=== PATIENT | male | born 1945 | race Caucasian/White ===

== ENCOUNTER → 2017-10-25 17:49 | Outpatient (REF) | payer BC, SELFPAY ==
[2017-10-25 21:16] LABS: Abs Immature Grans 0.04 k/cumm (0.0-0.09); Absolute Basophil Count 0.05 k/cumm (0.0-0.2); Absolute Eosinophil Count 0.33 k/cumm (0.0-0.7); Absolute Lymphocyte Count 1.41 k/cumm (1.2-3.4); Basophils % 0.5; Eosinophils % 3.2; HGB 11.2 g/dL (13.5-17.5); Immature Grans % 0.4; Lymphocytes % 13.6; Mean Corp. HGB Concentration 31.1 g/dL (32.0-36.0); Mean Corpuscular Hemoglobin 30.4 pg (27.0-33.0); Mean Corpuscular Volume 97.6 fL (80-95); Mean Platelet Volume 9.8 fL (8.0-11.0); Monocytes % 5.8; Neutrophils % 76.5; Platelet Count 294 x1000/uL (130-400); RBC 3.69 m/cumm (4.50-6.00); RBC Distribution Width 15.5 % (11.8-14.1); White Blood Cell Count 10.33 k/cumm (4.4-10.8)
[2017-10-25 21:44] LABS: Anion Gap 10.3 mmol/L (3-11); BUN 30 mg/dL (7-18); C-Reactive Protein 7.32 mg/dL (0.0-0.3); CO2 28.7 mmol/L (21.0-32.0); CREATININE 1.63 mg/dL (0.70-1.30); Calcium 8.7 mg/dL (8.5-10.1); Chloride 103 mmol/L (98-107); Estimated GFR 41.56 (mL/min/1.73m2); FREE T4 1.13 ng/dL (0.76-1.46); Glucose 146 mg/dL (70-100); Potassium 4.1 mmol/L (3.5-5.1); Sodium 142 mmol/L (136-145); TSH 5.63 uIU/mL (0.358-3.74)
[2017-10-25 21:56] LABS: ESR 109 MM/HR (1-20)
[2017-10-25 22:01] LABS: Cholesterol 152 mg/dL (50-200); HDL Cholesterol 33 mg/dL (40-60); LDL CHOLESTEROL 104 mg/dL (<100); Triglyceride 120 mg/dL (30-150)
== END ==
LOC: NCHCN 17:49
PROVIDERS: PCP Internal Medicine; Visit Provider Internal Medicine
DX: I87.2 Venous insufficiency (chronic) (peripheral) (principal); E78.5 Hyperlipidemia, unspecified; E03.9 Hypothyroidism, unspecified; I10 Essential (primary) hypertension
CPT/HCPCS: 80048; 80061; 83721; 85652; 84439; 84443; 85025; 86140

== ENCOUNTER 2017-11-11 16:00 | Outpatient (RCR) | payer BC, SELFPAY ==
--- NOTE | 2017-11-03 15:30 | IE_ITS ---
Date: November 03, 2017 Referring: Zac Tinoco MD M.D. Diagnosis: Bilateral knee OA P.T. Diagnosis: Same SUBJECTIVE: History of Present Illness: Vasu states that his knees began bothering him over the summer. He states he has had some health issues which has left him weak and has significantly reduced his mobility. He states he and his take a road trip to [place] each summer, this year about a week into their trip he began feeling shaky, which he states typically indicates to him that he is getting an infection. His symptoms seem to come and go and he did not seek out care. By the time he reached [place], he presented to an Urgent Care clinic there where he was hospitalized for sepsis. At that point, he began experiencing pain in the L hip, which he had replaced 16 years prior. He was found to have a strep infection affecting his prosthesis and he underwent a TK revision on 09/11/17. He spent 6 weeks in the hospital and rehab facility. He was eventually able to return home to [place] and since being home he has noticed increasing knee pain and feeling of instability. States he relies on a walker due to his knees buckling on the R moreso than the L. He states he gets a great deal of crepitus which is painful for him and also precedes the buckling. Denies any falls, although states he has had several near falls and feels as though his stamina is generally reduced. Pain Ratin/10 R knee, 6/10 L knee. Pain Location: Circumferentially about the knees bilaterally. 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 Patient has 3 horses at home who he typically cares for. He is normally able to do so without an assistive device. He does admit to difficulty standing for long periods due to ongoing back pain. Estimates that he can stand for about 5-10 mins prior to needing to sit. States that he can walk without difficulty at baseline. Current Level of Function: Heavy reliance on assistive device. He struggles significantly with stairs. He requires assistance donning and doffing his shoes. States he is unable to walk community distances, struggling even from the car to his home. He is unable to stand long periods and is unable to independently manage stairs. Previous Treatment: Acute care stay related to sepsis and L total hip revision. Several week rehab stay out in [place] after acute care. No intervention in the meantime. Comorbidities: Hypertension, PVD, with history of poorly healing wounds, osteoporosis, kidney disease with patients relating that he has recently been taken off Celebrex after many years due to his diminished kidney function. A-fib Falls in the last year: __X__ No ____Yes - How many? ____ - (if over 2, balance SM needs to be completed) Reported hospitalizations in the last year - ____ No __X__ Yes - Dates of admission/reason: as above. Medications: List provided from Dr. Tinoco's office (Furosemide, Vitamin D3, Probiotic, Xarelto, [place] 3, Glucosamine, Vitamin C, B12, multi vitamin, Levothyroxine, Allopurinol, Toprol and Spironolactone) Quality of Life: ____ Excellent __X__ Good ____ Fair ____ Poor Standardized Measures: LEFS score: 80% OBJECTIVE: Posture: Static standing the patient has heavy reliance on UE support to wheeled walker. He lacks terminal knee extension bilaterally. Gait: (+) antalgia with heavy reliance on the walker. Patient has a slow, shuffling gait pattern with poor foot clearance bilaterally. He maintains full elbow extension and anteroflexed trunk position with ambulation. Palpation: Edema: (+) pitting edema noted through bilateral LE's with significant trophic changes throughout the feet extending to level of the knees with a dusky appearance. He also has a healing wound noted on the R baxter. (+) joint effusion in L knee. ROM: Hip flexion allows 90 degrees on the L, 90 R, limited by anterior knee pain. Knee motion allows R knee -5 degrees of extension to 90 degrees flexion. L knee -25 extension, 110 flexion. Joint Accessory Motion: Marked crepitus noted with patella mobilizations which is hypomobile through all planes of motion bilaterally. Tibiofemoral joint mobility is markedly restricted. The patient also has crepitus noted with all active movements of bilateral knees. Strength: Hip flexion is 4/5 bilaterally, quads 3+/5 R, 4/5 L both limited by anterior knee pain. Hamstrings are 4-/5 bilaterally, again limited by significant knee pain. Ankle dorsiflexion is at least 3/5 bilaterally. Treatment: Today's session consisted of an evaluation followed by instruction in an early home program. The patient was able to perform 2 reps of static standing x30 seconds although with obvious discomfort and difficulty. He requires a 2 minute rest period after his first repetition. Progress him to standing marching where he requires significant cueing to complete 10 reps, again with heavy reliance on wheeled walker. IE: [id number] Direct treatment time: 50 mins Total treatment time: 50 mins ASSESSMENT: Patient is a 72-year-old male, referred for PT services with the diagnosis of bilateral knee OA. Patient presents with clinical signs and symptoms consistent with diagnosis, with multiple comorbidities including recent hospitalization for sepsis and L total hip revision. Patient is demonstrating significant functional mobility and requires skilled PT intervention to address pain due to knee osteoarthritis as well as his generalized deconditioning. He presents with the following impairment level findings: 1: Decreased LE strength. 2: Osteoarthritic changes at the knees with instability and marked crepitus. 3: Joint hypomobility bilateral knees. 4: Trophic changes related to PVD. 5: Gait impairments. This is demonstrating the following functional impairments: 1: Decreased tolerance to household distance ambulation. 2: Unable to independent don/doff shoes. 3: Unable to manage stairs. 4: Unable to drive. 5: Unable to perform normal household duties, particularly caring for his hordes. Patient is assessed as: ____ Low 87749 ____ Moderate 40563 __X__ High 22866 complexity, based on the following: History: (list): Increased knee pain in patient with chronic bilateral knee osteoarthritis with symptom exacerbated by significant deconditioning related to recent hospitalization and sepsis and subsequent L hip revision. Patient also has multiple comorbidities including chronic back pain, which limits his baseline mobility, bilateral TKAs in what appears to be severe PVD with hx of poorly healing wounds. See comorbidities and social history. Examination: (list): X See above for functional limitations and impairments. Presentation: Stable . Evolving X Unstable Decision-Making: Low complexity Moderate complexity X High complexity % Disability based on __X__ Patient requires skilled PT intervention to remediate the above functional limitations to return to: __X__ Premorbid level of function __X__ Return to full functional mobility __X__ Return to work demands __X__ Improve QOL Prognosis: ____ Excellent ____ Good __X__ Fair ____ Poor STG: __6__ weeks. 1: Patient able to tolerate static standing without UE support for greater than 5 mins allowing him to do dishes, perform self care activities., 2: Patient able to independently don/doff socks and shoes. 3: Improve confidence with household ambulation by self report with use of wheeled walker. LTG: __12__ weeks. 1: Patient able to resume driving. 2: Patient able to perform short distance ambulation without assistive device. 3: Patient able to independently manage a flight of stairs with UE support to rails. PLAN: Patient to be seen 2 x per week for PT intervention, primarily therapeutic exercise based with both open/close chain strengthening activities. Will work on improving patients tolerance to weight bearing activities and incorporate cardiovascular conditioning activities to improve his overall activity tolerance. Although patient would like benefit from an aquatic therapy setting , will defer on this due to his decreased skin integrity and recent hx of sepsis. Thank you for this referral. Please do not hesitate to contact me with any questions or concerns regarding this patient's plan of care.
--- NOTE | 2017-11-09 15:50 | PTTR_ITS ---
DATE: 11/09/17 Pt cancelled their PT appointment today.
--- NOTE | 2017-11-11 16:16 | PTTR_ITS ---
DATE: 11/11/17 SUBJECTIVE: Pt reports that on Wednesday he went to turn and his leg gave out and he fell to the floor in the kitchen. He states that the next day he went to the hospital and they informed him that his R hip was dislocated and they also gave him a cortisone shot in the R knee. OBJECTIVE: Therapeutic procedures ([id number]). * X Other: I was informed by PT Rhona Sanchez to have pt complete bridging as per дмитрий which was 10 reps, glute setsx15, and pt ambulation in the clinic with FWW with CGA for approx 3 min. Since pt is so acute and also just had a cortisone shot that is all that we completed today. I reviewed ENMANUEL precautions with pt as well. Direct treatment time: 15 Total treatment time: 20
== END 2017-11-12 23:59 | disposition home or self-care (01) ==
LOC: PT 16:00
PROVIDERS: PCP Internal Medicine; Referring Provider Internal Medicine; Visit Provider Internal Medicine
DX: M17.0 Bilateral primary osteoarthritis of knee (principal)
CPT/HCPCS: 97110; 97163

== ENCOUNTER 2018-02-14 09:59 | Outpatient (CLI) | payer BC, SELFPAY ==
--- NOTE | 2018-02-14 09:53 | DI.RAD_ITS ---
SYMPTOM/DIAGNOSIS: OA RT KNEE, OA LT KNEE LEFT KNEE AND LEG LENGTH EXAMINATION: The patient has bilateral total hip replacements which appear in good position on the limited images provided. In the right knee, there is moderate medial and lateral femoral tibial joint space narrowing and periarticular spurring present. In the left knee, there is mild medial compartment joint space narrowing and moderately severe joint space narrowing in the lateral femoral tibial joint of the patellofemoral joint. Periarticular spurring is seen in both the lateral femoral tibial joint and the patellofemoral joint. There are prominent degenerative changes seen in the left ankle with joint space narrowing and flattening of the articular surfaces. Vascular calcifications are seen in the soft tissues. The left lower extremity measures 107 cm. The right lower extremity measures 103.4 cm. IMPRESSION: Osteoarthritis of the knees, left greater than right.
== END 2018-02-14 10:19 ==
PROVIDERS: PCP Internal Medicine; Visit Provider Physician Assistant
DX: M17.0 Bilateral primary osteoarthritis of knee (principal); Z96.643 Presence of artificial hip joint, bilateral
CPT/HCPCS: 77073

== ENCOUNTER 2018-02-14 14:00 | Outpatient (CLI) | payer BC, MEDICARE, SELFPAY ==
--- NOTE | 2018-02-14 10:22 | DI.RAD_ITS ---
See dictation of right knee of same date of service. Read as one exam.
== END 2018-02-14 14:20 ==
PROVIDERS: PCP Internal Medicine; Visit Provider Physician Assistant
DX: M17.0 Bilateral primary osteoarthritis of knee (principal); Z96.643 Presence of artificial hip joint, bilateral
CPT/HCPCS: 73560

== ENCOUNTER 2018-03-02 00:36 | Outpatient (CLI) | payer BC, SELFPAY ==
--- NOTE | 2018-03-02 07:28 | MERGE_ITS ---
*[facility]* *[facility]* [address] [place] [address] Date of study: 03/02/2018 Transthoracic Echocardiography M-mode, complete 2D, complete spectral Doppler, and color Doppler *STUDY CONCLUSIONS* Summary: 1. Left ventricle: The cavity size was normal. Wall thickness was increased in a pattern of moderate LVH. Systolic function was moderately reduced. The estimated ejection fraction was 35-40%. Diffuse hypokinesis. 2. Ascending aorta: The ascending aorta was mildly dilated. 3. Mitral valve: There was mild regurgitation. 4. Left atrium: The atrium was severely dilated. 5. Right ventricle: The cavity size was normal. Wall thickness was normal. Systolic function was normal. 6. Right atrium: The atrium was dilated. 7. Tricuspid valve: There was mild-moderate regurgitation. 8. Pulmonary arteries: Pulmonary systolic pressure was increased, in the range of 35mm Hg to 40mm Hg. *PATIENT PRESENTATION* Height: 188cm ((74in) ) S/D Pressure: 123 / 72 Weight: 124.7kg ((274.4lb) ) BSA: 2.59m^2 Test start time: 07:40 AM. Test stop time: 08:50 AM. CONSULTING Moiz Tinoco MD PERFORMING [facility] PROFESSOR OF BIOLOGY RT Laureen Thorpe)(CT), [facility] ORDERING Luca Samano REFERRING Luca Samano *PROCEDURE DATA* Procedure information: The patient was identified by two identifiers. This study was interpreted by [facility]. Pertinent images and digital data are archived for permanent storage and are available for subsequent review. Comparison was made to the study of 05/25/2013. Study status: Routine. Transthoracic echocardiography. M-mode, complete 2D, complete spectral Doppler, and color Doppler. A Transthoracic Echocardiogram was performed. Scanning was performed from the parasternal, apical, subcostal, and suprasternal notch acoustic windows. Images were obtained using an [id number] cardiac ultrasound machine. Image quality was adequate. Study completion: The patient tolerated the procedure well. There were no complications. History: PMH: Afib. Cardiomyopathy, evaluate EF prior to surgery. *CARDIAC ANATOMY* Left ventricle: The cavity size was normal. Wall thickness was increased in a pattern of moderate LVH. Systolic function was moderately reduced. The estimated ejection fraction was 35-40%. Diffuse hypokinesis. The study was not technically sufficient to allow evaluation of LV diastolic dysfunction due to atrial fibrillation. Aortic valve: Trileaflet; mildly calcified leaflets. Mobility was not restricted. Doppler: Transvalvular velocity was within the normal range. There was no stenosis. There was no significant regurgitation. VTI ratio of LVOT to aortic valve: 0.68. Valve area (VTI): 2.8cm^2. Indexed valve area (VTI): 1.1cm^2/m^2. Peak velocity ratio of LVOT to aortic valve: 0.59. Valve area (Vmax): 2.4cm^2. Indexed valve area (Vmax): 0.9cm^2/m^2. Mean velocity ratio of LVOT to aortic valve: 0.61. Valve area (Vmean): 2.5cm^2. Indexed valve area (Vmean): 1cm^2/m^2. Mean gradient (S): 3.2mm Hg. Peak gradient (S): 5.2mm Hg. Aorta: Aortic root: The aortic root was normal in size. Ascending aorta: The ascending aorta was mildly dilated. Mitral valve: Mildly thickened leaflets. Mobility was not restricted. Doppler: Transvalvular velocity was within the normal range. There was no evidence for stenosis. There was mild regurgitation. Valve area by pressure half-time: 5.2cm^2. Indexed valve area by pressure half-time: 2cm^2/m^2. Peak gradient (D): 4mm Hg. Left atrium: The atrium was severely dilated. Right ventricle: The cavity size was normal. Wall thickness was normal. Systolic function was normal. Pulmonic valve: The pulmonary valve appears to be grossly normal. Doppler: Transvalvular velocity was within the normal range. There was no evidence for stenosis. There was trivial regurgitation. Peak gradient (S): 1.3mm Hg. Tricuspid valve: Structurally normal valve. Doppler: Transvalvular velocity was within the normal range. There was no evidence for stenosis. There was mild-moderate regurgitation. Pulmonary artery: Pulmonary systolic pressure was increased, in the range of 35mm Hg to 40mm Hg. Right atrium: The atrium was dilated. Pericardium: There was no pericardial effusion. Systemic veins: Inferior vena cava: Well visualized. The vessel was patent and normal in size. The respirophasic diameter changes were in the normal range (greater than or equal to 50%). Baseline ECG: Atrial fibrillation. Measurements Left ventricle Value Reference LV ID, ED, PLAX 5.5 cm 3.5 - 6.0 LV ID, ES, PLAX (H) 4.3 cm 2.1 - 4.0 LV PW thickness, ED, PLAX 1.3 cm LV end-diastolic volume, 1-p A2C 158 ml LV ejection fraction, 1-p A2C 33 % LV end-diastolic volume, 1-p A4C 117 ml LV ejection fraction, 1-p A4C 39 % LV e', medial 0.127 m/sec LV E/e', medial 8 Ventricular septum Value Reference IVS thickness, ED, PLAX 1.6 cm LVOT Value Reference LVOT ID, A-P 2.3 cm LVOT area 4.1 cm^2 LVOT peak velocity, S 0.68 m/sec LVOT mean velocity, S 0.53 m/sec LVOT VTI, S 13.6 cm LVOT peak gradient, S 1.8 mm Hg LVOT mean gradient, S 1.2 mm Hg Stroke volume (SV), LVOT DP 56 ml Stroke index (SV/bsa), LVOT DP 22 ml/m^2 Aortic valve Value Reference Aortic valve peak velocity, S 1.1 m/sec Aortic valve mean velocity, S 0.87 m/sec Aortic valve VTI, S 20.0 cm Aortic mean gradient, S 3.2 mm Hg Aortic peak gradient, S 5.2 mm Hg VTI ratio, LVOT/AV 0.68 Aortic valve area, VTI 2.8 cm^2 Velocity ratio, peak, LVOT/AV 0.59 Aortic valve area, peak velocity 2.4 cm^2 Velocity ratio, mean, LVOT/AV 0.61 Aortic valve area, mean velocity 2.5 cm^2 Aortic valve area/bsa, mean velocity 1 cm^2/m^2 Aorta Value Reference Aortic root ID, ED 3.2 cm Ascending aorta ID, A-P, S 3.8 cm Left atrium Value Reference LA ID, A-P, ES 5.8 cm LA ID/bsa, A-P 2.2 cm/m^2 <=2.2 LA area, ES, A4C (H) 42 cm^2 8.8 - 23.4 LA area, ES, A2C 38 cm^2 LA volume/bsa, ES, 1-p A4C 77 ml/m^2 LA volume, ES, 2-p 164 ml LA volume/bsa, ES, 2-p 63 ml/m^2 LA/aortic root ratio 1.82 Mitral valve Value Reference Mitral E-wave peak velocity 1 m/sec Mitral deceleration time (L) 147 ms 150 - 230 Mitral pressure half-time 43 ms Mitral peak gradient, D 4 mm Hg Mitral valve area, PHT, DP 5.2 cm^2 Tricuspid valve Value Reference Tricuspid regurg peak velocity 2.8 m/sec Tricuspid peak RV-RA gradient 32.3 mm Hg Right atrium Value Reference RA area, ES, A4C (H) 35 cm^2 8.3 - 19.5 Pulmonic valve Value Reference Pulmonic peak gradient, S 1.3 mm Hg Legend: (L) and (H) priscilla values outside specified reference range. I have personally reviewed the images and have reviewed and edited the reported findings. Electronically signed by Dimitris Arnett 03/02/2018 12:56
== END 2018-03-02 00:56 ==
PROVIDERS: PCP Internal Medicine; Visit Provider Student in an Organized Health Care Education/Training Program
DX: I48.91 Unspecified atrial fibrillation (principal); I42.9 Cardiomyopathy, unspecified; I34.0 Nonrheumatic mitral (valve) insufficiency; I51.7 Cardiomegaly; Z01.810 Encounter for preprocedural cardiovascular examination
CPT/HCPCS: 93306

== ENCOUNTER 2018-03-16 10:01 | Outpatient (CLI) | payer BC, SELFPAY ==
[2018-03-16 12:10] LABS: HCT 41.7 % (40.0-50.0); HGB 13.5 g/dL (13.5-17.5); Mean Corp. HGB Concentration 32.4 g/dL (32.0-36.0); Mean Corpuscular Volume 98.8 fL (80-95); Mean Platelet Volume 10.8 fL (8.0-11.0); Platelet Count 178 x1000/uL (130-400); RBC 4.22 m/cumm (4.50-6.00); White Blood Cell Count 7.55 k/cumm (4.4-10.8)
[2018-03-16 15:14] LABS: ALT 21 U/L (12-78); AST 13 U/L (15-37); Albumin 3.1 g/dL (3.4-5.0); Alkaline Phosphatase 85 U/L (46-116); Anion Gap 8.8 mmol/L (3-11); BUN 24 mg/dL (7-18); Bilirubin, Total 0.4 mg/dL (0.2-1.0); C-Reactive Protein 7.13 mg/dL (0.0-0.3); CO2 27.2 mmol/L (21.0-32.0); CREATININE 1.16 mg/dL (0.70-1.30); Calcium 8.8 mg/dL (8.5-10.1); Chloride 106 mmol/L (98-107); Glucose 129 mg/dL (70-100); Potassium 4.3 mmol/L (3.5-5.1); Sodium 142 mmol/L (136-145); TSH 2.07 uIU/mL (0.358-3.74); Total Protein 6.5 g/dL (6.4-8.2)
[2018-03-16 15:25] LABS: T4 7.1 ug/dL (4.5-12.5)
[2018-03-16 16:14] LABS: Hemoglobin A1C 6.5 % (4.5-6.2)
== END 2018-03-16 10:21 ==
PROVIDERS: PCP Internal Medicine; Visit Provider Student in an Organized Health Care Education/Training Program
DX: M25.561 Pain in right knee (principal); M17.11 Unilateral primary osteoarthritis, right knee; I48.91 Unspecified atrial fibrillation; I25.10 Atherosclerotic heart disease of native coronary artery without angina pectoris; I10 Essential (primary) hypertension; E66.9 Obesity, unspecified; Z01.818 Encounter for other preprocedural examination
CPT/HCPCS: 36415; 80053; 85027; 86850; 86900; 86901; 83036; 84436; 84443; 86140

== ENCOUNTER 2018-03-22 05:52 | Inpatient (IN) | payer BC, MEDICARE, SELFPAY ==
[2018-03-22] VITALS (17 sets, daily range): BP systolic 80–126; BP diastolic 47–93; PULSE 50–82; RESP 11–24; TEMP 36–37.5; O2SAT 92–99
[2018-03-22] MEDS: Lactated Ringers 1,000 ML 80 ML IV ×3 (06:56→12:48)
[2018-03-22] MEDS: Celecoxib 200 MG CAP 400 MG PO (07:31)
[2018-03-22] MEDS: Gabapentin 300 MG CAP PO ×2 (07:31→21:54)
[2018-03-22] MEDS: Acetaminophen 500 MG TAB 1000 MG PO (07:31)
[2018-03-22] MEDS: oxyCODONE-CR 10 MG TABCR PO (07:32)
[2018-03-22] MEDS: VANCOMYCIN 1,000 MG in Normal Saline 250 ML 166.667 MG IVPB (07:32)
[2018-03-22] MEDS: Bupivacaine LIPOSOME/PF 133 MG/10 ML VIAL IJ ×2 (08:14→10:20)
[2018-03-22] MEDS: Bupivacaine 0.5% Pres-Free 30 ML VIAL (08:14)
[2018-03-22] MEDS: Normal Saline 50 ML (10:20)
[2018-03-22] MEDS: Bupivacaine 0.25% Pres-Free 30 ML VIAL (10:20)
[2018-03-22] MEDS: Ketorolac 30 MG/ML VIAL (10:20)
[2018-03-22] MEDS: Ketorolac 15 MG/ML VIAL IVP ×2 (13:29→19:47)
[2018-03-22] MEDS: Normal Saline Flush 10 ML SYR IV ×2 (13:30→19:49)
[2018-03-22] MEDS: Metoprolol 50 MG TAB PO ×3 (13:30→23:31)
--- NOTE | 2018-03-22 13:35 | PT.INIE ---
Date of service: 03/22/18 Time of Service: 13:35 PT Notes Date: 03/22/2018 Referring Doctor: Luca Samano MD PT Orders: PT Consult: s/p R TKA Precautions: WBAT R LE PATIENT PROFILE/ADMITTING DIAGNOSIS: Pt is a 73yr old male s/p right total knee arthroplasty by Dr. Samano 03/22/2018 PMHX: s/p right total hip reduction after dislocation 11/10/17 with reduction, right posterior total hip arthroplasty, head liner and exchange/sepsis post op ENMANUEL, total knee replacement, venous stasis, atrial fibrillation, congestive heart failure, chronic renal insufficiency Social History/Home Situation: Lives in a home with ramp to enter no stairs, baseline mobility independent gait with no device, independent with ADLS Equipment owned/DME: cane, crutches, FWW, commode SUBJECTIVE: Pt lying in bed visiting with in room agreeable to PT consult. OBJECTIVE: General observation: IV right upper extremity, Paiz catheter, 2 L O2 nasal cannula, Cryo/Cuff right knee, Deepak wrap right knee, SCD left lower extremity Mental Status: A& O x3 Pain: no c/o pain BED MOBILITY/TRANSFERS: Supine-sit: independent Sit to supine independent Sit-stand: SBA with FWW Stand-sit: SBA GAIT: SBA with FWW, WBAT RLE, 20 feet x2, step through gait pattern with cues for sequencing. Further gait distance with held due to hypotension blood pressure 88/64, patient asymptomatic. Patient returned to bed nursing notified nursing to mobilize again this evening at dinner. BALANCE: Static sitting normal Dynamic Sitting normal Static Standing fair Dynamic Standing fair SPECIAL TESTS: Mobility Limitations Standardized Measure [facility] AM -PAC ?6 clicks? Basic Mobility Inpatient Short Form: raw score: 18 standardized score: 43.63 CMS score: 46.58% [facility] modifier: CK INFORMED CONSENT/EDUCATION: Pt instructed in purpose of PT Consult and plan of care ASSESSMENT: Pt is a 73yr old male s/p right total knee arthroplasty by Dr. Samano 03/22/2018 in setting of s/p right total hip reduction after dislocation 11/10/[address] Samano, right posterior total hip arthroplasty 2002, head liner and exchange/sepsis post op ENMANUEL, total knee replacement, venous stasis. Patient presents with the following impairment level findings: Right quad weakness postoperatively, decreased range of motion right knee, decreased static and dynamic standing balance requiring use of front wheel walker for gait stability to prevent falls. Due to hypotension mobility limited this afternoon, nursing to mobilize again this evening. Anticipate return to home setting when medically cleared, patient has all DME. Impairments are contributing to the following functional limitations: AMPAC score CMS score: 46.58% Patient is assessed as a *mod 51335 complexity based on the following: History: See above Examination: See above Presentation: Evolving Decision Making: AMPAC score CMS score: 46.58% GOALS 1. Sit to stand: Independent with FWW 2. stand to sit: Independent with FWW 3. Bed to chair: Supervision with FW W 4. Gait: SBA with FWW 75 feet x2 WBAT R LLE 5. 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 plan of care Initiate physical therapy for range of motion, strengthening, bed mobility, transfers, gait training, instruction in use of assistive device and instruction in home exercise program DISCHARGE RECOMMENDATIONS home - has all DME TREATMENT TIME/MINUTES/CODES 25min IE 1335 G Codes in the area mobility of walking and moving around: projected status GP [id number] Discharge status (if discharging) GP [id number] on AMPAC score CMS score: 46.58% Roula Hernandez PT, CLT [facility] Disclaimer: This note was created using [employer] voice recognition software. It was reviewed for major content. However, there may be multiple small discrepancies and errors due to the voice recognition aspects of the software.
--- NOTE | 2018-03-22 13:46 | IN_ITS ---
Date of service: 03/22/18 Time of Service: 13:35 PT Notes Date: 03/22/2018 Referring Doctor: Luca Samano MD PT Orders: PT Consult: s/p R TKA Precautions: WBAT R LE PATIENT PROFILE/ADMITTING DIAGNOSIS: Pt is a 73yr old male s/p right total knee arthroplasty by Dr. Samano 03/22/2018 PMHX: s/p right total hip reduction after dislocation 11/10/17 with reduction, right posterior total hip arthroplasty, head liner and exchange/sepsis post op ENMANUEL, total knee replacement, venous stasis, atrial fibrillation, congestive heart failure, chronic renal insufficiency Social History/Home Situation: Lives in a home with ramp to enter no stairs, baseline mobility independent gait with no device, independent with ADLS Equipment owned/DME: cane, crutches, FWW, commode SUBJECTIVE: Pt lying in bed visiting with in room agreeable to PT consult. OBJECTIVE: General observation: IV right upper extremity, Paiz catheter, 2 L O2 nasal cannula, Cryo/Cuff right knee, Deepak wrap right knee, SCD left lower extremity Mental Status: A& O x3 Pain: no c/o pain BED MOBILITY/TRANSFERS: Supine-sit: independent Sit to supine independent Sit-stand: SBA with FWW Stand-sit: SBA GAIT: SBA with FWW, WBAT RLE, 20 feet x2, step through gait pattern with cues for sequencing. Further gait distance with held due to hypotension blood pressure 88/64, patient asymptomatic. Patient returned to bed nursing notified nursing to mobilize again this evening at dinner. BALANCE: Static sitting normal Dynamic Sitting normal Static Standing fair Dynamic Standing fair SPECIAL TESTS: Mobility Limitations Standardized Measure [facility] AM -PAC ?6 clicks? Basic Mobility Inpatient Short Form: raw score: 18 standardized score: 43.63 CMS score: 46.58% [facility] modifier: CK INFORMED CONSENT/EDUCATION: Pt instructed in purpose of PT Consult and plan of care ASSESSMENT: Pt is a 73yr old male s/p right total knee arthroplasty by Dr. Samano 03/22/2018 in setting of s/p right total hip reduction after dislocation 11/10/[address] Samano, right posterior total hip arthroplasty 2002, head liner and exchange/sepsis post op ENMANUEL, total knee replacement, venous stasis. Patient presents with the following impairment level findings: Right quad weakness postoperatively, decreased range of motion right knee, decreased static and dynamic standing balance requiring use of front wheel walker for gait stability to prevent falls. Due to hypotension mobility limited this afternoon, nursing to mobilize again this evening. Anticipate return to home setting when medically cleared, patient has all DME. Impairments are contributing to the following functional limitations: AMPAC score CMS score: 46.58% Patient is assessed as a *mod 39760 complexity based on the following: History: See above Examination: See above Presentation: Evolving Decision Making: AMPAC score CMS score: 46.58% GOALS 1. Sit to stand: Independent with FWW 2. stand to sit: Independent with FWW 3. Bed to chair: Supervision with FW W 4. Gait: SBA with FWW 75 feet x2 WBAT R LLE 5. Independent with strengthening program for right TKA PLAN OF CARE/TREATMENT PLAN: 1-2/day x1 week PRESS LEADER instructed in PT plan of care Initiate physical therapy for range of motion, strengthening, bed mobility, transfers, gait training, instruction in use of assistive device and instruction in home exercise program DISCHARGE RECOMMENDATIONS home - has all DME TREATMENT TIME/MINUTES/CODES 25min IE 1335 G Codes in the area mobility of walking and moving around: projected status GP [id number] Discharge status (if discharging) GP [id number] on AMPAC score CMS score: 46.58% Roula Hernandez PT, CLT [facility] Disclaimer: This note was created using [employer] voice recognition software. It was reviewed for major content. However, there may be multiple small discrepancies and errors due to the voice recognition aspects of the software.
--- NOTE | 2018-03-22 15:28 | NUR.NOTE ---
Nursing Note: Admited from PACU to room 212 via stretcher. Oriented to room and call friedman system. Left buttock is noted to be very red & mid back has a priscilla & bruise from injection. Hover mat used for transfer. LS rhonchi in bilat bases and dim thruout. Occasional congested cough. Enc to take deep breaths. Sips of clear given. BS +. Denies nausea. Denies pain. Paiz to gravity and noted to be cloudy in bag and stated per handoff that UC was sent from OR. RTK dressing CDI w james wrap down to toes for compression. Cryo cuff in use. RLE elevated on pillow for edema. Teds in use & SCDS placed at this time. PP+. See VS & IV interventions.
--- NOTE | 2018-03-22 16:12 | W.PM.OP ---
Date of service: 03/22/18 Time of Service: 12:12 Operative Note DATE OF PROCEDURE: 03/22/18 PRE-OP DIAGNOSIS: Right Knee Arthritis POST-OP DIAGNOSIS: same PROCEDURE: Right Total Knee Arthroplasty with Intraoperative Navigation SURGEON: Luca Samano PATCHING MACHINE OPERATOR: Priscilla Solo ANESTHESIA: regional and spinal ESTIMATED BLOOD LOSS: 400 PATHOLOGY: none sent TOURNIQUET TIME: 32 COMPLICATIONS: None Patient was transported to: PACU Patient's condition: stable Implants: 1. Depuy Attune Posterior Stabilized Femoral Component, Size 9 2. Depuy Attune Fixed Platform Tibial Component, Siz 8 3. Depuy Attune 9 x 6 mm fixed, Stabilized Poly 4. Depuy Attune Patellar Component, Size 38 mm Indications: I have seen Vasu in clinic for symptoms of knee arthritis, confirmed with radiographic findings. He has exhausted nonoperative methods and was having significant limitations in daily function and desired better function and less pain. I discussed the technical details of a knee replacement. I explained the risks of the procedure to include, but not limited to, bleeding, infection, pain, stiffness, fracture, damage to nerves and vessels, damage to muscles and tendons, loosening, need for repeat procedure, blood clot and cardiopulmonary demise. Despite these risks, Vasu elected to proceed. Findings: There was significant signs of arthritis throughout the knee. Procedure Description: Vasu was greeted in the preoperative holding area where the correct side was identified and marked. The consent was reviewed with the patient and signed. The history and physical was updated. All questions were answered. Preoperative mediacations were administered: Acetaminophen 1000mg, Celebrex 400mg, Gabapentin 300mg, and Oxycontin 10mg. An adductor canal block was then administered by the anesthesia team in the PACU. Vasu was taken back to the operating room. A spinal anesthestic was then administered. The patient was placed into the supine position on the operating room table. A nonsterile tourniquet was placed high onto the leg but only used for cementing. Posts were placed for positioning during the procedure. All bony prominences were well padded. Prophylactic antibiotics in the form of vancomycin were administered. 1g of Tranxemic Acid was given intravenously within 30 minutes of incision. The right leg was then prepped with Chloraprep and draped in a standard fashion with impervious stockinette and extremity drape with Iodine impregnated skin protection. A timeout to confirm correct identity, side and site, procedure, allergies, anesthesia, and medical concerns was performed. With the knee in some flexion, a midline incision was made overlying the knee. Full thickness skin flaps were raised once the extensor mechanism was encountered. These were raised medially and laterally. Any bleeding was controlled with electrocautery. Once the extensor mechanism was fully exposed, a medial parapatellar arthrotomy was performed in a flexed position. All bleeding from the arthrotomy and the geniculate arteries was coagulated. A medial subperiosteal peel was performed with electrocautery to the midcoronal plane. Due to the significant varus deformity the entire medial tibial plateau was exposed. The fat pad was removed while keeping the patellar tendon protected. The anterior distal femur synovium was removed for later visualization. The ACL and PCL were resected and the anterior horn of the lateral meniscus was transected. The knee was then flexed with the patella everted. Large osteophytes from the tibia were removed. Large osteophytes from the femur were removed. There was some hypoplasia of the lateral femoral condyle and any remnant cartilage of the medial femoral condyle was removed for appropriate thickness. A single starting pin was then placed 1cm anterior to the PCL insertion and the notch in the direction of the femoral head. The OrthoAlign device was applied over the pin. It was oriented to be in line with the epicondylar axis and the trochlear groove. It was then pinned into place. The navigation computer was then turned on and calibrated. The distal femur cut was set at 0 degrees varus/valgus and 2.5 degrees flexion. The distal femur cutting guide then was positioned for a 11mm cut. The distal femur was cut with an oscillating saw while protecting the soft tissues. The tibia was then addressed. The OrthoAlign device was placed over the tibial tubercle and medial tibia and secured into position. Once again, OrthoAlign was calibrated and then set for a 0 degree varus/valgus cut and 3 degrees of posterior slope. With this locked into position, the cut thickness stylus was used to assess cut thickness. The medial side, most involved side, was set for a 4mm cut. This was then held in position and pinned into place with 2 additional pins and a cross pin for stability. The medial and lateral collateral ligaments were protected and the cut was performed. With this completed, it was assessed and noted to be of appropriate dimensions. The guide and OrthoAlign was removed. A spacer block was inserted and the knee was brought into extension. The 6mm spacer block provided full extension, without hyperextension and with stability of both the medial and lateral collateral ligaments was assessed. The pins from the femur and the tibia were then removed. The distal femur was then sized. The anterior stylus was placed onto the lateral ridge of the anterior femur. This indicated a size 9 femur. The external rotation of the guide was adjusted to 3 degrees to match the epicondylar axis, perpendicular to [place]?s line. The 4-in-1 cutting guide was the placed. The posterior medial femur cut was evaluated and appeared of good thickness. The spacer block was inserted underneath the cutting guide and stability was confirmed in 90 degrees of flexion. An edenilson wing was used to confirm appropriate position of the anterior cut to avoid notching. This cutting guide was ensured to be flush on the cut surface and then pinned into place with headed pins. While protecting the soft tissues, quad tendon, and collateral ligaments, the anterior and posterior cuts were performed with a saw. The central two pins were removed and the posterior and anterior chamfers were cut next. The notch-cutting guide was placed. This was pinned to lateralize the femoral component as much as possible while keeping it flush on the cut surface. This was then pinned into position. A reciprocating saw was used to make the notch cut. A rasp smoothed the cut surfaces. A trial posterior stabilized femoral component was then inserted, impacted down to the cut surfaces, and the lug holes were drilled. A provisional trial tibial component was placed and the knee was brought through range of motion. There was noted to be excellent extension and flexion. There was no significant instability. The patella was tracking without thumbs. The tibial cut surface was fully exposed. The medial and lateral menisci were removed. The tibia was then sized as a 8. The tibia had been previously marked during trialing to correspond to the center of the tibial component to help with rotation. The trial was aligned to this priscilla, approximately rotated to the medial 1/3rd of the tibial tubercle. The trial was pinned into place. The tibia was prepared with a reamer and a keel punch. The knee was then brought into extension and the patella was measured as 27 mm. Using the patellar clamp and cut guide, this was resected to a flat surface with at least 13mm of thickness remaining. The size 38 mm patella fit the best. This was oriented and then clamped into position. The lugs were drilled. The trial components were removed. The final components, except for the polyethylene were opened on the back table. The periosteal and capsular tissues, especially posteriorly, around the knee were then systematically injected with a periarticular cocktail consisting of 50cc 0.25% Marcaine, 30mg Ketorolac, 20cc of Exparal and 50cc of injectable saline. The tourniquet was then inflated to 275mmHg. The knee was thoroughly irrigated with a pulse lavage and dried. On the back table, with the implants opened, the cement was mixed. 2 batches of antibiotic laden cement were prepared with vacuum assistance. After the cement was ready a small amount was placed on to the back side of the tibial component at the keel. A small amount was placed onto the posterior flange of the femur. Cement was manual pressurized and impregnated into the cut surface of the tibia. The tibial component was then inserted into the cut surface and impacted into position. Excess cement was removed and the component was reimpacted. Again, excess cement was removed and our attention was then turned to the femur. The femoral cut surface was once again dried and cement was manually impacted into the cut surface. The femoral component was lined with the lug holes and impacted. Excess cement was removed. It was ensured to be down against the cut surface. The trial polyethylene was then inserted and the leg was brought out into full extension for the duration of the cement curing process, approximately 15min. Cement was lastly manually impacted into the cut surface of the patella and the patellar button was clamped into position and held. During this process attention was turned to the gutters of the knee and for all interfaces for any excess cement. After the cement had finally cured, approximately 15min, the clamp was removed from the patella and the knee was taken through range of motion. A size 6mm polyethylene component provided the best range of motion and stability with less than 2mm gapping with medial and lateral stress and full extension without significant hyperextension. The patella was tracking with a no-thumbs technique. The trial poly was removed and once again the knee was checked for any loose, excess, or errant cement. The poly component was then inserted and impacted into position after cleaning and drying the tibial tray. The capsule was then reapproximated with a No. 1 Vicryl at multiple locations. The capsule was finally closed with a No. 2 Stratafix, barbed suture. The tourniquet was then released and the arthrotomy appeared watertight without significant bleeding. The second dosing of 1g TXA was started. Deep tissues were then reapproximated with 0 Vicryl and 2-0 Vicryl. The skin was closed with a running 3-0 Monocryl in a subcuticular fashion. This was reinforced with skin glue. A Mepilex silver dressing was applied along with a [id number] ROMI wrap. A CryoCuff was applied. Vasu was transferred to the hospital bed without difficulty an suffering no apparent complication. Vasu has a good prognosis. Physical therapy will start today and without restrictions, weight-bearing as tolerated. Xarelto will be used for DVT prophylaxis.
[2018-03-22] MEDS: VANCOMYCIN 1,250 MG in Normal Saline 250 ML 166.6666 MG IVPB (17:21)
[2018-03-22] MEDS: Furosemide 20 MG TAB 60 MG PO (19:47)
[2018-03-22] MEDS: Omega-3 Fatty Acids 1000 MG CAP 2000 MG PO (19:47)
[2018-03-22] MEDS: Rivaroxaban 10 MG TABLET 20 MG PO (21:54)
[2018-03-23] MEDS: Ketorolac 15 MG/ML VIAL IVP ×2 (01:33→08:30)
[2018-03-23] MEDS: Lactated Ringers 1,000 ML 80 ML IV (02:25)
[2018-03-23] MEDS: VANCOMYCIN 1,250 MG in Normal Saline 250 ML 167 MG IVPB (03:39)
[2018-03-23 04:18] VITALS: PULSE 70; RESP 18; TEMP 36.3; O2SAT 96
[2018-03-23] MEDS: Metoprolol 50 MG TAB PO ×2 (05:40→11:17)
[2018-03-23] MEDS: Levothyroxine 75 MCG TAB PO (05:40)
[2018-03-23 08:26] VITALS: BP 131/73; PULSE 77; RESP 18; TEMP 36.1; O2SAT 96
[2018-03-23] MEDS: Omega-3 Fatty Acids 1000 MG CAP 2000 MG PO (08:28)
[2018-03-23] MEDS: Furosemide 40 MG TAB 120 MG PO (08:29)
[2018-03-23] MEDS: Multivitamin TAB 1 TAB PO (08:29)
[2018-03-23] MEDS: Pantoprazole 40 MG TABCR PO (08:29)
[2018-03-23] MEDS: Cyanocobalamin 500 MCG TAB PO (08:30)
[2018-03-23] MEDS: Spironolactone 25 MG TAB 12.5 MG PO (08:30)
[2018-03-23] MEDS: Ascorbic Acid 500 MG TAB PO (08:30)
[2018-03-23] MEDS: Normal Saline Flush 10 ML SYR IV (08:31)
--- NOTE | 2018-03-23 08:54 | PDOC.CMIN ---
Care Management Initial Assess REASON FOR HOSPITALIZATION:: OA (R) Knee PAST MEDICAL HISTORY/PAST SURGICAL HISTORY:: s/p right total hip reduction after dislocation 11/10/17 with reduction, right posterior total hip arthroplasty, head liner and exchange/sepsis post op ENMANUEL, total knee replacement, venous stasis, atrial fibrillation, congestive heart failure, chronic renal insufficiency PREVIOUS FUNCTIONAL STATUS/SOCIAL/FAMILY SUPPORTS:: Brennan resides in [place], [place] with his , Haley. He has a ramp to enter his home from the garage and at baseline is independent with ADLs in the community. CURRENT FUNCTIONAL STATUS:: Brennan was sitting up in his chair when CM met with him. He was pleasant in interaction and forthcoming with information. ADVANCE DIRECTIVES:: None on file at [facility]. Has patient been provided with information about the portal?: Yes Did the patient sign up for the portal?: No CODE STATUS:: DNI INSURANCE COVERAGE / FINANCIAL ISSUES:: BC/BS: Auth# [id number] EFFT 03/22-03/27. Medicare: A ONLY CURRENT HOME/COMMUNITY SERVICES/EQUIPMENT:: Cane, crutches, FWW, commode, ramp into home. PRIMARY CARE PHYSICIAN:: Moiz Tinoco, [facility] POTENTIAL DISCHARGE NEEDS:: Follow up appointments with Dr. Samano, Dr. Tinoco, PT evaluation for safe discharge considerations. PATIENT/FAMILY EDUCATION NEEDS:: Review of discharge instructions, discuss Ask Me Three self care needs upon discharge. Brennan reports feeling confident regarding recovery needs. He shares being inpatient for six weeks and working with PT and learning which exercises are appropriate for recovery. ANTICIPATED BARRIERS TO DISCHARGE:: None identified. TRANSPORTATION:: Via private vehicle with his , Haley. PLAN:: Brennan will return home when ready per MD. He will follow up with Dr. Samano, his PCP and plan of care as prescribed including activity restrictions and medication recommendations. Brennan will transport via private vehicle with his , Haley.
--- NOTE | 2018-03-23 09:14 | PT.INTREAT ---
Date of service: 03/23/18 Time of Service: 09:14 PT Notes Inpatient Physical Therapy Treatment Note [facility] Date: 03/23/18 PRECAUTIONS: WBAT on R SUBJECTIVE: Brennan states that he is ready to return to home today. He states that he feels he is ready to start driving again, and is motivated to do so, as he picks his granddaughter up from school everyday, normally, and would like to resume that responsibility as soon as possible. OBJECTIVE: PAIN: No c/o pain BED MOBILITY/TRANSFERS Supine-sit: I with HOB flat Sit-stand: I Stand-sit: I GAIT Assistive Device: FWW Weight bearing: WBAT on R Assist: S Distance: 75' x2 THEREX: Patient completed a LE strengthening and stabilization program, as per flow sheet. Patient is able to complete active SLR exercise x10, without pain or difficulty. STAIRS: up/down 9x4 and 6x6 using B rails and a step-to pattern with supervision. ASSESSMENT: Patient tolerated session well without complaint. He was able to tolerate a progression in gait distance with FWW support utilizing a step-through pattern with supervision only. Patient demonstrates independence with transfers and bed mobility at this time. PLAN: Continue with PT's POC TREATMENT CODE/TIME: 30 minutes; TA/TP
--- NOTE | 2018-03-23 09:20 | PTTR_ITS ---
Date of service: 03/23/18 Time of Service: 09:14 PT Notes Inpatient Physical Therapy Treatment Note [facility] Date: 03/23/18 PRECAUTIONS: WBAT on R SUBJECTIVE: Brennan states that he is ready to return to home today. He states that he feels he is ready to start driving again, and is motivated to do so, as he picks his granddaughter up from school everyday, normally, and would like to resume that responsibility as soon as possible. OBJECTIVE: PAIN: No c/o pain BED MOBILITY/TRANSFERS Supine-sit: I with HOB flat Sit-stand: I Stand-sit: I GAIT Assistive Device: FWW Weight bearing: WBAT on R Assist: S Distance: 75' x2 THEREX: Patient completed a LE strengthening and stabilization program, as per flow sheet. Patient is able to complete active SLR exercise x10, without pain or difficulty. STAIRS: up/down 9x4 and 6x6 using B rails and a step-to pattern with supervision. ASSESSMENT: Patient tolerated session well without complaint. He was able to tolerate a progression in gait distance with FWW support utilizing a step- through pattern with supervision only. Patient demonstrates independence with transfers and bed mobility at this time. PLAN: Continue with PT's POC TREATMENT CODE/TIME: 30 minutes; TA/TP
--- NOTE | 2018-03-23 09:31 | INITIAL_ITS ---
Care Management Initial Assess REASON FOR HOSPITALIZATION:: OA (R) Knee PAST MEDICAL HISTORY/PAST SURGICAL HISTORY:: s/p right total hip reduction after dislocation 11/10/17 with reduction, right posterior total hip arthroplasty, head liner and exchange/sepsis post op ENMANUEL, total knee replacement, venous stasis, atrial fibrillation, congestive heart failure, chronic renal insufficiency PREVIOUS FUNCTIONAL STATUS/SOCIAL/FAMILY SUPPORTS:: Brennan resides in [place], [place] with his , Haley. He has a ramp to enter his home from the garage and at baseline is independent with ADLs in the community. CURRENT FUNCTIONAL STATUS:: Brennan was sitting up in his chair when CM met with him. He was pleasant in interaction and forthcoming with information. ADVANCE DIRECTIVES:: None on file at [facility]. Has patient been provided with information about the portal?: Yes Did the patient sign up for the portal?: No CODE STATUS:: DNI INSURANCE COVERAGE / FINANCIAL ISSUES:: BC/BS: Auth# [id number] EFFT 03/22-03/27. Medicare: A ONLY CURRENT HOME/COMMUNITY SERVICES/EQUIPMENT:: Cane, crutches, FWW, commode, ramp into home. PRIMARY CARE PHYSICIAN:: Moiz Tinoco, [facility] POTENTIAL DISCHARGE NEEDS:: Follow up appointments with Dr. Samano, Dr. Tinoco, PT evaluation for safe discharge considerations. PATIENT/FAMILY EDUCATION NEEDS:: Review of discharge instructions, discuss Ask Me Three self care needs upon discharge. Brennan reports feeling confident regarding recovery needs. He shares being inpatient for six weeks and working with PT and learning which exercises are appropriate for recovery. ANTICIPATED BARRIERS TO DISCHARGE:: None identified. TRANSPORTATION:: Via private vehicle with his , Haley. PLAN:: Brennan will return home when ready per MD. He will follow up with Dr. Samano, his PCP and plan of care as prescribed including activity restrictions and medication recommendations. Brennan will transport via private vehicle with his , Haley.
--- NOTE | 2018-03-23 09:31 | PT.INDS ---
Date of service: 03/23/18 Time of Service: 09:31 PT Notes Inpatient Physical Therapy Discharge Summary Date: 03/23/18 Dates of Service: 03/22/18-03/23/18 SUBJECTIVE: NT OBJECTIVE: 03/22/18-03/23/18 BED MOBILITY/TRANSFERS: Supine-sit: independent Sit to supine independent Sit-stand: independent with FWW Stand-sit: independent GAIT: supervision with FWW 75ftx2 WBAT R LE STAIRS: up/down 15 steps with railings supervision BALANCE: Static sitting normal Dynamic Sitting normal Static Standing fair Dynamic Standing fair ASSESSMENT: Pt is a 73yr old male s/p right total knee arthroplasty by Dr. Samano 03/22/2018 in setting of s/p right total hip reduction after dislocation 11/10/[address] Samano, right posterior total hip arthroplasty 2001, head liner and exchange/sepsis post op ENMANUEL, total knee replacement, venous stasis. Patient was seen for 2 PT visits. Progressed from SBA standing transfers to independent, from SBA gait with FWW 20ftx2 to supervision gait with FWW 75ftx2, able to ascend/descend 15 steps with railing supervision. Pt has met therapy goals and is at functional level to return to home setting when medically cleared. GOALS 1. Sit to stand: Independent with FWW 2. stand to sit: Independent with FWW 3. Bed to chair: Supervision with FW W 4. Gait: SBA with FWW 75 feet x2 WBAT R LLE 5. Independent with strengthening program for right TKA Pt met goals # 1, 2, 3, 4, 5 DISCHARGE RECOMMENDATIONS home - has all DME G Codes in the area mobility of walking and moving around: Discharge status (if discharging) GP [id number] Roula Hernandez PT Roula Hernandez PT, CLT [facility]
[2018-03-23 11:13] VITALS: BP 113/76; PULSE 60; RESP 20; TEMP 36.3; O2SAT 100
--- NOTE | 2018-03-23 11:31 | DSE_ITS ---
Date of service: 03/23/18 Time of Service: 12:28 DS: Diagnosis Discharge Diagnosis (1) Arthritis of right knee: Status: Acute Discharge Plan Disposition Patient Disposition: HOME Condition: Good Discharge Details Reason For Visit: OA (R) KNEE Admit Date/Time: 03/22/18 05:52 Admit Provider: Luca Samano Attending Provider: Luca Samano Primary Care Provider: Moiz Tinoco Hospital Course Hospital Course: Patient was admitted to the medical/surgical floor following the procedure. He was noted to have some cloudy urine at the time of Falcon catheter placement in the urine culture was obtained. He was treated with a standard prophylactic antibiotics for this coverage as well. The surgery was tolerated well without any notable medical, surgical, or anesthetic complications. Mobilization began postoperatively. The falcon catheter was removed and voiding spontaneously. Vitals were stable. Physical therapy worked with the patient and was cleared for discharge home. No acute medical issues. Home Meds and New Rx's Prescriptions: New docusate sodium [Colace] 100 mg Capsule 100 mg PO BID PRN PRN (Reason: Constipation) Qty: 0 RF: 0 polyethylene glycol 3350 17 gram Powder In Packet 17 g PO BID PRN PRN (Reason: Constipation) Qty: 0 RF: 0 celecoxib 100 mg capsule 100 mg PO BID Qty: 60 RF: 3 oxycodone 5 mg tablet 2.5 - 5 mg PO Q4H Qty: 10 RF: 0 Continued allopurinol 300 MG tablet 300 mg PO DAILY RF: 0 multivitamin 1 EACH capsule 1 ea PO DAILY RF: 0 glucosamine sulfate 2KCl 1,000 MG tablet 4 cap PO DAILY RF: 0 omega-3 fatty acids-fish oil [Fish Oil] 1 EACH capsule 2 cap PO BID RF: 0 levothyroxine 75 MCG tablet 75 mcg PO DAILY@0600 Qty: 90 RF: 0 Xarelto 20 MG tablet 20 mg PO HS Qty: 0 RF: 0 ascorbic acid (vitamin C) [Vitamin C] 500 mg Tablet 500 mg PO DAILY RF: 0 cholecalciferol (vitamin D3) [Vitamin D3] 1,000 unit Capsule 1,000 unit PO DAILY RF: 0 Probiotic Complex 25 billion cell -100 mg Capsule 1 cap PO DAILY RF: 0 spironolactone 25 MG tablet 0.5 tab PO DAILY RF: 0 cyanocobalamin (vitamin B-12) [Vitamin B-12] 500 mcg Tablet 500 mcg PO DAILY RF: 0 furosemide 20 mg Tablet 3 tab PO HS RF: 0 furosemide 40 MG tablet 3 tab PO DAILY RF: 0 metoprolol succinate 50 MG tablet extended release 24 hr 200 mg PO DAILY RF: 0 acetaminophen [Acetaminophen Extra Strength] 500 MG tablet 1,000 mg PO Q8H PRN PRNQty: 60 RF: 3 Discharge Instructions Additional Instructions: Dr. Samano?s Total Knee Discharge Instructions Activity: The most important activity is to walk. You should try to take short walks a few times a day. It is important that when resting you work on keeping the knee straight. Avoid putting a pillow behind the knee as this will encourage flexion. Work on range of motion exercises as provided by Physical Therapy. - Start outpatient physical therapy within 2 weeks. - You should wear the SPENCER hose on both legs for 4 weeks. Dressing: Keep the surgical dressing in place for at least one week. After the first week it may be removed and replace with light gauze and tape or nothing. It may get wet after 3 days but avoid soaking the dressing. If it gets wet, just lightly pat dry. Medications: - You should take Tylenol and anti-inflammatory (Celebrex or Meloxicam) as your primary pain control medications - You have been prescribed a stronger pain medication (Oxycodone or Dilaudid) for breakthrough pain, take as needed as prescribed. - You will be taking Aspirin 81mg twice a day for DVT prevention unless instructed otherwise. - If you have constipation you should take Colace or Miralax (both [id number]). It takes most people 3-4 days to have a bowel movement. Follow-up: 2 weeks Referrals: Luca Samano MD [ [facility] STAFF PHYSICIAN] - Activity:: Activity as Tolerated Equipment/Supplies:: No Equipment Needed Diet:: As Tolerated Discharge Orders Discharge Orders: Discharge Order (Routine); Ordered 03/23/18 Ordered By: Luca Samano Exam Narrative Exam Narrative: The dressing is clean dry and intact. He is able to straight leg raise. His range of motion is presently 10-80 degrees comfortably. Sensation intact light touch over the deep and superficial peroneal nerves, and tibial nerve. The foot is warm well perfused. DS: Data Vitals/I&O Vitals and I&O: Vital Signs Temperature 36.3 C L 03/23/18 11:13 Temperature Source Tympanic 03/23/18 11:13 Pulse 60 03/23/18 11:13 Pulse Rhythm Regular 03/23/18 08:15 Respiratory Rate 20 03/23/18 11:13 Respiratory Effort Non-Labored 03/23/18 08:15 Respiratory Depth Normal 03/23/18 08:15 Respiratory Pattern Normal 03/23/18 08:15 Blood Pressure 113/76 03/23/18 11:13 Pulse Oximetry 100 03/23/18 11:13 Respiratory End-tidal CO2 35 03/22/18 11:55 Oxygen Delivery Method Room Air 03/23/18 11:13 Oxygen Flow Rate 0 03/23/18 11:13 Pain Level 0 03/23/18 11:13 Intake & Output 03/22/18 03/22/18 03/23/18 11:59 23:59 11:59 Intake Total 1520 / 3821.333 2301.333 / 3821.333 1263.333 / 1263.333 Output Total 700 / 700 2550 / 2550 Balance 820 / 3121.333 2301.333 / 3121.333 -1286.667 / -1286.667 Weight 129.9 kg 134.5 kg Intake: IV 1120 / 2301.333 1181.333 / 2301.333 873.333 / 873.333 Oral 400 / 1520 1120 / 1520 390 / 390 Output: Urine 300 / 300 2550 / 2550 Estimated Blood Loss 400 / 400 Other: Urine Color Yellow Yellow Urine Appearance Cloudy Clear Clear Emesis Description None None Labs on day of discharge: 03/22/18 09:15 Urine - Cath Falcon Indwelling Urine Culture - Pending Preliminary micro results at discharge 03/22/18 09:15 Urine Culture - Pending Urine - Cath Falcon Indwelling [facility] Social History Smoking/Tobacco Use Status: Former Tobacco Use
--- NOTE | 2018-03-23 14:43 | CHAPLAIN ---
Brennan told me the he usually heals quickly and is expecting to have not problems with her recovery from knee surgery. We remembered each other from when he was here a couple of years ago, after getting kicked by a horse and getting an infection, and missed a son's wedding in [place]. 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
== END 2018-03-23 16:00 | disposition home or self-care (01) | DRG 470 ==
LOC: PDS 09:48 → MS 11:26
PROVIDERS: Admitting Provider Student in an Organized Health Care Education/Training Program; PCP Internal Medicine; Visit Provider Student in an Organized Health Care Education/Training Program
PROC: 0SRC0J9 Replacement of Right Knee Joint with Synthetic Substitute, Cemented, Open Approach (ICD-10-PCS; CPT 27447; principal; 2018-03-22 09:00)
DX: M17.11 Unilateral primary osteoarthritis, right knee (principal); Z96.651 Presence of right artificial knee joint; G47.33 Obstructive sleep apnea (adult) (pediatric); E78.5 Hyperlipidemia, unspecified; E03.9 Hypothyroidism, unspecified; N18.9 Chronic kidney disease, unspecified; I12.9 Hypertensive chronic kidney disease with stage 1 through stage 4 chronic kidney disease, or unspecified chronic kidney disease; J98.4 Other disorders of lung; R82.71 Bacteriuria
CPT/HCPCS: 27447; 20985; 87077; 97110; 97162; 97530; NC; 87086; 87186; J1100; J1885; J2250; J2370; J2405

== ENCOUNTER 2018-04-08 10:33 | Outpatient (CLI) | payer BC, MEDICARE, SELFPAY ==
--- NOTE | 2018-04-08 10:38 | DI.RAD_ITS ---
SYMPTOMS/DIAGNOSIS: S/P RIGHT TKA LEG LENGTH EXAMINATION AND RIGHT KNEE: The patient has bilateral total hip replacements. There is a total knee replacement of the right knee. The orthopedic hardware appears in good position without evidence of failure. In the left knee, there is marked narrowing of the lateral femorotibial joint space and moderate periarticular spurring. In the medial femorotibial joint compartment, there is chondrocalcinosis and mild periarticular spurring present. Vascular calcifications are seen in the soft tissues. The right lower extremity measures 105.1 cm, the left lower extremity measures 102.5 cm. Note is made of moderately severe degenerative changes of the left ankle.
== END 2018-04-08 10:53 ==
PROVIDERS: PCP Internal Medicine; Visit Provider Student in an Organized Health Care Education/Training Program
DX: Z96.651 Presence of right artificial knee joint (principal); M17.12 Unilateral primary osteoarthritis, left knee; M19.072 Primary osteoarthritis, left ankle and foot; Z96.643 Presence of artificial hip joint, bilateral; Z47.1 Aftercare following joint replacement surgery
CPT/HCPCS: 73560; 77073

== ENCOUNTER 2018-05-05 09:14 | Outpatient (CLI) | payer BC, MEDICARE, SELFPAY ==
[2018-05-05 09:43] LABS: HCT 42.8 % (40.0-50.0); HGB 13.7 g/dL (13.5-17.5); Mean Corpuscular Hemoglobin 32.1 pg (27.0-33.0); Mean Corpuscular Volume 100.2 fL (80-95); Mean Platelet Volume 10.6 fL (8.0-11.0); Platelet Count 147 x1000/uL (130-400); RBC 4.27 m/cumm (4.50-6.00); RBC Distribution Width 13.8 % (11.8-14.1); White Blood Cell Count 6.69 k/cumm (4.4-10.8)
[2018-05-05 11:37] LABS: Anion Gap 5.6 mmol/L (3-11); BUN 20 mg/dL (7-18); CO2 32.4 mmol/L (21.0-32.0); CREATININE 1.03 mg/dL (0.70-1.30); Calcium 8.9 mg/dL (8.5-10.1); Chloride 104 mmol/L (98-107); Glucose 96 mg/dL (70-100); Sodium 142 mmol/L (136-145)
== END 2018-05-05 09:34 ==
PROVIDERS: PCP Internal Medicine; Visit Provider Student in an Organized Health Care Education/Training Program
DX: M25.562 Pain in left knee (principal); M17.12 Unilateral primary osteoarthritis, left knee; Z01.818 Encounter for other preprocedural examination; I48.91 Unspecified atrial fibrillation; I10 Essential (primary) hypertension; I25.10 Atherosclerotic heart disease of native coronary artery without angina pectoris; E66.9 Obesity, unspecified
CPT/HCPCS: 36415; 80048; 85027; 86850; 86900; 86901

== ENCOUNTER 2018-05-10 08:23 | Inpatient (IN) | payer BC, MEDICARE, SELFPAY ==
[2018-05-10] VITALS (14 sets, daily range): BP systolic 112–144; BP diastolic 66–87; PULSE 69–86; RESP 14–21; TEMP 35.6–36.5; O2SAT 94–99
[2018-05-10] MEDS: Lactated Ringers 1,000 ML 80 ML IV ×3 (09:20→17:33)
[2018-05-10] MEDS: CLINDAMYCIN 900 MG/50 ML BAG 50 MG IVPB (12:42)
[2018-05-10] MEDS: Acetaminophen 500 MG TAB 1000 MG PO (13:00)
[2018-05-10] MEDS: oxyCODONE-CR 10 MG TABCR PO (13:00)
[2018-05-10] MEDS: Gabapentin 300 MG CAP PO ×2 (13:00→21:34)
[2018-05-10] MEDS: Celecoxib 200 MG CAP 400 MG PO (13:00)
[2018-05-10] MEDS: Bupivacaine 0.5% Pres-Free 30 ML VIAL (13:07)
[2018-05-10] MEDS: Bupivacaine LIPOSOME/PF 133 MG/10 ML VIAL IJ ×2 (13:07→14:55)
[2018-05-10] MEDS: FAMOTIDINE 20 MG/50 ML BAG 50 MG (13:20)
--- NOTE | 2018-05-10 13:56 | NUR.NOTE ---
1135: Pt. sitting in recliner, spouse in room. Nurse administering IV Vanco and scanning PO meds for ortho cocktail, when pt. states I am going to pass out , spouse says right now?. Vanco infusion stopped. This nurse lowered back of recliner and layed pt down, call friedman pulled and retrieved cool clothes. BP 84/53. Anesthesia notified.Pt. reports a headache and feeling hot. Rocael Jaffe CRNA, in to see pt. 1145: Vitals taken: 36.8,74,16,112/60,90 % RA. Pt. reports slight nausea. Pt. denies chest pain, SOB, vision disturbances or tingling in extremities. Vanco infusion restarted per Rocael Jaffe cRNA. EKG ordered by HISTOTECHNOLOGIST. RT paged. Pt's O2 sat 86-88%, with deep breaths 93%. Maira Deutsch CRNA and HISTOTECHNOLOGIST student in to see pt. HISTOTECHNOLOGIST put pt. on O2 at 3L. Call friedman within reach. 1200: RT contacted again for EKG. 1210: This nurse noted redness around pt's neck, hands and bilateral sides under arms to waist. Vanco infusion stopped. Vitals taken: 36.5, 82, 18, 102/60 94% 3L. Maira Deutsch CRNA and student HISTOTECHNOLOGIST notified and in to see pt. Pt. reports nausea worsened. 1220: Benadryl, Decadron and Zofran given by CRNAs.1237: Vitals taken. 36.1, 84, 16, 115/74, 100% 3L. Pt. lying in recliner, states he is feeling better. Spouse and inflated ball molder in room. 1245: Clindamycin 900 mg IV started per Maira Deutsch CRNA. Famotidine IV given by HISTOTECHNOLOGIST. 1300: Pt. states he feels better and agreeable to taking PO ortho cocktail ordered by Dr. Samano. See PASTORA, pt. educated prior to administration . 1305: Pt. taking to OR for block by Joi Deutsch CRNA and HISTOTECHNOLOGIST student. Nursing Note:
[2018-05-10] MEDS: Ketorolac 30 MG/ML VIAL (14:55)
[2018-05-10] MEDS: Bupivacaine 0.25% Pres-Free 30 ML VIAL (14:55)
[2018-05-10] MEDS: Normal Saline 50 ML (14:55)
[2018-05-10] MEDS: Omega-3 Fatty Acids 1000 MG CAP 2000 MG PO (19:47)
[2018-05-10] MEDS: Celecoxib 100 MG CAP PO (19:47)
--- NOTE | 2018-05-10 21:29 | ROE_ITS ---
Date of service: 05/10/18 Time of Service: 15:23 Operative Note DATE OF PROCEDURE: 05/10/18 PRE-OP DIAGNOSIS: Left knee osteoarthritis POST-OP DIAGNOSIS: same PROCEDURE: Left Total Knee Replacement SURGEON: Luca Samano ASSEMBLY MACHINE TOOL SETTER: Haley Arechiga ANESTHESIA: regional and spinal ESTIMATED BLOOD LOSS: 300 PATHOLOGY: none sent TOURNIQUET TIME: 29 COMPLICATIONS: None Patient was transported to: PACU Patient's condition: stable Implants: 1. Depuy Attune Posterior Stabilized Femoral Component, Size 9 2. Depuy Attune Fixed Platform Tibial Component, Size 8 3. Depuy Attune 9 x 7mm fixed, Stabilized Poly 4. Depuy Attune Patellar Component, Size 38 mm Indications: I have seen Vasu in clinic for symptoms of left knee arthritis, confirmed with radiographic findings. Vasu has exhausted nonoperative methods and was having significant limitations in daily function and desired better function and less pain. He successfully underwent a right knee arthroplasty little over 4 weeks ago and is doing very well from this. Once again, I discussed the technical details of a knee replacement. I explained the risks of the procedure to include, but not limited to, bleeding, infection, pain, stiffness, fracture, damage to nerves and vessels, damage to muscles and tendons, loosening, need for repeat procedure, blood clot and cardiopulmonary demise. Despite these risks, he elected to proceed. Findings: There was significant signs of arthritis throughout the knee. Large osteophytes are seen throughout the knee especially posteriorly and over the lateral aspect of the femur and tibia. The lateral femur was significantly hypoplastic. Procedure Description: Vasu was greeted in the preoperative holding area where the correct side was identified and marked. The consent was reviewed with the patient and signed. The history and physical was updated. All questions were answered. Prophylactic antibiotics in the form of vancomycin were started well before the case in order to finish within 1 hour of the surgery start. However, while he has tolerated this medication in the past, he developed what appeared to be red man syndrome. This is associated with some mild hypoxia and decreased blood pressure. He responded very well to Benadryl and discontinuation of vancomycin. The remainder of the preoperative medications were administered: Acetaminophen 1000mg, Celebrex 400mg, Gabapentin 300mg, and Oxycontin 10mg. An adductor canal block was then administered by the anesthesia team in the PACU. Vasu was taken back to the operating room. A spinal anesthestic was then administered. The patient was placed into the supine position on the operating room table. A nonsterile tourniquet was placed high onto the leg but only used for cementing. Posts were placed for positioning during the p rocedure. All bony prominences were well padded. Prophylactic antibiotics in the form of clindamycin were administered. 1g of Tranxemic Acid was given intravenously within 30 minutes of incision. The left leg was then prepped with Chloraprep and draped in a standard fashion with impervious stockinette and extremity drape with Iodine impregnated skin protection. A timeout to confirm correct identity, side and site, procedure, allergies, anesthesia, and medical concerns was performed. With the knee in some flexion, a midline incision was made overlying the knee. Full thickness skin flaps were raised once the extensor mechanism was encountered. These were raised medially and laterally. Any bleeding was controlled with electrocautery. Once the extensor mechanism was fully exposed, a medial parapatellar arthrotomy was performed in a flexed position. All bleeding from the arthrotomy and the geniculate arteries was coagulated. A medial subperiosteal peel was performed with electrocautery to the midcoronal plane. The fat pad was removed while keeping the patellar tendon protected. The anterior distal femur synovium was removed for later visualization. The ACL and PCL were resected and the anterior horn of the lateral meniscus was transected. The knee was then flexed with the patella everted. Large osteophytes from the tibia were removed. Large osteophytes from the femur were removed. There are large notable osteophytes from around the lateral aspect of the femur and tibia appear Using a step drill, and based on preoperative templating, the femoral canal was entered. This was done with a step drill without any difficulty. The intramedullary distal femoral cut guide was inserted, set to a 5 degree valgus cut and 9mm cut thickness. There was some hypoplasia of the lateral femoral condyle and any remnant cartilage of the medial femoral condyle was removed for appropriate thickness. The distal femoral cut guide was then held in position and pinned. With the soft tissues protected, the distal cut was performed. This was passed over a few times to ensure a planar cut. I then turned attention to the tibia. The extramedullary guide was placed onto the leg. The distal aspect was slid medial to adjust for position of center of ankle and stay in line with shaft of the tibia. Approximately 3-5 degrees of posterior slope was kept in the proximal cutting guide. The center of the guide was aligned with the PCL. The stylus was used to assess cut thickness. This was a rather balanced cut and the lateral side was set for a 8 mm cut which corresponded to about the same on the medial side. This was then held in position and pinned into place with 2 additional pins and a cross pin for stability. The medial and lateral collateral ligaments were protected and the cut was performed. With this completed, it was assessed and noted to be of appropriate dimensions. The guide was removed. A spacer block was inserted and the knee was brought into extension. The 7 mm spacer block provided full extension, without hyperextension and with stability of both the medial and lateral collateral ligaments was assessed. The pins from the femur and the tibia were then removed. The distal femur was then sized. The anterior stylus was placed onto the lateral ridge of the anterior femur. This indicated a size 9 femur. The external rotation of the guide was adjusted to 7 degrees to match the epicondylar axis, perpendicular to [place]?s line. The 4-in-1 cutting guide was the placed. The posterior medial femur cut was evaluated and appeared of good thickness. The spacer block was inserted underneath the cutting guide and stability was confirmed in 90 degrees of flexion. An edenilson wing was used to confirm appropriate position of the anterior cut to avoid notching. This cutting guide was ensured to be flush on the cut surface and then pinned into place with headed pins. While protecting the soft tissues, quad tendon, and collateral ligaments, the anterior and posterior cuts were performed with a saw. The central two pins were removed and the posterior and anterior chamfers were cut next. The notch-cutting guide was placed. This was pinned to lateralize the femoral component as much as possible while keeping it flush on the cut surface. This was then pinned into position. A reciprocating saw was used to make the notch cut. A rasp smoothed the cut surfaces. A trial posterior stabilized femoral component was then inserted, impacted down to the cut surfaces, and the lug holes were drilled. A provisional trial tibial component was placed and the knee was brought through range of motion. The patella was tracking without thumbs. The tibial cut surface was fully exposed. The medial and lateral menisci were removed. The tibia was then sized as a 8. The tibia had been previously marked during trialing to correspond to the center of the tibial component to help with rotation. The trial was aligned to this priscilla, approximately rotated to the medial 1/3rd of the tibial tubercle. The trial was pinned into place. The tibia was prepared with a reamer and a keel punch. The knee was then brought into extension and the patella was measured as 29 mm. Using the patellar clamp and cut guide, this was resected to a flat surface with at least 13mm of thickness remaining. The size 38 mm patella fit the best. This was oriented and then clamped into position. The lugs were drilled. The trial components were removed. The final components, except for the polyethylene were opened on the back table. The periosteal and capsular tissues, especially posteriorly, around the knee were then systematically injected with a periarticular cocktail consisting of 50cc 0.25% Marcaine, 30mg Ketorolac, 20cc of Exparal and 50cc of injectable saline. The tourniquet was then inflated to 275mmHg. The knee was thoroughly irrigated with a pulse lavage and dried. On the back table, with the implants opened, the cement was mixed. 2 batches of antibiotic laden cement were prepared with vacuum assistance. After the cement was ready a small amount was placed on to the back side of the tibial component at the keel. A small amount was placed onto the posterior flange of the femur. Cement was manual pressurized and impregnated into the cut surface of the tibia. The tibial component was then inserted into the cut surface and impacted into position. Excess cement was removed and the component was reimpacted. Again, excess cement was removed and our attention was then turned to the femur. The femoral cut surface was once again dried and cement was manually impacted into the cut surface. The femoral component was lined with the lug holes and impacted. Excess cement was removed. It was ensured to be down against the cut surface. The trial polyethylene was then inserted and the leg was brought out into full extension for the duration of the cement curing process, approximately 15min. Cement was lastly manually impacted into the cut surface of the patella and the patellar button was clamped into position and held. During this process attention was turned to the gutters of the knee and for all interfaces for any excess cement. After the cement had finally cured, approximately 15min, the clamp was removed from the patella and the knee was taken through range of motion. A size 7 mm polyethylene component provided the best range of motion and stability with less than 2mm gapping with medial and lateral stress and full extension without significant hyperextension. The patella was tracking with a no-thumbs technique. The trial poly was removed and once again the knee was checked for any loose, excess, or errant cement. The poly component was then inserted and impacted into position after cleaning and drying the tibial tray. The capsule was then reapproximated with a No. 1 Vicryl at multiple locations. The capsule was finally closed with a No. 2 Stratafix, barbed suture. The tourniquet was then released and the arthrotomy appeared watertight without significant bleeding. The second dosing of 1g TXA was started. Deep tissues were then reapproximated with 0 Vicryl and 2-0 Vicryl. The skin was closed with a running 3-0 Monocryl in a subcuticular fashion. This was reinforced with skin glue. A Mepilex silver dressing was applied along with a [id number] ROMI wrap. A CryoCuff was applied. Vasu was transferred to the hospital bed without difficulty an suffering no apparent complication. Vasu has a good prognosis. Physical therapy will start today and without restrictions, weight-bearing as tolerated. Home dose of rivaroxaban 20 mg daily will be used for DVT prophylaxis.
[2018-05-10] MEDS: Furosemide 20 MG TAB PO (21:34)
[2018-05-10] MEDS: CLINDAMYCIN 600 MG/50 ML BAG 100 MG IVPB (21:35)
[2018-05-11] MEDS: Acetaminophen 500 MG TAB 1000 MG PO ×2 (00:01→07:34)
[2018-05-11 02:50] VITALS: BP 112/73; PULSE 90; RESP 20; TEMP 36.3; O2SAT 98
[2018-05-11] MEDS: Levothyroxine 75 MCG TAB PO (06:07)
[2018-05-11] MEDS: Lactated Ringers 1,000 ML 80 ML IV (06:07)
[2018-05-11] MEDS: CLINDAMYCIN 600 MG/50 ML BAG 100 MG IVPB (06:15)
[2018-05-11 07:20] VITALS: BP 123/74; PULSE 66; RESP 20; TEMP 36.3; O2SAT 95
[2018-05-11] MEDS: Celecoxib 100 MG CAP PO (07:34)
[2018-05-11] MEDS: Omega-3 Fatty Acids 1000 MG CAP 2000 MG PO (07:34)
[2018-05-11] MEDS: Metoprolol CR 100 MG TABCR 200 MG PO (07:39)
[2018-05-11] MEDS: Cyanocobalamin 500 MCG TAB PO (07:39)
[2018-05-11] MEDS: Ascorbic Acid 500 MG TAB PO (07:39)
[2018-05-11] MEDS: Furosemide 40 MG TAB PO (07:39)
[2018-05-11] MEDS: Spironolactone 25 MG TAB 12.5 MG PO (07:39)
[2018-05-11] MEDS: Multivitamin TAB 1 TAB PO (07:39)
[2018-05-11] MEDS: Glucosamine 500 MG CAP 2000 MG PO (08:33)
[2018-05-11] MEDS: Allopurinol 300 MG TAB PO (08:33)
[2018-05-11] MEDS: Vitamins B Comp w/C TAB 1 TAB PO (08:34)
--- NOTE | 2018-05-11 09:48 | PDOC.CMIN ---
Care Management Initial Assess REASON FOR HOSPITALIZATION:: Left Knee DJD PAST MEDICAL HISTORY/PAST SURGICAL HISTORY:: AFIB, CHF, Chronic renal insufficency, venous stasis, total hip replacement PREVIOUS FUNCTIONAL STATUS/SOCIAL/FAMILY SUPPORTS:: Brennan resides in [place], [place] with his , Haley. He has a ramp to enter his home from the garage and at baseline is independent with ADLs in the community. CURRENT FUNCTIONAL STATUS:: Brennan was lying in bed when CM met with him. He was pleasant in interaction and forthcoming with information. He reported he was ecstatic with his recovery and care. ADVANCE DIRECTIVES:: None on file at [facility]. Has patient been provided with information about the portal?: Yes Did the patient sign up for the portal?: No CODE STATUS:: DNI INSURANCE COVERAGE / FINANCIAL ISSUES:: BC/BS: Auth# [id number] EFFT 03/22-03/27. Medicare: A ONLY CURRENT HOME/COMMUNITY SERVICES/EQUIPMENT:: Cane, crutches, FWW, commode, ramp into home. PRIMARY CARE PHYSICIAN:: Moiz Tinoco, [facility] POTENTIAL DISCHARGE NEEDS:: Follow up appointments with Dr. Samano, Dr. Tinoco, PT evaluation for safe discharge considerations. PATIENT/FAMILY EDUCATION NEEDS:: Review of discharge instructions, discuss Ask Me Three self care needs upon discharge. Brennan reports feeling confident regarding recovery needs. He shares being inpatient for six weeks and working with PT and learning which exercises are appropriate for recovery. ANTICIPATED BARRIERS TO DISCHARGE:: None identified. TRANSPORTATION:: Via private vehicle with his , Haley. PLAN:: Brennan will return home when ready per MD. He will follow up with Dr. Samano, his PCP and plan of care as prescribed including activity restrictions and medication recommendations. Brennan will transport via private vehicle with his , Haley.
--- NOTE | 2018-05-11 10:21 | INITIAL_ITS ---
Care Management Initial Assess REASON FOR HOSPITALIZATION:: Left Knee DJD PAST MEDICAL HISTORY/PAST SURGICAL HISTORY:: AFIB, CHF, Chronic renal insufficency, venous stasis, total hip replacement PREVIOUS FUNCTIONAL STATUS/SOCIAL/FAMILY SUPPORTS:: Brennan resides in [place], [place] with his , Haley. He has a ramp to enter his home from the garage and at baseline is independent with ADLs in the community. CURRENT FUNCTIONAL STATUS:: Brennan was lying in bed when CM met with him. He was pleasant in interaction and forthcoming with information. He reported he was ecstatic with his recovery and care. ADVANCE DIRECTIVES:: None on file at [facility]. Has patient been provided with information about the portal?: Yes Did the patient sign up for the portal?: No CODE STATUS:: DNI INSURANCE COVERAGE / FINANCIAL ISSUES:: BC/BS: Auth# [id number] EFFT 03/22-03/27. Medicare: A ONLY CURRENT HOME/COMMUNITY SERVICES/EQUIPMENT:: Cane, crutches, FWW, commode, ramp into home. PRIMARY CARE PHYSICIAN:: Moiz Tinoco, [facility] POTENTIAL DISCHARGE NEEDS:: Follow up appointments with Dr. Samano, Dr. Tinoco, PT evaluation for safe discharge considerations. PATIENT/FAMILY EDUCATION NEEDS:: Review of discharge instructions, discuss Ask Me Three self care needs upon discharge. Brennan reports feeling confident regarding recovery needs. He shares being inpatient for six weeks and working with PT and learning which exercises are appropriate for recovery. ANTICIPATED BARRIERS TO DISCHARGE:: None identified. TRANSPORTATION:: Via private vehicle with his , Haley. PLAN:: Brennan will return home when ready per MD. He will follow up with Dr. Samano, his PCP and plan of care as prescribed including activity restrictions and medication recommendations. Brennan will transport via private vehicle with his , Haley.
--- NOTE | 2018-05-11 11:03 | IN_ITS ---
Date of service: 05/11/18 Time of Service: 08:45 PT Notes Date: 05/11/2018 Referring Doctor: Luca Samano MD PT Orders: PT Consult: s/p L TKA Precautions: WBAT L LE PATIENT PROFILE/ADMITTING DIAGNOSIS: Pt is a 73yr old male s/p left total knee arthroplasty performed by Dr. Samano 05/10/2018 PMHX: s/p right TKA 03/22/18. s/p right total hip reduction after dislocation 11/10/17 with reduction, right posterior total hip arthroplasty, head liner and exchange/sepsis post op ENMANUEL, venous stasis, atrial fibrillation, congestive heart failure, chronic renal insufficiency Social History/Home Situation: Lives in a home with ramp to enter, stairs to bedroom, baseline mobility independent gait with no device, independent with ADLS Equipment owned/DME: cane, crutches, FWW, commode SUBJECTIVE: Pt lying in bed. States that he is anxious to walk. He states that his right knee has been doing great since surgery 6 weeks ago, and that he feels his knee surgeries have been a miracle. He had a great deal of instability in both knees prior to surgery, and states that his left knee limited his ability to walk after his right knee surgery last month. OBJECTIVE: General observation: IV right upper extremity, Cryo/Cuff left knee, Deepak wrap left knee, SCD right lower extremity Mental Status: A& O x3 Pain: 0/10 ROM: Right knee: 0-100 degrees flexion Left knee: 0-85 degrees flexion STRENGTH: Bilateral upper extremity: WFL RLE: Hip flexion 5/5. Quads 5/5. Ankle dorsiflexion 5/5. LLE: Hip flexion 5/5. Quads 3/5 or greater. Patient is able to functionally perform SLR without extension lag. Ankle dorsiflexion 3/5 or greater. BED MOBILITY/TRANSFERS: Supine-sit: independent Sit to supine independent Sit-stand: SBA with FWW Stand-sit: SBA GAIT: SBA with FWW, WBAT LLE, 100 feet x2, step through gait pattern with cues for sequencing. STAIRS: Patient manages therapeutic stairs (6 inches x4, 4 inches x6) with bilateral upper extremity support to rails and supervision only. He requires intermittent cues for safety and technique, although with good carryover. BALANCE: Static sitting normal Dynamic Sitting normal Static Standing good Dynamic Standing fair SPECIAL TESTS: Mobility Limitations Standardized Measure [facility] AM -PAC ?6 clicks? Basic Mobility Inpatient Short Form: raw score: 23 CMS score: 11 % deficit INFORMED CONSENT/EDUCATION: Pt instructed in purpose of PT Consult and plan of care. He received gait, stair and transfer training, as noted above. He was instructed in the following exercises, and instructed in home completion for 10 repetitions, 3 times per day: 1. Quad sets 2. Ankle pumps 3. Glutes sets 4. SLR 5. Heel slide 6. LAQ ASSESSMENT: Pt is a 73yr old male s/p left total knee arthroplasty by Dr. Samano 05/10/18, after previously undergoing right total knee arthroplasty on 03/22/2018. His medical history is complicated by history of right total hip reduction after dislocation 11/10/[address] Samano, (original right posterior total hip arthroplasty 2001) and head liner and exchange due to sepsis post op ENMANUEL. Patient presents with the following impairment level findings: 1. Decreased left knee range of motion 2. Decreased activity tolerance 3. Gait impairments with reliance on F WW for all ambulation Impairments are contributing to the following functional limitations: 1. Decreased tolerance to community distance ambulation Patient is assessed as low 41631 complexity based on the following: History: 73-year-old male referred for PT services after undergoing left total knee replacement yesterday, and right total knee replacement 6 weeks ago. His history is complicated by a history of right total hip replacement with septic infection and subsequent revision, as well as dislocation requiring closed reduction. He also has a medical history significant for PVD. Examination: Functional limitations as noted above Presentation: Stable Decision Making: Low complexity PLAN OF CARE/TREATMENT PLAN: Patient was able to demonstrate good independence and safety with short distance ambulation and stair management. He was instructed in a home exercise program for independent completion. He is appropriate for discharge from PT [facility] in an acute care setting. DISCHARGE RECOMMENDATIONS home - has all DME TREATMENT TIME/MINUTES/CODES 30 minutes ([phone]) [id number] Rhona Cervantes, PT, DPT [facility]
[2018-05-11 11:12] VITALS: BP 132/84; PULSE 61; RESP 22; TEMP 37.2; O2SAT 99
--- NOTE | 2018-05-11 12:33 | W.PM.DS.N ---
Date of service: 05/11/18 Time of Service: 12:37 DS: Diagnosis Discharge Diagnosis (1) Localized osteoarthritis of left knee: Status: Acute Discharge Plan Disposition Patient Disposition: HOME Condition: Good Discharge Details Reason For Visit: LEFT KNEE DJD Admit Date/Time: 05/10/18 08:23 Admit Provider: Luca Samano Attending Provider: Luca Samano Primary Care Provider: Moiz Tinoco Hospital Course Hospital Course: Patient was admitted to the medical/surgical floor following the procedure. It was tolerated well without any notable medical, surgical, or anesthetic complications. Mobilization began postoperatively. The falcon catheter was removed and voiding spontaneously. Vitals were stable. Physical therapy worked with the patient and was cleared for discharge home. No acute medical issues. Home Meds and New Rx's Prescriptions: New oxycodone 5 mg tablet 2.5 - 5 mg PO Q4H Qty: 6 RF: 0 Continued allopurinol 300 MG tablet 300 mg PO DAILY RF: 0 multivitamin 1 EACH capsule 1 ea PO DAILY RF: 0 glucosamine sulfate 2KCl 1,000 MG tablet 4 cap PO DAILY RF: 0 omega-3 fatty acids-fish oil [Fish Oil] 1 EACH capsule 2 cap PO BID RF: 0 levothyroxine 75 MCG tablet 75 mcg PO DAILY@0600 Qty: 90 RF: 0 Xarelto 20 MG tablet 20 mg PO HS Qty: 0 RF: 0 metoprolol succinate 100 mg Tablet Extended Release 24 Hr 200 mg PO DAILY RF: 0 vitamin B complex Capsule 1 cap PO DAILY RF: 0 acetaminophen [Acetaminophen Extra Strength] 500 MG tablet 1,000 mg PO Q8H PRN PRNQty: 60 RF: 3 celecoxib 100 mg capsule 100 mg PO BID Qty: 60 RF: 3 ascorbic acid (vitamin C) [Vitamin C] 500 mg Tablet 500 mg PO DAILY RF: 0 cholecalciferol (vitamin D3) [Vitamin D3] 1,000 unit Capsule 1,000 unit PO DAILY RF: 0 Probiotic Complex 25 billion cell -100 mg Capsule 1 cap PO DAILY RF: 0 spironolactone 25 MG tablet 0.5 tab PO DAILY RF: 0 cyanocobalamin (vitamin B-12) [Vitamin B-12] 500 mcg Tablet 500 mcg PO DAILY RF: 0 furosemide 20 mg Tablet 3 tab PO HS RF: 0 furosemide 40 MG tablet 3 tab PO DAILY RF: 0 docusate sodium [Colace] 100 mg Capsule 100 mg PO BID PRN PRN (Reason: Constipation) Qty: 0 RF: 0 polyethylene glycol 3350 17 gram Powder In Packet 17 g PO BID PRN PRN (Reason: Constipation) Qty: 0 RF: 0 Discharge Instructions Instructions: Knee Replacement (DC) Additional Instructions: Dr. Samano?s Total Knee Discharge Instructions Activity: The most important activity is to walk. You should try to take short walks a few times a day. It is important that when resting you work on keeping the knee straight. Avoid putting a pillow behind the knee as this will encourage flexion. Work on range of motion exercises as provided by Physical Therapy. - Start outpatient physical therapy within 2 weeks. - You should wear the SPENCER hose on both legs for 4 weeks. Dressing: Keep the surgical dressing in place for at least one week. After the first week it may be removed and replace with light gauze and tape or nothing. It may get wet after 3 days but avoid soaking the dressing. If it gets wet, just lightly pat dry. Medications: - You should take Tylenol and anti-inflammatory (Celebrex) as your primary pain control medications - You have been prescribed a stronger pain medication (Oxycodone) for breakthrough pain, take as needed as prescribed. - You should continue her home dosing of Xarelto (Rivaroxaban) for DVT prevention unless instructed otherwise. - If you have constipation you should take Colace or Miralax (both [id number]). It takes most people 3-4 days to have a bowel movement. Follow-up: 2 weeks Stand Alone Forms: Nursing Discharge Form Referrals: Luca Samano MD [ [facility] STAFF PHYSICIAN] - 05/25/18 10:30 am Activity:: Activity as Tolerated Equipment/Supplies:: No Equipment Needed Diet:: As Tolerated Discharge Orders Discharge Orders: Discharge Order (Routine); Ordered 05/11/18 Ordered By: Luca Samano DS: Data Vitals/I&O Vitals and I&O: Vital Signs Temperature 37.2 C 05/11/18 11:12 Temperature Source Tympanic 05/11/18 11:12 Pulse 61 05/11/18 11:12 Pulse Rhythm Irregular 05/11/18 07:26 Respiratory Rate 22 05/11/18 11:12 Respiratory Effort Non-Labored 05/11/18 07:26 Respiratory Depth Normal 05/11/18 07:26 Respiratory Pattern Normal 05/11/18 07:26 Blood Pressure 132/84 05/11/18 11:12 Pulse Oximetry 99 05/11/18 11:12 Respiratory End-tidal CO2 37 05/10/18 16:30 Oxygen Delivery Method Room Air 05/11/18 11:12 Oxygen Flow Rate 0 05/11/18 11:12 Fraction of Inspired Oxygen (FIO2) 21 05/10/18 18:40 Pain Level 0 05/11/18 02:50 Comment 05/11/18 02:50 Intake & Output 05/10/18 05/11/18 05/11/18 23:59 11:59 23:59 Intake Total 2250.000 / 2448.667 1516.667 / 1516.667 Output Total 1200 / 1200 450 / 450 Balance 1050.000 / 5149.850 4374.667 / 1066.667 Intake: IV 1410.000 / 1608.667 916.667 / 916.667 Oral 840 / 840 600 / 600 Output: Urine 900 / 900 450 / 450 Estimated Blood Loss 300 / 300 Other: Urine Color Light Marcela Straw Urine Appearance Clear Clear Comment pt requested to have out. Emesis Description None PFSH Social History Smoking and Tabacco status: Former Tobacco Use
--- NOTE | 2018-05-11 12:38 | DSE_ITS ---
Date of service: 05/11/18 Time of Service: 12:37 DS: Diagnosis Discharge Diagnosis (1) Localized osteoarthritis of left knee: Status: Acute Discharge Plan Disposition Patient Disposition: HOME Condition: Good Discharge Details Reason For Visit: LEFT KNEE DJD Admit Date/Time: 05/10/18 08:23 Admit Provider: Luca Samano Attending Provider: Luca Samano Primary Care Provider: Moiz Tinoco Hospital Course Hospital Course: Patient was admitted to the medical/surgical floor following the procedure. It was tolerated well without any notable medical, surgical, or anesthetic complications. Mobilization began postoperatively. The falcon catheter was removed and voiding spontaneously. Vitals were stable. Physical therapy worked with the patient and was cleared for discharge home. No acute medical issues. Home Meds and New Rx's Prescriptions: New oxycodone 5 mg tablet 2.5 - 5 mg PO Q4H Qty: 6 RF: 0 Continued allopurinol 300 MG tablet 300 mg PO DAILY RF: 0 multivitamin 1 EACH capsule 1 ea PO DAILY RF: 0 glucosamine sulfate 2KCl 1,000 MG tablet 4 cap PO DAILY RF: 0 omega-3 fatty acids-fish oil [Fish Oil] 1 EACH capsule 2 cap PO BID RF: 0 levothyroxine 75 MCG tablet 75 mcg PO DAILY@0600 Qty: 90 RF: 0 Xarelto 20 MG tablet 20 mg PO HS Qty: 0 RF: 0 metoprolol succinate 100 mg Tablet Extended Release 24 Hr 200 mg PO DAILY RF: 0 vitamin B complex Capsule 1 cap PO DAILY RF: 0 acetaminophen [Acetaminophen Extra Strength] 500 MG tablet 1,000 mg PO Q8H PRN PRNQty: 60 RF: 3 celecoxib 100 mg capsule 100 mg PO BID Qty: 60 RF: 3 ascorbic acid (vitamin C) [Vitamin C] 500 mg Tablet 500 mg PO DAILY RF: 0 cholecalciferol (vitamin D3) [Vitamin D3] 1,000 unit Capsule 1,000 unit PO DAILY RF: 0 Probiotic Complex 25 billion cell -100 mg Capsule 1 cap PO DAILY RF: 0 spironolactone 25 MG tablet 0.5 tab PO DAILY RF: 0 cyanocobalamin (vitamin B-12) [Vitamin B-12] 500 mcg Tablet 500 mcg PO DAILY RF: 0 furosemide 20 mg Tablet 3 tab PO HS RF: 0 furosemide 40 MG tablet 3 tab PO DAILY RF: 0 docusate sodium [Colace] 100 mg Capsule 100 mg PO BID PRN PRN (Reason: Constipation) Qty: 0 RF: 0 polyethylene glycol 3350 17 gram Powder In Packet 17 g PO BID PRN PRN (Reason: Constipation) Qty: 0 RF: 0 Discharge Instructions Instructions: Knee Replacement (DC) Additional Instructions: Dr. Samano?s Total Knee Discharge Instructions Activity: The most important activity is to walk. You should try to take short walks a few times a day. It is important that when resting you work on keeping the knee straight. Avoid putting a pillow behind the knee as this will encour age flexion. Work on range of motion exercises as provided by Physical Therapy. - Start outpatient physical therapy within 2 weeks. - You should wear the PSENCER hose on both legs for 4 weeks. Dressing: Keep the surgical dressing in place for at least one week. After the first week it may be removed and replace with light gauze and tape or nothing. It may get wet after 3 days but avoid soaking the dressing. If it gets wet, just lightly pat dry. Medications: - You should take Tylenol and anti-inflammatory (Celebrex) as your primary pain control medications - You have been prescribed a stronger pain medication (Oxycodone) for breakthrough pain, take as needed as prescribed. - You should continue her home dosing of Xarelto (Rivaroxaban) for DVT prevention unless instructed otherwise. - If you have constipation you should take Colace or Miralax (both [id number]). It takes most people 3-4 days to have a bowel movement. Follow-up: 2 weeks Stand Alone Forms: Nursing Discharge Form Referrals: Luca Samano MD [ [facility] STAFF PHYSICIAN] - 05/25/18 10:30 am Activity:: Activity as Tolerated Equipment/Supplies:: No Equipment Needed Diet:: As Tolerated Discharge Orders Discharge Orders: Discharge Order (Routine); Ordered 05/11/18 Ordered By: Luca Samano DS: Data Vitals/I&O Vitals and I&O: Vital Signs Temperature 37.2 C 05/11/18 11:12 Temperature Source Tympanic 05/11/18 11:12 Pulse 61 05/11/18 11:12 Pulse Rhythm Irregular 05/11/18 07:26 Respiratory Rate 22 05/11/18 11:12 Respiratory Effort Non-Labored 05/11/18 07:26 Respiratory Depth Normal 05/11/18 07:26 Respiratory Pattern Normal 05/11/18 07:26 Blood Pressure 132/84 05/11/18 11:12 Pulse Oximetry 99 05/11/18 11:12 Respiratory End-tidal CO2 37 05/10/18 16:30 Oxygen Delivery Method Room Air 05/11/18 11:12 Oxygen Flow Rate 0 05/11/18 11:12 Fraction of Inspired Oxygen (FIO2) 21 05/10/18 18:40 Pain Level 0 05/11/18 02:50 Comment 05/11/18 02:50 Intake & Output 05/10/18 05/11/18 05/11/18 23:59 11:59 23:59 Intake Total 2250.000 / 2448.667 1516.667 / 1516.667 Output Total 1200 / 1200 450 / 450 Balance 1050.000 / 9289.829 5462.667 / 1066.667 Intake: IV 1410.000 / 1608.667 916.667 / 916.667 Oral 840 / 840 600 / 600 Output: Urine 900 / 900 450 / 450 Estimated Blood Loss 300 / 300 Other: Urine Color Light Marcela Straw Urine Appearance Clear Clear Comment pt requested to have out. Emesis Description None PFSH Social History Smoking and Tabacco status: Former Tobacco Use
--- NOTE | 2018-05-11 13:19 | PDOC.CMDIS ---
LACE Index Scoring Tool - Questions: Length of Stay (in days): 2 Acuity (Admit via E.D.?): Yes E.D. Visits: 1 - Answers: Total Score: 6 Risk of Readmission: Low Risk Care Management Discharge Reason for Hospitalization: Left Knee DJD Discharge Plan: Brennan will return home when ready per MD. He will follow up with Dr. Samano, his PCP and plan of care as prescribed including activity restrictions and medication recommendations. Brennan will transport via private vehicle with his , Haley. Patient/Family Education Needs: Review of discharge instructions, discussion around self care needs upon discharge.
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
== END 2018-05-11 14:52 | disposition home or self-care (01) | DRG 470 ==
LOC: PDS 08:23 → MS 17:14
PROVIDERS: Admitting Provider Student in an Organized Health Care Education/Training Program; PCP Internal Medicine; Visit Provider Student in an Organized Health Care Education/Training Program
PROC: 0SRD0J9 Replacement of Left Knee Joint with Synthetic Substitute, Cemented, Open Approach (ICD-10-PCS; CPT 27447; principal; 2018-05-10 11:15)
DX: M17.12 Unilateral primary osteoarthritis, left knee (principal); Z96.652 Presence of left artificial knee joint; Z96.651 Presence of right artificial knee joint; N18.9 Chronic kidney disease, unspecified; I12.9 Hypertensive chronic kidney disease with stage 1 through stage 4 chronic kidney disease, or unspecified chronic kidney disease; I48.91 Unspecified atrial fibrillation; E78.5 Hyperlipidemia, unspecified; G47.33 Obstructive sleep apnea (adult) (pediatric)
CPT/HCPCS: 27447; 64447; 76942; 97161; NC; 93005; 93010; A4600; J1100; J1200; J1885; J2250; J2405; J3010

== ENCOUNTER 2018-05-23 10:36 | Outpatient (CLI) | payer BC, MEDICARE, SELFPAY ==
--- NOTE | 2018-05-23 10:30 | DI.RAD_ITS ---
SYMPTOMS/DIAGNOSIS: F/U LT TKA LEG LENGTH AND LEFT KNEE: The patient has bilateral total hip replacements and bilateral total knee replacements. The orthopedic hardware appears well maintained. In the left knee there are moderately severe degenerative changes noted. The right lower extremity measures 102.5 cm. The left lower extremity measures 101.3 cm. Extensive vascular calcifications are present. There is soft tissue swelling about the left knee. IMPRESSION: 1. Bilateral total hip replacements. 2. Bilateral total knee replacements. 3. Soft tissue swelling about the left knee.
== END 2018-05-23 10:56 ==
PROVIDERS: PCP Internal Medicine; Visit Provider Student in an Organized Health Care Education/Training Program
DX: Z96.643 Presence of artificial hip joint, bilateral (principal); Z96.653 Presence of artificial knee joint, bilateral; M79.89 Other specified soft tissue disorders; M17.12 Unilateral primary osteoarthritis, left knee
CPT/HCPCS: 73560; 77073

== ENCOUNTER 2018-07-17 09:46 | Emergency (ER) | payer BC, SELFPAY ==
[2018-07-17 09:53] VITALS: BP 145/77; PULSE 96; RESP 16; TEMP 36.4; O2SAT 98
--- NOTE | 2018-07-17 10:04 | W.ED.GENAD ---
Discharge Plan Disposition Patient Disposition: HOME Condition: Fair Discharge Details Chief Complaint: EarProblem Clinical Impression: Bleeding from left ear Primary Care Provider: Moiz Tinoco ED Provider: Freida Kidd Home Meds and New Rx's Prescriptions: Continued allopurinol 300 MG tablet 300 mg PO DAILY RF: 0 multivitamin 1 EACH capsule 1 ea PO DAILY RF: 0 glucosamine sulfate 2KCl 1,000 MG tablet 4 cap PO DAILY RF: 0 omega-3 fatty acids-fish oil [Fish Oil] 1 EACH capsule 2 cap PO BID RF: 0 levothyroxine 75 MCG tablet 75 mcg PO DAILY@0600 Qty: 90 RF: 0 Xarelto 20 MG tablet 20 mg PO HS Qty: 0 RF: 0 metoprolol succinate 100 mg Tablet Extended Release 24 Hr 200 mg PO DAILY RF: 0 vitamin B complex Capsule 1 cap PO DAILY RF: 0 acetaminophen [Acetaminophen Extra Strength] 500 MG tablet 1,000 mg PO Q8H PRN PRNQty: 60 RF: 3 celecoxib 100 mg capsule 100 mg PO BID Qty: 60 RF: 3 ascorbic acid (vitamin C) [Vitamin C] 500 mg Tablet 500 mg PO DAILY RF: 0 cholecalciferol (vitamin D3) [Vitamin D3] 1,000 unit Capsule 1,000 unit PO DAILY RF: 0 Probiotic Complex 25 billion cell -100 mg Capsule 1 cap PO DAILY RF: 0 spironolactone 25 MG tablet 0.5 tab PO DAILY RF: 0 cyanocobalamin (vitamin B-12) [Vitamin B-12] 500 mcg Tablet 500 mcg PO DAILY RF: 0 furosemide 20 mg Tablet 3 tab PO HS RF: 0 furosemide 40 MG tablet 3 tab PO DAILY RF: 0 docusate sodium [Colace] 100 mg Capsule 100 mg PO BID PRN PRN (Reason: Constipation) Qty: 0 RF: 0 polyethylene glycol 3350 17 gram Powder In Packet 17 g PO BID PRN PRN (Reason: Constipation) Qty: 0 RF: 0 Discharge Instructions Additional Instructions: Do not put anything in your ear for the next 3 days. Please contact your primary care tomorrow to schedule follow up appointment this week. If you develop increased bleeding, fevers/chills, pain or other new/worsening symptoms please seek care urgently once again. Referrals: Moiz Tinoco MD [Primary Care Provider] - Medical Decision Making Patient is 73-year-old male presenting today with chief complaint of blood coming from left ear. On exam, patient is hearing appears largely intact. He had a hearing aid in the right ear which was removed for examination. He has not placed his left one since he noted the blood. Patient does have a clotted blood on the posterior wall of the ear canal. Unable to assess if there is any type of trauma to the posterior wall under this. The tube that was noted in the right ear has been lost in the left. I do not see any blood behind the tympanic membrane. No evidence of infection at this time. Discussed these findings with patient. Advised scratching the patient likely cleaning the ears or possibly trauma from the tube coming out from the eardrum. There is no evidence of infection, do not see a need to treat at this time. However, he was given strict return precautions and advised follow-up with his primary care this week. All his questions and concerns were addressed and he is in agreement this plan HPI General Mode of arrival: ambulatory. Date/Time Provider Initiated Documentation: 07/17/18 09:52. Limitations to Documentation: no limitations. Information obtained by: patient, family and RN notes reviewed. HPI Narrative: Patient 73-year-old male presents today with chief complaint of bloody discharge from left ear. He reports that he first noted this last night after cleaning the ear with a tissue. Reports that again this morning he noted blood on the tissue including his ear. He denies any pain. No change in his hearing. No fevers or chills. Patient does use hearing aids. States that 4 years ago he has had tubes placed in his ear to assist with his hearing. Has not been assessed by an perfumer since that time. Patient is anticoagulated on Xarelto for atrial fibrillation, no recent change in this. Denies bleeding elsewhere Related Data Home Medications Medication Instructions Recorded Confirmed allopurinol 300 mg PO DAILY 09/01/12 07/17/18 multivitamin 1 ea PO DAILY 09/01/12 07/17/18 glucosamine sulfate 2KCl 4 cap PO DAILY 01/20/13 07/17/18 omega-3 fatty acids-fish oil [Fish 2 cap PO BID 01/20/13 07/17/18 Oil] Xarelto 20 mg PO HS #0 03/23/15 07/17/18 levothyroxine 75 mcg PO DAILY@0600 #90 tab 03/23/15 07/17/18 Probiotic Complex 1 cap PO DAILY 03/16/18 07/17/18 ascorbic acid (vitamin C) [Vitamin 500 mg PO DAILY 03/16/18 07/17/18 C] cholecalciferol (vitamin D3) 1,000 unit PO DAILY 03/16/18 07/17/18 [Vitamin D3] cyanocobalamin (vitamin B-12) 500 mcg PO DAILY 03/16/18 07/17/18 [Vitamin B-12] furosemide 3 tab PO DAILY 03/16/18 07/17/18 furosemide 3 tab PO HS 03/16/18 07/17/18 spironolactone 0.5 tab PO DAILY 03/16/18 07/17/18 docusate sodium [Colace] 100 mg PO BID PRN PRN #0 cap 03/23/18 07/17/18 polyethylene glycol 3350 17 g PO BID PRN PRN #0 ea 03/23/18 07/17/18 metoprolol succinate 200 mg PO DAILY 05/04/18 07/17/18 vitamin B complex 1 cap PO DAILY 05/04/18 07/17/18 acetaminophen [Acetaminophen Extra 1,000 mg PO Q8H PRN PRN #60 tab 05/11/18 07/17/18 Strength] celecoxib 100 mg PO BID #60 cap 05/11/18 07/17/18 Previous Rx's Medication Instructions Recorded Xarelto 20 mg PO HS #0 03/23/15 levothyroxine 75 mcg PO DAILY@0600 #90 tab 03/23/15 docusate sodium [Colace] 100 mg PO BID PRN PRN #0 cap 03/23/18 polyethylene glycol 3350 17 g PO BID PRN PRN #0 ea 03/23/18 acetaminophen [Acetaminophen Extra 1,000 mg PO Q8H PRN PRN #60 tab 05/11/18 Strength] celecoxib 100 mg PO BID #60 cap 05/11/18 Allergies Allergy/AdvReac Type Severity Reaction Status Date / Time Penicillins Allergy Severe Anaphylaxsi Unverified 07/17/18 10:05 s vancomycin Allergy Severe Other (See Verified 07/17/18 10:05 Comment) Review of Systems Constitutional Reports as per HPI, Denies chills, Denies fever(s) and Denies headache(s) Eyes Reports as per HPI, Denies eye discharge and Denies irritation ENT Reports as per HPI, Reports ear discharge, Denies otalgia, Denies facial pain, Denies headache(s), Denies sinus pain and Denies sore throat Cardiovascular Reports as per HPI, Denies chest pain and Denies dyspnea Respiratory Reports as per HPI and Denies dyspnea Gastrointestinal Reports as per HPI, Denies abdominal pain, Denies change in bowel habits, Denies nausea and Denies vomiting Integumentary/Breasts Reports as per HPI and Denies rash Neurologic Reports as per HPI and Denies headache(s) [facility] Social History Smoking/Tobacco Use Status: Former Tobacco Use Drug use: Never Exam Const General: cooperative, healthy appearing, comfortable, no acute distress, well developed and well groomed Nutritional Appearance: average body habitus and well nourished Orientation: alert and awake [facility] Head: normal to inspection, normocephalic and atraumatic Ears: hearing grossly normal bilaterally, mastoids normal, no periauricular adenopathy and other (Patient has scant amount of blood in the external ear) General nose exam: external nose normal and nares normal Face and sinus: normal facial exam, sinuses nontender and face symmetric Mouth: oral mucosae normal, lip normal, tongue normal, oropharynx normal and moist mucous membranes Teeth and gingiva: dentition normal Throat: posterior oropharynx normal, tonsils normal and uvula midline Eyes General: appearance normal, both eyes and all related structures Neck Neck: normal visual inspection, full ROM, no lymphadenopathy and no meningeal signs Resp Effort & Inspection: normal respiratory effort, able to speak in complete sentences and no respiratory distress Auscultation: clear to auscultation bilaterally, no rales, no rhonchi and no wheezes Cardio Rate: regular rate Rhythm: regular rhythm Heart Sounds: S1 normal and S2 normal Skin General skin exam: no rashes or lesions noted Neuro General: alert and awake Cognition: normal cognition Speech: speech normal Gait: normal gait Psych Appearance: grossly normal and well kempt Mental Status: mental status grossly normal Speech and Movement: speech and movement normal
--- NOTE | 2018-07-17 10:13 | ED.GENADUL_ITS ---
Discharge Plan Disposition Patient Disposition: HOME Condition: Fair Discharge Details Chief Complaint: EarProblem Clinical Impression: Bleeding from left ear Primary Care Provider: Moiz Tinoco ED Provider: Freida Kidd Home Meds and New Rx's Prescriptions: Continued allopurinol 300 MG tablet 300 mg PO DAILY RF: 0 multivitamin 1 EACH capsule 1 ea PO DAILY RF: 0 glucosamine sulfate 2KCl 1,000 MG tablet 4 cap PO DAILY RF: 0 omega-3 fatty acids-fish oil [Fish Oil] 1 EACH capsule 2 cap PO BID RF: 0 levothyroxine 75 MCG tablet 75 mcg PO DAILY@0600 Qty: 90 RF: 0 Xarelto 20 MG tablet 20 mg PO HS Qty: 0 RF: 0 metoprolol succinate 100 mg Tablet Extended Release 24 Hr 200 mg PO DAILY RF: 0 vitamin B complex Capsule 1 cap PO DAILY RF: 0 acetaminophen [Acetaminophen Extra Strength] 500 MG tablet 1,000 mg PO Q8H PRN PRNQty: 60 RF: 3 celecoxib 100 mg capsule 100 mg PO BID Qty: 60 RF: 3 ascorbic acid (vitamin C) [Vitamin C] 500 mg Tablet 500 mg PO DAILY RF: 0 cholecalciferol (vitamin D3) [Vitamin D3] 1,000 unit Capsule 1,000 unit PO DAILY RF: 0 Probiotic Complex 25 billion cell -100 mg Capsule 1 cap PO DAILY RF: 0 spironolactone 25 MG tablet 0.5 tab PO DAILY RF: 0 cyanocobalamin (vitamin B-12) [Vitamin B-12] 500 mcg Tablet 500 mcg PO DAILY RF: 0 furosemide 20 mg Tablet 3 tab PO HS RF: 0 furosemide 40 MG tablet 3 tab PO DAILY RF: 0 docusate sodium [Colace] 100 mg Capsule 100 mg PO BID PRN PRN (Reason: Constipation) Qty: 0 RF: 0 polyethylene glycol 3350 17 gram Powder In Packet 17 g PO BID PRN PRN (Reason: Constipation) Qty: 0 RF: 0 Discharge Instructions Additional Instructions: Do not put anything in your ear for the next 3 days. Please contact your primary care tomorrow to schedule follow up appointment this week. If you develop increased bleeding, fevers/chills, pain or other new/worsening symptoms please seek care urgently once again. Referrals: Moiz Tinoco MD [Primary Care Provider] - Medical Decision Making Patient is 73-year-old male presenting today with chief complaint of blood coming from left ear. On exam, patient is hearing appears largely intact. He had a hearing aid in the right ear which was removed for examination. He has not placed his left one since he noted the blood. Patient does have a clotted blood on the posterior wall of the ear canal. Unable to assess if there is any type of trauma to the posterior wall under this. The tube that was noted in the right ear has been lost in the left. I do not see any blood behind the tympanic membrane. No evidence of infection at this time. Discussed these findings with patient. Advised scratching the patient likely cleaning the ears or possibly trauma from the tube coming out from the eardrum. There is no evidence of infection, do not see a need to treat at this time. However, he was given strict return precautions and advised follow-up with his primary care this week. All his questions and concerns were addressed and he is in agreement this plan HPI General Mode of arrival: ambulatory . Date/Time Provider Initiated Documentation: 07/17/18 09:52 . Limitations to Documentation: no limitations . Information obtained by: patient, family and RN notes reviewed . HPI Narrative: Patient 73-year-old male presents today with chief complaint of bloody discharge from left ear. He reports that he first noted this last night after cleaning the ear with a tissue. Reports that again this morning he noted blood on the tissue including his ear. He denies any pain. No change in his hearing. No fevers or chills. Patient does use hearing aids. States that 4 years ago he has had tubes placed in his ear to assist with his hearing. Has not been assessed by an final armature tester since that time. Patient is anticoagulated on Xarelto for atrial fibrillation, no recent change in this. Denies bleeding elsewhere Related Data Home Medications Medication Instructions Recorded Confirmed allopurinol 300 mg PO DAILY 09/01/12 07/17/18 multivitamin 1 ea PO DAILY 09/01/12 07/17/18 glucosamine sulfate 2KCl 4 cap PO DAILY 01/20/13 07/17/18 omega-3 fatty acids-fish oil [Fish 2 cap PO BID 01/20/13 07/17/18 Oil] Xarelto 20 mg PO HS #0 03/23/15 07/17/18 levothyroxine 75 mcg PO DAILY@0600 #90 tab 03/23/15 07/17/18 Probiotic Complex 1 cap PO DAILY 03/16/18 07/17/18 ascorbic acid (vitamin C) [Vitamin 500 mg PO DAILY 03/16/18 07/17/18 C] cholecalciferol (vitamin D3) 1,000 unit PO DAILY 03/16/18 07/17/18 [Vitamin D3] cyanocobalamin (vitamin B-12) 500 mcg PO DAILY 03/16/18 07/17/18 [Vitamin B-12] furosemide 3 tab PO DAILY 03/16/18 07/17/18 furosemide 3 tab PO HS 03/16/18 07/17/18 spironolactone 0.5 tab PO DAILY 03/16/18 07/17/18 docusate sodium [Colace] 100 mg PO BID PRN PRN #0 cap 03/23/18 07/17/18 polyethylene glycol 3350 17 g PO BID PRN PRN #0 ea 03/23/18 07/17/18 metoprolol succinate 200 mg PO DAILY 05/04/18 07/17/18 vitamin B complex 1 cap PO DAILY 05/04/18 07/17/18 acetaminophen [Acetaminophen Extra 1,000 mg PO Q8H PRN PRN #60 tab 05/11/18 07/17/18 Strength] celecoxib 100 mg PO BID #60 cap 05/11/18 07/17/18 Previous Rx's Medication Instructions Recorded Xarelto 20 mg PO HS #0 03/23/15 levothyroxine 75 mcg PO DAILY@0600 #90 tab 03/23/15 docusate sodium [Colace] 100 mg PO BID PRN PRN #0 cap 03/23/18 polyethylene glycol 3350 17 g PO BID PRN PRN #0 ea 03/23/18 acetaminophen [Acetaminophen Extra 1,000 mg PO Q8H PRN PRN #60 tab 05/11/18 Strength] celecoxib 100 mg PO BID #60 cap 05/11/18 Allergies Allergy/AdvReac Type Severity Reaction Status Date / Time Penicillins Allergy Severe Anaphylaxsi Unverified 07/17/18 10:05 s vancomycin Allergy Severe Other (See Verified 07/17/18 10:05 Comment) Review of Systems Constitutional Reports as per HPI, Denies chills, Denies fever(s) and Denies headache(s) Eyes Reports as per HPI, Denies eye discharge and Denies irritation ENT Reports as per HPI, Reports ear discharge, Denies otalgia, Denies facial pain, Denies headache(s), Denies sinus pain and Denies sore throat Cardiovascular Reports as per HPI, Denies chest pain and Denies dyspnea Respiratory Reports as per HPI and Denies dyspnea Gastrointestinal Reports as per HPI, Denies abdominal pain, Denies change in bowel habits, Denies nausea and Denies vomiting Integumentary/Breasts Reports as per HPI and Denies rash Neurologic Reports as per HPI and Denies headache(s) [facility] Social History Smoking/Tobacco Use Status: Former Tobacco Use Drug use: Never Exam Const General: cooperative, healthy appearing, comfortable, no acute distress, well developed and well groomed Nutritional Appearance: average body habitus and well nourished Orientation: alert and awake [facility] [place] Head: normal to inspection, normocephalic and atraumatic Ears: hearing grossly normal bilaterally, mastoids normal, no periauricular adenopathy and other (Patient has scant amount of blood in the external ear) General nose exam: external nose normal and nares normal Face and sinus: normal facial exam, sinuses nontender and face symmetric Mouth: oral mucosae normal, lip normal, tongue normal, oropharynx normal and moist mucous membranes Teeth and gingiva: dentition normal Throat: posterior oropharynx normal, tonsils normal and uvula midline Eyes General: appearance normal, both eyes and all related structures Neck Neck: normal visual inspection, full ROM, no lymphadenopathy and no meningeal signs Resp Effort & Inspection: normal respiratory effort, able to speak in complete sentences and no respiratory distress Auscultation: clear to auscultation bilaterally, no rales, no rhonchi and no wheezes Cardio Rate: regular rate Rhythm: regular rhythm Heart Sounds: S1 normal and S2 normal Skin General skin exam: no rashes or lesions noted Neuro General: alert and awake Cognition: normal cognition Speech: speech normal Gait: normal gait Psych Appearance: grossly normal and well kempt Mental Status: mental status grossly normal Speech and Movement: speech and movement normal
--- NOTE | 2018-07-17 10:48 | NUR.NOTE ---
Nursing Note: Patient prior to receiving discharge instructions. They have been mailed to him. Elsy Rodriguez.
== END 2018-07-17 10:30 | disposition home or self-care (01) ==
PROVIDERS: Emergency Provider Physician Assistant; PCP Internal Medicine
DX: H92.22 Otorrhagia, left ear (principal); Z79.01 Long term (current) use of anticoagulants; I48.91 Unspecified atrial fibrillation
CPT/HCPCS: 99281; 99282

== ENCOUNTER 2018-10-10 14:30 | Inpatient (IN) | payer BC, MEDICARE, SELFPAY ==
[2018-10-10 15:39] VITALS: BP 90/56; PULSE 100; RESP 22; TEMP 38.2; O2SAT 97
[2018-10-10 15:45] VITALS: BP 90/56; PULSE 100; RESP 22; TEMP 38.2; O2SAT 97
--- NOTE | 2018-10-10 16:10 | NUR.NOTE ---
blood pressure at 1550 79/56 Nursing Note:
[2018-10-10 16:53] LABS: HCT 35.1 % (40.0-50.0); HGB 11.6 g/dL (13.5-17.5); Mean Corpuscular Hemoglobin 31.6 pg (27.0-33.0); Mean Corpuscular Volume 95.6 fL (80-95); Mean Platelet Volume 10.8 fL (8.0-11.0); Platelet Count 176 x1000/uL (130-400); RBC 3.67 m/cumm (4.50-6.00); RBC Distribution Width 15.9 % (11.8-14.1); White Blood Cell Count 16.86 k/cumm (4.4-10.8)
[2018-10-10 17:03] LABS: ALT 9 U/L (12-78); AST 5 U/L (15-37); Albumin 2.4 g/dL (3.4-5.0); Alkaline Phosphatase 62 U/L (46-116); Anion Gap 9.4 mmol/L (3-11); BUN 42 mg/dL (7-18); Bilirubin, Total 1.1 mg/dL (0.2-1.0); CO2 23.6 mmol/L (21.0-32.0); CREATININE 1.95 mg/dL (0.70-1.30); Calcium 8.8 mg/dL (8.5-10.1); Chloride 102 mmol/L (98-107); Estimated GFR 33.71 (mL/min/1.73m2); Glucose 140 mg/dL (70-100); Sodium 135 mmol/L (136-145); Total Protein 6.5 g/dL (6.4-8.2)
[2018-10-10 17:07] LABS: C-Reactive Protein > 25.00 mg/dL (0.0-0.3)
[2018-10-10 17:52] LABS: Hemoglobin A1C 5.9 % (4.5-6.2)
[2018-10-10 18:41] LABS: ESR 98 mm/hr (1-20)
[2018-10-10] MEDS: Normal Saline 1,000 ML 100 ML IV (18:54)
[2018-10-10] MEDS: Furosemide 20 MG TAB 60 MG PO ×2 (21:04→21:09)
[2018-10-10 22:09] VITALS: BP 110/64; PULSE 84; RESP 18; TEMP 37.4; O2SAT 97
--- NOTE | 2018-10-10 22:50 | MCONE_ITS ---
Date of service: 10/10/18 Time of Service: 18:50 Assessment and Plan (1) Acute renal insufficiency: Current visit: Yes Status: Acute It is very possible that the renal insufficiency noted is more related to the initiation of the Entresto and ongoing Lamb 2 inhibitor use than his acute illness. The Entresto includes an angiotensin receptor keshia, and the patient has documented history of acute renal failure with ROMI inhibitor. On the other hand, he did have some initial soft blood pressures so there may be a prerenal component. I agree with some hydration at this point with close monitoring of respiratory status. I agree with holding Entresto. I would continue his diuretics given his cardiac history, but I do think is reasonable to hold them morning prior to surgery. I would hold the Celebrex and other NSAIDs. (2) Cardiomyopathy: Current visit: No Status: Chronic Patient has a history of heart failure with reduced ejection fraction. He does not appear to be fluid overloaded at this point. See above regarding the Entresto and diuretics. I did confirm his doses of these medications. I would continue his beta-keshia through the surgery. Monitor ins and outs and daily weights closely. (3) Atrial fibrillation: Current visit: No Status: Chronic I agree with holding his anticoagulation for the procedure without any sort of bridging. He can be reinitiated after the surgery at the discretion of Dr. Samano. Continue rate control with metoprolol XL 100 mg per day. 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 Medical consult quested by Dr. Samano from orthopedics due to patient's history of cardiomyopathy and new acute renal insufficiency. See Dr. Samano's admission H&P. Briefly, patient suffered an open skin wound over his left knee 4 days prior to presentation stepping off a tailgate against a trailer. He has had progressive swelling and was diagnosed with a septic joint today by Dr. Samano. He was admitted for arthroscopy with drainage of purulent effusion. Regarding his medical status, the patient has been relatively stable and his cardiac disease. He has an ischemic cardiomyopathy with his last documented left ventricular ejection fraction of 35 to 40% February 2018. Of note, the patient was started on a new medication of Entresto on August 24 by cardiology. He does have a previous history of acute renal failure after ROMI inhibitor, and thus was not taking an ROMI inhibitor or angiotensin receptor keshia prior to starting on the Entresto in August. His last creatinine prior to that date was 1.03 on May 05, 2018. It is also notable that he has been taking celecoxib on a regular basis to treat his joint pains. On history today, the patient states he feels like his heart is getting better in general. He has minimal dyspnea on exertion, and is able to lie flat without dyspnea. He denies any chest pain and was physically active before sustaining his recent injury. I did confirm with him his doses of medication including his diuretics and metoprolol. He denies missing any recent doses of medication. His last Xarelto taken night prior to admission. Consults Consult date: 10/10/18 Requesting physician: Luca Samano Review of Systems Review of Systems No fevers or chills. Normal appetite. No eye pain or acute vision changes. He does note decreased vision of his left eye related to cataract. No recent cold symptoms including sore throat, nasal congestion or runny nose or cough. No mouth sores or difficulty swallowing. No wheezing. No chest pain or palpitations. Has been using his CPAP regularly. No nausea or vomiting. No diarrhea or constipation. No blood in the stool or melena. No other bleeding of note. No rashes or severe bruising. No dysuria or changes of urine flow. No focal numbness or weakness. No dizziness. [facility] Social History (Updated 10/10/18 @ 23:03 by Sravan Doyle) Smoking/Tobacco Use Status: Former Tobacco Use Quit Date: 03/15/01 Alcohol Intake: former Drug use: Never Do you feel safe at home: Yes Do you feel safe in your relationship?: Yes Additional Social history: Patient lives in [facility] with her is Haley of 50 years. He helps care for his grandkids that live in the area. 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 No acute distress. Pleasant. HEENT: Conjunctive clear with no icterus. Pupils equal round reactive to light, extraocular motions intact, but with left exophoria. No rhinorrhea. Moist m ucous membranes oropharynx benign. Neck is supple with no lymphadenopathy or masses. No elevation of jugular venous distention. Lungs are clear to auscultation bilaterally with normal effort. Cardiovascular: Regular rate and rhythm no murmurs gallops or rubs. Abdomen: Active bowel sounds, soft, nontender and nondistended Extremities: Left knee slightly flexed with dramatic effusion, clear pain with movement. No other clear joint swelling or effusions. 2+ bilateral edema to the shins with venous stasis changes noted and some crusted wounds. No cyanosis in extremities. Psychiatric: Normal mood and affect. History somewhat tangential, but does relate to the question and demonstrates good memory and orientation. Results Last Vital Signs Temp 37.4 C 10/10/18 22:09 Pulse 84 10/10/18 22:09 Resp 18 10/10/18 22:09 BP 110/64 10/10/18 22:09 Pulse Ox 97 10/10/18 22:09 Labs : 10/10/18 16:30 10/10/18 16:30 Laboratory Results - last 24 hr 10/10/18 10/10/18 10/10/18 16:30 16:30 16:30 WBC 16.86 H RBC 3.67 L Hgb 11.6 L Hct 35.1 L MCV 95.6 H MCH 31.6 MCHC 33.0 RDW 15.9 H Plt Count 176 MPV 10.8 ESR 98 H Sodium 135 L Potassium 4.0 Chloride 102 Carbon Dioxide 23.6 Anion Gap 9.4 BUN 42 H Creatinine 1.95 H Estimated GFR/1.73 m2 33.71 Glucose 140 H Hemoglobin A1c 5.9 Calcium 8.8 Total Bilirubin 1.1 H AST 5 L ALT 9 L Alkaline Phosphatase 62 C-Reactive Protein > 25.00 H Total Protein 6.5 Albumin 2.4 L
[2018-10-11] VITALS (34 sets, daily range): BP systolic 87–134; BP diastolic 50–72; PULSE 80–138; RESP 15–29; TEMP 36.8–38.3; O2SAT 88–98
[2018-10-11] MEDS: Normal Saline 1,000 ML 100 ML IV (04:35)
[2018-10-11] MEDS: Levothyroxine 75 MCG TAB PO (06:26)
[2018-10-11] MEDS: Normal Saline 1,000 ML 1000 ML IV (06:50)
[2018-10-11] MEDS: Metoprolol 25 MG TAB PO (07:08)
--- NOTE | 2018-10-11 07:29 | W.PM.PROGNOT ---
Date of Service Date of service: 10/11/18 Time of Service: 07:30 Assessment and Plan (1) Infection of prosthetic left knee joint: Current visit: Yes Status: Acute Vasu has an acute infection of his left total knee. This started for an abrasion over the anterior aspect the left knee. There is copious amounts of purulence within the left knee which is to be removed surgically. I previously reviewed this with Vasu and his yesterday. He is scheduled for surgery today. He is n.p.o. I did obtain a sample of the fluid yesterday in the clinic so therefore we can proceed with antibiotics if necessary. We will perform an open synovectomy and polyethylene exchange. Qualifiers: Encounter type: initial encounter Qualified Code(s): T84.54XA - Infection and inflammatory reaction due to internal left knee prosthesis, initial encounter (2) Sepsis associated hypotension: Current visit: Yes Status: Acute Vasu has been mildly hypotensive and tachycardic from his atrial fibrillation. The hypotension could be due to his infection which confirmed. He does have an elevated white blood cell count and an elevated CRP with known infection site. Is very possible that he is hypotensive from the injection so therefore I am to start him on antibiotics. I ordered 2 g of ceftriaxone this morning. Still obtain cultures in the operating room today but do have the cultures from yesterday which are growing gram-positive cocci. (3) Acute renal insufficiency: Current visit: Yes Status: Acute Continue to follow BMP. Hold on Lasix this morning. Appreciate medicine consult, continue with holding Entresto. (4) Atrial fibrillation: Current visit: No Status: Chronic EKG confirms he is back in atrial fibrillation. I have divided his metoprolol to every 6 hours dosing that we may more control especially given his hypotension although he is beta-keshia dependent for his rate. (5) Cardiomyopathy: Current visit: No Status: Acute Lasix dependent cardiomyopathy. Last ejection fraction was 35 to 40%. He did both somewhat but I am cautious about any further bolusing given his known cardiomyopathy and his Lasix dependency. Especially, with renal function as it is he is going to be prone to fluid overload. I appreciate medicine consult and help with management. Subjective Interval history since last seen: Vasu reports he is doing okay. He still feels a lot of pain in the left knee. He still overall feels sick but has had no subjective fever or chills. He denies any nausea or vomiting. He has had no chest pain, palpitations, shortness of breath, dyspnea. His blood pressure has been running lower with systolics in the 80s and his heart rate has increased. EKG demonstrated atrial fibrillation. Medicine consult was obtained yesterday. Exam Narrative Exam Narrative: Vasu is lying in hospital bed. He has slightly ashen complexion but otherwise does not appear to be in distress. He is alert and oriented x3. Not diaphoretic. Evaluation of his left knee shows a hot and swollen left knee with a large effusion and fluid collection. Motion was not tested. Objective Objective Clinical Data: Abnormal lab results 10/10/18 10/10/18 Range/Units 16:30 16:30 WBC 16.86 H (4.4-10.8) k/cumm RBC 3.67 L (4.50-6.00) m/cumm Hgb 11.6 L (13.5-17.5) g/dL Hct 35.1 L (40.0-50.0) % MCV 95.6 H (80-95) fL RDW 15.9 H (11.8-14.1) % ESR 98 H (1-20) mm/hr Sodium 135 L (136-145) mmol/L BUN 42 H (7-18) mg/dL Creatinine 1.95 H (0.70-1.30) mg/dL Glucose 140 H (70-100) mg/dL Total Bilirubin 1.1 H (0.2-1.0) mg/dL AST 5 L (15-37) U/L ALT 9 L (12-78) U/L C-Reactive Protein > 25.00 H (0.0-0.3) mg/dL Albumin 2.4 L (3.4-5.0) g/dL Vital Signs Temperature 36.9 C 10/11/18 06:26 Temperature Source Temporal Artery Scan 10/11/18 06:26 Pulse 117 H 10/11/18 06:26 Pulse Rhythm Irregular 10/11/18 06:36 Respiratory Rate 16 10/11/18 06:26 Respiratory Effort Non-Labored 10/11/18 06:36 Respiratory Depth Normal 10/11/18 06:36 Respiratory Pattern Normal 10/11/18 06:36 Blood Pressure 88/58 L 10/11/18 06:26 Pulse Oximetry 95 10/11/18 06:26 Oxygen Delivery Method Room Air 10/11/18 06:26 Oxygen Flow Rate 0 10/11/18 06:26 Pain Level 0 10/11/18 06:26 Intake & Output 10/10/18 10/10/18 10/11/18 11:59 23:59 11:59 Intake Total 968.333 / 968.333 Output Total 400 / 400 Balance 568.333 / 568.333 Weight 122.7 kg Intake: IV 968.333 / 968.333 Output: Urine 400 / 400 Other: Urine Color Straw Light Marcela Urine Appearance Clear Clear Urine Odor Strong Comment concentrated Voiding Methods Urinal Laboratory Results WBC 16.86 k/cumm (4.4-10.8) H 10/10/18 16:30 RBC 3.67 m/cumm (4.50-6.00) L 10/10/18 16:30 Hgb 11.6 g/dL (13.5-17.5) L 10/10/18 16:30 Hct 35.1 % (40.0-50.0) L 10/10/18 16:30 MCV 95.6 fL (80-95) H 10/10/18 16:30 MCH 31.6 pg (27.0-33.0) 10/10/18 16:30 MCHC 33.0 g/dL (32.0-36.0) 10/10/18 16:30 RDW 15.9 % (11.8-14.1) H 10/10/18 16:30 Plt Count 176 x1000/uL (130-400) 10/10/18 16:30 MPV 10.8 fL (8.0-11.0) 10/10/18 16:30 ESR 98 mm/hr (1-20) H 10/10/18 16:30 Sodium 135 mmol/L (136-145) L 10/10/18 16:30 Potassium 4.0 mmol/L (3.5-5.1) 10/10/18 16:30 Chloride 102 mmol/L (98-107) 10/10/18 16:30 Carbon Dioxide 23.6 mmol/L (21.0-32.0) 10/10/18 16:30 9.4 mmol/L (3-11) 10/10/18 16:30 BUN 42 mg/dL (7-18) H 10/10/18 16:30 1.95 mg/dL (0.70-1.30) H 10/10/18 16:30 33.71 (mL/min/1.73m2) 10/10/18 16:30 Glucose 140 mg/dL (70-100) H 10/10/18 16:30 5.9 % (4.5-6.2) 10/10/18 16:30 Calcium 8.8 mg/dL (8.5-10.1) 10/10/18 16:30 1.1 mg/dL (0.2-1.0) H 10/10/18 16:30 AST 5 U/L (15-37) L 10/10/18 16:30 ALT 9 U/L (12-78) L 10/10/18 16:30 62 U/L (46-116) 10/10/18 16:30 > 25.00 mg/dL (0.0-0.3) H 10/10/18 16:30 6.5 g/dL (6.4-8.2) 10/10/18 16:30 2.4 g/dL (3.4-5.0) L 10/10/18 16:30
[2018-10-11 08:02] LABS: Anion Gap 14.7 mmol/L (3-11); BUN 47 mg/dL (7-18); CO2 21.3 mmol/L (21.0-32.0); CREATININE 2.04 mg/dL (0.70-1.30); Calcium 8.4 mg/dL (8.5-10.1); Chloride 99 mmol/L (98-107); Glucose 95 mg/dL (70-100); Sodium 135 mmol/L (136-145)
[2018-10-11] MEDS: cefTRIAXone 2 GM/50 ML BAG IVPB (08:31)
--- NOTE | 2018-10-11 10:45 | PDOC.CMIN ---
Care Management Initial Assess REASON FOR HOSPITALIZATION:: infected TKA PAST MEDICAL HISTORY/PAST SURGICAL HISTORY:: Medical: a-fib, CHF, chronic renal insufficiency, venous stasis, recurrent LE infections, severe L leg injury after being kicked by horse, hypothyroidism, HTN, obesity, OA dea hips, gout, restrictive lung disease, spinal stenosis, tubular adenoma with colon polyps, distant H/O tobacco and ETOH, macular degeneration, [place], restless leg syndrome. Surgical: dea cataract surgery, hip replacement PREVIOUS FUNCTIONAL STATUS/SOCIAL/FAMILY SUPPORTS:: Patient is 73 yo man who lives with his Haley in their home in [place]. They have 5 adult children and multiple grandchildren. He is usually active and independent at home. He still drives. Home is on 2 floors with stairs to second floor. His works instrument technologist but has the summer off because she works at the [employer]. CURRENT FUNCTIONAL STATUS:: He is lying in bed when CM enters. His Haley is present. He is grumpy and wants to get up and go home. ADVANCE DIRECTIVES:: None on file. He has had information in past. Declines further information. Has patient been provided with information about the portal?: Yes Did the patient sign up for the portal?: No CODE STATUS:: DNI INSURANCE COVERAGE / FINANCIAL ISSUES:: BC/BS. Medicare-A only CURRENT HOME/COMMUNITY SERVICES/EQUIPMENT:: No services or equipment used. He does have walker, cane and crutches at home if needed. PRIMARY CARE PHYSICIAN:: Moiz Tinoco MD POTENTIAL DISCHARGE NEEDS:: Will need follow-up with orthopedist as directed. PATIENT/FAMILY EDUCATION NEEDS:: Review d/c instructions re meds and activity levels. Review Ask me Now questions. ANTICIPATED BARRIERS TO DISCHARGE:: none identified TRANSPORTATION:: via car with Haley. PLAN:: d/c home as per . Will continue to monitor for any additional d/c needs.
[2018-10-11 11:08] LABS: Abs Immature Grans 0.09 k/cumm (0.0-0.09); Absolute Basophil Count 0.02 k/cumm (0.0-0.2); Absolute Eosinophil Count 0.07 k/cumm (0.0-0.7); Absolute Lymphocyte Count 0.75 k/cumm (1.2-3.4); Absolute Neutrophil Count 16.08 k/cumm (1.2-6.7); Basophils % 0.1; Eosinophils % 0.4; HCT 35.5 % (40.0-50.0); HGB 11.8 g/dL (13.5-17.5); Immature Grans % 0.5; Lymphocytes % 4.2; Mean Corp. HGB Concentration 33.2 g/dL (32.0-36.0); Mean Corpuscular Volume 96.2 fL (80-95); Mean Platelet Volume 10.7 fL (8.0-11.0); Monocytes % 5.2; Neutrophils % 89.6; Platelet Count 155 x1000/uL (130-400); RBC 3.69 m/cumm (4.50-6.00); RBC Distribution Width 15.9 % (11.8-14.1); White Blood Cell Count 17.95 k/cumm (4.4-10.8)
[2018-10-11 11:09] LABS: Absolute Monocyte Count 0.93 k/cumm (0.11-0.7)
[2018-10-11 11:17] LABS: INR 1.1 (0.9-1.1); Prothrombin Time 11.2 sec (9.3-11.0)
--- NOTE | 2018-10-11 12:09 | PHARADMIT ---
Addendum entered by Lida Jaimes 10/24/18 16:06: Pharmacy Note Subjective Gout in elbow is thought to be cause of fevers Objective VS-okay Tmax-37.6 yesterday INR-1.1 WBC-11.79(down) SCr-1.13(down) Assessment colchicine was discontinued cefazolin continues MD considering switching pt to rivaroxaban since rifaxamin was discontinued fluid culture-no growth seen @ 48 hours, blood cultures from 10/21-no growth @72 hours Plan home vs. swing when ready; close to discharge per progress note Addendum entered by Fco Garnett III 10/22/18 11:29: Pharmacy Note Subjective MD described knee as worsening, consult to . PICC Line tip may be pulled and cultured. Objective MaxTemp-38.8C yesterday, 37.3C now, WBC-12.79 SCr-1.40 Lytes-OK I&O: -500mL today, wgt-136 kg (up 0.5kg) Last BM 10/21 Assessment Rifampin DC'd Cefazolin continues. Lasix drip at 2.5mg/hr Plan BP & HR stable, temperature leveling after Rifampin stopped. Awaiting input on the knee. Addendum entered by Lida Jaimes 10/21/18 15:35: Pharmacy Note Subjective current fevers possibly drug fever (rifampin) per progress note Objective Tmax-38.3 HR-101 RR-32 SCr-1.41(down) WBC-12.99(up) Assessment furosemide drip started metoprolol dose increased to 100 mg Q8H zosyn discontinued and cefazolin restarted yesterday repeat blood cultures ordered; results pending Plan if fevers persist or temps increase may trial holding rifampin to evaluate for potential improvement, watch BP and HR if rifampin held, as rifampin may decrease the serum concentration of metoprolol (metoprolol dosing may need to be decreased) Addendum entered by Fco Garnett III 10/19/18 14:10: Pharmacy Note Subjective Patient lost IV access, re-established with Mid-line. Zosyn retimed. Left knee sepsis resolving ? C-chief controller tower-13.22 MD reports worsening Tricuspid regurgitation from lastest ECHO.May need JS in future. Objective VS-OK HR-123 Labs-WNL SCr-1.83 H&H-8.9/28.2 wgt-133.6 kg BM today Assessment Zosyn & Rifampin on Day#8 Diltiazem drip off.Lovenox continues for now, will go back to Warfarin before discharge Plan Continue PT Addendum entered by Lida Jaimes 10/18/18 16:41: Pharmacy Note Subjective pt not moving much per morning report, wants pt to get moving some more with PT Objective HR-102 RR-32 other VS okay Na-135 SCr-1.69(up) WBC-12.75(up) Assessment metoprolol dose increased today; watch response when rifampin discontinued as may need to decrease dose (rifampin may decrease serum concentration of metoprolol) zosyn continues (day4/5); plan is to change back to cefazolin after 5 days of zosyn complete furosemide drip discontinued; attempting to wean off diltiazem drip Plan watch for change back to cefazolin once zosyn complete Addendum entered by Lida Jaimes 10/17/18 15:20: Pharmacy Note Subjective Objective HR-101 RR-27 other VS okay SCr-1.61(up) WBC-11.87(down) Assessment diltiazem and lasix drips continue zosyn continues (day 3/5) metoprolol dose increased last night to 50 mg Q8H blood cultures from 10/12, 10/14, and 10/15 all no growth Plan watch for change back to cefazolin once zosyn complete Addendum entered by Fco Garnett III 10/14/18 12:07: Pharmacy Note Subjective Patient is in rapid A-fib, but BP has risen to normal. ECHO show worsening tricuspid regurgitation, (EF-35-40%) ?? endocarditis, may need JS one a-fib controlled. MSSA infection of knee improving, fever though. Right wrist gout flare, (colchicine interacts w/Diltiazem,trying NSAID.) Objective HR-139 BP-124/67 SCr-1.24 K+3.6 WBC-12.67 Procalcitoin-3.9 Assessment Cefazolin & Rifampin continue. Diltiazem & Metoprolol titrated for A-fib. Plan Will require 6 weeks of IV ABX once blood cultures negative. Addendum entered by Corie Dempsey 10/13/18 10:46: Pharmacy Note Subjective Had wash out of knee done on 10/11, severe anaphylactic reaction to Vanco, infection improving but had hypotensive episode overnight requiring vasopressin drip to be restarted Objective C-Reactive Protein: 17.75 (>25 on 10/12), Procalcitonin 6.0 (7.1 on 10/12), WBC 12.73, BP 104/57, HR 112, lytes ok, H/H 28.8/9.4 (trending down) Assessment MSSA infection of prosthetic knee improving, drop in BP likely due to excessive beta blockade rather than sepsis as CRP and procalcitonin are trending down; AFib - heart rate elevated today partially due to pressors Plan Abx therapy was changed from ceftriaxone and zosyn to cefazolin, oral rifampin continues , metoprolol was changed from 25mg Q6H to 12.5mg BID and IV prn, was give 1 dose of IV digoxin with some improvement Original Note: Admission Pharmacy Clinical Review INFECTED LEFT KNEE Code Status DNI Current Weight Wgt- 122.7 kg Renally Cleared and Narrow Therapeutic Index Meds CrCl~36 mL/min Meds-OK QTc Value / Action Taken QTc-497 () BP Control, Fever BP-90/60 Tmax- 37.4C Electrolytes reviewed Na- 135 K+4.0 DVT Prophylaxis going to OR Opiate Usage / Scheduled Bowel Regimen Ordered No No Plt/SCr for Heparin / Enoxaparin Plts-155 SCr-2.04 INR for Warfarin in-1.1 H/H stable, WBC/Bands H&H-11.8/35.5 WBC-17.95 Antibiotic appropriateness none Cultures and Sensitivities Blood-Gram+ cocci Surgical ABX d/c within 24 hr na DM control / Insulin Dosing BG-95 HgA1c- 5.9 Heart Failure (Check EF%) (ROMI's, B-Block, Diuretics) Lasix, Lopressor, IV to PO Switch No Home Meds Reviewed Yes Home Meds Not Ordered Entresto, Spironolactone, Comments r-CRP>25
[2018-10-11] MEDS: Lactated Ringers 1,000 ML 200 ML IV (12:17)
--- NOTE | 2018-10-11 15:07 | DI.RAD_ITS ---
SYMPTOMS/DIAGNOSIS: CENTRAL LINE PLACEMENT IN OR CHEST X-RAY, PORTABLE AP VIEW: There is a central venous catheter seen. The tip of the catheter appears to lie in the superior vena cava. There is an endotracheal tube, which is above the level of the sushant by approximately 3 cm. Atelectatic changes are seen in the lungs.
--- NOTE | 2018-10-11 16:05 | W.PM.PROGNOT ---
Date of Service Date of service: 10/11/18 Time of Service: 16:06 Assessment and Plan (1) Sepsis: Current visit: Yes Status: Acute Due to infection of L knee prosthesis, present on admission. There is a possibility that the hypotension is also induced by the anesthetic agents and that this is not quite shock. Will trend lactates. Introduce slow IVF x 1 L. Wean pressors as tolerated. Meanwhile, repeat blood cultures in am, obtain echo given GPC's in blood. Discussed antibiotic choice with Dr Samano - Until we know that this is not MRSA, will treat with daptomycin, rifampin, zosyn. (2) Sepsis associated hypotension: Current visit: Yes Status: Acute As above (3) Bacteremia: Current visit: Yes Status: Acute as above (4) Infection of prosthetic left knee joint: Current visit: Yes Status: Acute s/p washout by Dr Samano today. Knee prosthesis remains in place. As above Qualifiers: Encounter type: initial encounter Qualified Code(s): T84.54XA - Infection and inflammatory reaction due to internal left knee prosthesis, initial encounter (5) Permanent atrial fibrillation with rapid ventricular response: Current visit: Yes Status: Acute HR in 120's while on pressors are not that worrisome. Patient is febrile - will introduce tylenol and monitor HR. Will hold beta blockers until the patient is off pressors. Patient's xarelto interacts with rifampin - agree with lovenox, though if bleeding develops, the patient does not have to be fully anticoagulated and could be on DVT prophylaxis dose of lovenox if needed. (6) Acute renal insufficiency: Current visit: Yes Status: Acute It is very possible that the renal insufficiency noted is more related to the initiation of the Entresto and ongoing Lamb 2 inhibitor use than his acute illness. However, urinary retention is a possibility, and septic effect on kidney function is also a possibility. For now, hold off of entresto, NSAIDs, diuretics. Clinically the patient can handle gentle IVF - will monitor pulmonary status, continue to monitor I/O's, daily weights. (7) Cardiomyopathy: Current visit: No Status: Acute Chronic systolic CHF with EF 35-40%, also moderate pulmonary hypertension. Clinically, requires IVF and does not appear fluid overloaded. (8) Restrictive lung disease: Current visit: No Status: Chronic Provide CPAP/BiPAP tonight as needed (9) DVT prophylaxis: Current visit: Yes Status: Acute on full does anticoagulation with lovenox (10) Discharge planning issues: Current visit: Yes Status: Acute DNI will need at least 6 weeks of IV abx once blood cultures are negative. Total critical care time 45 minutes. Subjective Interval history since last seen: Mr Llamas is s/p washout of his L knee today. He did require vasopressors during surgery and has an A line and a R IJ CVL placed. Postoperatively, he is in the ICU, awake, a little slow to respond, but does eventually provide appropriate answers. Denies dizziness, chest pain, shortness of breath, nausea. He is not in pain. He complains of a nonproductive cough for 2 days. Exam Narrative Exam Narrative: General: obese elderly male, A&Ox3, but disoriented, answers questions slowly, but appropriately HEENT: EOMI, MMM, R IJ CVL Heart: seemingly RRR, tachycardic Lungs: diminished breath sounds B anteriorly GI: abdomen is soft, nontender, nondistended Extremities: no e/c/c BLE's; LLE dressed - c/d/i Objective Objective Clinical Data: Abnormal lab results 10/10/18 10/10/18 10/11/18 Range/Units 16:30 16:30 07:20 WBC 16.86 H (4.4-10.8) k/cumm RBC 3.67 L (4.50-6.00) m/cumm Hgb 11.6 L (13.5-17.5) g/dL Hct 35.1 L (40.0-50.0) % MCV 95.6 H (80-95) fL RDW 15.9 H (11.8-14.1) % Absolute Neutrophils (1.2-6.7) k/cumm Absolute Lymphocytes (1.2-3.4) k/cumm Absolute Monocytes (0.11-0.7) k/cumm ESR 98 H (1-20) mm/hr PT (9.3-11.0) sec Sodium 135 L 135 L (136-145) mmol/L Anion Gap 14.7 H (3-11) mmol/L BUN 42 H 47 H (7-18) mg/dL Creatinine 1.95 H 2.04 H (0.70-1.30) mg/dL Glucose 140 H (70-100) mg/dL Calcium 8.4 L (8.5-10.1) mg/dL Total Bilirubin 1.1 H (0.2-1.0) mg/dL AST 5 L (15-37) U/L ALT 9 L (12-78) U/L C-Reactive Protein > 25.00 H (0.0-0.3) mg/dL Albumin 2.4 L (3.4-5.0) g/dL 10/11/18 10/11/18 Range/Units 11:00 11:00 WBC 17.95 H (4.4-10.8) k/cumm RBC 3.69 L (4.50-6.00) m/cumm Hgb 11.8 L (13.5-17.5) g/dL Hct 35.5 L (40.0-50.0) % MCV 96.2 H (80-95) fL RDW 15.9 H (11.8-14.1) % Absolute Neutrophils 16.08 H (1.2-6.7) k/cumm Absolute Lymphocytes 0.75 L (1.2-3.4) k/cumm Absolute Monocytes 0.93 H (0.11-0.7) k/cumm ESR (1-20) mm/hr PT 11.2 H (9.3-11.0) sec Sodium (136-145) mmol/L Anion Gap (3-11) mmol/L BUN (7-18) mg/dL Creatinine (0.70-1.30) mg/dL Glucose (70-100) mg/dL Calcium (8.5-10.1) mg/dL Total Bilirubin (0.2-1.0) mg/dL AST (15-37) U/L ALT (12-78) U/L C-Reactive Protein (0.0-0.3) mg/dL Albumin (3.4-5.0) g/dL Vital Signs Temperature 36.8 C 10/11/18 10:04 Temperature Source Tympanic 10/11/18 10:04 Pulse 133 H 10/11/18 10:52 Pulse Rhythm Irregular 10/11/18 07:35 Respiratory Rate 20 10/11/18 10:04 Respiratory Effort Non-Labored 10/11/18 07:35 Respiratory Depth Normal 10/11/18 07:35 Respiratory Pattern Normal 10/11/18 07:35 Blood Pressure 90/60 L 10/11/18 10:04 Pulse Oximetry 98 10/11/18 10:04 Oxygen Delivery Method Room Air 10/11/18 10:04 Oxygen Flow Rate 0 10/11/18 10:04 Pain Level 0 10/11/18 10:04 Intake & Output 10/10/18 10/11/18 10/11/18 23:59 11:59 23:59 Intake Total 2350.000 / 2970.000 620 / 2970.000 Output Total 1000 / 2049 1050 / 0 Balance 1350.000 / 920.000 -430 / 920.000 Weight 122.7 kg Intake: IV 2350.000 / 2970.000 620 / 2970.000 Output: Urine 999 / 2049 105 / 2049 Other: Urine Color Yellow Dark Marcela Urine Appearance Clear Clear Cloudy Urine Odor Strong Comment concentrated Stool Size Small Stool Characteristics Soft Brown Voiding Methods Urinal Laboratory Results WBC 17.95 k/cumm (4.4-10.8) H 10/11/18 11:00 RBC 3.69 m/cumm (4.50-6.00) L 10/11/18 11:00 Hgb 11.8 g/dL (13.5-17.5) L 10/11/18 11:00 Hct 35.5 % (40.0-50.0) L 10/11/18 11:00 MCV 96.2 fL (80-95) H 10/11/18 11:00 MCH 32.0 pg (27.0-33.0) 10/11/18 11:00 MCHC 33.2 g/dL (32.0-36.0) 10/11/18 11:00 RDW 15.9 % (11.8-14.1) H 10/11/18 11:00 Plt Count 155 x1000/uL (130-400) 10/11/18 11:00 MPV 10.7 fL (8.0-11.0) 10/11/18 11:00 Immature Gran % 0.5 10/11/18 11:00 89.6 10/11/18 11:00 4.2 10/11/18 11:00 5.2 10/11/18 11:00 0.4 10/11/18 11:00 0.1 10/11/18 11:00 Absolute Neutrophils 16.08 k/cumm (1.2-6.7) H 10/11/18 11:00 Absolute Lymphocytes 0.75 k/cumm (1.2-3.4) L 10/11/18 11:00 Absolute Monocytes 0.93 k/cumm (0.11-0.7) H 10/11/18 11:00 Absolute Eosinophils 0.07 k/cumm (0.0-0.7) 10/11/18 11:00 Absolute Basophils 0.02 k/cumm (0.0-0.2) 10/11/18 11:00 ESR 98 mm/hr (1-20) H 10/10/18 16:30 PT 11.2 sec (9.3-11.0) H 10/11/18 11:00 INR 1.1 (0.9-1.1) 10/11/18 11:00 Sodium 135 mmol/L (136-145) L 10/11/18 07:20 Potassium 4.0 mmol/L (3.5-5.1) 10/11/18 07:20 Chloride 99 mmol/L (98-107) 10/11/18 07:20 Carbon Dioxide 21.3 mmol/L (21.0-32.0) 10/11/18 07:20 14.7 mmol/L (3-11) H 10/11/18 07:20 BUN 47 mg/dL (7-18) H 10/11/18 07:20 2.04 mg/dL (0.70-1.30) H 10/11/18 07:20 32.00 (mL/min/1.73m2) 10/11/18 07:20 Glucose 95 mg/dL (70-100) 10/11/18 07:20 5.9 % (4.5-6.2) 10/10/18 16:30 Calcium 8.4 mg/dL (8.5-10.1) L 10/11/18 07:20 1.1 mg/dL (0.2-1.0) H 10/10/18 16:30 AST 5 U/L (15-37) L 10/10/18 16:30 ALT 9 U/L (12-78) L 10/10/18 16:30 62 U/L (46-116) 10/10/18 16:30 > 25.00 mg/dL (0.0-0.3) H 10/10/18 16:30 6.5 g/dL (6.4-8.2) 10/10/18 16:30 2.4 g/dL (3.4-5.0) L 10/10/18 16:30
[2018-10-11] MEDS: PIPERACILLIN/TAZO 3.375 GM in Normal Saline 50 ML IVPB ×2 (16:32→22:26)
[2018-10-11] MEDS: Normal Saline 1,000 ML 75 ML IV (16:33)
[2018-10-11] MEDS: Normal Saline Flush 10 ML SYR ×2 (16:38→19:49)
[2018-10-11 16:41] LABS: Lactate 1.4 mmol/L (0.6-1.4)
[2018-10-11] MEDS: Enoxaparin 100 MG/ML SYR SC (17:28)
[2018-10-11] MEDS: ACETAMINOPHEN 1,000 MG/100 ML BTL 400 MG IVPB (17:28)
--- NOTE | 2018-10-11 19:14 | W.PM.OP ---
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 SURGEON: Luca Samano ASSISTING SURGEON: Vero Sanabria MEDICAL SUPERINTENDENT: Vero Sanabria ANESTHESIA: GETA and regional ESTIMATED BLOOD LOSS: 300 PATHOLOGY: none sent COMPLICATIONS: None Patient was transported to: PACU Patient's condition: stable Implants: 1. Depuy Attune 9x6mm Fixed, Stabilized Poly Indications: I have seen Vasu in clinic yesterday for symptoms of left knee periprosthetic infection with arthrotomy rupture. Aspiration of the knee confirmed the diagnosis. His symptoms were acute in presentation, about 4 days. They occurred afer he fell and caused an abrasion the anterior left knee. Prior then he reports the knee was doing well with minimal complaints. I discussed the technical details of the surgery. I explained the risks of the procedure to include, but not limited to, bleeding, persistent infection, pain, stiffness, fracture, damage to nerves and vessels, damage to muscles and tendons, need for repeat procedure, blood clot and cardiopulmonary demise. Despite these risks, Vasu agreed to proceed. Findings: There was purulence encountered immediately within the soft tissues around the knee and within the knee. The medial arthrotomy was ruptured allowing communication. Aggressive synovectomy with 9L irrigation was performed. Procedure Description: Vasu was admitted to the medical surgical unit yesterday. His consent was reviewed upstairs prior to coming down to the operating room and signed. The correct side was identified and marked. All questions were answered. In the PACU an arterial line was placed. Vasu was taken back to the operating room. A general anesthetic was then administered. The patient was placed into the supine position on the operating room table. A nonsterile tourniquet was placed high onto the leg but not used. Posts were placed for positioning during the procedure. All bony prominences were well padded. Prophylactic antibiotics in the form of cefazolin were administered after synovial samples were taken. 1g of Tranxemic Acid was given intravenously within 30 minutes of incision. The left leg was then prepped with Chloraprep and draped in a standard fashion with impervious stockinette and extremity drape with Iodine impregnated skin protection. A timeout to confirm correct identity, side and site, procedure, allergies, anesthesia, and medical concerns was performed. With the knee in some flexion, a midline incision was made overlying the knee within the same scar as previous. Immediately, there was copious amounts of purulent material encountered. Incision was completed and there was noted to be a defect of the medial arthrotomy. There was what appeared to be a pseudocapsule which had formed bridging the gap between the displaced medial arthrotomy and the patella and quadriceps tendon laterally. Any bleeding was controlled with electrocautery. The medial parapatellar arthrotomy was completed distally. The plane of the torn and retracted retinaculum was also identified medially as well as laterally for later closure. All bleeding from the arthrotomy and the geniculate arteries was coagulated. A medial subperiosteal peel was performed with electrocautery to the midcoronal plane. Synovial samples were taken and sent to the lab for culture. Swabs deep from within the knee were also taken for anaerobic and aerobic culture. I then performed an aggressive synovectomy. The synovium from the overlying retinaculum and extensor mechanism. There was removed able from the medial aspect of the knee and the lateral aspect the knee and connected up top anteriorly. All of synovium over the anterior femur was removed. The gutters were also removed with a rondure work. There was also this pseudocapsule which had formed. Any areas of this was look necrotic were debrided. Superficial tissues which were also filled with infection were also debrided with a rondure or so that no necrotic tissue remain the spaces. I then irrigated the knee with approximately 3 L normal saline. This was done with a cystoscopy tubing low-pressure, high flow system. Once 3 L of normal saline had been irrigated through the knee a second look of synovectomy was performed. The polyethylene was removed and the posterior capsule was debrided with a rondure. Time was spent removing any necrotic or infectious material from the medial lateral gutters. Once satisfactory synovectomy was completed an additional 6 L of normal saline was irrigated through the knee. On the back table during this time 2 batches of Stimulan calcium sulfate beads were prepared on the back table. One batch was mixed with 1 g of cefazolin and one batch was mixed with 1.2 g of tobramycin. These were then placed into the suprapatellar pouch and in the gutters of the knee. A size 6mm polyethylene component provided the best range of motion and stability with less than 2mm gapping with medial and lateral stress and full extension without significant hyperextension. The trial poly was removed and the poly component was then inserted and impacted into position after cleaning and drying the tibial tray. The capsule was then reapproximated with a No. 1 antibiotic impregnated PDS suture. The retracted and torn medial retinaculum was able to be mobilized and reapproximated to the lateral retinaculum, patella, and quadriceps tendon. This was done with the knee in 90 degrees of flexion. Once the capsule was closed this was inspected for any notable leakage. There was none seen. Capsule was stable to about 100 degrees of flexion. Deep tissues were then reapproximated with 0 PDS and 2-0 PDS. The skin was closed with eladio. A Mepilex silver dressing was applied along with a [id number] ROMI wrap. A CryoCuff was applied. Vasu was transferred to the hospital bed. Pressors were used during the case to support his blood pressure. He continued to be irregularly irregular and tachycardic. He was able to be extubated on the hospital bed but remained on pressors and was thus transferred to the ICU under the hospitalist service. He has a guarded prognosis given the extent of his infection. The fascia did separate quite easily from the skin but there are no other signs of a necrotic fasciitis type picture but he did have overwhelming infection in this left knee. During the case the lab also called with results of his blood cultures returning positive as well. He has sepsis and will need to be treated aggressively for the infection with consideration of his multiple medical issues. Given the retained hardware I will use rifampin for antibiotic protocol. Previous infections have not been resistant strain but we will need to treat for resistant strain until we have confirmation. Given his serious reaction to vancomycin will use daptomycin in its place. We will use enoxaparin for DVT prophylaxis. He may weight-bear as tolerated without restriction but should use an assistive device. Physical therapy will start tomorrow.
[2018-10-11 19:29] LABS: Lactate 1.3 mmol/L (0.6-1.4)
[2018-10-11] MEDS: DAPTOmycin 500 MG in Normal Saline 50 ML 100 MG IVPB (20:45)
[2018-10-11 22:26] LABS: Lactate 1.4 mmol/L (0.6-1.4)
[2018-10-12] VITALS (111 sets, daily range): BP systolic 77–134; BP diastolic 38–96; PULSE 77–176; RESP 11–42; TEMP 36.5–37.5; O2SAT 83–100
[2018-10-12] MEDS: ACETAMINOPHEN 1,000 MG/100 ML BTL 400 MG IVPB ×4 (00:27→23:18)
[2018-10-12] MEDS: PIPERACILLIN/TAZO 3.375 GM in Normal Saline 50 ML IVPB ×2 (03:29→11:13)
[2018-10-12] MEDS: Enoxaparin 30 MG/0.3 ML SYR SC ×2 (06:14→17:45)
[2018-10-12] MEDS: Levothyroxine 75 MCG TAB PO (06:14)
[2018-10-12 06:57] LABS: Abs Immature Grans 0.09 k/cumm (0.0-0.09); Absolute Basophil Count 0.02 k/cumm (0.0-0.2); Absolute Lymphocyte Count 0.67 k/cumm (1.2-3.4); Basophils % 0.1; HCT 31.2 % (40.0-50.0); HGB 10.4 g/dL (13.5-17.5); Immature Grans % 0.5; Lymphocytes % 3.8; Mean Corp. HGB Concentration 33.3 g/dL (32.0-36.0); Mean Platelet Volume 10.3 fL (8.0-11.0); Monocytes % 3.2; Neutrophils % 92.4; Platelet Count 176 x1000/uL (130-400); RBC 3.25 m/cumm (4.50-6.00); RBC Distribution Width 15.6 % (11.8-14.1); White Blood Cell Count 17.61 k/cumm (4.4-10.8)
[2018-10-12 07:05] LABS: Absolute Monocyte Count 0.56 k/cumm (0.11-0.7); Absolute Neutrophil Count 16.27 k/cumm (1.2-6.7)
[2018-10-12 07:31] LABS: Anion Gap 13.9 mmol/L (3-11); BUN 51 mg/dL (7-18); CO2 18.1 mmol/L (21.0-32.0); CREATININE 1.98 mg/dL (0.70-1.30); Calcium 8.3 mg/dL (8.5-10.1); Chloride 104 mmol/L (98-107); Estimated GFR 33.12 (mL/min/1.73m2); Glucose 211 mg/dL (70-100); Magnesium 2.2 mg/dL (1.8-2.4); Potassium 4.8 mmol/L (3.5-5.1); Sodium 136 mmol/L (136-145)
[2018-10-12 07:41] LABS: C-Reactive Protein > 25.00 mg/dL (0.0-0.3)
[2018-10-12] MEDS: Normal Saline Flush 10 ML SYR IVP ×3 (08:44→19:47)
--- NOTE | 2018-10-12 09:00 | MERGE_ITS ---
*[facility]* *[facility]* [address] [place] [address] Date of study: 10/12/2018 Transthoracic Echocardiography M-mode, complete 2D, complete spectral Doppler, and color Doppler *STUDY CONCLUSIONS* Impressions: There are no typical features of vegetative endocarditis. Consider transesophageal echocardiography, if clinically indicated. The patient was in atrial fibrillation throughout study. This rhythm can interfere with accurate global and segmental wall motion analysis. Left ventricular dysfunction, improved from the previous study. Tricuspid regurgitation, worse from the previous study. All other valves unchanged. Summary: 1. Left ventricle: The cavity size was normal. Wall thickness was increased in a pattern of moderate LVH. Systolic function was mildly reduced. The estimated ejection fraction was 45-50%. Diffuse hypokinesis. 2. Aortic valve: Mild calcification. 3. Mitral valve: Mildly calcified annulus. Mild thickening. There was mild regurgitation. 4. Left atrium: The atrium was severely dilated. 5. Right ventricle: The cavity size was dilated. Wall thickness was normal. Systolic function was normal. 6. Right atrium: The atrium was severely dilated. 7. Tricuspid valve: There was moderate-severe regurgitation. 8. Pulmonary arteries: Pulmonary systolic pressure was increased, in the range of 45mm Hg to 55mm Hg. *PATIENT PRESENTATION* Height: 188cm (74in ) S/D Pressure: Weight: 132.4kg (291.4lb ) BSA: 2.68m^2 PERFORMING Unknown CONSULTING Qian Wilkins ORDERING Qian Wilkins REFERRING Qian Wilkins *PROCEDURE DATA* Procedure information: This study was interpreted by [facility]. Pertinent images and digital data are archived for permanent storage and are available for subsequent review. Transthoracic echocardiography. M-mode, complete 2D, complete spectral Doppler, and color Doppler. A Transthoracic Echocardiogram was performed. Scanning was performed from the parasternal, apical, subcostal, and suprasternal notch acoustic windows. Image quality was adequate. Study completion: The patient tolerated the procedure well. There were no complications. *CARDIAC ANATOMY* Left ventricle: The cavity size was normal. Wall thickness was increased in a pattern of moderate LVH. Systolic function was mildly reduced. The estimated ejection fraction was 45-50%. Diffuse hypokinesis. The study was not technically sufficient to allow evaluation of LV diastolic dysfunction due to atrial fibrillation. Aortic valve: Trileaflet; normal thickness leaflets. Mild calcification. Mobility was not restricted. Doppler: Transvalvular velocity was within the normal range. There was no stenosis. There was no significant regurgitation. VTI ratio of LVOT to aortic valve: 0.62. Valve area (VTI): 2.5cm^2. Indexed valve area (VTI): 1cm^2/m^2. Peak velocity ratio of LVOT to aortic valve: 0.63. Valve area (Vmax): 2.6cm^2. Indexed valve area (Vmax): 1cm^2/m^2. Mean velocity ratio of LVOT to aortic valve: 0.59. Valve area (Vmean): 2.4cm^2. Indexed valve area (Vmean): 0.9cm^2/m^2. Mean gradient (S): 5.4mm Hg. Peak gradient (S): 8mm Hg. Aorta: Aortic root: The aortic root was normal in size. Ascending aorta: The ascending aorta was mildly dilated. Mitral valve: Mildly calcified annulus. Mild thickening. Mobility was not restricted. Doppler: Transvalvular velocity was within the normal range. There was no evidence for stenosis. There was mild regurgitation. Peak gradient (D): 2.5mm Hg. Left atrium: The atrium was severely dilated. Right ventricle: The cavity size was dilated. Wall thickness was normal. Systolic function was normal. Pulmonic valve: Structurally normal valve. Doppler: Transvalvular velocity was within the normal range. There was no evidence for stenosis. There was trivial regurgitation. Peak gradient (S): 1.2mm Hg. Tricuspid valve: Structurally normal valve. Doppler: Transvalvular velocity was within the normal range. There was no evidence for stenosis. There was moderate-severe regurgitation. Pulmonary artery: Pulmonary systolic pressure was increased, in the range of 45mm Hg to 55mm Hg. Right atrium: The atrium was severely dilated. Pericardium: There was no pericardial effusion. Systemic veins: Inferior vena cava: Well visualized. The vessel was patent and normal in size. Measurements Left ventricle Value 03/02/2018 Reference LV ID, ED, PLAX 4.8 cm 5.5 3.5 - 6.0 LV ID, ES, PLAX 3.9 cm 4.3 2.1 - 4.0 LV PW thickness, ED, PLAX 1.4 cm 1.3 LV end-diastolic volume, 130 ml 158 1-p A2C LV ejection fraction, 1-p 54 % 33 A2C LV end-diastolic volume, 103 ml 117 1-p A4C LV ejection fraction, 1-p 48 % 39 A4C LV e', lateral 0.172 m/sec LV E/e', lateral 5 LV e', medial 0.212 m/sec 0.127 LV E/e', medial 4 8 LV e', average 0.192 m/sec LV E/e', average 4 Ventricular septum Value 03/02/2018 Reference IVS thickness, ED, PLAX 1.4 cm 1.6 LVOT Value 03/02/2018 Reference LVOT ID, A-P 2.3 cm 2.3 LVOT area 4.1 cm^2 4.1 LVOT peak velocity, S 0.89 m/sec 0.68 LVOT mean velocity, S 0.67 m/sec 0.53 LVOT VTI, S 16.0 cm 13.6 LVOT peak gradient, S 3.2 mm Hg 1.8 LVOT mean gradient, S 2 mm Hg 1.2 Stroke volume (SV), LVOT 66 ml 56 DP Stroke index (SV/bsa), 25 ml/m^2 22 LVOT DP Aortic valve Value 03/02/2018 Reference Aortic valve peak 1.4 m/sec 1.1 velocity, S Aortic valve mean 1.1 m/sec 0.9 velocity, S Aortic valve VTI, S 26.0 cm 20.0 Aortic mean gradient, S 5.4 mm Hg 3.2 Aortic peak gradient, S 8 mm Hg 5.2 VTI ratio, LVOT/AV 0.62 0.68 Aortic valve area, VTI 2.5 cm^2 2.8 Velocity ratio, peak, 0.63 0.59 LVOT/AV Aortic valve area, peak 2.6 cm^2 2.4 velocity Velocity ratio, mean, 0.59 0.61 LVOT/AV Aortic valve area, mean 2.4 cm^2 2.5 velocity Aortic valve area/bsa, 0.9 cm^2/m^2 1 mean velocity Aorta Value 03/02/2018 Reference Aortic root ID, ED 3.5 cm 3.2 Ascending aorta ID, A-P, S 3.8 cm 3.8 Left atrium Value 03/02/2018 Reference LA ID, A-P, ES 5.1 cm 5.8 LA ID/bsa, A-P 1.9 cm/m^2 2.2 <=2.2 LA volume, ES, 2-p 188 ml 164 LA volume/bsa, ES, 2-p 70 ml/m^2 63 LA/aortic root ratio 1.45 1.82 Mitral valve Value 03/02/2018 Reference Mitral E-wave peak 0.78 m/sec 1 velocity Mitral peak gradient, D 2.5 mm Hg 4 Tricuspid valve Value 03/02/2018 Reference Tricuspid regurg peak 3.6 m/sec 2.8 velocity Tricuspid peak RV-RA 51.3 mm Hg 32.3 gradient Right atrium Value 03/02/2018 Reference RA area, ES, A4C (H) 37.6 cm^2 35 8.3 - 19.5 Pulmonic valve Value 03/02/2018 Reference Pulmonic peak gradient, S 1.2 mm Hg 1.3 Legend: (L) and (H) priscilla values outside specified reference range. I have personally reviewed the images and have reviewed and edited the reported findings. Electronically signed by Dimitris Arnett 10/12/2018 11:56
[2018-10-12 09:06] LABS: Creatine Kinase 72 U/L (39-308)
--- NOTE | 2018-10-12 09:20 | W.NUTCONSULT ---
Date of service: 10/12/18 Time of Service: 09:20 Nutritional Consult ASSESSMENT: Appreciate nutrition consult for Mr. Llamas who is hospitalized with knee wound. BMI 37 Weight:133.5 kg Height: 74 A1c 5.9 with a high of 6.5 eGFR 33 Fasting blood sugar 211 Currently NPO NUTRITIONAL DIAGNOSIS: Increased nutrient needs (NI-5.1) (protein and energy) related to increased demand for wound healing as evidenced by the presence of a infected knee abraision Estimated Energy needs: 3,990 calories Protein needs 160 grams Fluid needs: 3990ml daily INTERVENTION: Have added Jacek twice daily x 1 week; offering large portions of protein servings; offer high protein snacks MONITORING AND EVALUATION: Will follow acceptance of food offered to achieve energy, protein and nutrient needs Time Spent in Nutritional Counseling and Treatment: no face to face; will do that when he is no longer NPO
--- NOTE | 2018-10-12 09:46 | CMPROGNOTE_ITS ---
- If Service Date Differs Date of service: 10/12/18 Time of Service: 09:46 Care Management Progress Note S/O:Brennan remains in the ICU. His blood pressure has been low but it is improving. Brennan was sitting up in bed conversing with his when CM came to visit. He states that he is feeling better. He has not required any pain medication in addition to the IV Acetaminophen he is receiving. Both he and his state that he will likely not need any additional services when discharged unless he requires exterminator helper antibiotics. A: Brennan is a 73 year old man admitted to [facility] on 10/10/18 with an infected knee. P: Brennan remains ICU level of care receiving IV antibiotics for an infected prosthetic knee. He may need nursing home AB when ready for discharge. His disposition will depend on required course of AB.CM will continue to support patient, family and discharge planning needs identified.
[2018-10-12 10:18] LABS: Procalcitonin 7.1 ng/mL
[2018-10-12] MEDS: Vitamins B Comp w/C TAB 1 TAB PO (11:01)
[2018-10-12] MEDS: Ascorbic Acid 500 MG TAB PO (11:01)
[2018-10-12] MEDS: Metoprolol 25 MG TAB PO (11:01)
[2018-10-12] MEDS: Cholecalciferol (Vitamin D3) 1,000 UNIT TAB 1000 UNITS PO (11:01)
[2018-10-12] MEDS: Cyanocobalamin 500 MCG TAB PO (11:01)
[2018-10-12] MEDS: Multivitamin TAB 1 TAB PO (11:01)
[2018-10-12] MEDS: Allopurinol 300 MG TAB PO (11:01)
[2018-10-12] MEDS: rifAMPin 300 MG CAP PO ×2 (11:01→19:48)
--- NOTE | 2018-10-12 11:12 | DI.RAD_ITS ---
SYMPTOMS/DIAGNOSIS: COUGH PORTABLE CHEST: When compared with the previous study, again noted is a central venous catheter ending in the superior vena cava unchanged. Since the prior study a endotracheal tube has been removed. The lungs appear free of infiltrate. There is no pleural effusion. The heart is top limits of normal in size. There are multiple old left rib fractures.
--- NOTE | 2018-10-12 11:28 | PT.INIE ---
Date of service: 10/12/18 Time of Service: 11:28 PT Notes Inpatient Physical Therapy Evaluation Date: 10/12/2018 Referring Doctor: Luca Samano MD PT Orders: PT CONSULT: S/P I&D and poly-exchange left TKA. WBAT with assistance. Slow progression of flexion, focus on extension and quad exercise. Precautions: Fall. Standard. WBAT on left LE. Activity as tolerated. Patient Profile/Admitting Diagnosis: Patient is a 73-year-old male status post left total knee arthroplasty in April 2018 who presented to the out-patient clinic with infected abrasion of L knee. 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 Samano. He also is being managed for acute renal insufficicency, hypotension associated with sepsis, cardiomyopathy, and atrial fibrillation. PMHX: Atrial Fibrillation Sepsis with hypotension Venous Stasis Restrictive Lung Disease Renal Insufficiency Social History/Home Situation: Patient lives with Haley in a 2-floor house in [place], [place] with a ramp to enter. He has a flight of steps to his bedroom and a flight down to what he calls a studio. Both sets of step have rails on both sides. He was independent with all aspects of ADLs using no AD indoors but sometimes with a single point cane outdoors. Current Functional Limitations: Need for an assistive device for all transfer and ambulation task performance Equipment Owned/DME: [facility] Subjective: Patient is agreeable to a PT consult and treatment today. He reports no pain on left knee at rest, but with getting out of bed he stated it went up to 4/10. He did deny headache and chest pain throughout but exhibited some minimal shortness of breath that resolved with rest. He hopes to go home as soon as he is able and is not fully receptive of having home health physical therapy services at this time. Objective: General Observation: Patient seen resting in bed. Telemetry monitoring in place. Central line in place. Arterial line in place. IV line in L UE. Mepilex Ag over knee surgical incision. Cryocuff on L knee. Mental Status: Alert and oriented x 4 Pain: 0/10 at rest. 4/10 on the L knee with out of bed activity. Vital Signs: HR ranged from 109 to 144 bpm throughout PT session. BP ranged from 86/59 mmHg to 109/72 mmHg throughout PT session. ROM: Right Upper Extremity: Shoulder Flexion WFL. Shoulder abduction WFL. Elbow flexion WFL. Wrist flexion WFL. Functional opening and closing of hand WFL. Left Upper Extremity: Shoulder Flexion WFL. Shoulder abduction WFL. Elbow flexion WFL. Wrist flexion WFL. Functional opening and closing of hand WFL. Right Lower Extremity: Hip flexion WFL. Hip abduction WFL. Knee flexion WFL. Ankle dorsiflexion WFL. Ankle plantarflexion WFL. Left Lower Extremity: Hip flexion allows 10 degrees actively beyond 90 while seated at edge of bed. Hip abduction WFL. Knee flexion allows up to 90 degrees of actively. In sitting at edge of bed, with bed elevated such that patient's legs are suspended in a dependent position, patient is able to actively bring L leg to extension by about 20-30 degrees betyond 90 before discomfort sets in with knee extensor deficiency of about 50 to 60 degrees . Ankle dorsiflexion WFL. Ankle plantarflexion WFL. Strength: Right Upper Extremity: Shoulder flexors 5/5. Shoulder abductors 5/5. Elbow flexors 5/5. Elbow extensors 5/5. Production Planning Supervisor strong. Left Upper Extremity: Shoulder flexors 5/5. Shoulder abductors 5/5. Elbow flexors 5/5. Elbow extensors 5/5. Production Planning Supervisor strong. Right Lower Extremity: Hip flexors 5/5. Hip abductors 5/5. Knee flexors 5/5. Knee extensors 5/5. Ankle dorsiflexors 5/5. Ankle plantarflexors 5/5. Left Lower Extremity:Hip flexors 3-/5. Hip abductors 4-/5. Knee flexors 3-/5. Knee extensors 3-/5. Ankle dorsiflexors 5/5. Ankle plantarflexors 5/5. Sensation: Intact as to pain and pressure on bilateral lower extremities. Bed Mobility/Transfers: Rolling minimal assist Supine to sit minimal assist Sit to supine minimal assist Sit to stand minimal asist of 1 and SBA assist of 1 Stand to sit minimal asist of 1 and SBA assist of 1 Bed to chair minimal asist of 1 and SBA assist of 1 Chair to bed minimal asist of 1 and SBA assist of 1 Gait: Patient was able to perform short distance in-room ambulation of 3 steps + 3 sidesteps + 2 step backs with bariatric FWW and minimal assist of PT and SBA of another for IV pole management and for overall safety. Minimal verbal cues given for step-to gait pattern and postural alignment. Balance: Static Sitting: Normal Dynamic Sitting: Normal Static Standing: Fair Dynamic Standing: Fair Special Tests: Mobility Limitations Standardized Measure [facility] AM-PAC 6 clicks Basic Mobility Inpatient Short Form: Raw Score: 14 CMS Score: 61% deficit Informed Consent/Education: Patient instructed in purpose of PT consult and plan of care. He was also advised about performing ankle pumping x 10 as well as bilateral quadriceps isometric contraction held for 5 counts x10 every hour. Treatment today emphasized safety techniques with mobility ADL performance as well as with gradual L quadriceps muscle re-education to tolerance. Assessment: Patient presents with clinical signs and symptoms consistent with current/admitting diagnoses that have resulted to mobility limitations, gait instability, generalized weakness, and impairment of motor control as demonstrated by the following impairment level findings: 1. Decreased strength to L hip and knee major muscle groups 2. Impaired standing balance 3. Impaired activity tolerance 4. Limitation of joint range of motion in L knee and hip Impairments are contributing to the following functional limitations: 1. Dependent bed mobility skills 2. Increased dependence with transfers 3. Inability to safely ambulate without assistive device and physical assistance 4. Increase completion time for mobility ADL performance 5. Increased fall risk 6. 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 Samano. He also is being managed for acute renal insufficicency, hypotension associated with sepsis, cardiomyopathy, and atrial fibrillation. Examination: Demonstrable impairment in strength, balance, and range of motion with underlying impairments and functional limitations as documented above Presentation:Evolving Decision Makin high complexity Goals: Goals X1 week 1. Supine-Sit independent 2. Sit-Supine independent 3. Sit-Stand independent 4. Stand-Sit independent 5. Bed-Chair independent 6. Chair-Bed independent 7. Independent gait on level surface with use of least restrictive device for at least 100 feet without report of pain nor dyspnea 8. Independent stair negotiation while holding onto bilateral rails for at least 10 steps without report of pain nor dyspnea 9. Independent with home exercise program 10. Good static and dynamic standing balance/tolerance Plan of Care/Treatment Plan: 1-2x/day, 7 days/week x 1 week. Plan of care has been reviewed with the [employer] providing the service under Physical Therapy direction. Initiate Physical Therapy intervention for strengthening, bed mobility, transfers, gait, stairs, balance training, use of assistive device. DISCHARGE RECOMMENDATIONS: Patient will benefit from home health PT services in order to progress mobility level using least restrictive assistive ambulatory device/using no device, assess home safety, identify additional equipment needs, and establish a functional maintenance program that will increase ability of patient to remain at home. TREATMENT CODE/TIME: 67546 x 335 minutes, 37237 x 12 minutes beginning at 11:39 AM. Thank you very much for this referral. Chacha Bonner PT, DPT, CLT [facility]
[2018-10-12 11:43] LABS: Bilirubin Negative (Negative); Blood Trace-intact (Negative); Clarity Clear (Clear); Glucose Negative (Negative); Ketones Negative (Negative); Leukocyte Esterase Small (Negative); Nitrite Negative (Negative); Urobilinogen 0.2 EU/dL (Up TO 0.2); pH 5.5 (5-8)
[2018-10-12 11:56] LABS: Bacteria Moderate HPF (Negative); Crystals Few Amorphous HPF (Negative); Epithelial Cells Rare HPF (Negative); Mucus Trace (Negative); RBC 0-2 (0-2)
[2018-10-12 11:57] LABS: C & S Indicated? C&S Done As Ordered; Casts 0-2 Coarse Granular LPF (Negative)
--- NOTE | 2018-10-12 12:38 | PGE_ITS ---
Date of Service Date of service: 10/12/18 Time of Service: 12:38 Assessment and Plan (1) Sepsis: Current visit: Yes Status: Acute Due to infection of L knee prosthesis, present on admission. Off pressors. Lactates all within normal limits. I do not feel the patient truly had septic shock - his hypotension was likely due to anesthesia. Blood cultures are still speciating, but surgical culture is growing MSSA. Discussed with Dr Samano - abx are being changed to IV rocephin + rifampin. Repeat blood cultures are pending. Echo with worsening tricuspid regurgitation, which could be concerning, but will await repeat blood cultures. May require a JS. (2) Sepsis associated hypotension: Current visit: Yes Status: Resolved As above (3) Bacteremia: Current visit: Yes Status: Acute as above (4) Infection of prosthetic left knee joint: Current visit: Yes Status: Acute s/p washout by Dr Samano 10/11/2018. Knee prosthesis remains in place. As above Qualifiers: Encounter type: initial encounter Qualified Code(s): T84.54XA - Infection and inflammatory reaction due to internal left knee prosthesis, initial encounter (5) Permanent atrial fibrillation with rapid ventricular response: Current visit: Yes Status: Acute HR in 110's - 120's, tolerating PO beta blockers and off IVF. Will titrate beta blockers as tolerated. For now, add IV lopressor prn. On therapeutic lovenox. Continue to monitor in the ICU today. (6) Acute renal insufficiency: Current visit: Yes Status: Acute DDx: due to initiation of the Entresto and ongoing Lamb 2 inhibitor, acute illness, urinary retention,sepsis. No rhabdo. Continue to hold entresto, NSAIDs, diuretics. Patient is not on IVF today - will monitor Cr without it. I did note crackles/trace ankle edema. Conitnue to monitor pulmonary status, I/O's, daily weights. There is a chance his kidney function would improve with reinitiation of diuresis as he has pulmonary hypertension. (7) Cardiomyopathy: Current visit: No Status: Acute Chronic systolic CHF with EF 35-40%, also moderate pulmonary hypertension. I feel the patient no longer requires IVF - d/c'ed. Echo reviewed. (8) Restrictive lung disease: Current visit: No Status: Chronic Continue CPAP at night (9) DVT prophylaxis: Current visit: Yes Status: Acute on full does anticoagulation with lovenox (10) Discharge planning issues: Current visit: Yes Status: Acute DNI will need at least 6 weeks of IV abx once blood cultures are negative. . Subjective Interval history since last seen: Mr Llamas is off of all vasopressors and IVF as of this morning. His SBP is in 110's and HR is also in 110's. He states he is not in pain, denies dizziness, chest pain, shortness of breath, nausea, vomiting. He is working with PT when I came to see him. Exam Narrative Exam Narrative: General: obese elderly male, A&Ox3, sitting at the edge of the bed, very alert and appropriate, HEENT: EOMI, MMM, R IJ CVL Heart: irregularly irregular rhythm tachycardic Lungs: quiet minimal crackles at B bases GI: abdomen is soft, nontender, nondistended Extremities: trace edema at B ankles, no c/c; chronic venous stasis; L knee dressing c/d/i Objective Objective Clinical Data: Abnormal lab results 10/12/18 10/12/18 10/12/18 Range/Units 06:10 06:10 10:45 WBC 17.61 H (4.4-10.8) k/cumm RBC 3.25 L (4.50-6.00) m/cumm Hgb 10.4 L (13.5-17.5) g/dL Hct 31.2 L (40.0-50.0) % MCV 96.0 H (80-95) fL RDW 15.6 H (11.8-14.1) % Absolute Neutrophils 16.27 H (1.2-6.7) k/cumm Absolute Lymphocytes 0.67 L (1.2-3.4) k/cumm Carbon Dioxide 18.1 L (21.0-32.0) mmol/L Anion Gap 13.9 H (3-11) mmol/L BUN 51 H (7-18) mg/dL Creatinine 1.98 H (0.70-1.30) mg/dL Glucose 211 H D (70-100) mg/dL Calcium 8.3 L (8.5-10.1) mg/dL C-Reactive Protein > 25.00 H (0.0-0.3) mg/dL Urine Protein 30 H (Negative) mg/dL Urine Blood Trace-intact H (Negative) Ur Leukocyte Esterase Small H (Negative) Vital Signs Temperature 36.8 C 10/12/18 08:00 Temperature Source Temporal Artery Scan 10/12/18 08:00 Pulse 125 H 10/12/18 09:40 Pulse Rhythm Irregular 10/11/18 07:35 Pulse 119 H 10/12/18 09:40 Respiratory Rate 26 H 10/12/18 09:40 Respiratory Effort 10/12/18 08:00 Respiratory Depth Normal 10/12/18 08:00 Respiratory Pattern Normal 10/12/18 08:00 Blood Pressure 88/49 L 10/12/18 09:40 Blood Pressure Mean 59 10/12/18 09:40 Blood Pressure Position Supine 10/12/18 04:15 Pulse Oximetry 98 10/12/18 09:10 Oxygen Delivery Method Room Air 10/12/18 08:00 Oxygen Flow Rate 0 10/12/18 08:00 Pain Level 0 10/12/18 08:00 Comment 10/11/18 17:45 Intake & Output 10/11/18 10/12/18 10/12/18 23:59 11:59 23:59 Intake Total 1675 / 4025.000 1726.726 / 1726.726 Output Total 1525 / 2525 800 / 800 Balance 150 / 1500.000 926.726 / 926.726 Weight 132.9 kg 133.5 kg Intake: IV 1675 / 4025.000 1726.726 / 1726.726 Output: Urine 1525 / 2525 800 / 800 Other: Urine Color Yellow Light Marcela [place] Urine Appearance Sediment Cloudy Sediment Comment Paiz in place. Paiz draining to gravity Laboratory Results WBC 17.61 k/cumm (4.4-10.8) H 10/12/18 06:10 RBC 3.25 m/cumm (4.50-6.00) L 10/12/18 06:10 Hgb 10.4 g/dL (13.5-17.5) L 10/12/18 06:10 Hct 31.2 % (40.0-50.0) L 10/12/18 06:10 MCV 96.0 fL (80-95) H 10/12/18 06:10 MCH 32.0 pg (27.0-33.0) 10/12/18 06:10 MCHC 33.3 g/dL (32.0-36.0) 10/12/18 06:10 RDW 15.6 % (11.8-14.1) H 10/12/18 06:10 Plt Count 176 x1000/uL (130-400) 10/12/18 06:10 MPV 10.3 fL (8.0-11.0) 10/12/18 06:10 Immature Gran % 0.5 10/12/18 06:10 92.4 10/12/18 06:10 3.8 10/12/18 06:10 3.2 10/12/18 06:10 0.0 10/12/18 06:10 0.1 10/12/18 06:10 Absolute Neutrophils 16.27 k/cumm (1.2-6.7) H 10/12/18 06:10 Absolute Lymphocytes 0.67 k/cumm (1.2-3.4) L 10/12/18 06:10 Absolute Monocytes 0.56 k/cumm (0.11-0.7) 10/12/18 06:10 Absolute Eosinophils 0.00 k/cumm (0.0-0.7) 10/12/18 06:10 Absolute Basophils 0.02 k/cumm (0.0-0.2) 10/12/18 06:10 ESR 98 mm/hr (1-20) H 10/10/18 16:30 PT 11.2 sec (9.3-11.0) H 10/11/18 11:00 INR 1.1 (0.9-1.1) 10/11/18 11:00 Sodium 136 mmol/L (136-145) 10/12/18 06:10 Potassium 4.8 mmol/L (3.5-5.1) 10/12/18 06:10 Chloride 104 mmol/L (98-107) 10/12/18 06:10 Carbon Dioxide 18.1 mmol/L (21.0-32.0) L 10/12/18 06:10 13.9 mmol/L (3-11) H 10/12/18 06:10 BUN 51 mg/dL (7-18) H 10/12/18 06:10 1.98 mg/dL (0.70-1.30) H 10/12/18 06:10 33.12 (mL/min/1.73m2) 10/12/18 06:10 Glucose 211 mg/dL (70-100) H D 10/12/18 06:10 5.9 % (4.5-6.2) 10/10/18 16:30 1.4 mmol/L (0.6-1.4) 10/11/18 22:20 Calcium 8.3 mg/dL (8.5-10.1) L 10/12/18 06:10 Magnesium 2.2 mg/dL (1.8-2.4) 10/12/18 06:10 1.1 mg/dL (0.2-1.0) H 10/10/18 16:30 AST 5 U/L (15-37) L 10/10/18 16:30 ALT 9 U/L (12-78) L 10/10/18 16:30 62 U/L (46-116) 10/10/18 16:30 72 U/L (39-308) 10/12/18 06:10 > 25.00 mg/dL (0.0-0.3) H 10/12/18 06:10 6.5 g/dL (6.4-8.2) 10/10/18 16:30 2.4 g/dL (3.4-5.0) L 10/10/18 16:30 7.1 ng/mL 10/12/18 06:10 Yellow (Yellow) 10/12/18 10:45 Clear (Clear) 10/12/18 10:45 5.5 (5-8) 10/12/18 10:45 Ur Specific [place] 1.010 (1.005-1.025) 10/12/18 10:45 30 mg/dL (Negative) H 10/12/18 10:45 Negative mg/dL (Negative) 10/12/18 10:45 Trace-intact (Negative) H 10/12/18 10:45 Negative (Negative) 10/12/18 10:45 Negative (Negative) 10/12/18 10:45 0.2 EU/dL (Up TO 0.2) 10/12/18 10:45 Ur Leukocyte Esterase Small (Negative) H 10/12/18 10:45 0-2 (0-2) 10/12/18 10:45 10-20 HPF (0-5) 10/12/18 10:45 Ur Epithelial Cells Rare HPF (Negative) 10/12/18 10:45 Few amorphous HPF (Negative) 10/12/18 10:45 Moderate HPF (Negative) 10/12/18 10:45 0-2 coarse granular LPF (Negative) 10/12/18 10:45 Trace (Negative) 10/12/18 10:45 Ur Culture Indicated? C&s done as ordered 10/12/18 10:45 Negative mg/dL (Negative) 10/12/18 10:45 CXR: When compared with the previous study, again noted is a central venous catheter ending in the superior vena cava unchanged. Since the prior study a endotracheal tube has been removed. The lungs appear free of infiltrate. There is no pleural effusion. The heart is top limits of normal in size. There are multiple old left rib fractures.
[2018-10-12] MEDS: cefTRIAXone 2 GM/50 ML BAG IVPB (12:53)
[2018-10-12] MEDS: Metoprolol 5 MG/5 ML VIAL 2.5 MG IVP (15:03)
[2018-10-12] MEDS: Normal Saline 500 ML IV (18:15)
--- NOTE | 2018-10-12 18:55 | W.PM.PROGNOT ---
Date of Service Date of service: 10/12/18 Time of Service: 07:55 Assessment and Plan (1) Infection of prosthetic left knee joint: Current visit: Yes Status: Acute Vasu is a 73yo with an infected left knee replacement and bacteremia after suffering an abrasion to the anterior left knee. Current cultures are growig MSSA so I will switch him to Ceftriaxone (which he has been on for previous Left hip infection) and Rifampin. He may start to mobilize, WBAT with assistance. PT to start today. Continue to follow cultures. Appreciate medical management by hospitalist team. Making progress and likely d/c to floor tomorrow. Enoxaparin for DVT prophylaxis. Little concern for bleeding. Qualifiers: Encounter type: initial encounter Qualified Code(s): T84.54XA - Infection and inflammatory reaction due to internal left knee prosthesis, initial encounter Subjective Interval history since last seen: Vasu reports to be feeling better. He feels like the knee is healing. He doesn't have the same pain that he had before. He has been able to wean almost completely off of the pressors overnight and is only Vasopressin 0.4 currently. He feels fatigeud but no chest pain or shortness of breath or fever or chills. Exam Narrative Exam Narrative: Sitting upright in the hospital bed. Good color and conversant, jovial. AAOx3 LLE wrap appears tight with some swelling of the toes, os this is removed. The knee is markedly decreased in size. There is no significant reaccumulation of the effusion. No surrounding erythema. No significant warmth. The dressing is c/d/i. Mild pain of the thigh but no significant pain proximal or distal to the incision. No pain with hip ROM. Some pain with passive knee ROM. +PT, faint DP. SILT DP/SP/Tib. Objective Objective Clinical Data: Abnormal lab results 10/12/18 10/12/18 10/12/18 Range/Units 06:10 06:10 10:45 WBC 17.61 H (4.4-10.8) k/cumm RBC 3.25 L (4.50-6.00) m/cumm Hgb 10.4 L (13.5-17.5) g/dL Hct 31.2 L (40.0-50.0) % MCV 96.0 H (80-95) fL RDW 15.6 H (11.8-14.1) % Absolute Neutrophils 16.27 H (1.2-6.7) k/cumm Absolute Lymphocytes 0.67 L (1.2-3.4) k/cumm Carbon Dioxide 18.1 L (21.0-32.0) mmol/L Anion Gap 13.9 H (3-11) mmol/L BUN 51 H (7-18) mg/dL Creatinine 1.98 H (0.70-1.30) mg/dL Glucose 211 H D (70-100) mg/dL Calcium 8.3 L (8.5-10.1) mg/dL C-Reactive Protein > 25.00 H (0.0-0.3) mg/dL Urine Protein 30 H (Negative) mg/dL Urine Blood Trace-intact H (Negative) Ur Leukocyte Esterase Small H (Negative) Vital Signs Temperature 36.5 C 10/12/18 17:47 Temperature Source Temporal Artery Scan 10/12/18 15:40 Pulse 95 H 10/12/18 16:44 Pulse Rhythm Irregular 10/11/18 07:35 Pulse 134 H 10/12/18 17:10 Respiratory Rate 28 H 10/12/18 17:10 Respiratory Effort 10/12/18 15:40 Respiratory Depth Normal 10/12/18 15:40 Respiratory Pattern Normal 10/12/18 15:40 Blood Pressure 91/46 L 10/12/18 16:45 Blood Pressure Mean 61 10/12/18 16:45 Blood Pressure Position Sitting 10/12/18 15:40 Pulse Oximetry 94 L 10/12/18 17:00 Oxygen Delivery Method Room Air 10/12/18 15:40 Oxygen Flow Rate 0 10/12/18 15:40 Fraction of Inspired Oxygen (FIO2) 21 10/12/18 15:05 Pain Level 0 10/12/18 17:47 Comment 10/11/18 17:45 Intake & Output 10/11/18 10/12/18 10/12/18 23:59 11:59 23:59 Intake Total 1675 / 4025.000 1726.726 / 1926.726 200 / 1926.726 Output Total 1525 / 2525 800 / 800 Balance 150 / 1500.000 926.726 / 1126.726 200 / 1126.726 Weight 132.9 kg 133.5 kg Intake: IV 1675 / 4025.000 1726.726 / 1926.726 200 / 1926.726 Output: Urine 1525 / 2525 800 / 800 Other: Urine Color Yellow Light Marcela [place] Urine Appearance Sediment Cloudy Sediment Comment Paiz in place. Paiz draining to gravity Paiz draining to gravity Laboratory Results WBC 17.61 k/cumm (4.4-10.8) H 10/12/18 06:10 RBC 3.25 m/cumm (4.50-6.00) L 10/12/18 06:10 Hgb 10.4 g/dL (13.5-17.5) L 10/12/18 06:10 Hct 31.2 % (40.0-50.0) L 10/12/18 06:10 MCV 96.0 fL (80-95) H 10/12/18 06:10 MCH 32.0 pg (27.0-33.0) 10/12/18 06:10 MCHC 33.3 g/dL (32.0-36.0) 10/12/18 06:10 RDW 15.6 % (11.8-14.1) H 10/12/18 06:10 Plt Count 176 x1000/uL (130-400) 10/12/18 06:10 MPV 10.3 fL (8.0-11.0) 10/12/18 06:10 Immature Gran % 0.5 10/12/18 06:10 92.4 10/12/18 06:10 3.8 10/12/18 06:10 3.2 10/12/18 06:10 0.0 10/12/18 06:10 0.1 10/12/18 06:10 Absolute Neutrophils 16.27 k/cumm (1.2-6.7) H 10/12/18 06:10 Absolute Lymphocytes 0.67 k/cumm (1.2-3.4) L 10/12/18 06:10 Absolute Monocytes 0.56 k/cumm (0.11-0.7) 10/12/18 06:10 Absolute Eosinophils 0.00 k/cumm (0.0-0.7) 10/12/18 06:10 Absolute Basophils 0.02 k/cumm (0.0-0.2) 10/12/18 06:10 ESR 98 mm/hr (1-20) H 10/10/18 16:30 PT 11.2 sec (9.3-11.0) H 10/11/18 11:00 INR 1.1 (0.9-1.1) 10/11/18 11:00 Sodium 136 mmol/L (136-145) 10/12/18 06:10 Potassium 4.8 mmol/L (3.5-5.1) 10/12/18 06:10 Chloride 104 mmol/L (98-107) 10/12/18 06:10 Carbon Dioxide 18.1 mmol/L (21.0-32.0) L 10/12/18 06:10 13.9 mmol/L (3-11) H 10/12/18 06:10 BUN 51 mg/dL (7-18) H 10/12/18 06:10 1.98 mg/dL (0.70-1.30) H 10/12/18 06:10 33.12 (mL/min/1.73m2) 10/12/18 06:10 Glucose 211 mg/dL (70-100) H D 10/12/18 06:10 5.9 % (4.5-6.2) 10/10/18 16:30 1.4 mmol/L (0.6-1.4) 10/11/18 22:20 Calcium 8.3 mg/dL (8.5-10.1) L 10/12/18 06:10 Magnesium 2.2 mg/dL (1.8-2.4) 10/12/18 06:10 1.1 mg/dL (0.2-1.0) H 10/10/18 16:30 AST 5 U/L (15-37) L 10/10/18 16:30 ALT 9 U/L (12-78) L 10/10/18 16:30 62 U/L (46-116) 10/10/18 16:30 72 U/L (39-308) 10/12/18 06:10 > 25.00 mg/dL (0.0-0.3) H 10/12/18 06:10 6.5 g/dL (6.4-8.2) 10/10/18 16:30 2.4 g/dL (3.4-5.0) L 10/10/18 16:30 7.1 ng/mL 10/12/18 06:10 Yellow (Yellow) 10/12/18 10:45 Clear (Clear) 10/12/18 10:45 5.5 (5-8) 10/12/18 10:45 Ur Specific [place] 1.010 (1.005-1.025) 10/12/18 10:45 30 mg/dL (Negative) H 10/12/18 10:45 Negative mg/dL (Negative) 10/12/18 10:45 Trace-intact (Negative) H 10/12/18 10:45 Negative (Negative) 10/12/18 10:45 Negative (Negative) 10/12/18 10:45 0.2 EU/dL (Up TO 0.2) 10/12/18 10:45 Ur Leukocyte Esterase Small (Negative) H 10/12/18 10:45 0-2 (0-2) 10/12/18 10:45 10-20 HPF (0-5) 10/12/18 10:45 Ur Epithelial Cells Rare HPF (Negative) 10/12/18 10:45 Few amorphous HPF (Negative) 10/12/18 10:45 Moderate HPF (Negative) 10/12/18 10:45 0-2 coarse granular LPF (Negative) 10/12/18 10:45 Trace (Negative) 10/12/18 10:45 Ur Culture Indicated? C&s done as ordered 10/12/18 10:45 Negative mg/dL (Negative) 10/12/18 10:45
[2018-10-13] VITALS (127 sets, daily range): BP systolic 70–132; BP diastolic 42–117; PULSE 67–186; RESP 9–37; TEMP 36.5–38.3; O2SAT 83–98
[2018-10-13] MEDS: Normal Saline 500 ML 999 ML IV (00:20)
[2018-10-13] MEDS: Normal Saline 1,000 ML 1000 ML IV (01:19)
[2018-10-13] MEDS: ceFAZolin 2,000 MG in Normal Saline 100 ML 200 MG IVPB ×3 (02:19→17:39)
[2018-10-13] MEDS: Normal Saline Flush 10 ML SYR IVP ×5 (06:32→23:17)
[2018-10-13] MEDS: Enoxaparin 30 MG/0.3 ML SYR SC ×2 (06:32→17:39)
[2018-10-13] MEDS: Levothyroxine 75 MCG TAB PO (06:32)
[2018-10-13 06:59] LABS: Abs Immature Grans 0.08 k/cumm (0.0-0.09); Absolute Eosinophil Count 0.01 k/cumm (0.0-0.7); Absolute Lymphocyte Count 0.73 k/cumm (1.2-3.4); Absolute Monocyte Count 0.41 k/cumm (0.11-0.7); Eosinophils % 0.1; HCT 28.8 % (40.0-50.0); HGB 9.4 g/dL (13.5-17.5); Immature Grans % 0.6; Lymphocytes % 5.7; Mean Corp. HGB Concentration 32.6 g/dL (32.0-36.0); Mean Platelet Volume 10.2 fL (8.0-11.0); Monocytes % 3.2; Neutrophils % 90.4; Platelet Count 213 x1000/uL (130-400); RBC 3.03 m/cumm (4.50-6.00); RBC Distribution Width 15.7 % (11.8-14.1); White Blood Cell Count 12.73 k/cumm (4.4-10.8)
[2018-10-13 07:01] LABS: Absolute Neutrophil Count 11.51 k/cumm (1.2-6.7)
[2018-10-13 07:18] LABS: Anion Gap 10.1 mmol/L (3-11); BUN 44 mg/dL (7-18); C-Reactive Protein 17.75 mg/dL (0.0-0.3); CO2 20.9 mmol/L (21.0-32.0); CREATININE 1.64 mg/dL (0.70-1.30); Calcium 8.8 mg/dL (8.5-10.1); Chloride 107 mmol/L (98-107); Estimated GFR 41.16 (mL/min/1.73m2); Glucose 161 mg/dL (70-100); Magnesium 2.3 mg/dL (1.8-2.4); Potassium 3.7 mmol/L (3.5-5.1); Sodium 138 mmol/L (136-145)
[2018-10-13] MEDS: Multivitamin TAB 1 TAB PO (07:55)
[2018-10-13] MEDS: Ascorbic Acid 500 MG TAB PO (07:55)
[2018-10-13] MEDS: Allopurinol 300 MG TAB PO (07:55)
[2018-10-13] MEDS: rifAMPin 300 MG CAP PO ×2 (07:55→19:25)
[2018-10-13] MEDS: ACETAMINOPHEN 1,000 MG/100 ML BTL 400 MG IVPB ×3 (07:55→23:35)
[2018-10-13] MEDS: Cyanocobalamin 500 MCG TAB PO (07:55)
[2018-10-13] MEDS: Vitamins B Comp w/C TAB 1 TAB PO (07:56)
[2018-10-13] MEDS: Cholecalciferol (Vitamin D3) 1,000 UNIT TAB 1000 UNITS PO (07:56)
--- NOTE | 2018-10-13 08:03 | PDOC.CMPRO ---
- If Service Date Differs Date of service: 10/13/18 Time of Service: 08:03 Care Management Progress Note S/O:Vasu was sitting up in bed when CM came to visit. He was pleasant and readily engaged in conversation. Vasu stated that he was hungry because he was being kept NPO while on vasopressors. 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 A: Brennan is a 73 year old man admitted to [facility] on 10/10/18 with an infected knee. P: Brennan remains ICU level of care receiving IV antibiotics for an infected prosthetic knee. 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 His disposition will depend on required course of AB. CM will continue to support patient, family and discharge planning needs identified.
--- NOTE | 2018-10-13 08:15 | W.PM.PROGNOT ---
Date of Service Date of service: 10/13/18 Time of Service: 08:16 Assessment and Plan (1) Sepsis: Current visit: Yes Status: Acute Due to MSSA infection of L knee prosthesis with bacteremia (4/4 bottles positive), present on admission. Pressors resumed overnight while all infectious parameters are improving - I feel this had more to do with beta blockade being excessive than with sepsis. Repeat blood cultures are negative, CRP/procalcitonin are improving, defervesced, leucocytosis is improving. 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 As echo shows worsening tricuspid regurgitation, he will need a JS to rule out endocarditis. It is reassuring that his repeat blood cultures are negative to date. (2) Sepsis associated hypotension: Current visit: Yes Status: Resolved As above. I feel current episode of hypotension is more cardiogenic than septic in origin. Treating with IVF, pressors. (3) Bacteremia: Current visit: Yes Status: Acute as above (4) Infection of prosthetic left knee joint: Current visit: Yes Status: Acute s/p washout by Dr Samano 10/11/2018. Knee prosthesis remains in place. As above Antibiotics were changed to cefazolin/rifampin overnight. Qualifiers: Encounter type: initial encounter Qualified Code(s): T84.54XA - Infection and inflammatory reaction due to internal left knee prosthesis, initial encounter (5) Permanent atrial fibrillation with rapid ventricular response: Current visit: Yes Status: Acute HR on a higher side today, partially being triggers by pressors. He is not on beta blockors while he is on pressors. S/p 1 dose of digoxin with some improvement of HR today. Attempting to wean pressors. When resuming beta blockers, I did lower the dose. He will have prn IV lopressor if this isn't sufficient. Continue therapeutic lovenox (rifampin interacts with xarelto). Continue to monitor in the ICU. (6) Acute renal insufficiency: Current visit: Yes Status: Acute Improved. DDx: due to initiation of the Entresto and ongoing Lamb 2 inhibitor, acute illness, urinary retention,sepsis. No rhabdo. Continue to hold entresto, NSAIDs, diuretics. IVF resumed - patient does not have the edema in his ankles I saw yesterday and is able to comfortably lay flat without hypoxia or respiratory symptoms - he can tolerate IVF today. Conitnue to monitor pulmonary status, I/O's, daily weights. (7) Cardiomyopathy: Current visit: No Status: Acute Chronic systolic CHF with EF 35-40%, also moderate pulmonary hypertension. Monitor pulmonary status while on IVF. (8) Restrictive lung disease: Current visit: No Status: Chronic Continue CPAP at night (9) DVT prophylaxis: Current visit: Yes Status: Acute on full does anticoagulation with lovenox (10) Discharge planning issues: Current visit: Yes Status: Acute DNI will need at least 6 weeks of IV abx once blood cultures are negative. 45 minutes were spent providing critical care and completing documentation for the patient on this visit. Subjective Interval history since last seen: Restarted on pressors overnight - both levophed and vasopressin, for BP of 73/50, MAP 55. [place] taken out yesterday evening. No bleeding. Used BiPAP/CPAP. Afebrile since 8 pm on 10/11/18, Temp 37.7, in Afib, HR better to 90's since IVF bolus, 110's this am while on pressors. HR went up to 150's - a dose of digoxin given - down to 120's. MAP 71 on levophed - it is being weaned. The patient states he is not a happy camper. He states that he is blaming himself for what happened with his knee. We discussed the unpredictability of life and being human. Denies dizziness, but feels overall weak. Denies chest pain, palpitations, shortness of breath, nausea. Exam Narrative Exam Narrative: General: obese elderly male, comfortable laying flat in bed, appears sad, A&Ox3 HEENT: EOMI, MMM, R IJ CVL Heart: irregularly irregular rhythm, tachycardic Lungs: CTAB GI: abdomen is soft, nontender, nondistended Extremities: I don't appreciate edema today, no c/c; chronic venous stasis; L knee dressing c/d/i, the knee is being iced Objective Objective Clinical Data: Abnormal lab results 10/12/18 10/12/18 10/13/18 Range/Units 06:10 10:45 06:30 WBC (4.4-10.8) k/cumm RBC (4.50-6.00) m/cumm Hgb (13.5-17.5) g/dL Hct (40.0-50.0) % RDW (11.8-14.1) % Absolute Neutrophils (1.2-6.7) k/cumm Absolute Lymphocytes (1.2-3.4) k/cumm Carbon Dioxide 18.1 L 20.9 L (21.0-32.0) mmol/L Anion Gap 13.9 H (3-11) mmol/L BUN 51 H 44 H (7-18) mg/dL Creatinine 1.98 H 1.64 H (0.70-1.30) mg/dL Glucose 211 H D 161 H (70-100) mg/dL Calcium 8.3 L (8.5-10.1) mg/dL C-Reactive Protein > 25.00 H 17.75 H (0.0-0.3) mg/dL Urine Protein 30 H (Negative) mg/dL Urine Blood Trace-intact H (Negative) Ur Leukocyte Esterase Small H (Negative) 10/13/18 Range/Units 06:30 WBC 12.73 H (4.4-10.8) k/cumm RBC 3.03 L (4.50-6.00) m/cumm Hgb 9.4 L (13.5-17.5) g/dL Hct 28.8 L (40.0-50.0) % RDW 15.7 H (11.8-14.1) % Absolute Neutrophils 11.51 H (1.2-6.7) k/cumm Absolute Lymphocytes 0.73 L (1.2-3.4) k/cumm Carbon Dioxide (21.0-32.0) mmol/L Anion Gap (3-11) mmol/L BUN (7-18) mg/dL Creatinine (0.70-1.30) mg/dL Glucose (70-100) mg/dL Calcium (8.5-10.1) mg/dL C-Reactive Protein (0.0-0.3) mg/dL Urine Protein (Negative) mg/dL Urine Blood (Negative) Ur Leukocyte Esterase (Negative) Vital Signs Temperature 36.7 C 10/13/18 03:01 Temperature Source Temporal Artery Scan 10/13/18 03:01 Pulse 102 H 10/13/18 07:30 Pulse Rhythm Irregular 10/11/18 07:35 Pulse 104 H 10/13/18 07:30 Respiratory Rate 24 10/13/18 07:30 Respiratory Effort Non-Labored 10/13/18 03:01 Respiratory Depth Normal 10/13/18 03:01 Respiratory Pattern Normal 10/13/18 03:01 Blood Pressure 125/74 10/13/18 07:30 Blood Pressure Mean 87 10/13/18 07:30 Blood Pressure Position Supine 10/13/18 03:01 Pulse Oximetry 97 10/13/18 07:30 Oxygen Delivery Method Cpap 10/13/18 03:01 Oxygen Flow Rate 0 10/12/18 19:25 Fraction of Inspired Oxygen (FIO2) 21 10/12/18 15:05 Pain Level 0 10/13/18 03:01 Comment 10/13/18 01:02 Intake & Output 10/12/18 10/12/18 10/13/18 11:59 23:59 11:59 Intake Total 1726.726 / 3013.393 1186.667 / 3013.393 2006.249 / 2006.249 Output Total 800 / 2475 1675 / 2475 1100 / 1100 Balance 926.726 / 538.393 -488.333 / 538.393 906.249 / 906.249 Weight 133.5 kg 137.9 kg Intake: IV 1726.726 / 2053.393 226.667 / 2053.393 1946.249 / 1946.249 Oral 960 / 960 60 / 60 Output: Urine 800 / 2475 1675 / 2475 1100 / 1100 Other: Urine Color Light [place] Yellow Yellow [place] Urine Appearance Cloudy Clear Sediment Sediment Comment Paiz draining to gravity Paiz draining clear yellow urine. Paiz draining clear yellow urine. Laboratory Results WBC 12.73 k/cumm (4.4-10.8) H 10/13/18 06:30 RBC 3.03 m/cumm (4.50-6.00) L 10/13/18 06:30 Hgb 9.4 g/dL (13.5-17.5) L 10/13/18 06:30 Hct 28.8 % (40.0-50.0) L 10/13/18 06:30 MCV 95.0 fL (80-95) 10/13/18 06:30 MCH 31.0 pg (27.0-33.0) 10/13/18 06:30 MCHC 32.6 g/dL (32.0-36.0) 10/13/18 06:30 RDW 15.7 % (11.8-14.1) H 10/13/18 06:30 Plt Count 213 x1000/uL (130-400) 10/13/18 06:30 MPV 10.2 fL (8.0-11.0) 10/13/18 06:30 Immature Gran % 0.6 10/13/18 06:30 90.4 10/13/18 06:30 5.7 10/13/18 06:30 3.2 10/13/18 06:30 0.1 10/13/18 06:30 0.0 10/13/18 06:30 Absolute Neutrophils 11.51 k/cumm (1.2-6.7) H 10/13/18 06:30 Absolute Lymphocytes 0.73 k/cumm (1.2-3.4) L 10/13/18 06:30 Absolute Monocytes 0.41 k/cumm (0.11-0.7) 10/13/18 06:30 Absolute Eosinophils 0.01 k/cumm (0.0-0.7) 10/13/18 06:30 Absolute Basophils 0.00 k/cumm (0.0-0.2) 10/13/18 06:30 ESR 98 mm/hr (1-20) H 10/10/18 16:30 PT 11.2 sec (9.3-11.0) H 10/11/18 11:00 INR 1.1 (0.9-1.1) 10/11/18 11:00 Sodium 138 mmol/L (136-145) 10/13/18 06:30 Potassium 3.7 mmol/L (3.5-5.1) D 10/13/18 06:30 Chloride 107 mmol/L (98-107) 10/13/18 06:30 Carbon Dioxide 20.9 mmol/L (21.0-32.0) L 10/13/18 06:30 10.1 mmol/L (3-11) 10/13/18 06:30 BUN 44 mg/dL (7-18) H 10/13/18 06:30 1.64 mg/dL (0.70-1.30) H 10/13/18 06:30 41.16 (mL/min/1.73m2) 10/13/18 06:30 Glucose 161 mg/dL (70-100) H 10/13/18 06:30 5.9 % (4.5-6.2) 10/10/18 16:30 1.4 mmol/L (0.6-1.4) 10/11/18 22:20 Calcium 8.8 mg/dL (8.5-10.1) 10/13/18 06:30 Magnesium 2.3 mg/dL (1.8-2.4) 10/13/18 06:30 1.1 mg/dL (0.2-1.0) H 10/10/18 16:30 AST 5 U/L (15-37) L 10/10/18 16:30 ALT 9 U/L (12-78) L 10/10/18 16:30 62 U/L (46-116) 10/10/18 16:30 72 U/L (39-308) 10/12/18 06:10 17.75 mg/dL (0.0-0.3) H 10/13/18 06:30 6.5 g/dL (6.4-8.2) 10/10/18 16:30 2.4 g/dL (3.4-5.0) L 10/10/18 16:30 6.0 ng/mL 10/13/18 06:30 Yellow (Yellow) 10/12/18 10:45 Clear (Clear) 10/12/18 10:45 5.5 (5-8) 10/12/18 10:45 Ur Specific [place] 1.010 (1.005-1.025) 10/12/18 10:45 30 mg/dL (Negative) H 10/12/18 10:45 Negative mg/dL (Negative) 10/12/18 10:45 Trace-intact (Negative) H 10/12/18 10:45 Negative (Negative) 10/12/18 10:45 Negative (Negative) 10/12/18 10:45 0.2 EU/dL (Up TO 0.2) 10/12/18 10:45 Ur Leukocyte Esterase Small (Negative) H 10/12/18 10:45 0-2 (0-2) 10/12/18 10:45 10-20 HPF (0-5) 10/12/18 10:45 Ur Epithelial Cells Rare HPF (Negative) 10/12/18 10:45 Few amorphous HPF (Negative) 10/12/18 10:45 Moderate HPF (Negative) 10/12/18 10:45 0-2 coarse granular LPF (Negative) 10/12/18 10:45 Trace (Negative) 10/12/18 10:45 Ur Culture Indicated? C&s done as ordered 10/12/18 10:45 Negative mg/dL (Negative) 10/12/18 10:45
[2018-10-13] MEDS: Normal Saline 1,000 ML 75 ML IV ×2 (10:26→16:01)
[2018-10-13] MEDS: Digoxin 0.5 MG/2 ML AMP 0.125 MG IVP ×3 (10:43→17:42)
[2018-10-13] MEDS: Normal Saline 500 ML 1000 ML IV (10:55)
--- NOTE | 2018-10-13 11:12 | PT.INNT ---
Date of service: 10/13/18 Time of Service: 11:12 PT Notes 10/13/18 Hold morning PT session, per MD, until vital signs improve. Will attempt to resume PT services this afternoon, if appropriate.
[2018-10-13] MEDS: Metoprolol 5 MG/5 ML VIAL 2.5 MG IVP ×2 (11:42→21:19)
[2018-10-13] MEDS: Normal Saline 250 ML IV (12:17)
[2018-10-13] MEDS: Metoprolol 12.5 MG TAB PO (16:20)
--- NOTE | 2018-10-13 17:02 | PGE_ITS ---
Date of Service Date of service: 10/13/18 Time of Service: 17:03 Assessment and Plan (1) Infection of prosthetic left knee joint: Current visit: Yes Status: Acute Vasu is postop day #2 status post irrigation debridement and open to the vitamin polyethylene exchange of the left knee. He is still quite tenuous. He has had positive blood cultures. He has had recurrent hypotension. He still has some pain but it is getting better. His lab markers are also improving. At this point, we should continue with her current course of antibiotics for MSSA bacteremia and prostatic joint infection, cefazolin and rifampin. Continue to trend his C-reactive protein. Continue to follow cultures, repeating blood cultures until negative. Qualifiers: Encounter type: initial encounter Qualified Code(s): T84.54XA - Infection and inflammatory reaction due to internal left knee prosthesis, initial encounter Subjective Interval history since last seen: Vasu reports that the pain in his left leg is definitely getting better. He is not having soreness in his style he was having yesterday. He does have pain with motion but is trying to do some exercises in the bed. He did have another bout of hypotension last night which required the resumption of pressors. However, he is now off. He did have some chills earlier with a temperature of 38.3. No chest pain or shortness of breath. No nausea or vomiting. Exam Narrative Exam Narrative: Laying in the supine position. No acute distress. Alert oriented x3. Very conversant. Evaluation left lower extremity shows mild warmth about the left knee. There has been some increase in swelling but still nothing like preoperativly. There is some minor tenderness palpation around the anterior posterior aspect of the left knee. No pain or crepitus proximally. No pain or crepitus distally. He is able to flex and extend the left foot without limitation. He does have pain with active range of motion which is limited from 20 to 60 degrees at this time. Objective Objective Clinical Data: Abnormal lab results 10/13/18 10/13/18 Range/Units 06:30 06:30 WBC 12.73 H (4.4-10.8) k/cumm RBC 3.03 L (4.50-6.00) m/cumm Hgb 9.4 L (13.5-17.5) g/dL Hct 28.8 L (40.0-50.0) % RDW 15.7 H (11.8-14.1) % Absolute Neutrophils 11.51 H (1.2-6.7) k/cumm Absolute Lymphocytes 0.73 L (1.2-3.4) k/cumm Carbon Dioxide 20.9 L (21.0-32.0) mmol/L BUN 44 H (7-18) mg/dL Creatinine 1.64 H (0.70-1.30) mg/dL Glucose 161 H (70-100) mg/dL C-Reactive Protein 17.75 H (0.0-0.3) mg/dL Vital Signs Temperature 38.3 C H 10/13/18 15:37 Temperature Source Tympanic 10/13/18 15:25 Pulse 135 H 10/13/18 16:30 Pulse Rhythm Irregular 10/11/18 07:35 Pulse 149 H 10/13/18 16:31 Respiratory Rate 25 H 10/13/18 16:31 Respiratory Effort 10/13/18 15:25 Respiratory Depth Normal 10/13/18 15:25 Respiratory Pattern Normal 10/13/18 15:25 Blood Pressure 80/42 L 10/13/18 16:30 Blood Pressure Mean 52 10/13/18 16:30 Blood Pressure Position Supine 10/13/18 15:25 Pulse Oximetry 95 10/13/18 16:31 Oxygen Delivery Method Room Air 10/13/18 15:25 Oxygen Flow Rate 0 10/13/18 15:25 Fraction of Inspired Oxygen (FIO2) 21 10/12/18 15:05 Pain Level 0 10/13/18 15:37 Comment 10/13/18 01:02 Intake & Output 10/12/18 10/13/18 10/13/18 23:59 11:59 23:59 Intake Total 1186.667 / 3013.393 2742.258 / 3362.258 620 / 3362.258 Output Total 1675 / 2475 1675 / 3025 1350 / 3025 Balance -488.333 / 085.720 6645.258 / 337.258 -730 / 337.258 Weight 137.9 kg Intake: IV 226.667 / 2053.393 2682.258 / 3302.258 620 / 3302.258 Oral 960 / 960 60 / 60 Output: Urine 1674 / 2475 1675 / 3025 1350 / 3025 Other: Urine Color Yellow [place] Urine Appearance Clear Clear Clear Comment Falcon draining clear yellow urine. Falcon draining to gravity falcon to gravity with orange urine Laboratory Results WBC 12.73 k/cumm (4.4-10.8) H 10/13/18 06:30 RBC 3.03 m/cumm (4.50-6.00) L 10/13/18 06:30 Hgb 9.4 g/dL (13.5-17.5) L 10/13/18 06:30 Hct 28.8 % (40.0-50.0) L 10/13/18 06:30 MCV 95.0 fL (80-95) 10/13/18 06:30 MCH 31.0 pg (27.0-33.0) 10/13/18 06:30 MCHC 32.6 g/dL (32.0-36.0) 10/13/18 06:30 RDW 15.7 % (11.8-14.1) H 10/13/18 06:30 Plt Count 213 x1000/uL (130-400) 10/13/18 06:30 MPV 10.2 fL (8.0-11.0) 10/13/18 06:30 Immature Gran % 0.6 10/13/18 06:30 90.4 10/13/18 06:30 5.7 10/13/18 06:30 3.2 10/13/18 06:30 0.1 10/13/18 06:30 0.0 10/13/18 06:30 Absolute Neutrophils 11.51 k/cumm (1.2-6.7) H 10/13/18 06:30 Absolute Lymphocytes 0.73 k/cumm (1.2-3.4) L 10/13/18 06:30 Absolute Monocytes 0.41 k/cumm (0.11-0.7) 10/13/18 06:30 Absolute Eosinophils 0.01 k/cumm (0.0-0.7) 10/13/18 06:30 Absolute Basophils 0.00 k/cumm (0.0-0.2) 10/13/18 06:30 ESR 98 mm/hr (1-20) H 10/10/18 16:30 PT 11.2 sec (9.3-11.0) H 10/11/18 11:00 INR 1.1 (0.9-1.1) 10/11/18 11:00 Sodium 138 mmol/L (136-145) 10/13/18 06:30 Potassium 3.7 mmol/L (3.5-5.1) D 10/13/18 06:30 Chloride 107 mmol/L (98-107) 10/13/18 06:30 Carbon Dioxide 20.9 mmol/L (21.0-32.0) L 10/13/18 06:30 10.1 mmol/L (3-11) 10/13/18 06:30 BUN 44 mg/dL (7-18) H 10/13/18 06:30 1.64 mg/dL (0.70-1.30) H 10/13/18 06:30 41.16 (mL/min/1.73m2) 10/13/18 06:30 Glucose 161 mg/dL (70-100) H 10/13/18 06:30 5.9 % (4.5-6.2) 10/10/18 16:30 1.4 mmol/L (0.6-1.4) 10/11/18 22:20 Calcium 8.8 mg/dL (8.5-10.1) 10/13/18 06:30 Magnesium 2.3 mg/dL (1.8-2.4) 10/13/18 06:30 1.1 mg/dL (0.2-1.0) H 10/10/18 16:30 AST 5 U/L (15-37) L 10/10/18 16:30 ALT 9 U/L (12-78) L 10/10/18 16:30 62 U/L (46-116) 10/10/18 16:30 72 U/L (39-308) 10/12/18 06:10 17.75 mg/dL (0.0-0.3) H 10/13/18 06:30 6.5 g/dL (6.4-8.2) 10/10/18 16:30 2.4 g/dL (3.4-5.0) L 10/10/18 16:30 6.0 ng/mL 10/13/18 06:30 Yellow (Yellow) 10/12/18 10:45 Clear (Clear) 10/12/18 10:45 5.5 (5-8) 10/12/18 10:45 Ur Specific [place] 1.010 (1.005-1.025) 10/12/18 10:45 30 mg/dL (Negative) H 10/12/18 10:45 Negative mg/dL (Negative) 10/12/18 10:45 Trace-intact (Negative) H 10/12/18 10:45 Negative (Negative) 10/12/18 10:45 Negative (Negative) 10/12/18 10:45 0.2 EU/dL (Up TO 0.2) 10/12/18 10:45 Ur Leukocyte Esterase Small (Negative) H 10/12/18 10:45 0-2 (0-2) 10/12/18 10:45 10-20 HPF (0-5) 10/12/18 10:45 Ur Epithelial Cells Rare HPF (Negative) 10/12/18 10:45 Few amorphous HPF (Negative) 10/12/18 10:45 Moderate HPF (Negative) 10/12/18 10:45 0-2 coarse granular LPF (Negative) 10/12/18 10:45 Trace (Negative) 10/12/18 10:45 Ur Culture Indicated? C&s done as ordered 10/12/18 10:45 Negative mg/dL (Negative) 10/12/18 10:45
[2018-10-13] MEDS: Metoprolol 25 MG TAB 12.5 MG PO (19:25)
[2018-10-13] MEDS: dilTIAZem 25 MG/5 ML VIAL 10 MG IVP (22:30)
[2018-10-13] MEDS: Normal Saline 100 ML 10 ML (23:18)
[2018-10-13] MEDS: dilTIAZem 125 MG in Normal Saline 100 ML IV (23:20)
--- NOTE | 2018-10-13 23:28 | NUR.NOTE ---
2315-Patient has denied pain, shortness of breath or any discomfort the entire 3-11 shift despite having heart rates in the 120's to 160's range the entire shift.
[2018-10-14] VITALS (52 sets, daily range): BP systolic 86–142; BP diastolic 47–114; PULSE 0–210; RESP 18–35; TEMP 37.1–40; O2SAT 88–97
[2018-10-14] MEDS: ceFAZolin 2,000 MG in Normal Saline 100 ML 200 MG IVPB ×3 (02:38→17:42)
[2018-10-14] MEDS: Normal Saline 1,000 ML 75 ML IV ×2 (06:12→17:22)
[2018-10-14] MEDS: Levothyroxine 75 MCG TAB PO (06:13)
[2018-10-14] MEDS: Enoxaparin 30 MG/0.3 ML SYR SC ×2 (06:13→17:41)
[2018-10-14] MEDS: Normal Saline Flush 10 ML SYR IVP ×5 (06:18→18:09)
[2018-10-14 06:55] LABS: Lactate-non-spesis 0.9 mmol/l (0.6-1.4)
[2018-10-14 07:03] LABS: Abs Immature Grans 0.08 k/cumm (0.0-0.09); Absolute Basophil Count 0.01 k/cumm (0.0-0.2); Absolute Eosinophil Count 0.08 k/cumm (0.0-0.7); Absolute Lymphocyte Count 0.76 k/cumm (1.2-3.4); Basophils % 0.1; Eosinophils % 0.6; HCT 27.6 % (40.0-50.0); HGB 9.2 g/dL (13.5-17.5); Immature Grans % 0.6; Mean Corp. HGB Concentration 33.3 g/dL (32.0-36.0); Mean Corpuscular Hemoglobin 32.1 pg (27.0-33.0); Mean Corpuscular Volume 96.2 fL (80-95); Mean Platelet Volume 10.1 fL (8.0-11.0); Monocytes % 5.1; Neutrophils % 87.6; Platelet Count 225 x1000/uL (130-400); RBC 2.87 m/cumm (4.50-6.00); RBC Distribution Width 15.7 % (11.8-14.1); White Blood Cell Count 12.67 k/cumm (4.4-10.8)
[2018-10-14 07:05] LABS: Absolute Monocyte Count 0.65 k/cumm (0.11-0.7)
[2018-10-14 07:14] LABS: Anion Gap 7.2 mmol/L (3-11); BUN 34 mg/dL (7-18); C-Reactive Protein 13.13 mg/dL (0.0-0.3); CO2 23.8 mmol/L (21.0-32.0); CREATININE 1.24 mg/dL (0.70-1.30); Chloride 109 mmol/L (98-107); Estimated GFR 56.83 (mL/min/1.73m2); Glucose 100 mg/dL (70-100); Magnesium 2.1 mg/dL (1.8-2.4); Potassium 3.6 mmol/L (3.5-5.1); Sodium 140 mmol/L (136-145)
[2018-10-14 07:55] LABS: Procalcitonin 3.9 ng/mL
--- NOTE | 2018-10-14 08:11 | W.PM.PROGNOT ---
Date of Service Date of service: 10/14/18 Time of Service: 08:11 Assessment and Plan (1) Sepsis: Current visit: Yes Status: Acute Due to MSSA infection of L knee prosthesis with bacteremia (4/4 bottles positive on 10/11), present on admission. Off pressors. Repeat blood cultures are negative, CRP/procalcitonin are continuing to improve. Fever did recur - and if the R wrist pain is due to gout, this could be the reason why. Continue cefazolin/rifampin. As echo shows worsening tricuspid regurgitation, he will need a JS to rule out endocarditis - this is not emergent and could be done next week, once rate is controlled. (2) Sepsis associated hypotension: Current visit: Yes Status: Resolved As above. IVF can likely be d/c'ed later today; no longer requiring pressors and can tolerate diltiazem gtt and lopressor. (3) Bacteremia: Current visit: Yes Status: Acute as above (4) Infection of prosthetic left knee joint: Current visit: Yes Status: Acute s/p washout by Dr Samano 10/11/2018. Knee prosthesis remains in place. Continue cefazolin/rifampin. Qualifiers: Encounter type: initial encounter Qualified Code(s): T84.54XA - Infection and inflammatory reaction due to internal left knee prosthesis, initial encounter (5) Permanent atrial fibrillation with rapid ventricular response: Current visit: Yes Status: Acute In rapid Afib. This has been difficult to control, but we now have the blood pressure to work with and the patient is no longer on pressors. Titrate the metoprolol up and titrate the diltiazem gtt off. Previously, the patient as kept rate controlled on metoprolol, and with his systolic dysfunction, beta blockers are preferred. We will spend the next 24 hours gradually increasing beta blockers. (6) Acute renal insufficiency: Current visit: Yes Status: Acute Improved and nearing baseline. DDx: due to initiation of the Entresto and ongoing Lamb 2 inhibitor, acute illness, urinary retention, sepsis, hypoperfusion from atrial fibrillation. No rhabdo. Continue to hold entresto, NSAIDs, diuretics. Remains on IVF today - will hopefully be d/c'ed overnight. When diuretics are resumed, will need to be closely followed. Conitnue to monitor pulmonary status, I/O's, daily weights. (7) Cardiomyopathy: Current visit: No Status: Acute Chronic systolic CHF with EF 35-40%, also moderate pulmonary hypertension. Monitor pulmonary status while on IVF. (8) Restrictive lung disease: Current visit: No Status: Chronic Continue CPAP at night (9) Right wrist pain: Current visit: Yes Status: Acute Had an [place] in the area, but also has a history of gout, and the fact that he was recently bacteremic is also concerning for possible seeding. Will discuss with Dr Samano. While colchicine would be an ideal diagnostic/therapeutic method for gout, it interacts with diltiazem. Will trial toradol. If this is gout, it could explain why the patient spiked a fever yesterday. (10) DVT prophylaxis: Current visit: Yes Status: Acute lovenox (11) Discharge planning issues: Current visit: Yes Status: Acute DNI will need at least 6 weeks of IV abx once blood cultures are negative. 60 minutes were spent providing critical care and completing documentation for the patient on this visit. Subjective Interval history since last seen: Patient feels better. Denies dizziness, chest pain, shortness of breath, nausea, vomiting. Reports pain in his R wrist - he thinks it's gout. Tmax 38.3 as recorded. Alert, comfortable, asymptomatic. O2 sats have been good, used CPAP overnight. Desats to 82 overnight while on CPAP in deep sleep. Scattered wheezing today, ?crackles L base. Overnight placed on cardizem gtt, at 15 mg/hr, still up to 140's today with activity, at rest in 120's -130's. BP's are 90-100's systolic, this am's 116/70. Tolerating PO. Still has R IJ. Exam Narrative Exam Narrative: General: obese elderly male, A&Ox3, sitting up, looks better HEENT: EOMI, MMM, R IJ CVL Heart: irregularly irregular rhythm, tachycardic Lungs: quiet crackles L base, otherwise clear GI: abdomen is soft, nontender, nondistended Extremities: trace edema BLE's, trace pedal pulses, no c/c. L knee incision is dressed. R wrist is swollen and tender. Objective Objective Clinical Data: Abnormal lab results 10/14/18 10/14/18 Range/Units 06:30 06:30 WBC 12.67 H (4.4-10.8) k/cumm RBC 2.87 L (4.50-6.00) m/cumm Hgb 9.2 L (13.5-17.5) g/dL Hct 27.6 L (40.0-50.0) % MCV 96.2 H (80-95) fL RDW 15.7 H (11.8-14.1) % Absolute Neutrophils 11.10 H (1.2-6.7) k/cumm Absolute Lymphocytes 0.76 L (1.2-3.4) k/cumm Chloride 109 H (98-107) mmol/L BUN 34 H D (7-18) mg/dL C-Reactive Protein 13.13 H (0.0-0.3) mg/dL Vital Signs Temperature 37.7 C H 10/14/18 04:44 Temperature Source Temporal Artery Scan 10/14/18 04:44 Pulse 100 H 10/14/18 07:01 Pulse Rhythm Irregular 10/11/18 07:35 Pulse 120 H 10/14/18 07:01 Respiratory Rate 26 H 10/14/18 07:01 Respiratory Effort 10/14/18 04:44 Respiratory Depth Normal 10/14/18 04:44 Respiratory Pattern Normal 10/14/18 04:44 Blood Pressure 109/62 10/14/18 07:01 Blood Pressure Mean 74 10/14/18 07:01 Blood Pressure Position Supine 10/13/18 20:30 Pulse Oximetry 93 L 10/14/18 07:01 Oxygen Delivery Method Cpap 10/14/18 04:44 Oxygen Flow Rate 0 10/13/18 20:30 Fraction of Inspired Oxygen (FIO2) 21 10/12/18 15:05 Pain Level 0 10/14/18 04:44 Comment 10/13/18 01:02 Intake & Output 10/13/18 10/13/18 10/14/18 11:59 23:59 11:59 Intake Total 2742.258 / 4303.258 1561 / 4303.258 1623.534 / 1623.534 Output Total 1675 / 4175 2500 / 4175 1000 / 1000 Balance 1067.258 / 128.258 -939 / 128.258 623.534 / 623.534 Weight 137.9 kg 138.3 kg Intake: IV 2682.258 / 3403.258 721 / 3403.258 1273.534 / 1273.534 Oral 60 / 900 840 / 900 350 / 350 Output: Urine 1675 / 4175 2500 / 4175 1000 / 1000 Other: Urine Color Straw [place] Urine Appearance Clear Clear Clear Comment Falcon draining to gravity falcon in place. falcon in place. Laboratory Results WBC 12.67 k/cumm (4.4-10.8) H 10/14/18 06:30 RBC 2.87 m/cumm (4.50-6.00) L 10/14/18 06:30 Hgb 9.2 g/dL (13.5-17.5) L 10/14/18 06:30 Hct 27.6 % (40.0-50.0) L 10/14/18 06:30 MCV 96.2 fL (80-95) H 10/14/18 06:30 MCH 32.1 pg (27.0-33.0) 10/14/18 06:30 MCHC 33.3 g/dL (32.0-36.0) 10/14/18 06:30 RDW 15.7 % (11.8-14.1) H 10/14/18 06:30 Plt Count 225 x1000/uL (130-400) 10/14/18 06:30 MPV 10.1 fL (8.0-11.0) 10/14/18 06:30 Immature Gran % 0.6 10/14/18 06:30 87.6 10/14/18 06:30 6.0 10/14/18 06:30 5.1 10/14/18 06:30 0.6 10/14/18 06:30 0.1 10/14/18 06:30 Absolute Neutrophils 11.10 k/cumm (1.2-6.7) H 10/14/18 06:30 Absolute Lymphocytes 0.76 k/cumm (1.2-3.4) L 10/14/18 06:30 Absolute Monocytes 0.65 k/cumm (0.11-0.7) 10/14/18 06:30 Absolute Eosinophils 0.08 k/cumm (0.0-0.7) 10/14/18 06:30 Absolute Basophils 0.01 k/cumm (0.0-0.2) 10/14/18 06:30 ESR 98 mm/hr (1-20) H 10/10/18 16:30 PT 11.2 sec (9.3-11.0) H 10/11/18 11:00 INR 1.1 (0.9-1.1) 10/11/18 11:00 Sodium 140 mmol/L (136-145) 10/14/18 06:30 Potassium 3.6 mmol/L (3.5-5.1) 10/14/18 06:30 Chloride 109 mmol/L (98-107) H 10/14/18 06:30 Carbon Dioxide 23.8 mmol/L (21.0-32.0) 10/14/18 06:30 7.2 mmol/L (3-11) 10/14/18 06:30 BUN 34 mg/dL (7-18) H D 10/14/18 06:30 1.24 mg/dL (0.70-1.30) 10/14/18 06:30 56.83 (mL/min/1.73m2) 10/14/18 06:30 Glucose 100 mg/dL (70-100) D 10/14/18 06:30 5.9 % (4.5-6.2) 10/10/18 16:30 0.9 mmol/l (0.6-1.4) 10/14/18 06:30 Calcium 9.0 mg/dL (8.5-10.1) 10/14/18 06:30 Magnesium 2.1 mg/dL (1.8-2.4) 10/14/18 06:30 1.1 mg/dL (0.2-1.0) H 10/10/18 16:30 AST 5 U/L (15-37) L 10/10/18 16:30 ALT 9 U/L (12-78) L 10/10/18 16:30 62 U/L (46-116) 10/10/18 16:30 72 U/L (39-308) 10/12/18 06:10 13.13 mg/dL (0.0-0.3) H 10/14/18 06:30 6.5 g/dL (6.4-8.2) 10/10/18 16:30 2.4 g/dL (3.4-5.0) L 10/10/18 16:30 3.9 ng/mL 10/14/18 06:30 Yellow (Yellow) 10/12/18 10:45 Clear (Clear) 10/12/18 10:45 5.5 (5-8) 10/12/18 10:45 Ur Specific [place] 1.010 (1.005-1.025) 10/12/18 10:45 30 mg/dL (Negative) H 10/12/18 10:45 Negative mg/dL (Negative) 10/12/18 10:45 Trace-intact (Negative) H 10/12/18 10:45 Negative (Negative) 10/12/18 10:45 Negative (Negative) 10/12/18 10:45 0.2 EU/dL (Up TO 0.2) 10/12/18 10:45 Ur Leukocyte Esterase Small (Negative) H 10/12/18 10:45 0-2 (0-2) 10/12/18 10:45 10-20 HPF (0-5) 10/12/18 10:45 Ur Epithelial Cells Rare HPF (Negative) 10/12/18 10:45 Few amorphous HPF (Negative) 10/12/18 10:45 Moderate HPF (Negative) 10/12/18 10:45 0-2 coarse granular LPF (Negative) 10/12/18 10:45 Trace (Negative) 10/12/18 10:45 Ur Culture Indicated? C&s done as ordered 10/12/18 10:45 Negative mg/dL (Negative) 10/12/18 10:45
[2018-10-14] MEDS: dilTIAZem 125 MG in Normal Saline 100 ML 15 MG IV ×2 (08:39→17:11)
[2018-10-14] MEDS: ACETAMINOPHEN 1,000 MG/100 ML BTL 400 MG IVPB ×2 (08:59→17:22)
[2018-10-14] MEDS: Cyanocobalamin 500 MCG TAB PO (09:00)
[2018-10-14] MEDS: Allopurinol 300 MG TAB PO (09:00)
[2018-10-14] MEDS: Metoprolol 25 MG TAB 12.5 MG PO ×3 (09:00→17:41)
[2018-10-14] MEDS: Vitamins B Comp w/C TAB 1 TAB PO (09:00)
[2018-10-14] MEDS: Refresh PLUS Eye Drops 0.4ml 1 EACH OU ×2 (09:01→17:47)
[2018-10-14] MEDS: Ascorbic Acid 500 MG TAB PO (09:01)
[2018-10-14] MEDS: Multivitamin TAB 1 TAB PO (09:01)
[2018-10-14] MEDS: Cholecalciferol (Vitamin D3) 1,000 UNIT TAB 1000 UNITS PO (09:01)
[2018-10-14] MEDS: rifAMPin 300 MG CAP PO ×2 (09:01→20:17)
[2018-10-14] MEDS: Metoprolol 5 MG/5 ML VIAL 2.5 MG IVP (10:03)
--- NOTE | 2018-10-14 10:43 | PT.INTREAT ---
Date of service: 10/14/18 Time of Service: 10:43 PT Notes Inpatient Physical Therapy Treatment Note [facility] Date: 10/14/18 PRECAUTIONS: Fall, WBAT L SUBJECTIVE: Brennan is agreeable to participating in PT, although states that his knee is pretty sore OBJECTIVE: PAIN: Patient c/o L knee pain with transfers, weight bearing, and ther ex BED MOBILITY/TRANSFERS Rolling L/R: Mod A x2 Supine-sit: Mod A x2 with HOB at 30 degrees Sit-supine: Max A x1 + Mod A x1 with HOB flat Sit-stand: Mod A in a.m.; Mod A x2 in p.m. Stand-sit: Mod A Bed-Chair: Min A Chair-bed: Mod A x1 + Min A x1 GAIT Assistive Device: FWW Weight bearing: WBAT L Assist: Min A in a.m.; Mod A x1 + Min A x1 in p.m. Distance: 5 side steps to left in a.m.; 3 sidesteps to right + 3 steps backward in p.m. Deviation: Slow pace, increased pain Static standing x2 minutes in a.m. and x1 minute in p.m., with FWW support and CGA VITALS: HR: 109-155 bpm with activity. Please see nursing notes for specifics. THEREX: Patient completed a LE strengthening and stabilization program, in a seated position in the a.m. and in a supine position in p.m., as per flow sheet. Patient also completed standing weight shifts x10, with FWW support and CGA. Patient requires assist for all exercises, due to pain and weakness. Patient ends with cryocuff to left knee. TOILETING: Patient was incontinent of stool requiring total assist. ASSESSMENT: Patient tolerated session with c/o increased pain in L knee. Patient would benefit from continued gait and transfer training as well as strengthening for improved activity tolerance and mobility. PLAN: Continue with PT's POC TREATMENT CODE/TIME: Session 1: 45 minutes; [id number] x2, [id number] Session 2: 35 minutes; [id number], [id number]
[2018-10-14] MEDS: Normal Saline 100 ML (12:45)
[2018-10-14] MEDS: Metoprolol 5 MG/5 ML VIAL IVP (15:15)
--- NOTE | 2018-10-14 17:11 | PDOC.CMPRO ---
- If Service Date Differs Date of service: 10/14/18 Time of Service: 17:11 Care Management Progress Note S/O:Brennan is sitting up in the chair he is alert. He continues on IV antibiotics, and Cardizem drip, he continues to receive PT and remain an ICU level of care patient. A: Brennan is a 73 year old man admitted to [facility] on 10/10/18 with an infected knee. P: Brennan remains ICU level of care receiving IV antibiotics for an infected prosthetic knee. He may need chcf ABX when ready for discharge. His disposition will depend on required course of ABX. CM will continue to support patient, family and discharge planning needs identified.
[2018-10-14] MEDS: Ketorolac 15 MG/ML VIAL IVP (18:07)
[2018-10-15] VITALS (112 sets, daily range): BP systolic 101–152; BP diastolic 56–79; PULSE 83–162; RESP 16–40; TEMP 36.9–38.3; O2SAT 83–98
[2018-10-15] MEDS: Metoprolol 25 MG TAB 12.5 MG PO ×3 (01:00→12:30)
[2018-10-15] MEDS: dilTIAZem 125 MG in Normal Saline 100 ML 15 MG IV ×2 (01:08→10:25)
[2018-10-15] MEDS: ACETAMINOPHEN 1,000 MG/100 ML BTL 400 MG IVPB ×3 (01:16→16:59)
[2018-10-15] MEDS: ceFAZolin 2,000 MG in Normal Saline 100 ML 100 MG IVPB ×2 (02:00→10:24)
[2018-10-15] MEDS: Normal Saline 1,000 ML 75 ML IV (05:55)
[2018-10-15] MEDS: Levothyroxine 75 MCG TAB PO (05:58)
[2018-10-15] MEDS: Enoxaparin 30 MG/0.3 ML SYR SC ×2 (05:59→17:30)
--- NOTE | 2018-10-15 06:56 | NUR.NOTE ---
pt rang to get OOB to commode for BM. Assisted by two and walker, pt did fairly well gettingOOB. Upon returnng to bed, pt became weak and his knees buckled and he went down on one knee on the floor and was lifted back to bed with assist of med surg and jose lift. had huge soft brown bm on commode. Left knee draining large amt serosanguineous drng on dsg. SQSS filed out and Dr Samano notified. resting comfortably in bed niow. Nursing Note:
--- NOTE | 2018-10-15 08:08 | PDOC.CMPRO ---
- If Service Date Differs Date of service: 10/15/18 Time of Service: 08:08 Care Management Progress Note S/O:Brennan remains in the ICU no change in status today. Per there was a large amount of drainage from his wound today. He will need 6 weeks of MSSA coverage, anticipate once a day IV antibiotics. A: Brennan is a 73 year old man admitted to [facility] on 10/10/18 with an infected knee, MSSA. P: Brennan remains ICU level of care receiving IV antibiotics for an infected prosthetic knee. He will need 6 weeks of IV ABX from time of neg blood cultures SNF vs SB1 to be determined. CM will continue to support patient, family and discharge planning needs identified.
[2018-10-15] MEDS: Ascorbic Acid 500 MG TAB PO (08:43)
[2018-10-15] MEDS: rifAMPin 300 MG CAP PO ×2 (08:43→21:18)
[2018-10-15] MEDS: Cholecalciferol (Vitamin D3) 1,000 UNIT TAB 1000 UNITS PO (08:43)
[2018-10-15] MEDS: Multivitamin TAB 1 TAB PO (08:43)
[2018-10-15] MEDS: Allopurinol 300 MG TAB PO (08:43)
[2018-10-15] MEDS: Cyanocobalamin 500 MCG TAB PO (08:43)
[2018-10-15] MEDS: Vitamins B Comp w/C TAB 1 TAB PO (08:43)
--- NOTE | 2018-10-15 08:53 | PGE_ITS ---
Date of Service Date of service: 10/15/18 Time of Service: 08:54 Assessment and Plan (1) Infection of prosthetic left knee joint: Current visit: Yes Status: Zana Leone is a 73-year-old status post irrigation debridement of his left knee for periprosthetic infection. All cultures indicate MSSA as the organism. He is on cefazolin and rifampin. His surgery was comp gated by the fact that he had a chronic arthrotomy rupture. This was repaired, although difficult. He has had some pain about the left knee but seems to be getting better. He has been able to increase his mobilization. Unfortunate, he had a fall this morning. He did open up some the skin between the eladio but no gross defect in the incision is seen. There was a lot of subcutaneous fluid which had been c ollecting. This is mainly due to the separation of the subtenons tissue from the underlying fascia because of the infection. Using this defect in the incision I did express a copious amount of serosanguineous fluid decompressing the superficial tissues. There is no gross defect in the arthrotomy of the extensor mechanism although this is a concern. He does demonstrate quad activity with appropriate superior motion of the patella. However, he does a negative straight leg raise. At this point, we will continue to treat conservatively. He may use a knee immobilizer for mobilization if he so desires I do not think Vasu wants to use that. We should continue with physical therapy. Appreciate hospitalist involvement with managing his many medical issues including his persistent atrial fibrillation with RVR, intermittent hypotension, bacteremia, peripheral edema. Qualifiers: Encounter type: initial encounter Qualified Code(s): T84.54XA - Infection and inflammatory reaction due to internal left knee prosthesis, initial encounter (2) Right wrist pain: Current visit: Yes Status: Zana Leone has a history of gout. He feels that the wrist and shoulder are very similar to his previous gouty flares. His examination is benign this morning and responded well to Toradol. At this point, I would continue with high-dose anti-inflammatories if he has any pain. There are no signs of this being infectious although that is always on the differential. If things change we will reexamine and even consider aspiration if necessary. Subjective Interval history since last seen: Vasu reports that he has been doing better. He was able to sit up in the chair yesterday. The pain in the left knee is improving. He also has had improvement from the pain in the right wrist and left shoulder. He does find it difficult to move the left knee due to pain and discomfort which he feels anteriorly as well as posteriorly. He is still on the diltiazem drip but has had no pressor support necessary. He was getting up out of the bed to go to the commode this morning. He was able to get up with nursing support but with what he recalls is much less effort than usual and much less pain. When he was getting up from the commode he lost his balance and felt his knees buckle. He went down onto the right knee with the left leg not hyperflexed. At that point there is some notable fluid draining from the left knee and he was gone back in the bed using a Shara lift. After selling back in the bed he does report being quite tired and exhausted. He does not report any increase in the left knee pain except for the new drainage. Subjectively he has not had fevers or chills, although he does have a temp of 38.3 this morning. He has been able to work with physical therapy although it has been limited. All cultures have grown MSSA. Most recent blood cultures are negative x72 hours. Urine culture negative as well. Exam Narrative Exam Narrative: Laying supine in the hospital bed. He does seem to slightly more ashen color than usual. He is alert and oriented x3. He is in no acute distress. He is able to demonstrate full active range of motion of the right wrist without any pain limitations. He has some mild pain to palpation but no overlying erythema. No gross effusion. Evaluation of the left knee shows serosanguineous fluid leaking out from underneath the Mepilex dressing. A mepilex dressing is removed. There is a large amount of some cutaneous edema. There is an area at the very proximal of the incision also when the distal one third has some drainage of this fluid. I applied some manual pressure to the superficial tissues and was able to express a large amount of serosanguineous fluid. There is no gross purulence. There is no fluctuance. Once this fluid was removed his knee was much smaller in size and was able to be examined more thoroughly. There is no gross defect in the arthrotomy or the extensor mechanism. He was able to contract his quad, although quite weakly, with appropriate motion of the patella. I was unable to dislocate or move the patella which would suggest a complete arthrotomy rupture. There was a small area of concern over the superior medial aspect of the patella. Sutures are palpable in this area. He is unable to straight leg raise. He does actively contract the knee although quite weakly. Range of motion is from 20 to 60 degrees. He has pain with any motion past that. No crepitus throughout the thigh to palpation. No pain to palpation proximal to the incision site. No pain with hip range of motion. 2+ pitting edema in the lower extremity but no pain or crepitus to palpation. No notable erythema. Mild warmth the left knee. Objective Objective Clinical Data: Vital Signs Temperature 38.3 C H 10/15/18 08:31 Temperature Source Temporal Artery Scan 10/15/18 08:31 Pulse 103 H 10/15/18 05:01 Pulse Rhythm Irregular 10/11/18 07:35 Pulse 117 H 10/15/18 07:30 Respiratory Rate 23 10/15/18 07:30 Respiratory Effort 10/15/18 03:43 Respiratory Depth Normal 10/15/18 03:43 Respiratory Pattern Normal 10/15/18 03:43 Blood Pressure 111/76 10/15/18 05:01 Blood Pressure Mean 84 10/15/18 05:01 Blood Pressure Position Supine 10/15/18 03:43 Pulse Oximetry 96 10/15/18 07:30 Oxygen Delivery Method Cpap 10/15/18 03:43 Oxygen Flow Rate 0 10/14/18 20:00 Fraction of Inspired Oxygen (FIO2) 21 10/12/18 15:05 Pain Level 0 10/15/18 03:43 Comment 10/14/18 12:45 Intake & Output 10/14/18 10/14/18 10/15/18 11:59 23:59 11:59 Intake Total 2254.000 / 4091.500 1837.5 / 4091.500 1260.50 / 1260.50 Output Total 1575 / 2575 1000 / 2575 700 / 700 Balance 679.000 / 1516.500 837.5 / 1516.500 560.50 / 560.50 Weight 138.3 kg 141.6 kg Intake: IV 1424.000 / 2781.500 1357.5 / 2781.500 1260.50 / 1260.50 Oral 830 / 1310 480 / 1310 Output: Urine 1575 / 2575 1000 / 2575 700 / 700 Other: Urine Color Straw Dark [place] Straw Urine Appearance Clear Clear Clear Comment Falcon patent draining clear yellow urine. pt has indwelling falcon catheter, patent and draining clear dark isma urine pt has indwelling falcon catheter, patent and draining clear dark isma urine Stool Occult Blood Negative Negative Stool Size Moderate Moderate Large Stool Characteristics Soft Soft Soft Brown Brown Brown Laboratory Results WBC 12.67 k/cumm (4.4-10.8) H 10/14/18 06:30 RBC 2.87 m/cumm (4.50-6.00) L 10/14/18 06:30 Hgb 9.2 g/dL (13.5-17.5) L 10/14/18 06:30 Hct 27.6 % (40.0-50.0) L 10/14/18 06:30 MCV 96.2 fL (80-95) H 10/14/18 06:30 MCH 32.1 pg (27.0-33.0) 10/14/18 06:30 MCHC 33.3 g/dL (32.0-36.0) 10/14/18 06:30 RDW 15.7 % (11.8-14.1) H 10/14/18 06:30 Plt Count 225 x1000/uL (130-400) 10/14/18 06:30 MPV 10.1 fL (8.0-11.0) 10/14/18 06:30 Immature Gran % 0.6 10/14/18 06:30 87.6 10/14/18 06:30 6.0 10/14/18 06:30 5.1 10/14/18 06:30 0.6 10/14/18 06:30 0.1 10/14/18 06:30 Absolute Neutrophils 11.10 k/cumm (1.2-6.7) H 10/14/18 06:30 Absolute Lymphocytes 0.76 k/cumm (1.2-3.4) L 10/14/18 06:30 Absolute Monocytes 0.65 k/cumm (0.11-0.7) 10/14/18 06:30 Absolute Eosinophils 0.08 k/cumm (0.0-0.7) 10/14/18 06:30 Absolute Basophils 0.01 k/cumm (0.0-0.2) 10/14/18 06:30 ESR 98 mm/hr (1-20) H 10/10/18 16:30 PT 11.2 sec (9.3-11.0) H 10/11/18 11:00 INR 1.1 (0.9-1.1) 10/11/18 11:00 Sodium 140 mmol/L (136-145) 10/14/18 06:30 Potassium 3.6 mmol/L (3.5-5.1) 10/14/18 06:30 Chloride 109 mmol/L (98-107) H 10/14/18 06:30 Carbon Dioxide 23.8 mmol/L (21.0-32.0) 10/14/18 06:30 7.2 mmol/L (3-11) 10/14/18 06:30 BUN 34 mg/dL (7-18) H D 10/14/18 06:30 1.24 mg/dL (0.70-1.30) 10/14/18 06:30 56.83 (mL/min/1.73m2) 10/14/18 06:30 Glucose 100 mg/dL (70-100) D 10/14/18 06:30 5.9 % (4.5-6.2) 10/10/18 16:30 0.9 mmol/l (0.6-1.4) 10/14/18 06:30 Calcium 9.0 mg/dL (8.5-10.1) 10/14/18 06:30 Magnesium 2.1 mg/dL (1.8-2.4) 10/14/18 06:30 1.1 mg/dL (0.2-1.0) H 10/10/18 16:30 AST 5 U/L (15-37) L 10/10/18 16:30 ALT 9 U/L (12-78) L 10/10/18 16:30 62 U/L (46-116) 10/10/18 16:30 72 U/L (39-308) 10/12/18 06:10 13.13 mg/dL (0.0-0.3) H 10/14/18 06:30 6.5 g/dL (6.4-8.2) 10/10/18 16:30 2.4 g/dL (3.4-5.0) L 10/10/18 16:30 3.9 ng/mL 10/14/18 06:30 Yellow (Yellow) 10/12/18 10:45 Clear (Clear) 10/12/18 10:45 5.5 (5-8) 10/12/18 10:45 Ur Specific [place] 1.010 (1.005-1.025) 10/12/18 10:45 30 mg/dL (Negative) H 10/12/18 10:45 Negative mg/dL (Negative) 10/12/18 10:45 Trace-intact (Negative) H 10/12/18 10:45 Negative (Negative) 10/12/18 10:45 Negative (Negative) 10/12/18 10:45 0.2 EU/dL (Up TO 0.2) 10/12/18 10:45 Ur Leukocyte Esterase Small (Negative) H 10/12/18 10:45 0-2 (0-2) 10/12/18 10:45 10-20 HPF (0-5) 10/12/18 10:45 Ur Epithelial Cells Rare HPF (Negative) 10/12/18 10:45 Few amorphous HPF (Negative) 10/12/18 10:45 Moderate HPF (Negative) 10/12/18 10:45 0-2 coarse granular LPF (Negative) 10/12/18 10:45 Trace (Negative) 10/12/18 10:45 Ur Culture Indicated? C&s done as ordered 10/12/18 10:45 Negative mg/dL (Negative) 10/12/18 10:45
[2018-10-15 09:00] LABS: Abs Immature Grans 0.31 k/cumm (0.0-0.09); Absolute Monocyte Count 0.56 k/cumm (0.11-0.7); Absolute Neutrophil Count 10.73 k/cumm (1.2-6.7); Basophils % 0.2; Eosinophils % 2.3; HGB 9.6 g/dL (13.5-17.5); Immature Grans % 2.4; Mean Corpuscular Hemoglobin 31.2 pg (27.0-33.0); Mean Corpuscular Volume 97.4 fL (80-95); Mean Platelet Volume 10.3 fL (8.0-11.0); Monocytes % 4.4; Neutrophils % 83.7; Platelet Count 258 x1000/uL (130-400); RBC 3.08 m/cumm (4.50-6.00); RBC Distribution Width 16.1 % (11.8-14.1); White Blood Cell Count 12.82 k/cumm (4.4-10.8)
[2018-10-15 09:05] LABS: Absolute Basophil Count 0.03 k/cumm (0.0-0.2); Absolute Eosinophil Count 0.29 k/cumm (0.0-0.7)
[2018-10-15 09:06] LABS: BUN 28 mg/dL (7-18); C-Reactive Protein 15.57 mg/dL (0.0-0.3); CREATININE 1.31 mg/dL (0.70-1.30); Calcium 9.3 mg/dL (8.5-10.1); Chloride 109 mmol/L (98-107); Estimated GFR 53.34 (mL/min/1.73m2); Glucose 125 mg/dL (70-100); Magnesium 1.9 mg/dL (1.8-2.4); Potassium 3.3 mmol/L (3.5-5.1); Sodium 140 mmol/L (136-145)
[2018-10-15 09:33] LABS: Procalcitonin 2.3 ng/mL
[2018-10-15] MEDS: Normal Saline 100 ML 15 ML (10:25)
[2018-10-15] MEDS: Potassium Chloride 20 MEQ TABCR 40 MEQ PO (10:47)
[2018-10-15] MEDS: Magnesium Oxide 400 MG TAB PO (10:47)
--- NOTE | 2018-10-15 11:05 | DI.RAD_ITS ---
SYMPTOM/DIAGNOSIS: PERSISTENT FEVER PORTABLE AP CHEST: Comparison is made with 10/12/18. Multiple left rib fractures are noted. The exam is somewhat limited by mild motion and leads overlying the chest. There is a question of some increased densities of the right lower lung which could represent developing infiltrate. No effusion is seen on the right. The left costophrenic angle is not fully included. There may be a tiny left pleural effusion. IMPRESSION: Old left rib fractures and tiny left pleural effusion versus pleural scarring. Question of a right side infiltrate.
--- NOTE | 2018-10-15 11:08 | PT.INTREAT ---
Date of service: 10/15/18 Time of Service: 11:08 PT Notes Inpatient Physical Therapy Treatment Note [facility] Date: 10/15/18 PRECAUTIONS: Fall, WBAT L SUBJECTIVE: Brennan states that he is feeling significantly better today, he is agreeable to participating in PT. OBJECTIVE: Per nursing and MD, patient fell to the ground this morning landing on R knee, without much impact on L knee. MD has cleared patient to work with PT. PAIN: Patient c/o L knee pain with transfers BED MOBILITY/TRANSFERS Supine-sit: Min A with HOB at 20 degrees Sit-stand: CGA Stand-sit: CGA Bed-Chair: CGA x1 + SBA x1 GAIT Assistive Device: FWW Weight bearing: WBAT L Assist: CGA x1 + SBA x1 Distance: 5' Deviation: Improved posture Static standing x2 minutes with FWW support and SBA demonstrating improved posture and decreased discomfort VITALS: Please see nursing notes for specifics. THEREX: Patient completed a LE strengthening and stabilization program, in a supine position, as per flow sheet. Patient requires assist for hip abduction and SLR exercises due to weakness. TOILETING: Patient was incontinent of stool requiring total assist for care in standing position. ASSESSMENT: Patient tolerated session with c/o increased pain in L knee with transfers. He demonstrates improved mobility and ability to tolerate increased gait distance with FWW support and CGA. Patient would benefit from continued gait and transfer training as well as strengthening for improved activity tolerance and mobility. PLAN: Continue with PT's POC TREATMENT CODE/TIME: 30 minutes; 80496, [id number]
[2018-10-15 11:22] LABS: Bilirubin Negative (Negative); Blood Trace-intact (Negative); Clarity Clear (Clear); Glucose Negative (Negative); Ketones Negative (Negative); Leukocyte Esterase Negative (Negative); Nitrite Negative (Negative); Urobilinogen 0.2 EU/dL (Up TO 0.2); pH 5.5 (5-8)
[2018-10-15 11:35] LABS: Bacteria Negative HPF (Negative); C & S Indicated? No; Casts Negative LPF (Negative); Crystals Few Amorphous HPF (Negative); Epithelial Cells Rare HPF (Negative); Mucus Trace (Negative); WBC 0-2 HPF (0-5)
--- NOTE | 2018-10-15 11:47 | DI.VRAD_ITS ---
EXAM: XR Chest, 1 View EXAM DATE/TIME: 10/15/2018 10:23 AM CLINICAL HISTORY: 73 years old, male; Other: Persistent fevers TECHNIQUE: Imaging protocol: XR of the chest, 1 view. COMPARISON: CR XR PORTABLE CHEST AP 10/12/2018 11:12 AM FINDINGS: Tubes, catheters and devices: Stable right central line Lungs: Opacity in the medial right base may represent atelectasis/pneumonia. Pleural space: There may be mild left pleural effusion. Heart/Mediastinum: Stable cardiomegaly Bones/joints: Osseous structures are stable IMPRESSION: 1. Opacity in the medial right base may represent atelectasis/pneumonia. 2. There may be mild left pleural effusion. Dictated and Authenticated by: Michelle Linda MD. Ordering:AUBREE Dixon MD
--- NOTE | 2018-10-15 13:52 | W.PM.PROGNOT ---
Date of Service Date of service: 10/15/18 Time of Service: 14:05 Assessment and Plan (1) Sepsis: Current visit: Yes Status: Acute Sepsis with MSSA Bacteremia, with infected left knee prosthesis as likely source. Sepsis appears resolved. Treatment as below. (2) Bacteremia: Current visit: Yes Status: Acute Repeat blood cultures from 10/12 and 10/14 negative despite recurrent fevers. Repeat culture now, monitor vitals, and alter treatment as below. (3) Infection of prosthetic left knee joint: Current visit: Yes Status: Acute S/p debridement and open irrigation on 10/11 with retention of hardware - surgical cultures showing growth of MSSA as well. Mr. Llamas continues to be febrile despite appropriate antibiotic coverage, and CRP actually increased today despite continued improvement previously. Patient initially received a combination of Daptomycin, Pip-Mustapha, and Rifampin, changed to Ceftriaxone/Rifampin for 2 days, then to Cefazolin/Rifampin for 2 additional days. Despite persistent fevers, repeat blood cultures on 10/12 and 10/14 remain negative. Plan as follows: - Remove Central Line as potential source of infection. Will obtain catheter tip cultures and repeat Blood Cultures as well. - Considered possible DVT/PE as source of fevers - unlikely as patient has been off chronic AC, but covered with SC Enoxaparin for the majority of his hospitalization. - Considered other potential sources of infection. Urinalysis negative, and CXR with opacity and pneumonia. - Recommend broadening coverage to Pip-Mustapha for 5 days for coverage of potential HCAP, with change back to high dose Cefazolin following. Also - Mr. Llamas has apparent worsening of his Tricuspid Regurgitation by current ECHO, with Endocarditis not excluded under the current circumstances. His treatment regimen however is for a minimum of 6 weeks of IV Antibiotics, followed by likely lifelong suppressive therapy. As he will be receiving long-term IV Antibiotics will hold off on performing a JS at this time. Also noted was patient's allergy to PCN - he had a prior reaction that included potential rash and chest heaviness without true anaphylaxis, but appeared to tolerate Zosyn at time of admission. Will monitor closely - if any concern consider changing to Cefepime. Qualifiers: Encounter type: initial encounter Qualified Code(s): T84.54XA - Infection and inflammatory reaction due to internal left knee prosthesis, initial encounter (4) Pneumonia: Current visit: Yes Status: Acute Treatment as above. (5) Atrial fibrillation: Current visit: No Status: Chronic Chronic Afib with current RVR in setting of persistent fevers, infection, and systemic inflammation. - Continue Cardizem gtt and uptitrate BB, with close monitoring of blood pressure. Will also discontinue IVFs given patient's history of CHF, and monitor volume status carefully. Rivaroxaban remains on hold. (6) Cardiomyopathy: Current visit: No Status: Acute Systolic function appears improved, with LVEF 35 --> 45-50% currently. Will continue to monitor volume status carefully, check daily weights, and aim for improved HR control. IVFs discontinued as above. Furosemide, Entresto and Spironolactone remain on hold given prior JUAN and hypotension requiring pressor support. (7) Acute renal insufficiency: Current visit: Yes Status: Acute In setting of infection and sepsis, appears improved. Monitor closely. (8) Gout: Current visit: Yes Status: Chronic Potential acute flare (wrist) occuring in setting of JUAN, with pain resolved following administration of Toradol and Colchicine. Continue home dose of Allopurinol. (9) DVT prophylaxis: Current visit: Yes Status: Acute Previously on anticoagulation with Xarelto, held in light of recent surgery. Continue SC Lovenox as per ortho. (10) Advance directive on file: Current visit: Yes Status: Acute DNI. Subjective Interval history since last seen: 73 year old patient admitted on 10/10 with a diagnosis of Septic Joint. Mr. Llamas has a past Medical History significant for Ischemic Cardiomyopathy, Afib on chronic AC, Restrictive Lung dz, HTN, Gout, and PHTN. He was seen in the Orthopedic clinic on the day prior to his admission with reported fall and abrasion overlying his left knee, with acute onset of knee pain and swelling. Aspiration confirmed a periprosthetic infection and the patient was scheduled for admission and surgery, at which time he underwent an open irrigation, debridement, and Synovectomy with Arthrotomy repair of the left knee. Following his surgery Mr. Llamas was noted to have persistent Afib with RVR, JUAN now resolved, and persistent fevers as high as 40 degrees Celcius on 10/14. Despite this his repeat blood cultures on 10/12 and 10/14 remain negative. This morning Mr. Llamas reports feeling improved overall, but continues to have an elevated temperature (TMax 38.3). Blood cultures were repeat and urinalysis was negative. CXR however shows evidence of a right basilar opacity. His heart rate remains tachycardic and uncontrolled. No other events reported. Exam Narrative Exam Narrative: General: Patient appears comfortable, AAOX3, NAD Neck: Supple CV: Irregularly Irregular, tachycardic. Pulmonary: Minimal bibasilar crackles, slightly worse on right Abdomen: + Bowel Sounds, soft, nontender, nondistended Vascular: Mild b/l lower extremity edema Psych: Normal mood and affect. Objective Objective Clinical Data: Abnormal lab results 10/15/18 10/15/18 10/15/18 Range/Units 07:08 07:08 10:30 WBC 12.82 H (4.4-10.8) k/cumm RBC 3.08 L (4.50-6.00) m/cumm Hgb 9.6 L (13.5-17.5) g/dL Hct 30.0 L (40.0-50.0) % MCV 97.4 H (80-95) fL RDW 16.1 H (11.8-14.1) % Absolute Neutrophils 10.73 H (1.2-6.7) k/cumm Absolute Lymphocytes 0.90 L (1.2-3.4) k/cumm Potassium 3.3 L (3.5-5.1) mmol/L Chloride 109 H (98-107) mmol/L BUN 28 H (7-18) mg/dL Creatinine 1.31 H (0.70-1.30) mg/dL Glucose 125 H (70-100) mg/dL C-Reactive Protein 15.57 H (0.0-0.3) mg/dL Urine Protein 30 H (Negative) mg/dL Urine Blood Trace-intact H (Negative) Urine RBC 3-5 H (0-2) Vital Signs Temperature 38.3 C H 10/15/18 08:31 Temperature Source Temporal Artery Scan 10/15/18 08:31 Pulse 111 H 10/15/18 10:30 Pulse Rhythm Irregular 10/11/18 07:35 Pulse 158 H 10/15/18 12:10 Respiratory Rate 31 H 10/15/18 12:10 Respiratory Effort 10/15/18 03:43 Respiratory Depth Normal 10/15/18 03:43 Respiratory Pattern Normal 10/15/18 03:43 Blood Pressure 117/66 10/15/18 10:30 Blood Pressure Mean 79 10/15/18 10:01 Blood Pressure Position Supine 10/15/18 03:43 Pulse Oximetry 97 10/15/18 10:40 Oxygen Delivery Method Cpap 10/15/18 03:43 Oxygen Flow Rate 0 10/14/18 20:00 Fraction of Inspired Oxygen (FIO2) 21 10/12/18 15:05 Pain Level 0 10/15/18 03:43 Comment 10/14/18 12:45 Intake & Output 10/14/18 10/15/18 10/15/18 23:59 11:59 23:59 Intake Total 1837.5 / 4091.500 1485.50 / 1585.50 100 / 1585.50 Output Total 1000 / 2575 700 / 700 Balance 837.5 / 1516.500 785.50 / 885.50 100 / 885.50 Weight 141.6 kg Intake: IV 1357.5 / 2781.500 1485.50 / 1585.50 100 / 1585.50 Oral 480 / 1310 Output: Urine 1000 / 2575 700 / 700 Other: Urine Color Dark Isma Straw Urine Appearance Clear Clear Comment pt has indwelling falcon catheter, patent and draining clear dark isma urine pt has indwelling falcon catheter, patent and draining clear dark isma urine Stool Occult Blood Negative Negative Stool Size Moderate Large Stool Characteristics Soft Soft Brown Brown Laboratory Results WBC 12.82 k/cumm (4.4-10.8) H 10/15/18 07:08 RBC 3.08 m/cumm (4.50-6.00) L 10/15/18 07:08 Hgb 9.6 g/dL (13.5-17.5) L 10/15/18 07:08 Hct 30.0 % (40.0-50.0) L 10/15/18 07:08 MCV 97.4 fL (80-95) H 10/15/18 07:08 MCH 31.2 pg (27.0-33.0) 10/15/18 07:08 MCHC 32.0 g/dL (32.0-36.0) 10/15/18 07:08 RDW 16.1 % (11.8-14.1) H 10/15/18 07:08 Plt Count 258 x1000/uL (130-400) 10/15/18 07:08 MPV 10.3 fL (8.0-11.0) 10/15/18 07:08 Immature Gran % 2.4 10/15/18 07:08 83.7 10/15/18 07:08 7.0 10/15/18 07:08 4.4 10/15/18 07:08 2.3 10/15/18 07:08 0.2 10/15/18 07:08 Absolute Neutrophils 10.73 k/cumm (1.2-6.7) H 10/15/18 07:08 Absolute Lymphocytes 0.90 k/cumm (1.2-3.4) L 10/15/18 07:08 Absolute Monocytes 0.56 k/cumm (0.11-0.7) 10/15/18 07:08 Absolute Eosinophils 0.29 k/cumm (0.0-0.7) 10/15/18 07:08 Absolute Basophils 0.03 k/cumm (0.0-0.2) 10/15/18 07:08 ESR 98 mm/hr (1-20) H 10/10/18 16:30 PT 11.2 sec (9.3-11.0) H 10/11/18 11:00 INR 1.1 (0.9-1.1) 10/11/18 11:00 Sodium 140 mmol/L (136-145) 10/15/18 07:08 Potassium 3.3 mmol/L (3.5-5.1) L 10/15/18 07:08 Chloride 109 mmol/L (98-107) H 10/15/18 07:08 Carbon Dioxide 22.0 mmol/L (21.0-32.0) 10/15/18 07:08 9.0 mmol/L (3-11) 10/15/18 07:08 BUN 28 mg/dL (7-18) H 10/15/18 07:08 1.31 mg/dL (0.70-1.30) H 10/15/18 07:08 53.34 (mL/min/1.73m2) 10/15/18 07:08 Glucose 125 mg/dL (70-100) H 10/15/18 07:08 5.9 % (4.5-6.2) 10/10/18 16:30 0.9 mmol/l (0.6-1.4) 10/14/18 06:30 Calcium 9.3 mg/dL (8.5-10.1) 10/15/18 07:08 Magnesium 1.9 mg/dL (1.8-2.4) 10/15/18 07:08 1.1 mg/dL (0.2-1.0) H 10/10/18 16:30 AST 5 U/L (15-37) L 10/10/18 16:30 ALT 9 U/L (12-78) L 10/10/18 16:30 62 U/L (46-116) 10/10/18 16:30 72 U/L (39-308) 10/12/18 06:10 15.57 mg/dL (0.0-0.3) H 10/15/18 07:08 6.5 g/dL (6.4-8.2) 10/10/18 16:30 2.4 g/dL (3.4-5.0) L 10/10/18 16:30 2.3 ng/mL 10/15/18 07:08 Yellow (Yellow) 10/15/18 10:30 Clear (Clear) 10/15/18 10:30 5.5 (5-8) 10/15/18 10:30 Ur Specific [place] 1.010 (1.005-1.025) 10/15/18 10:30 30 mg/dL (Negative) H 10/15/18 10:30 Negative mg/dL (Negative) 10/15/18 10:30 Trace-intact (Negative) H 10/15/18 10:30 Negative (Negative) 10/15/18 10:30 Negative (Negative) 10/15/18 10:30 0.2 EU/dL (Up TO 0.2) 10/15/18 10:30 Ur Leukocyte Esterase Negative (Negative) 10/15/18 10:30 3-5 (0-2) H 10/15/18 10:30 0-2 HPF (0-5) 10/15/18 10:30 Ur Epithelial Cells Rare HPF (Negative) 10/15/18 10:30 Few amorphous HPF (Negative) 10/15/18 10:30 Negative HPF (Negative) 10/15/18 10:30 Negative LPF (Negative) 10/15/18 10:30 Trace (Negative) 10/15/18 10:30 Ur Culture Indicated? No 10/15/18 10:30 Negative mg/dL (Negative) 10/15/18 10:30
--- NOTE | 2018-10-15 14:24 | NUR.NOTE ---
0890 Dr. Samano in, Examined Left knee, was able to express lg amt of serosanguinous fluid from the R knee. Dressing changed by the .Nursing Note:
[2018-10-15] MEDS: Metoprolol 25 MG TAB PO ×2 (14:45→21:23)
[2018-10-15] MEDS: Normal Saline Flush 10 ML SYR IVP (14:46)
[2018-10-15] MEDS: PIPERACILLIN/TAZO 4.5 GM in Normal Saline 100 ML IVPB (17:25)
[2018-10-15] MEDS: POTASSIUM CHLORIDE 20 MEQ, POTASSIUM CHLORIDE 10 MEQ 30 MEQ PO (17:29)
[2018-10-15] MEDS: Refresh PLUS Eye Drops 0.4ml 1 EACH OU (17:31)
[2018-10-16] VITALS (55 sets, daily range): BP systolic 95–137; BP diastolic 57–94; PULSE 87–140; RESP 14–38; TEMP 36.4–37.5; O2SAT 83–98
[2018-10-16] MEDS: PIPERACILLIN/TAZO 4.5 GM in Normal Saline 100 ML IVPB ×3 (01:01→18:58)
[2018-10-16] MEDS: ACETAMINOPHEN 1,000 MG/100 ML BTL 400 MG IVPB ×4 (01:02→23:53)
[2018-10-16] MEDS: Normal Saline 100 ML (01:05)
[2018-10-16] MEDS: dilTIAZem 125 MG in Normal Saline 100 ML 15 MG IV ×2 (03:52→22:27)
[2018-10-16] MEDS: Enoxaparin 30 MG/0.3 ML SYR SC ×2 (05:56→18:58)
[2018-10-16] MEDS: Levothyroxine 75 MCG TAB PO (05:56)
[2018-10-16] MEDS: Metoprolol 25 MG TAB PO (05:57)
[2018-10-16 06:57] LABS: Abs Immature Grans 0.39 k/cumm (0.0-0.09); HCT 28.8 % (40.0-50.0); HGB 9.2 g/dL (13.5-17.5); Mean Corp. HGB Concentration 31.9 g/dL (32.0-36.0); Mean Corpuscular Hemoglobin 30.9 pg (27.0-33.0); Mean Corpuscular Volume 96.6 fL (80-95); Mean Platelet Volume 9.4 fL (8.0-11.0); Platelet Count 263 x1000/uL (130-400); RBC 2.98 m/cumm (4.50-6.00); RBC Distribution Width 15.8 % (11.8-14.1); White Blood Cell Count 13.09 k/cumm (4.4-10.8)
[2018-10-16 07:28] LABS: Absolute Eosinophil Count 0.39 k/cumm (0.0-0.7); Absolute Lymphocyte Count 1.18 k/cumm (1.2-3.4); Absolute Monocyte Count 0.52 k/cumm (0.11-0.7); Absolute Neutrophil Count 10.73 k/cumm (1.2-6.7); Anisocytosis 1+; Diff Comment Manual Differential; Hypochromasia 1+
[2018-10-16 07:30] LABS: Anion Gap 7.9 mmol/L (3-11); BUN 23 mg/dL (7-18); CO2 22.1 mmol/L (21.0-32.0); CREATININE 1.21 mg/dL (0.70-1.30); Calcium 9.5 mg/dL (8.5-10.1); Chloride 108 mmol/L (98-107); Estimated GFR 58.46 (mL/min/1.73m2); Glucose 91 mg/dL (70-100); Potassium 4.4 mmol/L (3.5-5.1); Sodium 138 mmol/L (136-145)
[2018-10-16] MEDS: Metoprolol 25 MG TAB 12.5 MG PO (08:43)
[2018-10-16] MEDS: Cholecalciferol (Vitamin D3) 1,000 UNIT TAB 1000 UNITS PO (08:44)
[2018-10-16] MEDS: Cyanocobalamin 500 MCG TAB PO (08:44)
[2018-10-16] MEDS: Allopurinol 300 MG TAB PO (08:44)
[2018-10-16] MEDS: rifAMPin 300 MG CAP PO ×2 (08:44→20:15)
[2018-10-16] MEDS: Ascorbic Acid 500 MG TAB PO (08:44)
[2018-10-16] MEDS: Vitamins B Comp w/C TAB 1 TAB PO (08:44)
[2018-10-16] MEDS: Multivitamin TAB 1 TAB PO (08:44)
--- NOTE | 2018-10-16 09:25 | PT.INTREAT ---
Date of service: 10/16/18 Time of Service: 09:25 PT Notes Inpatient Physical Therapy Treatment Note [facility] Date: 10/15/18 PRECAUTIONS: Fall, WBAT L SUBJECTIVE: Vasu is agreeable to participating in PT, stating he has not been out of bed yet. OBJECTIVE: PAIN: Patient c/o L knee pain with transfers and ther ex, he also complains of left elbow soreness with bed mobility BED MOBILITY/TRANSFERS Supine-sit: SBA with HOB at 30 degrees Sit-stand: SBA Stand-sit: CGA Bed-Chair: CGA x1 + SBA x1 GAIT Assistive Device: FWW Weight bearing: WBAT L Assist: SBA x2 Distance: 10' Deviation: Cueing for posture Static standing x2 minutes with FWW support and SBA VITALS: Please see nursing notes for specifics. THEREX: Patient completed a LE strengthening and stabilization program, in a supine position, as per flow sheet. Patient requires assist for hip abduction and SLR exercises due to weakness. TOILETING: Patient was incontinent of stool requiring total assist for care in standing position. ASSESSMENT: Patient tolerated session with c/o increased pain in L knee with transfers and ther ex. He demonstrates improved mobility and ability to tolerate increased gait distance with FWW support and SBA. Patient would benefit from continued gait and transfer training as well as strengthening for improved activity tolerance and mobility. PLAN: Continue with PT's POC TREATMENT CODE/TIME: 30 minutes; 74583, [id number]
--- NOTE | 2018-10-16 12:18 | W.PM.PROGNOT ---
Date of Service Date of service: 10/16/18 Time of Service: 11:18 Assessment and Plan (1) Infection of prosthetic left knee joint: Current visit: Yes Status: Acute Vasu is a 73-year-old 5 days status post left knee irrigation and debridement with synovectomy and poly-exchange. All repeat blood cultures been negative. His heart rate is still high but getting better. His labs have improved but still have a way to go. He does not seem to be getting any worse and therefore I think we have gotten a hold of the infection. We should continue with the current antibody regimen. I have encouraged Vasu to start working on quad sets. Continue to follow CRP. Appreciate hospitalist involvement. Defer to them for complex medical management. The dressing of the left knee was replaced with gauze, ABD, Kerlix, and Deepak wrap. It may be changed and redressed as needed. Qualifiers: Encounter type: initial encounter Qualified Code(s): T84.54XA - Infection and inflammatory reaction due to internal left knee prosthesis, initial encounter Subjective Interval history since last seen: Vasu reports to be feeling better today. He has been able to get out of the bed with very minimal assistance. He still has significant pain in his left knee and left leg but he is taking no medications for this. His right wrist and left shoulder continue to feel okay. He does note that he feels much more puffy today. He denies any difficulty breathing. He has had no symptomatic chest pain or palpitations. He still has been having tachycardia although less often getting into the 120s and greater. No additional fevers. His antibiotic was broadened to Zosyn for concern of possible brewing pneumonia. He has had some mild drainage, serosanguineous, from the left knee incision. Exam Narrative Exam Narrative: Vasu is sitting up in the chair. He has good color. He is alert and oriented x3. He is in no acute distress. He has notable peripheral edema seen in both hands and arms. Evaluation the left knee shows a well approximated incision. There is some very mild serous drainage seen within the current dressing. The dressing is removed. There still is a large amount of subcutaneous fluid. However, it is very difficult to express. No erythema. Mild warmth. He is able demonstrate some active knee extension although it is weak. No subcutaneous emphysema. Mild pain to palpation around the knee but none distal nor proximal to it. No pain with hip range of motion of the left side. Objective Objective Clinical Data: Abnormal lab results 10/16/18 10/16/18 Range/Units 06:40 06:40 WBC 13.09 H (4.4-10.8) k/cumm RBC 2.98 L (4.50-6.00) m/cumm Hgb 9.2 L (13.5-17.5) g/dL Hct 28.8 L (40.0-50.0) % MCV 96.6 H (80-95) fL MCHC 31.9 L (32.0-36.0) g/dL RDW 15.8 H (11.8-14.1) % Absolute Neutrophils 10.73 H (1.2-6.7) k/cumm Absolute Lymphocytes 1.18 L (1.2-3.4) k/cumm Chloride 108 H (98-107) mmol/L BUN 23 H (7-18) mg/dL Vital Signs Temperature 37.0 C 10/16/18 08:00 Temperature Source Temporal Artery Scan 10/16/18 08:00 Pulse 105 H 10/16/18 08:01 Pulse Rhythm Irregular 10/11/18 07:35 Pulse 108 H 10/16/18 11:00 Respiratory Rate 33 H 10/16/18 11:00 Respiratory Effort Non-Labored 10/16/18 08:00 Respiratory Depth Normal 10/16/18 08:00 Respiratory Pattern Normal 10/16/18 08:00 Blood Pressure 126/78 10/16/18 08:01 Blood Pressure Mean 87 10/16/18 08:01 Blood Pressure Position Supine 10/16/18 08:00 Pulse Oximetry 97 10/16/18 08:01 Oxygen Delivery Method Room Air 10/16/18 08:00 Oxygen Flow Rate 0 10/16/18 08:00 Fraction of Inspired Oxygen (FIO2) 21 10/12/18 15:05 Pain Level 0 10/16/18 08:00 Comment 10/14/18 12:45 Intake & Output 10/15/18 10/16/18 10/16/18 23:59 11:59 23:59 Intake Total 991.25 / 2726.75 1460 / 1460 Output Total 1100 / 1800 2300 / 2300 Balance -108.75 / 926.75 -840 / -840 Weight 149.3 kg Intake: IV 991.25 / 2476.75 500 / 500 Oral 960 / 960 Output: Urine 1100 / 1800 2300 / 2300 Other: Urine Color [place] Urine Appearance Clear Comment pt has indwelling falcon catheter pt has indwelling falcon catheter Stool Size Moderate Stool Characteristics Soft Brown Laboratory Results WBC 13.09 k/cumm (4.4-10.8) H 10/16/18 06:40 RBC 2.98 m/cumm (4.50-6.00) L 10/16/18 06:40 Hgb 9.2 g/dL (13.5-17.5) L 10/16/18 06:40 Hct 28.8 % (40.0-50.0) L 10/16/18 06:40 MCV 96.6 fL (80-95) H 10/16/18 06:40 MCH 30.9 pg (27.0-33.0) 10/16/18 06:40 MCHC 31.9 g/dL (32.0-36.0) L 10/16/18 06:40 RDW 15.8 % (11.8-14.1) H 10/16/18 06:40 Plt Count 263 x1000/uL (130-400) 10/16/18 06:40 MPV 9.4 fL (8.0-11.0) 10/16/18 06:40 Immature Gran % See Differential 10/16/18 06:40 82.0 10/16/18 06:40 9.0 10/16/18 06:40 4.0 10/16/18 06:40 3.0 10/16/18 06:40 0.0 10/16/18 06:40 2.0 % 10/16/18 06:40 Absolute Neutrophils 10.73 k/cumm (1.2-6.7) H 10/16/18 06:40 Absolute Lymphocytes 1.18 k/cumm (1.2-3.4) L 10/16/18 06:40 Absolute Monocytes 0.52 k/cumm (0.11-0.7) 10/16/18 06:40 Absolute Eosinophils 0.39 k/cumm (0.0-0.7) 10/16/18 06:40 Absolute Basophils 0.00 k/cumm (0.0-0.2) 10/16/18 06:40 Manual differential 10/16/18 06:40 RBC Morphology See below 10/16/18 06:40 1+ 10/16/18 06:40 1+ 10/16/18 06:40 ESR 98 mm/hr (1-20) H 10/10/18 16:30 PT 11.2 sec (9.3-11.0) H 10/11/18 11:00 INR 1.1 (0.9-1.1) 10/11/18 11:00 Sodium 138 mmol/L (136-145) 10/16/18 06:40 Potassium 4.4 mmol/L (3.5-5.1) D 10/16/18 06:40 Chloride 108 mmol/L (98-107) H 10/16/18 06:40 Carbon Dioxide 22.1 mmol/L (21.0-32.0) 10/16/18 06:40 7.9 mmol/L (3-11) 10/16/18 06:40 BUN 23 mg/dL (7-18) H 10/16/18 06:40 1.21 mg/dL (0.70-1.30) 10/16/18 06:40 58.46 (mL/min/1.73m2) 10/16/18 06:40 Glucose 91 mg/dL (70-100) 10/16/18 06:40 5.9 % (4.5-6.2) 10/10/18 16:30 0.9 mmol/l (0.6-1.4) 10/14/18 06:30 Calcium 9.5 mg/dL (8.5-10.1) 10/16/18 06:40 Magnesium 2.0 mg/dL (1.8-2.4) 10/16/18 06:40 1.1 mg/dL (0.2-1.0) H 10/10/18 16:30 AST 5 U/L (15-37) L 10/10/18 16:30 ALT 9 U/L (12-78) L 10/10/18 16:30 62 U/L (46-116) 10/10/18 16:30 72 U/L (39-308) 10/12/18 06:10 15.57 mg/dL (0.0-0.3) H 10/15/18 07:08 6.5 g/dL (6.4-8.2) 10/10/18 16:30 2.4 g/dL (3.4-5.0) L 10/10/18 16:30 2.3 ng/mL 10/15/18 07:08 Yellow (Yellow) 10/15/18 10:30 Clear (Clear) 10/15/18 10:30 5.5 (5-8) 10/15/18 10:30 Ur Specific [place] 1.010 (1.005-1.025) 10/15/18 10:30 30 mg/dL (Negative) H 10/15/18 10:30 Negative mg/dL (Negative) 10/15/18 10:30 Trace-intact (Negative) H 10/15/18 10:30 Negative (Negative) 10/15/18 10:30 Negative (Negative) 10/15/18 10:30 0.2 EU/dL (Up TO 0.2) 10/15/18 10:30 Ur Leukocyte Esterase Negative (Negative) 10/15/18 10:30 3-5 (0-2) H 10/15/18 10:30 0-2 HPF (0-5) 10/15/18 10:30 Ur Epithelial Cells Rare HPF (Negative) 10/15/18 10:30 Few amorphous HPF (Negative) 10/15/18 10:30 Negative HPF (Negative) 10/15/18 10:30 Negative LPF (Negative) 10/15/18 10:30 Trace (Negative) 10/15/18 10:30 Ur Culture Indicated? No 10/15/18 10:30 Negative mg/dL (Negative) 10/15/18 10:30
--- NOTE | 2018-10-16 12:18 | W.PM.PROGNOT ---
Date of Service Date of service: 10/16/18 Time of Service: 12:18 Assessment and Plan (1) Sepsis: Current visit: Yes Status: Acute Sepsis with MSSA Bacteremia, with infected left knee prosthesis as likely source. Sepsis appears resolved. Treatment as below. (2) Bacteremia: Current visit: Yes Status: Acute Repeat blood cultures from 10/12 and 10/14 negative despite recurrent fevers. Repeat culture from 10/15 pending, and culture from central line tip is without growht thus far. Continue to monitor vitals, and alter treatment as below. (3) Infection of prosthetic left knee joint: Current visit: Yes Status: Acute S/p debridement and open irrigation on 10/11 with retention of hardware - surgical cultures showing growth of MSSA as well. Mr. Llamas had continued to be febrile despite appropriate antibiotic coverage, and CRP actually increased on 10/15 despite continued improvement previously. Patient initially received a combination of Daptomycin, Pip-Mustapha, and Rifampin, changed to Ceftriaxone/Rifampin for 2 days, then to Cefazolin/Rifampin for 2 additional days. Despite persistent fevers, repeat blood cultures on 10/12 and 10/14 remain negative, as does central line tip removed previously. Plan as follows: - Continue to monitor catheter tip cultures and Blood Cultures. - Considered possible DVT/PE as source of fevers - unlikely as patient has been off chronic AC, but covered with SC Enoxaparin for the majority of his hospitalization. - Considered other potential sources of infection. Urinalysis negative, and CXR with opacity and pneumonia on 10/15, with broadening coverage to Pip-Mustapha for 5 days for coverage of potential HCAP, with plans for change back to high dose Cefazolin following. Also - Mr. Llamas has apparent worsening of his Tricuspid Regurgitation by his current ECHO, with Endocarditis not excluded under the current circumstances. His treatment regimen however is for a minimum of 6 weeks of IV Antibiotics, followed by likely lifelong suppressive therapy. As he will be receiving long-term IV Antibiotics will hold off on performing any immediate JS. Also noted was patient's allergy to PCN - he had a prior reaction that included potential rash and chest heaviness without true anaphylaxis, and appears to be tolerating Zosyn. Will continue to monitor closely - if any concern consider changing to Cefepime. Qualifiers: Encounter type: initial encounter Qualified Code(s): T84.54XA - Infection and inflammatory reaction due to internal left knee prosthesis, initial encounter (4) Pneumonia: Current visit: Yes Status: Acute Treatment as above - currently with day #2 of Pip-Mustapha. (5) Atrial fibrillation: Current visit: No Status: Chronic Chronic Afib with current RVR in setting of persistent fevers, infection, and systemic inflammation. - Continue Cardizem gtt and uptitrate BB again, with close monitoring of blood pressure. Currently remains tachycardic but improoved. Rivaroxaban remains on hold. (6) Cardiomyopathy: Current visit: No Status: Acute Systolic function appears improved, with LVEF 35 --> 45-50% currently. Will continue to monitor volume status carefully, check daily weights, and aim for improved HR control. IVFs discontinued, and as patient's high dose lasix has remained on hold and his weight continues to climb will initiate Furosemide gtt and monitor renal function, weight, and fluid status carefully. Oral Furosemide, Entresto and Spironolactone remain on hold given prior JUAN and hypotension requiring pressor support. (7) Acute renal insufficiency: Current visit: Yes Status: Acute In setting of infection and sepsis, appears improved. Monitor closely given current attempts at diuresis. (8) Gout: Current visit: Yes Status: Chronic Potential acute flare (wrist) occuring in setting of JUAN, with pain resolved following administration of Toradol and Colchicine. Continue home dose of Allopurinol. (9) DVT prophylaxis: Current visit: Yes Status: Acute Previously on anticoagulation with Xarelto, held in light of recent surgery. Continue SC Lovenox as per ortho. (10) Advance directive on file: Current visit: Yes Status: Acute DNI. Subjective Interval history since last seen: 73 year old patient admitted on 10/10 with a diagnosis of Septic Joint and sepsis with MSSA bacteremia. Mr. Llamas has a past Medical History significant for Ischemic Cardiomyopathy, Afib on chronic AC, Restrictive Lung dz, HTN, Gout, and PHTN. He was seen in the Orthopedic clinic on the day prior to his admission with reported fall and abrasion overlying his left knee, with acute onset of knee pain and swelling. Aspiration confirmed a periprosthetic infection and the patient was scheduled for admission and surgery, at which time he underwent an open irrigation, debridement, and Synovectomy with Arthrotomy repair of the left knee. Following his surgery Mr. Llamas was noted to have persistent Afib with RVR, JUAN now resolved, and persistent fevers as high as 40 degrees Celcius on 10/14. Despite this his repeat blood cultures on 10/12 and 10/14 remain negative. Of note, the patient has a prior history of septic hip, but with Strep and not staph as causative organism. This morning Mr. Llamas reports feeling improved again, and has remained afebrile since change in antibiotic therapy. Due to his persistent fevers blood cultures, urinalysis, and CXR were repeated, and with evidence of a right basilar opacity by imaging. His heart rate remains tachycardic but improved, and blood pressure has improved. The patient's weight has been trending up with diuretic therapy on hold. No other events reported. Exam Narrative Exam Narrative: General: Patient appears comfortable, AAOX3, NAD Neck: Supple CV: Irregularly Irregular, tachycardic. Pulmonary: Bibasilar crackles worsening, appears slightly worse on right Abdomen: + Bowel Sounds, soft, nontender, nondistended Vascular: Worsening, now 2+ b/l lower extremity edema Psych: Normal mood and affect. Objective Objective Clinical Data: Abnormal lab results 10/16/18 10/16/18 Range/Units 06:40 06:40 WBC 13.09 H (4.4-10.8) k/cumm RBC 2.98 L (4.50-6.00) m/cumm Hgb 9.2 L (13.5-17.5) g/dL Hct 28.8 L (40.0-50.0) % MCV 96.6 H (80-95) fL MCHC 31.9 L (32.0-36.0) g/dL RDW 15.8 H (11.8-14.1) % Absolute Neutrophils 10.73 H (1.2-6.7) k/cumm Absolute Lymphocytes 1.18 L (1.2-3.4) k/cumm Chloride 108 H (98-107) mmol/L BUN 23 H (7-18) mg/dL Vital Signs Temperature 37.0 C 10/16/18 08:00 Temperature Source Temporal Artery Scan 10/16/18 08:00 Pulse 105 H 10/16/18 08:01 Pulse Rhythm Irregular 10/11/18 07:35 Pulse 108 H 10/16/18 11:00 Respiratory Rate 33 H 10/16/18 11:00 Respiratory Effort Non-Labored 10/16/18 08:00 Respiratory Depth Normal 10/16/18 08:00 Respiratory Pattern Normal 10/16/18 08:00 Blood Pressure 126/78 10/16/18 08:01 Blood Pressure Mean 87 10/16/18 08:01 Blood Pressure Position Supine 10/16/18 08:00 Pulse Oximetry 97 10/16/18 08:01 Oxygen Delivery Method Room Air 10/16/18 08:00 Oxygen Flow Rate 0 10/16/18 08:00 Fraction of Inspired Oxygen (FIO2) 21 10/12/18 15:05 Pain Level 0 10/16/18 08:00 Comment 10/14/18 12:45 Intake & Output 10/15/18 10/16/18 10/16/18 23:59 11:59 23:59 Intake Total 991.25 / 2726.75 1460 / 1460 Output Total 1100 / 1800 2300 / 2300 Balance -108.75 / 926.75 -840 / -840 Weight 149.3 kg Intake: IV 991.25 / 2476.75 500 / 500 Oral 960 / 960 Output: Urine 1100 / 1800 2300 / 2300 Other: Urine Color Chase Urine Appearance Clear Comment pt has indwelling falcon catheter pt has indwelling falcon catheter Stool Size Moderate Stool Characteristics Soft Brown Laboratory Results WBC 13.09 k/cumm (4.4-10.8) H 10/16/18 06:40 RBC 2.98 m/cumm (4.50-6.00) L 10/16/18 06:40 Hgb 9.2 g/dL (13.5-17.5) L 10/16/18 06:40 Hct 28.8 % (40.0-50.0) L 10/16/18 06:40 MCV 96.6 fL (80-95) H 10/16/18 06:40 MCH 30.9 pg (27.0-33.0) 10/16/18 06:40 MCHC 31.9 g/dL (32.0-36.0) L 10/16/18 06:40 RDW 15.8 % (11.8-14.1) H 10/16/18 06:40 Plt Count 263 x1000/uL (130-400) 10/16/18 06:40 MPV 9.4 fL (8.0-11.0) 10/16/18 06:40 Immature Gran % See Differential 10/16/18 06:40 82.0 10/16/18 06:40 9.0 10/16/18 06:40 4.0 10/16/18 06:40 3.0 10/16/18 06:40 0.0 10/16/18 06:40 2.0 % 10/16/18 06:40 Absolute Neutrophils 10.73 k/cumm (1.2-6.7) H 10/16/18 06:40 Absolute Lymphocytes 1.18 k/cumm (1.2-3.4) L 10/16/18 06:40 Absolute Monocytes 0.52 k/cumm (0.11-0.7) 10/16/18 06:40 Absolute Eosinophils 0.39 k/cumm (0.0-0.7) 10/16/18 06:40 Absolute Basophils 0.00 k/cumm (0.0-0.2) 10/16/18 06:40 Manual differential 10/16/18 06:40 RBC Morphology See below 10/16/18 06:40 1+ 10/16/18 06:40 1+ 10/16/18 06:40 ESR 98 mm/hr (1-20) H 10/10/18 16:30 PT 11.2 sec (9.3-11.0) H 10/11/18 11:00 INR 1.1 (0.9-1.1) 10/11/18 11:00 Sodium 138 mmol/L (136-145) 10/16/18 06:40 Potassium 4.4 mmol/L (3.5-5.1) D 10/16/18 06:40 Chloride 108 mmol/L (98-107) H 10/16/18 06:40 Carbon Dioxide 22.1 mmol/L (21.0-32.0) 10/16/18 06:40 7.9 mmol/L (3-11) 10/16/18 06:40 BUN 23 mg/dL (7-18) H 10/16/18 06:40 1.21 mg/dL (0.70-1.30) 10/16/18 06:40 58.46 (mL/min/1.73m2) 10/16/18 06:40 Glucose 91 mg/dL (70-100) 10/16/18 06:40 5.9 % (4.5-6.2) 10/10/18 16:30 0.9 mmol/l (0.6-1.4) 10/14/18 06:30 Calcium 9.5 mg/dL (8.5-10.1) 10/16/18 06:40 Magnesium 2.0 mg/dL (1.8-2.4) 10/16/18 06:40 1.1 mg/dL (0.2-1.0) H 10/10/18 16:30 AST 5 U/L (15-37) L 10/10/18 16:30 ALT 9 U/L (12-78) L 10/10/18 16:30 62 U/L (46-116) 10/10/18 16:30 72 U/L (39-308) 10/12/18 06:10 15.57 mg/dL (0.0-0.3) H 10/15/18 07:08 6.5 g/dL (6.4-8.2) 10/10/18 16:30 2.4 g/dL (3.4-5.0) L 10/10/18 16:30 2.3 ng/mL 10/15/18 07:08 Yellow (Yellow) 10/15/18 10:30 Clear (Clear) 10/15/18 10:30 5.5 (5-8) 10/15/18 10:30 Ur Specific [place] 1.010 (1.005-1.025) 10/15/18 10:30 30 mg/dL (Negative) H 10/15/18 10:30 Negative mg/dL (Negative) 10/15/18 10:30 Trace-intact (Negative) H 10/15/18 10:30 Negative (Negative) 10/15/18 10:30 Negative (Negative) 10/15/18 10:30 0.2 EU/dL (Up TO 0.2) 10/15/18 10:30 Ur Leukocyte Esterase Negative (Negative) 10/15/18 10:30 3-5 (0-2) H 10/15/18 10:30 0-2 HPF (0-5) 10/15/18 10:30 Ur Epithelial Cells Rare HPF (Negative) 10/15/18 10:30 Few amorphous HPF (Negative) 10/15/18 10:30 Negative HPF (Negative) 10/15/18 10:30 Negative LPF (Negative) 10/15/18 10:30 Trace (Negative) 10/15/18 10:30 Ur Culture Indicated? No 10/15/18 10:30 Negative mg/dL (Negative) 10/15/18 10:30
[2018-10-16] MEDS: Ketorolac 15 MG/ML VIAL IVP (12:56)
[2018-10-16] MEDS: Normal Saline Flush 10 ML SYR IVP (12:59)
[2018-10-16] MEDS: dilTIAZem 125 MG in Normal Saline 100 ML IV (13:17)
--- NOTE | 2018-10-16 13:45 | CMPROGNOTE_ITS ---
- If Service Date Differs Date of service: 10/16/18 Time of Service: 13:45 Care Management Progress Note S/O:Vasu is being treated with abx for both MSSA and pneumonia. No other change in status today will continue to provide support for discharge planning and disposition. His spouse would like him to return home on IV antibiotics instead of staying in the hospital. This will need to be coordinated through home infusion company [facility] once a regimen is determined, he will also need new home health service for nursing. A: Brennan is a 73 year old man admitted to [facility] on 10/10/18 with an infected knee, MSSA. P: Brennan remains ICU level of care receiving IV antibiotics for an infected prosthetic knee. He will need 6 weeks of IV ABX from time of neg blood cultures SNF vs SB[facility] to be determined. CM will continue to support patient, family and discharge planning needs identified.
[2018-10-16] MEDS: Metoprolol 25 MG TAB 37.5 MG PO (13:59)
[2018-10-16] MEDS: Metoprolol 25 MG TAB 50 MG PO (21:51)
[2018-10-17] VITALS (45 sets, daily range): BP systolic 100–135; BP diastolic 53–85; PULSE 66–156; RESP 14–38; TEMP 36.1–37.5; O2SAT 82–98
[2018-10-17] MEDS: PIPERACILLIN/TAZO 4.5 GM in Normal Saline 100 ML IVPB ×3 (01:30→19:16)
[2018-10-17] MEDS: dilTIAZem 125 MG in Normal Saline 100 ML 15 MG IV ×2 (05:33→19:21)
[2018-10-17] MEDS: Metoprolol 25 MG TAB 50 MG PO ×3 (05:36→23:00)
[2018-10-17] MEDS: Enoxaparin 30 MG/0.3 ML SYR SC ×2 (05:36→17:52)
[2018-10-17] MEDS: Levothyroxine 75 MCG TAB PO (05:37)
--- NOTE | 2018-10-17 07:28 | RESPIRATORY ---
pt reported he wore his bipap all night from 8p to 530 am. room air sats 94%
[2018-10-17] MEDS: Multivitamin TAB 1 TAB PO (07:44)
[2018-10-17] MEDS: Cholecalciferol (Vitamin D3) 1,000 UNIT TAB 1000 UNITS PO (07:45)
[2018-10-17] MEDS: Cyanocobalamin 500 MCG TAB PO (07:45)
[2018-10-17] MEDS: Vitamins B Comp w/C TAB 1 TAB PO (07:45)
[2018-10-17] MEDS: rifAMPin 300 MG CAP PO ×2 (07:45→19:22)
[2018-10-17] MEDS: Allopurinol 300 MG TAB PO (07:45)
[2018-10-17] MEDS: Ascorbic Acid 500 MG TAB PO (07:45)
[2018-10-17] MEDS: ACETAMINOPHEN 1,000 MG/100 ML BTL 400 MG IVPB ×2 (07:46→17:52)
[2018-10-17] MEDS: Normal Saline Flush 10 ML SYR IVP ×2 (07:46→19:26)
--- NOTE | 2018-10-17 08:38 | NUR.NOTE ---
Laboratory has not been able to draw the patient's blood today after 2 lab workers attempted the Am draw. I tried drawing from his IVs but they are not aspirating. I notified lab and they are sent another lab worker up. The patient was updated on the need to try again to get blood but when the lab worker arrived he raised his voice stated No, No, No! there is no negotiating, you are not drawing my blood until after breakfast. The patient was given verbal support and I told him we would wait until after he had eaten. The patient agreed to allow them to try again after breakfast. Nursing Note:
[2018-10-17] MEDS: Refresh PLUS Eye Drops 0.4ml 1 EACH OU ×2 (09:42→17:52)
--- NOTE | 2018-10-17 09:45 | CMPROGNOTE_ITS ---
- If Service Date Differs Date of service: 10/17/18 Time of Service: 09:45 Care Management Progress Note S/O:Vasu was sitting up in a chair conversing with his when CM came to visit. He states he is feeling much better. He continues to require a cardizem drip to control his tachycardia and IV antibiotics to treat the infection. They hope he will be able to receive his ocean transportation intermediary IV antibiotics in the home setting when discharged. A: Brennan is a 73 year old man admitted to [facility] on 10/10/18 with an infected knee, MSSA. P: Brennan remains ICU level of care receiving IV antibiotics for an infected prosthetic knee. He will need 6 weeks of IV ABX from time of neg blood cultures. prefers home antibiotic therapy if possible. CM will continue to support patient, family and discharge planning needs identified.
[2018-10-17 09:55] LABS: Abs Immature Grans 0.46 k/cumm (0.0-0.09); HCT 29.9 % (40.0-50.0); HGB 9.8 g/dL (13.5-17.5); Mean Corp. HGB Concentration 32.8 g/dL (32.0-36.0); Mean Corpuscular Hemoglobin 31.7 pg (27.0-33.0); Mean Corpuscular Volume 96.8 fL (80-95); Mean Platelet Volume 9.8 fL (8.0-11.0); Platelet Count 280 x1000/uL (130-400); RBC 3.09 m/cumm (4.50-6.00); RBC Distribution Width 15.8 % (11.8-14.1); White Blood Cell Count 11.87 k/cumm (4.4-10.8)
[2018-10-17 10:08] LABS: Anion Gap 10.1 mmol/L (3-11); BUN 26 mg/dL (7-18); CO2 24.9 mmol/L (21.0-32.0); CREATININE 1.61 mg/dL (0.70-1.30); Calcium 9.3 mg/dL (8.5-10.1); Chloride 104 mmol/L (98-107); Estimated GFR 42.05 (mL/min/1.73m2); Glucose 119 mg/dL (70-100); Potassium 4.1 mmol/L (3.5-5.1); Sodium 139 mmol/L (136-145)
[2018-10-17 10:11] LABS: C-Reactive Protein 13.39 mg/dL (0.0-0.3); Magnesium 2.1 mg/dL (1.8-2.4)
[2018-10-17 10:13] LABS: Absolute Eosinophil Count 0.59 k/cumm (0.0-0.7); Absolute Lymphocyte Count 0.83 k/cumm (1.2-3.4); Absolute Monocyte Count 0.36 k/cumm (0.11-0.7); Absolute Neutrophil Count 9.85 k/cumm (1.2-6.7); Anisocytosis 1+; Diff Comment Manual Differential; Polychromasia Present
[2018-10-17 10:14] LABS: Poikilocytes 1+
--- NOTE | 2018-10-17 11:00 | PT.INTREAT ---
Date of service: 10/17/18 Time of Service: 11:00 PT Notes Inpatient Physical Therapy Treatment Note [facility] Date: 10/17/18 PRECAUTIONS: Fall, WBAT L SUBJECTIVE: Vasu states that he sat up too long in his chair yesterday. He is concerned about sitting up for that long and his ability to get back to bed, after he starts to feel weak. OBJECTIVE: Patient performed chair-bed transfer with nsg shortly before afternoon PT session. PAIN: Patient c/o L knee pain with transfers and ther ex BED MOBILITY/TRANSFERS Supine-sit: S with HOB at 20 degrees Sit-stand: SBA from bed; Mod A from chair Stand-sit: SBA Bed-Chair: CGA-SBA GAIT Assistive Device: FWW Weight bearing: WBAT L Assist: CGA-SBA Distance: 5' Deviation: Cueing for posture Static standing x1 minute with FWW support and SBA VITALS: Please see nursing notes for specifics. THEREX: Patient completed a LE strengthening and stabilization program, in a supine position, as per flow sheet. Patient requires assist for hip abduction and SLR exercises due to weakness. He also performed functional [id number] exercise x2 with Mod A. In p.m., patient completed a LE strengthening and stabilization program, in a supine position, with focus on improved quad activation and strength. Patient performed quad set exercise with pillow under his heel and calf of L LE, and performed quad set x10 with 3 second holds. Patient c/o L knee pain with this exercise. Patient requires rests between exercises due to knee pain and fatigue. Ends with cryocuff to L knee. TOILETING: Patient was incontinent of stool requiring total assist for care in standing position. ASSESSMENT: Patient tolerated session with c/o increased pain in L knee with transfers. He demonstrates improved mobility. Patient would benefit from continued gait and transfer training as well as strengthening for improved activity tolerance and mobility. PLAN: Continue with PT's POC TREATMENT CODE/TIME: Session 1: 40 minutes; 55665 x2, [id number] Session 2: 20 minutes; [id number]
--- NOTE | 2018-10-17 13:05 | W.PM.PROGNOT ---
Date of Service Date of service: 10/17/18 Time of Service: 13:06 Assessment and Plan (1) Sepsis: Current visit: Yes Status: Acute Sepsis with MSSA Bacteremia, with infected left knee prosthesis as likely source. Sepsis appears resolved. Treatment as below. (2) Bacteremia: Current visit: Yes Status: Acute Repeat blood cultures from 10/12, 10/14, and 10/15 negative despite recurrent fevers. Culture from central line tip is without growth as well. Continue to monitor vitals with altered treatment as below. (3) Infection of prosthetic left knee joint: Current visit: Yes Status: Acute S/p debridement and open irrigation on 10/11 with retention of hardware - surgical cultures showing growth of MSSA as well. Mr. Llamas had continued to be febrile despite appropriate antibiotic coverage, and CRP actually increased on 10/15 despite continued improvement previously. CXR showed potential infiltrate. Patient initially received a combination of Daptomycin, Pip-Mustapha, and Rifampin, changed to Ceftriaxone/Rifampin for 2 days, then to Cefazolin/Rifampin for 2 additional days. Despite persistent fevers, repeat blood cultures on 10/12, 10/14, and 10/15 remain negative, as does central line tip removed previously. Continue Pip-Mustapha for 5 days for coverage of potential HCAP (currently day #3), with plans for change back to high dose Cefazolin following. Also - Mr. Llamas has apparent worsening of his Tricuspid Regurgitation by his current ECHO, with Endocarditis not excluded under the current circumstances. His treatment regimen however is for a minimum of 6 weeks of IV Antibiotics, followed by likely lifelong suppressive therapy. As he will be receiving long-term IV Antibiotics will hold off on performing any immediate JS. Qualifiers: Encounter type: initial encounter Qualified Code(s): T84.54XA - Infection and inflammatory reaction due to internal left knee prosthesis, initial encounter (4) Pneumonia: Current visit: Yes Status: Acute Treatment as above - currently with day #3 of Pip-Mustapha. (5) Atrial fibrillation: Current visit: No Status: Chronic Chronic Afib with current RVR in setting of previously persistent fevers, infection, and systemic inflammation. - Continue Cardizem gtt and uptitrate BB again this morning, with close monitoring of blood pressure. Currently remains tachycardic but improved. Rivaroxaban remains on hold. (6) Cardiomyopathy: Current visit: No Status: Acute Systolic function appears improved, with LVEF 35 --> 45-50% currently. - Appeared grossly volume overloaded with increasing weight. Was initiated on lasix gtt for gentle diuresis in setting of recent JUAN, with plans for approximate 100cc/hr output. However, patient had an approximate 4L diuresis in less than 24 hours, with bump in creatinine this morning. Will plan for turning drip down for gentler diuresis, careful monitoring of renal function, daily weights, and improved HR control. - High dose oral Furosemide, Entresto and Spironolactone remain on hold given JUAN and prior hypotension requiring pressor support. (7) Acute renal insufficiency: Current visit: Yes Status: Acute In setting of infection and sepsis, appeared improved but now worsened in setting of active diuresis. Monitor closely and decrease lasix rate. (8) Gout: Current visit: Yes Status: Chronic Potential acute flare (wrist) occuring in setting of JUAN, with pain resolved following administration of Toradol and Colchicine. Continue home dose of Allopurinol. (9) DVT prophylaxis: Current visit: Yes Status: Acute Previously on anticoagulation with Xarelto, held in light of recent surgery. Continue SC Lovenox as per ortho. (10) Advance directive on file: Current visit: Yes Status: Acute DNI. Subjective Interval history since last seen: 73 year old patient admitted on 10/10 with a diagnosis of Septic Joint and sepsis with MSSA bacteremia. Mr. Llamas has a past Medical History significant for Ischemic Cardiomyopathy, Afib on chronic AC, Restrictive Lung dz, HTN, Gout, and PHTN. He was seen in the Orthopedic clinic on the day prior to his admission with reported fall and abrasion overlying his left knee, with acute onset of knee pain and swelling. Aspiration confirmed a periprosthetic infection and the patient was scheduled for admission and surgery, at which time he underwent an open irrigation, debridement, and Synovectomy with Arthrotomy repair of the left knee. Following his surgery Mr. Llamas was noted to have persistent Afib with RVR, JUAN now resolved, and persistent fevers as high as 40 degrees Celcius on 10/14. Despite this his repeat blood cultures on 10/12 and 10/14 remain negative. Of note, the patient has a prior history of septic hip, but with Strep and not staph as causative organism. This morning Mr. Llamas reports feeling improved again, and has remained afebrile since change in antibiotic therapy, with last fever occuring on the morning of 10/15. Heart rate remains tachycardic but improved overall, but still requiring a cardizem drip. The patient's weight had been trending up with diuretic therapy on hold, and lasix gtt was initiated yesterday. Mildly worsening renal function noted this morning. No other events reported. Exam Narrative Exam Narrative: General: Patient appears comfortable, AAOX3, NAD Neck: Supple CV: Irregularly Irregular, tachycardic. Pulmonary: Bibasilar crackles vastly improved. Abdomen: + Bowel Sounds, soft, nontender, nondistended Vascular: Now stable 2+ b/l lower extremity edema Psych: Normal mood and affect. Objective Objective Clinical Data: Abnormal lab results 10/17/18 10/17/18 10/17/18 Range/Units 09:45 09:45 09:45 WBC 11.87 H (4.4-10.8) k/cumm RBC 3.09 L (4.50-6.00) m/cumm Hgb 9.8 L (13.5-17.5) g/dL Hct 29.9 L (40.0-50.0) % MCV 96.8 H (80-95) fL RDW 15.8 H (11.8-14.1) % Absolute Neutrophils 9.85 H (1.2-6.7) k/cumm Absolute Lymphocytes 0.83 L (1.2-3.4) k/cumm BUN 26 H (7-18) mg/dL Creatinine 1.61 H (0.70-1.30) mg/dL Glucose 119 H (70-100) mg/dL C-Reactive Protein 13.39 H (0.0-0.3) mg/dL Vital Signs Temperature 36.5 C 10/17/18 12:16 Temperature Source Temporal Artery Scan 10/17/18 12:16 Pulse 121 H 10/17/18 12:00 Pulse Rhythm Irregular 10/11/18 07:35 Pulse 132 H 10/17/18 12:01 Respiratory Rate 28 H 10/17/18 12:01 Respiratory Effort Non-Labored 10/17/18 12:16 Respiratory Depth Normal 10/17/18 12:16 Respiratory Pattern Normal 10/17/18 12:16 Blood Pressure 124/64 10/17/18 12:00 Blood Pressure Mean 79 10/17/18 12:00 Blood Pressure Position Supine 10/17/18 04:00 Pulse Oximetry 97 10/17/18 11:39 Oxygen Delivery Method Cpap 10/17/18 04:00 Oxygen Flow Rate 0 10/17/18 04:00 Fraction of Inspired Oxygen (FIO2) 21 10/12/18 15:05 Pain Level 0 10/17/18 12:16 Comment 10/14/18 12:45 Intake & Output 10/16/18 10/17/18 10/17/18 23:59 11:59 23:59 Intake Total 1255.500 / 2715.500 897.833 / 1109.500 211.667 / 1109.500 Output Total 3850 / 6150 1974 Balance -2594.500 / -3434.500 -1077.167 / -865.500 211.667 / -865.500 Intake: IV 745.500 / 1245.500 547.833 / 559.500 11.667 / 559.500 Oral 510 / 1470 350 / 550 200 / 550 Output: Urine 3850 / 6150 1974 Other: Urine Color Pale Yellow Yellow Yellow Light Marcela Light Marcela Urine Appearance Clear Cloudy Clear Sediment Comment Draining large amounts of clear yellow urine wih lasix drip at 10mg/hr. Pt has a falcon in place that has been draining large amounts of urine Falcon draining around 100ml/hr Stool Size Moderate Voiding Methods Indwelling Catheter Laboratory Results WBC 11.87 k/cumm (4.4-10.8) H 10/17/18 09:45 RBC 3.09 m/cumm (4.50-6.00) L 10/17/18 09:45 Hgb 9.8 g/dL (13.5-17.5) L 10/17/18 09:45 Hct 29.9 % (40.0-50.0) L 10/17/18 09:45 MCV 96.8 fL (80-95) H 10/17/18 09:45 MCH 31.7 pg (27.0-33.0) 10/17/18 09:45 MCHC 32.8 g/dL (32.0-36.0) 10/17/18 09:45 RDW 15.8 % (11.8-14.1) H 10/17/18 09:45 Plt Count 280 x1000/uL (130-400) 10/17/18 09:45 MPV 9.8 fL (8.0-11.0) 10/17/18 09:45 Immature Gran % See Differential 10/17/18 09:45 80.0 10/17/18 09:45 3.0 % 10/17/18 09:45 7.0 10/17/18 09:45 3.0 10/17/18 09:45 5.0 10/17/18 09:45 0.0 10/17/18 09:45 2.0 % 10/17/18 09:45 Absolute Neutrophils 9.85 k/cumm (1.2-6.7) H 10/17/18 09:45 Absolute Lymphocytes 0.83 k/cumm (1.2-3.4) L 10/17/18 09:45 Absolute Monocytes 0.36 k/cumm (0.11-0.7) 10/17/18 09:45 Absolute Eosinophils 0.59 k/cumm (0.0-0.7) 10/17/18 09:45 Absolute Basophils 0.00 k/cumm (0.0-0.2) 10/17/18 09:45 Manual differential 10/17/18 09:45 RBC Morphology See below 10/17/18 09:45 Present 10/17/18 09:45 1+ 10/16/18 06:40 1+ 10/17/18 09:45 1+ 10/17/18 09:45 ESR 98 mm/hr (1-20) H 10/10/18 16:30 PT 11.2 sec (9.3-11.0) H 10/11/18 11:00 INR 1.1 (0.9-1.1) 10/11/18 11:00 Sodium 139 mmol/L (136-145) 10/17/18 09:45 Potassium 4.1 mmol/L (3.5-5.1) 10/17/18 09:45 Chloride 104 mmol/L (98-107) 10/17/18 09:45 Carbon Dioxide 24.9 mmol/L (21.0-32.0) 10/17/18 09:45 10.1 mmol/L (3-11) 10/17/18 09:45 BUN 26 mg/dL (7-18) H 10/17/18 09:45 1.61 mg/dL (0.70-1.30) H 10/17/18 09:45 42.05 (mL/min/1.73m2) 10/17/18 09:45 Glucose 119 mg/dL (70-100) H 10/17/18 09:45 5.9 % (4.5-6.2) 10/10/18 16:30 0.9 mmol/l (0.6-1.4) 10/14/18 06:30 Calcium 9.3 mg/dL (8.5-10.1) 10/17/18 09:45 Magnesium 2.1 mg/dL (1.8-2.4) 10/17/18 09:45 1.1 mg/dL (0.2-1.0) H 10/10/18 16:30 AST 5 U/L (15-37) L 10/10/18 16:30 ALT 9 U/L (12-78) L 10/10/18 16:30 62 U/L (46-116) 10/10/18 16:30 72 U/L (39-308) 10/12/18 06:10 13.39 mg/dL (0.0-0.3) H 10/17/18 09:45 6.5 g/dL (6.4-8.2) 10/10/18 16:30 2.4 g/dL (3.4-5.0) L 10/10/18 16:30 2.3 ng/mL 10/15/18 07:08 Yellow (Yellow) 10/15/18 10:30 Clear (Clear) 10/15/18 10:30 5.5 (5-8) 10/15/18 10:30 Ur Specific [place] 1.010 (1.005-1.025) 10/15/18 10:30 30 mg/dL (Negative) H 10/15/18 10:30 Negative mg/dL (Negative) 10/15/18 10:30 Trace-intact (Negative) H 10/15/18 10:30 Negative (Negative) 10/15/18 10:30 Negative (Negative) 10/15/18 10:30 0.2 EU/dL (Up TO 0.2) 10/15/18 10:30 Ur Leukocyte Esterase Negative (Negative) 10/15/18 10:30 3-5 (0-2) H 10/15/18 10:30 0-2 HPF (0-5) 10/15/18 10:30 Ur Epithelial Cells Rare HPF (Negative) 10/15/18 10:30 Few amorphous HPF (Negative) 10/15/18 10:30 Negative HPF (Negative) 10/15/18 10:30 Negative LPF (Negative) 10/15/18 10:30 Trace (Negative) 10/15/18 10:30 Ur Culture Indicated? No 10/15/18 10:30 Negative mg/dL (Negative) 10/15/18 10:30
--- NOTE | 2018-10-17 16:15 | CHAPLAIN ---
Vasu and I remember each other from his previous admissions to [facility]. He reminded me that he had knees replaced in March and April and said that last summer he spent six weeks in the hospital in [place] while he was there visiting his son. Vasu and his are celebrating their 50th anniversary this month and all their sons will be home to celebrate with them. 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
[2018-10-18] VITALS (54 sets, daily range): BP systolic 97–132; BP diastolic 50–78; PULSE 75–147; RESP 15–41; TEMP 36–37.4; O2SAT 90–99
[2018-10-18] MEDS: ACETAMINOPHEN 1,000 MG/100 ML BTL 400 MG IVPB ×2 (01:10→07:59)
[2018-10-18] MEDS: PIPERACILLIN/TAZO 4.5 GM in Normal Saline 100 ML IVPB ×3 (02:15→19:10)
[2018-10-18] MEDS: dilTIAZem 125 MG in Normal Saline 100 ML 15 MG IV (02:26)
[2018-10-18] MEDS: Levothyroxine 75 MCG TAB PO (05:47)
[2018-10-18] MEDS: Enoxaparin 30 MG/0.3 ML SYR SC ×2 (05:47→19:10)
[2018-10-18] MEDS: Metoprolol 25 MG TAB 50 MG PO (05:47)
[2018-10-18 07:08] LABS: HGB 9.7 g/dL (13.5-17.5); Mean Corp. HGB Concentration 32.3 g/dL (32.0-36.0); Mean Corpuscular Hemoglobin 31.4 pg (27.0-33.0); Mean Corpuscular Volume 97.1 fL (80-95); Platelet Count 309 x1000/uL (130-400); RBC 3.09 m/cumm (4.50-6.00); RBC Distribution Width 15.7 % (11.8-14.1); White Blood Cell Count 12.75 k/cumm (4.4-10.8)
[2018-10-18 07:29] LABS: Anion Gap 10.2 mmol/L (3-11); BUN 32 mg/dL (7-18); CO2 22.8 mmol/L (21.0-32.0); CREATININE 1.69 mg/dL (0.70-1.30); Calcium 9.1 mg/dL (8.5-10.1); Chloride 102 mmol/L (98-107); Estimated GFR 39.76 (mL/min/1.73m2); Glucose 97 mg/dL (70-100); Magnesium 2.2 mg/dL (1.8-2.4); Potassium 4.2 mmol/L (3.5-5.1); Sodium 135 mmol/L (136-145)
[2018-10-18 07:49] LABS: Absolute Eosinophil Count 0.38 k/cumm (0.0-0.7); Absolute Monocyte Count 0.64 k/cumm (0.11-0.7); Absolute Neutrophil Count 10.07 k/cumm (1.2-6.7); Anisocytosis 1+; Diff Comment Manual Differential; Poikilocytes 1+; Polychromasia Present
--- NOTE | 2018-10-18 07:49 | RESPIRATORY ---
pt awake at this time. pt states he wore his bipap 26/12 from 1999 to 529 on room air. sats on room air was 96%and BS clear bilat
[2018-10-18] MEDS: Metoprolol 25 MG TAB PO (07:57)
[2018-10-18] MEDS: Vitamins B Comp w/C TAB 1 TAB PO (07:58)
[2018-10-18] MEDS: Multivitamin TAB 1 TAB PO (07:58)
[2018-10-18] MEDS: Allopurinol 300 MG TAB PO (07:58)
[2018-10-18] MEDS: Cholecalciferol (Vitamin D3) 1,000 UNIT TAB 1000 UNITS PO (07:59)
[2018-10-18] MEDS: Ascorbic Acid 500 MG TAB PO (07:59)
[2018-10-18] MEDS: Cyanocobalamin 500 MCG TAB PO (07:59)
[2018-10-18] MEDS: rifAMPin 300 MG CAP PO ×2 (07:59→19:11)
--- NOTE | 2018-10-18 08:07 | CMPROGNOTE_ITS ---
- If Service Date Differs Date of service: 10/18/18 Time of Service: 08:07 Care Management Progress Note S/O:Vasu was sitting up in bed eating lunch when CM came to visit. He was pleasant and engaged readily in conversation. When asked about how he was doing with PT he indicated that he had not been willing to participate. He stated that he does not do well with direction. He reacts negatively when told what he must do. Overall, he stated, he is feeling much, much better. A: Brennan is a 73 year old man admitted to [facility] on 10/10/18 with an infected knee, MSSA. P: Brennan remains ICU level of care receiving IV antibiotics for an infected prosthetic knee. He will need 6 weeks of IV ABX from time of neg blood cultures. prefers home antibiotic therapy if possible. CM will continue to support patient, family and discharge planning needs identified.
--- NOTE | 2018-10-18 08:22 | PT.INNT ---
Date of service: 10/18/18 Time of Service: 08:22 PT Notes 10/18/2018 Patient refused PT session this morning, stating I will not get out of bed or exercise before I have my breakfast. Will attempt to resume PT services later this morning.
[2018-10-18] MEDS: Metoprolol 25 MG TAB 75 MG PO ×2 (13:24→23:55)
--- NOTE | 2018-10-18 13:33 | PT.INTREAT ---
Date of service: 10/18/18 Time of Service: 13:33 PT Notes Inpatient Physical Therapy Treatment Note [facility] Date: 10/18/2018 PRECAUTIONS: Fall, WBAT L SUBJECTIVE: Vasu states that he plans to progress at his own pace, he reports I had 30 years of pre-hospital care and an extensive rehab background, so I know myself. OBJECTIVE: PAIN: Patient complains of left knee pain with ther ex and transfers BED MOBILITY/TRANSFERS Supine-sit: S with HOB at 15 degrees Sit-stand: SBA Stand-sit: SBA Bed-Chair: SBA x2 GAIT Assistive Device: FWW Weight bearing: WBAT L Assist: SBA x2 Distance: 5' Deviation: Cueing for posture THEREX: Patient completes a lower extremity strengthening and stabilization program, in a supine and seated position, as per flow sheet. Focused on improving quad activation and quad control. ASSESSMENT: Patient tolerated session with complaint of left knee pain with ther ex and transfers. Patient continues to only tolerate short distance gait training with FWW support and SBA. Patient would benefit from continued gait and transfer training as well as strengthening and improved activity tolerance. PLAN: Continue with PTs POC TREATMENT CODE/TIME: 30 minutes; [id number], [id number]
--- NOTE | 2018-10-18 15:34 | W.PM.PROGNOT ---
Date of Service Date of service: 10/18/18 Time of Service: 15:34 Assessment and Plan (1) Sepsis: Current visit: Yes Status: Acute Sepsis with MSSA Bacteremia, with infected left knee prosthesis as likely source. Sepsis appears resolved. Treatment as below. (2) Bacteremia: Current visit: Yes Status: Acute Repeat blood cultures from 10/12, 10/14, and 10/15 negative despite recurrent fevers. Culture from central line tip is without growth as well. Continue to monitor vitals with altered treatment as below. (3) Infection of prosthetic left knee joint: Current visit: Yes Status: Acute S/p debridement and open irrigation on 10/11 with retention of hardware - surgical cultures showing growth of MSSA as well. Mr. Llamas had continued to be febrile despite appropriate antibiotic coverage, and CRP actually increased on 10/15 despite continued improvement previously. CXR showed potential infiltrate. Patient initially received a combination of Daptomycin, Pip-Mustapha, and Rifampin, changed to Ceftriaxone/Rifampin for 2 days, then to Cefazolin/Rifampin for 2 additional days. Despite persistent fevers, repeat blood cultures on 10/12, 10/14, and 10/15 remain negative, as does central line tip removed previously. Continue Pip-Mustapha for 5 days for coverage of potential HCAP (currently day #4), with plans for change back to high dose Cefazolin following. Also - Mr. Llamas has apparent worsening of his Tricuspid Regurgitation by his current ECHO, with Endocarditis not excluded under the current circumstances. His treatment regimen however is for a minimum of 6 weeks of IV Antibiotics, followed by likely lifelong suppressive therapy. As he will be receiving long-term IV Antibiotics will hold off on performing any immediate JS, and complete 6 weeks of antibiotics. If repeat + Blood Cultures will reconsider above. Qualifiers: Encounter type: initial encounter Qualified Code(s): T84.54XA - Infection and inflammatory reaction due to internal left knee prosthesis, initial encounter (4) Pneumonia: Current visit: Yes Status: Acute Treatment as above - currently with day #4 of Pip-Mustapha. (5) Atrial fibrillation: Current visit: No Status: Chronic Chronic Afib with current RVR in setting of previously persistent fevers, infection, and systemic inflammation. - Appears to be improving. Continue attempts to wean Cardizem gtt (Currently off) and uptitrate BB again this morning, with close monitoring of blood pressure. Rivaroxaban remains on hold post-op as per ortho. (6) Cardiomyopathy: Current visit: No Status: Acute Systolic function appears improved, with LVEF 35 --> 45-50% currently. - Appeared grossly volume overloaded with increasing weight. Was initiated on lasix gtt for gentle diuresis in setting of recent JUAN, with plans for approximate 100cc/hr output. However, patient had an approximate 4L diuresis in less than 24 hours, with bump in creatinine yesterday morning. Currently -5L, with stable with elevated creatinine. Will hold on further diuresis for now, monitor weight and renal function, and continue to work on improved HR control. - High dose oral Furosemide, Entresto and Spironolactone remain on hold given JUAN and prior hypotension requiring pressor support. (7) Acute renal insufficiency: Current visit: Yes Status: Acute In setting of infection and sepsis, appeared improved but now worsened in setting of active diuresis. Monitor closely and hold lasix. (8) Gout: Current visit: Yes Status: Chronic Potential acute flare (wrist) occuring in setting of JUAN, with pain resolved following administration of Toradol and Colchicine. Continue home dose of Allopurinol. (9) DVT prophylaxis: Current visit: Yes Status: Acute Previously on anticoagulation with Xarelto, held in light of recent surgery. Continue SC Lovenox as per ortho. (10) Advance directive on file: Current visit: Yes Status: Acute DNI. Subjective Interval history since last seen: 73 year old patient admitted on 10/10 with a diagnosis of Septic Joint and sepsis with MSSA bacteremia. Mr. Llamas has a past Medical History significant for Ischemic Cardiomyopathy, Afib on chronic AC, Restrictive Lung dz, HTN, Gout, and PHTN. He was seen in the Orthopedic clinic on the day prior to his admission with reported fall and abrasion overlying his left knee, with acute onset of knee pain and swelling. Aspiration confirmed a periprosthetic infection and the patient was scheduled for admission and surgery, at which time he underwent an open irrigation, debridement, and Synovectomy with Arthrotomy repair of the left knee. Following his surgery Mr. Llamas was noted to have persistent Afib with RVR, JUAN now resolved, and persistent fevers as high as 40 degrees Celcius on 10/14. Despite this his repeat blood cultures on 10/12 and 10/14 remain negative. Of note, the patient has a prior history of septic hip, but with Strep and not staph as causative organism. This morning Mr. Llamas reports continuing to feel improved, and has remained afebrile since change in antibiotic therapy, with last fever occuring on the morning of 10/15. Heart rate has improved, with cardizem drip being weaned off. The patient's weight has decreased with diuretic therapy, but with concurrent increase in creatinine. No other events reported. Exam Narrative Exam Narrative: General: Patient appears comfortable, AAOX3, NAD Neck: Supple CV: Irregularly Irregular, not tachycardic at time of exam today. Pulmonary: Bibasilar crackles vastly improved. Abdomen: + Bowel Sounds, soft, nontender, nondistended Vascular: Now stable 2+ b/l lower extremity edema, appears improved. Psych: Normal mood and affect. Objective Objective Clinical Data: Abnormal lab results 10/18/18 10/18/18 Range/Units 06:40 06:40 WBC 12.75 H (4.4-10.8) k/cumm RBC 3.09 L (4.50-6.00) m/cumm Hgb 9.7 L (13.5-17.5) g/dL Hct 30.0 L (40.0-50.0) % MCV 97.1 H (80-95) fL RDW 15.7 H (11.8-14.1) % Absolute Neutrophils 10.07 H (1.2-6.7) k/cumm Sodium 135 L (136-145) mmol/L BUN 32 H (7-18) mg/dL Creatinine 1.69 H (0.70-1.30) mg/dL Vital Signs Temperature 36 C L 10/18/18 13:30 Temperature Source Temporal Artery Scan 10/18/18 13:30 Pulse 102 H 10/18/18 14:24 Pulse Rhythm Irregular 10/11/18 07:35 Pulse 144 H 10/18/18 15:00 Respiratory Rate 32 H 10/18/18 15:00 Respiratory Effort Non-Labored 10/18/18 13:30 Respiratory Depth Shallow 10/18/18 13:30 Respiratory Pattern Normal 10/18/18 13:30 Blood Pressure 132/63 10/18/18 14:24 Blood Pressure Mean 77 10/18/18 14:24 Blood Pressure Position Supine 10/18/18 04:10 Pulse Oximetry 97 10/18/18 09:01 Oxygen Delivery Method Bi-pap 10/18/18 04:10 Oxygen Flow Rate 0 10/17/18 22:30 Fraction of Inspired Oxygen (FIO2) 21 10/12/18 15:05 Pain Level 0 10/18/18 13:30 Comment 10/17/18 22:30 Intake & Output 10/17/18 10/18/18 10/18/18 23:59 11:59 23:59 Intake Total 834.250 / 1164.447 6975.583 / 1107.583 Output Total 1475 / 3450 750 / 1000 250 / 1000 Balance -640.750 / -1717.917 357.583 / 107.583 -250 / 107.583 Weight 135.6 kg Intake: IV 274.250 / 822.083 644.583 / 644.583 Oral 560 / 910 463 / 463 Output: Urine 1475 / 3450 750 / 1000 250 / 1000 Other: Urine Color Yellow Yellow Yellow Urine Appearance Clear Clear Clear Comment falcon in place and patent. Lasix gtt @ 2.5 mg/H with goal of 100 cc/H output. Pt has falcon in place that has been draining urine around 100cc/hr overnight on a lasix drip Falcon in place Stool Occult Blood Negative Negative Stool Size Large Moderate Stool Characteristics Soft Formed Formed Laboratory Results WBC 12.75 k/cumm (4.4-10.8) H 10/18/18 06:40 RBC 3.09 m/cumm (4.50-6.00) L 10/18/18 06:40 Hgb 9.7 g/dL (13.5-17.5) L 10/18/18 06:40 Hct 30.0 % (40.0-50.0) L 10/18/18 06:40 MCV 97.1 fL (80-95) H 10/18/18 06:40 MCH 31.4 pg (27.0-33.0) 10/18/18 06:40 MCHC 32.3 g/dL (32.0-36.0) 10/18/18 06:40 RDW 15.7 % (11.8-14.1) H 10/18/18 06:40 Plt Count 309 x1000/uL (130-400) 10/18/18 06:40 MPV 10.0 fL (8.0-11.0) 10/18/18 06:40 Immature Gran % See Differential 10/18/18 06:40 79.0 10/18/18 06:40 3.0 % 10/17/18 09:45 11.0 10/18/18 06:40 5.0 10/18/18 06:40 3.0 10/18/18 06:40 0.0 10/18/18 06:40 1.0 % 10/18/18 06:40 1.0 % 10/18/18 06:40 Absolute Neutrophils 10.07 k/cumm (1.2-6.7) H 10/18/18 06:40 Absolute Lymphocytes 1.40 k/cumm (1.2-3.4) 10/18/18 06:40 Absolute Monocytes 0.64 k/cumm (0.11-0.7) 10/18/18 06:40 Absolute Eosinophils 0.38 k/cumm (0.0-0.7) 10/18/18 06:40 Absolute Basophils 0.00 k/cumm (0.0-0.2) 10/18/18 06:40 Manual differential 10/18/18 06:40 RBC Morphology See below 10/18/18 06:40 Present 10/18/18 06:40 1+ 10/16/18 06:40 1+ 10/18/18 06:40 1+ 10/18/18 06:40 ESR 98 mm/hr (1-20) H 10/10/18 16:30 PT 11.2 sec (9.3-11.0) H 10/11/18 11:00 INR 1.1 (0.9-1.1) 10/11/18 11:00 Sodium 135 mmol/L (136-145) L 10/18/18 06:40 Potassium 4.2 mmol/L (3.5-5.1) 10/18/18 06:40 Chloride 102 mmol/L (98-107) 10/18/18 06:40 Carbon Dioxide 22.8 mmol/L (21.0-32.0) 10/18/18 06:40 10.2 mmol/L (3-11) 10/18/18 06:40 BUN 32 mg/dL (7-18) H 10/18/18 06:40 1.69 mg/dL (0.70-1.30) H 10/18/18 06:40 39.76 (mL/min/1.73m2) 10/18/18 06:40 Glucose 97 mg/dL (70-100) 10/18/18 06:40 5.9 % (4.5-6.2) 10/10/18 16:30 0.9 mmol/l (0.6-1.4) 10/14/18 06:30 Calcium 9.1 mg/dL (8.5-10.1) 10/18/18 06:40 Magnesium 2.2 mg/dL (1.8-2.4) 10/18/18 06:40 1.1 mg/dL (0.2-1.0) H 10/10/18 16:30 AST 5 U/L (15-37) L 10/10/18 16:30 ALT 9 U/L (12-78) L 10/10/18 16:30 62 U/L (46-116) 10/10/18 16:30 72 U/L (39-308) 10/12/18 06:10 13.39 mg/dL (0.0-0.3) H 10/17/18 09:45 6.5 g/dL (6.4-8.2) 10/10/18 16:30 2.4 g/dL (3.4-5.0) L 10/10/18 16:30 2.3 ng/mL 10/15/18 07:08 Yellow (Yellow) 10/15/18 10:30 Clear (Clear) 10/15/18 10:30 5.5 (5-8) 10/15/18 10:30 Ur Specific [place] 1.010 (1.005-1.025) 10/15/18 10:30 30 mg/dL (Negative) H 10/15/18 10:30 Negative mg/dL (Negative) 10/15/18 10:30 Trace-intact (Negative) H 10/15/18 10:30 Negative (Negative) 10/15/18 10:30 Negative (Negative) 10/15/18 10:30 0.2 EU/dL (Up TO 0.2) 10/15/18 10:30 Ur Leukocyte Esterase Negative (Negative) 10/15/18 10:30 3-5 (0-2) H 10/15/18 10:30 0-2 HPF (0-5) 10/15/18 10:30 Ur Epithelial Cells Rare HPF (Negative) 10/15/18 10:30 Few amorphous HPF (Negative) 10/15/18 10:30 Negative HPF (Negative) 10/15/18 10:30 Negative LPF (Negative) 10/15/18 10:30 Trace (Negative) 10/15/18 10:30 Ur Culture Indicated? No 10/15/18 10:30 Negative mg/dL (Negative) 10/15/18 10:30
--- NOTE | 2018-10-18 17:18 | PT.INTREAT ---
Date of service: 10/18/18 Time of Service: 14:31 PT Notes Inpatient Physical Therapy Treatment Note [facility] Date: 10/18/2018 PRECAUTIONS: Fall. Standard. WBAT on L LE. SUBJECTIVE: When asked how he is progressing with mobility, patient reports that he is a little bit satisfied with what he has achieved so far. He feels that his left leg is dragging during walking activity and that he does not have full control of it during limb advancement on the L. OBJECTIVE: Patient seen resting in bed with Cryo/Cuff on left knee. ROMI wraps covering left knee. Telemetry monitoring continue to be in place. Paiz catheter in place. PAIN: Reported mild pain on left knee with weight bearing activity BED MOBILITY/TRANSFERS Rolling L/R: Minimal assist to left LE due to discomfort Supine-sit: Minimal assist to left LE due to pain, HOB elevated 45 degrees Sit-supine: Minimal assist to left LE due to pain, HOB elevated 45 degrees Sit-stand: SBA, needs to use of both hands for a more efficient ascent Stand-sit: SBA, needs to use of both hands for a more efficient descent Bed-Chair: SBA, needs to use of both hands for a more efficient ascent/descent Chair-bed: SBA, needs to use of both hands for a more efficient ascent/descent GAIT Assistive Device: FWW Weight bearing: WBAT L LE Assist: SBA of 2 Distance: 25 feet x 2 +2 turns with wheelchair follow of L NA Deviation: Inadequate knee extension during mid stance on the left, decreased step height and length on the left. Denied headache, chest pain, shortness of breath throughout gait activity VITALS: Heart rate ranged from 109 bpm through 157 bpm throughout gait activity ASSESSMENT: Patient has demonstrated significant improvement in terms of ambulation distance walked, activity tolerance, pain tolerance, self-confidence, and level of participation. PLAN: Continue with skilled PT services in order to achieve initially established goals. Patient agreeable to walk in the ICU hallway and potentially doing 2 steps tomorrow. TREATMENT CODE/TIME: 60638 x 60 minutes beginning at 14:31 PM.
[2018-10-18] MEDS: Normal Saline Flush 10 ML SYR IVP (19:10)
[2018-10-18] MEDS: Acetaminophen 500 MG TAB 1000 MG PO (23:54)
[2018-10-19] VITALS (41 sets, daily range): BP systolic 101–152; BP diastolic 57–99; PULSE 71–134; RESP 14–35; TEMP 36.6–38.6; O2SAT 91–99
[2018-10-19] MEDS: PIPERACILLIN/TAZO 4.5 GM in Normal Saline 100 ML IVPB ×3 (01:54→19:39)
[2018-10-19] MEDS: Metoprolol 25 MG TAB 75 MG PO ×3 (05:24→21:08)
[2018-10-19] MEDS: Levothyroxine 75 MCG TAB PO (05:25)
[2018-10-19] MEDS: Enoxaparin 30 MG/0.3 ML SYR SC ×2 (05:25→18:39)
[2018-10-19] MEDS: Acetaminophen 500 MG TAB 1000 MG PO ×2 (05:25→16:26)
--- NOTE | 2018-10-19 06:00 | W.PM.PROGNOT ---
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 His sepsis is improving. He still has multiple medical issues which are being managed by the hospitalist team, but things seem to be heading in the right direction. He reports his pain is generally better. He has been able to ambulate some. I still am concerned about his lack of knee extension by do know his extensor mechanism feels to be intact. He did have a arthrotomy rupture prior to the infection that made management of this infection somewhat more difficult. I did try to repair this tissue but it may not be holding. Nevertheless, we will continue to treat the infection aggressively. We will continue to follow. He should remain weightbearing as tolerated with assistive devices at all times. Continue with antibiotics of Zosyn and rifampin. Continue with enoxaparin for DVT prophylaxis. Will discuss chemoprophylaxis options with hospice team as Xarelto and rifampin counteract each other. Qualifiers: Encounter type: initial encounter Qualified Code(s): T84.54XA - Infection and inflammatory reaction due to internal left knee prosthesis, initial encounter Subjective Patient reports: feels better Interval history since last seen: In general, Vasu says he is feeling better. He has no fevers and chills. He still has some pain in the left knee but he feels like this is also getting better. He was able to ambulate 5 to 10 feet today with what he says was minimal assistance. He is still having a hard time performing a straight leg raise as well as actively extend the left knee. Exam Narrative Exam Narrative: Comfortable in the supine position within the bed. Conversant. Alert and oriented x3. Evaluation of the left knee shows some fluid just below the skin. There is some pain to palpation around the knee, especially just superior to the patella. He has some limited quad activation when he does the patella does rise superiorly. There is no palpable defect of the quad tendon but there is a step-off medially. No erythema. No purulent drainage. Objective Objective Clinical Data: Abnormal lab results 10/18/18 10/18/18 Range/Units 06:40 06:40 WBC 12.75 H (4.4-10.8) k/cumm RBC 3.09 L (4.50-6.00) m/cumm Hgb 9.7 L (13.5-17.5) g/dL Hct 30.0 L (40.0-50.0) % MCV 97.1 H (80-95) fL RDW 15.7 H (11.8-14.1) % Absolute Neutrophils 10.07 H (1.2-6.7) k/cumm Sodium 135 L (136-145) mmol/L BUN 32 H (7-18) mg/dL Creatinine 1.69 H (0.70-1.30) mg/dL Vital Signs Temperature 36.6 C 10/19/18 03:36 Temperature Source Temporal Artery Scan 10/19/18 03:36 Pulse 93 H 10/19/18 03:36 Pulse Rhythm Irregular 10/11/18 07:35 Pulse 144 H 10/18/18 15:00 Respiratory Rate 35 H 10/19/18 03:36 Respiratory Effort 10/19/18 03:36 Respiratory Depth Normal 10/19/18 03:36 Respiratory Pattern Tachypnea 10/19/18 03:36 Blood Pressure 106/57 L 10/19/18 03:36 Blood Pressure Mean 73 10/19/18 03:36 Blood Pressure Position Supine 10/19/18 03:36 Pulse Oximetry 96 10/19/18 03:36 Oxygen Delivery Method Cpap 10/19/18 03:36 Oxygen Flow Rate 0 10/17/18 22:30 Fraction of Inspired Oxygen (FIO2) 21 10/12/18 15:05 Pain Level 0 10/19/18 03:36 Comment 10/17/18 22:30 Intake & Output 10/18/18 10/18/18 10/19/18 11:59 23:59 11:59 Intake Total 1107.583 / 1684.583 577 / 1684.583 Output Total 750 / 2099 1350 / 2100 Balance 357.583 / -415.417 -773 / -415.417 Weight 135.6 kg Intake: IV 644.583 / 844.583 200 / 844.583 Oral 463 / 840 377 / 840 Output: Urine 750 / 2100 1350 / 2100 Other: Urine Color Yellow Yellow Urine Appearance Clear Clear Comment Pt has falcon in place that has been draining urine around 100cc/hr overnight on a lasix drip pt has indwelling falcon catheter pt has indwelling falcon catheter Stool Occult Blood Negative Negative Stool Size Moderate Large Stool Characteristics Formed Soft Formed Laboratory Results WBC 12.75 k/cumm (4.4-10.8) H 10/18/18 06:40 RBC 3.09 m/cumm (4.50-6.00) L 10/18/18 06:40 Hgb 9.7 g/dL (13.5-17.5) L 10/18/18 06:40 Hct 30.0 % (40.0-50.0) L 10/18/18 06:40 MCV 97.1 fL (80-95) H 10/18/18 06:40 MCH 31.4 pg (27.0-33.0) 10/18/18 06:40 MCHC 32.3 g/dL (32.0-36.0) 10/18/18 06:40 RDW 15.7 % (11.8-14.1) H 10/18/18 06:40 Plt Count 309 x1000/uL (130-400) 10/18/18 06:40 MPV 10.0 fL (8.0-11.0) 10/18/18 06:40 Immature Gran % See Differential 10/18/18 06:40 79.0 10/18/18 06:40 3.0 % 10/17/18 09:45 11.0 10/18/18 06:40 5.0 10/18/18 06:40 3.0 10/18/18 06:40 0.0 10/18/18 06:40 1.0 % 10/18/18 06:40 1.0 % 10/18/18 06:40 Absolute Neutrophils 10.07 k/cumm (1.2-6.7) H 10/18/18 06:40 Absolute Lymphocytes 1.40 k/cumm (1.2-3.4) 10/18/18 06:40 Absolute Monocytes 0.64 k/cumm (0.11-0.7) 10/18/18 06:40 Absolute Eosinophils 0.38 k/cumm (0.0-0.7) 10/18/18 06:40 Absolute Basophils 0.00 k/cumm (0.0-0.2) 10/18/18 06:40 Manual differential 10/18/18 06:40 RBC Morphology See below 10/18/18 06:40 Present 10/18/18 06:40 1+ 10/16/18 06:40 1+ 10/18/18 06:40 1+ 10/18/18 06:40 ESR 98 mm/hr (1-20) H 10/10/18 16:30 PT 11.2 sec (9.3-11.0) H 10/11/18 11:00 INR 1.1 (0.9-1.1) 10/11/18 11:00 Sodium Cancelled 10/19/18 05:35 Potassium Cancelled 10/19/18 05:35 Chloride Cancelled 10/19/18 05:35 Carbon Dioxide Cancelled 10/19/18 05:35 Cancelled 10/19/18 05:35 BUN Cancelled 10/19/18 05:35 Cancelled 10/19/18 05:35 Cancelled 10/19/18 05:35 Glucose Cancelled 10/19/18 05:35 5.9 % (4.5-6.2) 10/10/18 16:30 0.9 mmol/l (0.6-1.4) 10/14/18 06:30 Calcium Cancelled 10/19/18 05:35 Magnesium 2.2 mg/dL (1.8-2.4) 10/18/18 06:40 1.1 mg/dL (0.2-1.0) H 10/10/18 16:30 AST 5 U/L (15-37) L 10/10/18 16:30 ALT 9 U/L (12-78) L 10/10/18 16:30 62 U/L (46-116) 10/10/18 16:30 72 U/L (39-308) 10/12/18 06:10 13.39 mg/dL (0.0-0.3) H 10/17/18 09:45 6.5 g/dL (6.4-8.2) 10/10/18 16:30 2.4 g/dL (3.4-5.0) L 10/10/18 16:30 2.3 ng/mL 10/15/18 07:08 Yellow (Yellow) 10/15/18 10:30 Clear (Clear) 10/15/18 10:30 5.5 (5-8) 10/15/18 10:30 Ur Specific [place] 1.010 (1.005-1.025) 10/15/18 10:30 30 mg/dL (Negative) H 10/15/18 10:30 Negative mg/dL (Negative) 10/15/18 10:30 Trace-intact (Negative) H 10/15/18 10:30 Negative (Negative) 10/15/18 10:30 Negative (Negative) 10/15/18 10:30 0.2 EU/dL (Up TO 0.2) 10/15/18 10:30 Ur Leukocyte Esterase Negative (Negative) 10/15/18 10:30 3-5 (0-2) H 10/15/18 10:30 0-2 HPF (0-5) 10/15/18 10:30 Ur Epithelial Cells Rare HPF (Negative) 10/15/18 10:30 Few amorphous HPF (Negative) 10/15/18 10:30 Negative HPF (Negative) 10/15/18 10:30 Negative LPF (Negative) 10/15/18 10:30 Trace (Negative) 10/15/18 10:30 Ur Culture Indicated? No 10/15/18 10:30 Negative mg/dL (Negative) 10/15/18 10:30
[2018-10-19 07:22] LABS: Abs Immature Grans 0.38 k/cumm (0.0-0.09); HCT 28.2 % (40.0-50.0); HGB 8.9 g/dL (13.5-17.5); Mean Corp. HGB Concentration 31.6 g/dL (32.0-36.0); Mean Corpuscular Volume 98.3 fL (80-95); Mean Platelet Volume 10.3 fL (8.0-11.0); Platelet Count 299 x1000/uL (130-400); RBC 2.87 m/cumm (4.50-6.00); RBC Distribution Width 15.6 % (11.8-14.1); White Blood Cell Count 10.44 k/cumm (4.4-10.8)
[2018-10-19 07:39] LABS: Anion Gap 10.7 mmol/L (3-11); BUN 33 mg/dL (7-18); C-Reactive Protein 13.22 mg/dL (0.0-0.3); CO2 24.3 mmol/L (21.0-32.0); CREATININE 1.83 mg/dL (0.70-1.30); Calcium 9.1 mg/dL (8.5-10.1); Chloride 104 mmol/L (98-107); Estimated GFR 36.27 (mL/min/1.73m2); Glucose 94 mg/dL (70-100); Magnesium 2.3 mg/dL (1.8-2.4); Potassium 4.2 mmol/L (3.5-5.1); Sodium 139 mmol/L (136-145)
[2018-10-19 07:59] LABS: Absolute Eosinophil Count 0.42 k/cumm (0.0-0.7); Absolute Lymphocyte Count 0.84 k/cumm (1.2-3.4); Absolute Monocyte Count 0.52 k/cumm (0.11-0.7); Absolute Neutrophil Count 8.46 k/cumm (1.2-6.7)
[2018-10-19 08:00] LABS: Anisocytosis 1+; Diff Comment Manual Differential; Poikilocytes 1+; Polychromasia Present
--- NOTE | 2018-10-19 08:25 | CMPROGNOTE_ITS ---
- If Service Date Differs Date of service: 10/19/18 Time of Service: 08:25 Care Management Progress Note S/O:Vasu was sitting up on the side of the bed when CM came to visit. He remains pleasant and engages easily in conversation. He stated that he is pleased to be moving out of the ICU to Med-Surg and hopes that he can be discharged soon. He walked twice as far as he did yesterday with Pt and appeared pleased when the therapist complimented him on that and shared the information with Dr. Samano. A: Brennan is a 73 year old man admitted to [facility] on 10/10/18 with an infected knee, MSSA. P: Brennan will be transferred out of the ICU today. He continues to receive IV antibiotics for an infected prosthetic knee. He had a new PICC line placed today to facilitate administration of the needed 6 weeks of IV AB. Diane and his prefer home antibiotic therapy if possible. CM will continue to support patient, family and discharge planning needs identified.
[2018-10-19] MEDS: Cyanocobalamin 500 MCG TAB PO (08:42)
[2018-10-19] MEDS: rifAMPin 300 MG CAP PO ×2 (08:42→21:09)
[2018-10-19] MEDS: Cholecalciferol (Vitamin D3) 1,000 UNIT TAB 1000 UNITS PO (08:43)
[2018-10-19] MEDS: Multivitamin TAB 1 TAB PO (08:43)
[2018-10-19] MEDS: Vitamins B Comp w/C TAB 1 TAB PO (08:43)
[2018-10-19] MEDS: Ascorbic Acid 500 MG TAB PO (08:43)
[2018-10-19] MEDS: Allopurinol 300 MG TAB PO (08:43)
--- NOTE | 2018-10-19 10:26 | DI.RAD_ITS ---
SYMPTOM/DIAGNOSIS: CONFIRMATION OF PICC LINE PLACEMENT PORTABLE AP CHEST: A PICC line has been inserted via the left arm. The tip of the catheter crosses the midline and heads cephalad toward the right, in the right subclavian vein. Multiple left rib fractures are again noted. No pneumothorax is visible. IMPRESSION: PICC line position appears to be in the right subclavian vein.
--- NOTE | 2018-10-19 10:47 | DI.RAD_ITS ---
SYMPTOM/DIAGNOSIS: REPOSITIONING OF PICC LINE. PORTABLE AP CHEST at 1050 am: Comparison is made with the previous exam performed at 1028 am. The PICC line has been repositioned, now with the tip projecting inferiorly at the expected location of the lower SVC or upper right atrium. No pneumothorax is seen. The left rib fractures are again noted. IMPRESSION: Satisfactory placement of PICC line.
--- NOTE | 2018-10-19 11:53 | INPN_ITS ---
Date of service: 10/19/18 Time of Service: 11:09 PT Notes Inpatient Physical Therapy Progress Note Date: 10/19/2018 Dates of Service: 10/12/2018 through 10/19/2018 Precautions: Fall. Standard. WBAT on left LE. Activity as tolerated. Subjective: Patient is agreeable to a PT treatment today. present throughout session. He states that he slept the best last night since being her for a week now. He reports no pain on left knee at rest, but with movement contnues to bed result to 2-3/10. He denies headache and chest pain with gait activity but did report minimally fatigued from increased distance walked. He is still hopeful that he can go home upon discharge without the need for a SNF placement. Objective: General Observation: Patient seen resting in bed. Telemetry monitoring in place. PICC line in place. IV line in L UE. Wound dressing covering knee surgical incision. Cryocuff on L knee. Continued swelling and discoloration on L leg. Mental Status: Alert and oriented x 4 Pain: 0/10 at rest. 2-3/10 on the L knee with out of bed activity. Vital Signs: HR ranged from 109 to 144 bpm throughout PT session. BP ranged from 86/59 mmHg to 109/72 mmHg throughout PT session. ROM: Right Upper Extremity: Shoulder Flexion WFL. Shoulder abduction WFL. Elbow fl exion WFL. Wrist flexion WFL. Functional opening and closing of hand WFL. Left Upper Extremity: Shoulder Flexion WFL. Shoulder abduction WFL. Elbow flexion WFL. Wrist flexion WFL. Functional opening and closing of hand WFL. Right Lower Extremity: Hip flexion WFL. Hip abduction WFL. Knee flexion WFL. Ankle dorsiflexion WFL. Ankle plantarflexion WFL. Left Lower Extremity: Hip flexion allows 10 degrees actively beyond 90 while seated at edge of bed. Hip abduction WFL. Knee flexion allows up to 90 degrees actively. In sitting at edge of bed, with bed elevated such that patient's legs are suspended in a dependent position, patient is able to actively bring L leg to extension by about 30 degrees before discomfort sets in with knee extensor deficiency of about 50 degrees . Ankle dorsiflexion WFL. Ankle plantarflexion WFL. Strength: Right Upper Extremity: Shoulder flexors 5/5. Shoulder abductors 5/5. Elbow flexors 5/5. Elbow extensors 5/5. Vp Compliance strong. Left Upper Extremity: Shoulder flexors 5/5. Shoulder abductors 5/5. Elbow flexors 5/5. Elbow extensors 5/5. Vp Compliance strong. Right Lower Extremity: Hip flexors 5/5. Hip abductors 5/5. Knee flexors 5/5. Knee extensors 5/5. Ankle dorsiflexors 5/5. Ankle plantarflexors 5/5. Left Lower Extremity:Hip flexors 3-/5. Hip abductors 4-/5. Knee flexors 3-/5. Knee extensors 3-/5. Ankle dorsiflexors 5/5. Ankle plantarflexors 5/5. Sensation: Intact as to pain and pressure on bilateral lower extremities. Bed Mobility/Transfers: Supine to sit minimal assist to L leg only Sit to supine minimal assist to L leg only Sit to stand SBA Stand to sit SBA Bed to chair SBA Chair to bed SBA Gait: Patient was able to perform short distance in-room ambulation of 80-90 feet with bariatric FWW and SBA of 2 as well as wheelchair follow of with step-to gait pattern, minimal verbal cues given for postural alignment and deep breathing exercises. Patient reported pain level of 3-4/10 with gait activity. L knee extension decreased at L midstance. L step height decreased. Gaitt velocity increasing. Assessment: Patient continues to present with clinical signs and symptoms consistent with current/admitting diagnoses that have resulted to mobility limitations, gait instability, generalized weakness, and impairment of motor control as demonstrated by the following impairment level findings: 1. Continued lack of full L knee extension that is accompanied with pain at end of range 2. Swelling of L knee, leg, and foot 3. Impaired standing balance 4. Impaired activity tolerance 5. Limitation of joint range of motion in L knee and hip Impairments are contributing to the following functional limitations: 1. Dependent bed mobility skills 2. Increased dependence with transfers 3. Inability to safely ambulate without assistive device and physical assistance 4. Increase completion time for mobility ADL performance 5. Increased fall risk 6. Inability to negotiate steps alone safely Patient is assessed as a [id number] high complexity based on the following: History: Patient was diagnosed with L knee periprosthetic infection and arthrotomy rupture and is S/P L open irrigation, debridement, synovectomy and polyetheylene exchange with arthrotomy repair on 10/11/[address] Samano. He also is being managed for acute renal insufficicency, hypotension associated with sepsis, cardiomyopathy, and atrial fibrillation. Examination: Demonstrable impairment in strength, balance, and range of motion with underlying impairments and functional limitations as documented above Presentation:Evolving Decision Makin high complexity Goals: Goals X1 week 1. Supine-Sit independent CONTINUE 2. Sit-Supine independent CONTINUE 3. Sit-Stand independent CONTINUE 4. Stand-Sit independent CONTINUE 5. Bed-Chair independent CONTINUE 6. Chair-Bed independent CONTINUE 7. Independent gait on level surface with use of least restrictive device for at least 100 feet without report of pain nor dyspnea CONTINUE 8. Independent stair negotiation while holding onto bilateral rails for at least 10 steps without report of pain nor dyspnea CONTINUE 9. Independent with home exercise program CONTINUE 10. Good static and dynamic standing balance/tolerance CONTINUE Plan of Care/Treatment Plan: 1-2x/day, 7 days/week x 1 week. Plan of care has been reviewed with the [employer]BI[employer] providing the service under Physical Therapy direction. Initiate Physical Therapy intervention for strengthening, bed mobility, transfers, gait, stairs, balance training, use of assistive device. DISCHARGE RECOMMENDATIONS: Patient will benefit from home health PT services in order to progress mobility level using least restrictive assistive ambulatory device/using no device, assess home safety, identify additional equipment needs, and establish a functional maintenance program that will increase ability of patient to remain at home. TREATMENT CODE/TIME: 72672 x 40 minutes beginning at 11:09 AM. Thank you very much for this referral. Chacha Bonner PT, DPT, CLT [facility]
--- NOTE | 2018-10-19 12:23 | PGE_ITS ---
Date of Service Date of service: 10/19/18 Time of Service: 12:23 Assessment and Plan (1) Sepsis: Current visit: Yes Status: Resolved Sepsis with MSSA Bacteremia, with infected left knee prosthesis as likely source. Sepsis appears resolved. Treatment as below. (2) Bacteremia: Current visit: Yes Status: Acute Repeat blood cultures from 10/12, 10/14, and 10/15 negative despite recurrent fevers. Culture from central line tip is without growth as well. Continue to monitor vitals with altered treatment as below. (3) Infection of prosthetic left knee joint: Current visit: Yes Status: Acute S/p debridement and open irrigation on 10/11 with retention of hardware - surgical cultures showing growth of MSSA as well. Mr. Llamas had continued to be febrile despite appropriate antibiotic coverage. CXR showed potential infiltrate. Patient initially received combination of Dapto/ Pip-Mustapha/Rifampin, changed to Ceftriaxone/Rifampin for 2 days, then to Cefazolin/Rifampin for 2 additional days. Despite persistent fevers, repeat blood cultures on 10/12, 10/14, and 10/15 were negative, as were central line tip removed previously. Continue Pip-Mustapha for 5 days for coverage of potential HCAP (currently day #4), with plans for change back to high dose Cefazolin following. Also - Mr. Llamas has apparent worsening of his Tricuspid Regurgitation by his current ECHO, with Endocarditis not excluded under the current circumstances. His treatment regimen however is for a minimum of 6 weeks of IV Antibiotics, followed by likely lifelong suppressive therapy. As he will be receiving long- term IV Antibiotics will hold off on performing any immediate JS, and complete 6 weeks of antibiotics. If repeat + Blood Cultures will reconsider above. Qualifiers: Encounter type: initial encounter Qualified Code(s): T84.54XA - Inf ection and inflammatory reaction due to internal left knee prosthesis, initial encounter (4) Pneumonia: Current visit: Yes Status: Acute Treatment as above - currently with day #4 of Pip-Mustapha. (5) Atrial fibrillation: Current visit: No Status: Chronic Chronic Afib with current RVR in setting of previously persistent fevers, infection, and systemic inflammation. - HR Appears to be improving, now off Cardizem gtt. Continue uptitrated BB again, with close monitoring of blood pressure and HR. Anticoagulation remains on hold post-op as per ortho. - Rivaroxaban is contraindicated in setting of Rifampin use. If plans for 6 total weeks of Rifampin, will recommend initiation of Warfarin and monitoring of INR, with change back to Xarelto when completed. Will discuss with Ortho regarding safety and timing of reinitiating anticoagulation. (6) Cardiomyopathy: Current visit: No Status: Acute Systolic function appears improved, with LVEF 35 --> 45-50% currently. - Volume status improved with diuresis. - High dose oral Furosemide, Entresto and Spironolactone remain on hold given JUAN. - Weight continues to decline despite holding Furosemide. (7) Acute renal insufficiency: Current visit: Yes Status: Acute In setting of infection and sepsis, appeared improved but now worsened in setting of diuresis. Monitor closely and hold lasix. (8) Gout: Current visit: Yes Status: Chronic Potential acute flare (wrist) occuring in setting of JUAN, with pain resolved following administration of Toradol and Colchicine. Continue home dose of Allopurinol. (9) DVT prophylaxis: Current visit: Yes Status: Acute Previously on anticoagulation with Xarelto, held in light of recent surgery and concurrent Rifampin use. Continue SC Lovenox as per ortho. (10) Advance directive on file: Current visit: Yes Status: Acute DNI. Subjective Interval history since last seen: 73 year old patient admitted on 10/10 with a diagnosis of Septic Joint and sepsis with MSSA bacteremia. Mr. Llamas has a past Medical History significant for Ischemic Cardiomyopathy, Afib on chronic AC, Restrictive Lung dz, HTN, Gout, and PHTN. He was seen in the Orthopedic clinic on the day prior to his admission with reported fall and abrasion overlying his left knee, with acute onset of knee pain and swelling. Aspiration confirmed a periprosthetic infection and the patient was scheduled for admission and surgery, at which time he underwent an open irrigation, debridement, and Synovectomy with Arthrotomy repair of the left knee. Following his surgery Mr. Llamas was noted to have persistent Afib with RVR, JUAN now resolved, and persistent fevers as high as 40 degrees Celcius on 10/14. Despite this his repeat blood cultures on 10/12 and 10/14 remain negative. Of note, the patient has a prior history of septic hip, but with Strep and not staph as causative organism. This morning Mr. Llamas appears well and has no complaints. He received a PICC line earlier this morning due to loss of IV access and need for long-term IV antibiotics. He has remained afebrile since change in antibiotic therapy, with last fever occuring on the morning of 10/15. Heart rate has improved, with cardizem drip being weaned off. The patient's weight has decreased with diuretic therapy, but with concurrent increase in creatinine. No other events reported. Exam Narrative Exam Narrative: General: Patient appears comfortable, AAOX3, NAD Neck: Supple CV: Irregularly Irregular, not tachycardic at time of exam today. Pulmonary: Bibasilar crackles vastly improved. Exam limited to anterior and lat eral exam today due to PICC line insertion. Abdomen: + Bowel Sounds, soft, nontender, nondistended Vascular: Now improving 1-2+ b/l lower extremity edema, appears improved. Psych: Normal mood and affect. Objective Objective Clinical Data: Abnormal lab results 10/19/18 10/19/18 Range/Units 06:30 06:30 RBC 2.87 L (4.50-6.00) m/cumm Hgb 8.9 L (13.5-17.5) g/dL Hct 28.2 L (40.0-50.0) % MCV 98.3 H (80-95) fL MCHC 31.6 L (32.0-36.0) g/dL RDW 15.6 H (11.8-14.1) % Absolute Neutrophils 8.46 H (1.2-6.7) k/cumm Absolute Lymphocytes 0.84 L (1.2-3.4) k/cumm BUN 33 H (7-18) mg/dL Creatinine 1.83 H (0.70-1.30) mg/dL C-Reactive Protein 13.22 H (0.0-0.3) mg/dL Vital Signs Temperature 37.1 C 10/19/18 07:07 Temperature Source Temporal Artery Scan 10/19/18 07:07 Pulse 72 10/19/18 09:01 Pulse Rhythm Irregular 10/11/18 07:35 Pulse 90 10/19/18 09:01 Respiratory Rate 22 10/19/18 09:01 Respiratory Effort 10/19/18 07:07 Respiratory Depth Normal 10/19/18 07:07 Respiratory Pattern Normal 10/19/18 07:07 Blood Pressure 121/78 10/19/18 09:01 Blood Pressure Mean 89 10/19/18 09:01 Blood Pressure Position Supine 10/19/18 07:07 Pulse Oximetry 99 10/19/18 07:07 Oxygen Delivery Method Room Air 10/19/18 07:07 Oxygen Flow Rate 0 10/19/18 07:07 Fraction of Inspired Oxygen (FIO2) 21 10/12/18 15:05 Pain Level 0 10/19/18 07:07 Comment 10/17/18 22:30 Intake & Output 10/18/18 10/19/18 10/19/18 23:59 11:59 23:59 Intake Total 577 / 1684.583 460 / 460 Output Total 1350 / 2100 1100 / 1100 Balance -773 / -415.417 -640 / -640 Weight 133.6 kg Intake: IV 200 / 844.583 100 / 100 Oral 377 / 840 360 / 360 Output: Urine 1350 / 2100 1100 / 1100 Other: Urine Color Yellow Straw Urine Appearance Clear Clear Comment pt has indwelling falcon catheter Pt refused falcon removal at this time during commode use; will remove after PICC line insertion Stool Occult Blood Negative Negative Stool Size Large Moderate Stool Characteristics Soft Soft Formed Formed Laboratory Results WBC 10.44 k/cumm (4.4-10.8) 10/19/18 06:30 RBC 2.87 m/cumm (4.50-6.00) L 10/19/18 06:30 Hgb 8.9 g/dL (13.5-17.5) L 10/19/18 06:30 Hct 28.2 % (40.0-50.0) L 10/19/18 06:30 MCV 98.3 fL (80-95) H 10/19/18 06:30 MCH 31.0 pg (27.0-33.0) 10/19/18 06:30 MCHC 31.6 g/dL (32.0-36.0) L 10/19/18 06:30 RDW 15.6 % (11.8-14.1) H 10/19/18 06:30 Plt Count 299 x1000/uL (130-400) 10/19/18 06:30 MPV 10.3 fL (8.0-11.0) 10/19/18 06:30 Immature Gran % See Differential 10/19/18 06:30 81.0 10/19/18 06:30 3.0 % 10/17/18 09:45 8.0 10/19/18 06:30 5.0 10/19/18 06:30 4.0 10/19/18 06:30 0.0 10/19/18 06:30 2.0 % 10/19/18 06:30 1.0 % 10/18/18 06:40 Absolute Neutrophils 8.46 k/cumm (1.2-6.7) H 10/19/18 06:30 Absolute Lymphocytes 0.84 k/cumm (1.2-3.4) L 10/19/18 06:30 Absolute Monocytes 0.52 k/cumm (0.11-0.7) 10/19/18 06:30 Absolute Eosinophils 0.42 k/cumm (0.0-0.7) 10/19/18 06:30 Absolute Basophils 0.00 k/cumm (0.0-0.2) 10/19/18 06:30 Manual differential 10/19/18 06:30 RBC Morphology See below 10/19/18 06:30 Present 10/19/18 06:30 1+ 10/16/18 06:40 1+ 10/19/18 06:30 1+ 10/19/18 06:30 ESR 98 mm/hr (1-20) H 10/10/18 16:30 PT 11.2 sec (9.3-11.0) H 10/11/18 11:00 INR 1.1 (0.9-1.1) 10/11/18 11:00 Sodium 139 mmol/L (136-145) 10/19/18 06:30 Potassium 4.2 mmol/L (3.5-5.1) 10/19/18 06:30 Chloride 104 mmol/L (98-107) 10/19/18 06:30 Carbon Dioxide 24.3 mmol/L (21.0-32.0) 10/19/18 06:30 10.7 mmol/L (3-11) 10/19/18 06:30 BUN 33 mg/dL (7-18) H 10/19/18 06:30 1.83 mg/dL (0.70-1.30) H 10/19/18 06:30 36.27 (mL/min/1.73m2) 10/19/18 06:30 Glucose 94 mg/dL (70-100) 10/19/18 06:30 5.9 % (4.5-6.2) 10/10/18 16:30 0.9 mmol/l (0.6-1.4) 10/14/18 06:30 Calcium 9.1 mg/dL (8.5-10.1) 10/19/18 06:30 Magnesium 2.3 mg/dL (1.8-2.4) 10/19/18 06:30 1.1 mg/dL (0.2-1.0) H 10/10/18 16:30 AST 5 U/L (15-37) L 10/10/18 16:30 ALT 9 U/L (12-78) L 10/10/18 16:30 62 U/L (46-116) 10/10/18 16:30 72 U/L (39-308) 10/12/18 06:10 13.22 mg/dL (0.0-0.3) H 10/19/18 06:30 6.5 g/dL (6.4-8.2) 10/10/18 16:30 2.4 g/dL (3.4-5.0) L 10/10/18 16:30 2.3 ng/mL 10/15/18 07:08 Yellow (Yellow) 10/15/18 10:30 Clear (Clear) 10/15/18 10:30 5.5 (5-8) 10/15/18 10:30 Ur Specific [place] 1.010 (1.005-1.025) 10/15/18 10:30 30 mg/dL (Negative) H 10/15/18 10:30 Negative mg/dL (Negative) 10/15/18 10:30 Trace-intact (Negative) H 10/15/18 10:30 Negative (Negative) 10/15/18 10:30 Negative (Negative) 10/15/18 10:30 0.2 EU/dL (Up TO 0.2) 10/15/18 10:30 Ur Leukocyte Esterase Negative (Negative) 10/15/18 10:30 3-5 (0-2) H 10/15/18 10:30 0-2 HPF (0-5) 10/15/18 10:30 Ur Epithelial Cells Rare HPF (Negative) 10/15/18 10:30 Few amorphous HPF (Negative) 10/15/18 10:30 Negative HPF (Negative) 10/15/18 10:30 Negative LPF (Negative) 10/15/18 10:30 Trace (Negative) 10/15/18 10:30 Ur Culture Indicated? No 10/15/18 10:30 Negative mg/dL (Negative) 10/15/18 10:30
[2018-10-19] MEDS: Normal Saline 1,000 ML 75 ML IV (12:24)
--- NOTE | 2018-10-19 14:19 | PT.INTREAT ---
Date of service: 10/19/18 Time of Service: 14:19 PT Notes 10/19/18 SUBJECTIVE: Pt stating he is not getting out of bed again. He took a long walk this morning and wants to stay in bed. He notes that he will perform his bed exercises. OBJECTIVE: Supine in bed. Agreeble to PT. TRANSFERS/GAIT: Pt refuses THEREX: Therex performed as noted on flow sheet focusing on quad strengthening and TKE. Light manual overpressure into knee extension followed by PROM into knee flexion. See flow sheet for details. ASSESSMENT: Pt not agreeable to get out of bed this afternoon with PT. He did walk further distance this AM than he has since coming to the hospital. He performs all his strengthening exercises in bed. PLAN: Continue per POC. Direct time: 20 minutes [id number] Lauren Rosario PTA Clinic location: [facility] [place], [place]
[2018-10-19] MEDS: Normal Saline Flush 10 ML SYR IVP (20:09)
[2018-10-20] VITALS (43 sets, daily range): BP systolic 101–163; BP diastolic 55–83; PULSE 68–128; RESP 14–38; TEMP 37.2–38.1; O2SAT 91–98
[2018-10-20] MEDS: PIPERACILLIN/TAZO 4.5 GM in Normal Saline 100 ML IVPB ×2 (03:24→12:11)
[2018-10-20] MEDS: Normal Saline 1,000 ML 75 ML IV (03:56)
[2018-10-20] MEDS: Levothyroxine 75 MCG TAB PO (06:05)
[2018-10-20] MEDS: Enoxaparin 30 MG/0.3 ML SYR SC ×2 (06:06→19:19)
[2018-10-20] MEDS: Metoprolol 25 MG TAB 75 MG PO ×3 (06:06→21:00)
[2018-10-20] MEDS: Normal Saline Flush 10 ML SYR IVP ×3 (06:15→16:44)
[2018-10-20 07:30] LABS: Abs Immature Grans 0.17 k/cumm (0.0-0.09); Absolute Basophil Count 0.02 k/cumm (0.0-0.2); Absolute Eosinophil Count 0.44 k/cumm (0.0-0.7); Absolute Lymphocyte Count 1.01 k/cumm (1.2-3.4); Absolute Monocyte Count 0.59 k/cumm (0.11-0.7); Absolute Neutrophil Count 8.72 k/cumm (1.2-6.7); Basophils % 0.2; HCT 27.5 % (40.0-50.0); HGB 8.7 g/dL (13.5-17.5); Immature Grans % 1.6; Lymphocytes % 9.2; Mean Corp. HGB Concentration 31.6 g/dL (32.0-36.0); Mean Corpuscular Volume 97.9 fL (80-95); Mean Platelet Volume 9.8 fL (8.0-11.0); Monocytes % 5.4; Neutrophils % 79.6; Platelet Count 330 x1000/uL (130-400); RBC 2.81 m/cumm (4.50-6.00); RBC Distribution Width 15.4 % (11.8-14.1); White Blood Cell Count 10.95 k/cumm (4.4-10.8)
[2018-10-20 07:36] LABS: Anion Gap 8.5 mmol/L (3-11); BUN 31 mg/dL (7-18); CO2 23.5 mmol/L (21.0-32.0); CREATININE 1.48 mg/dL (0.70-1.30); Calcium 9.2 mg/dL (8.5-10.1); Chloride 105 mmol/L (98-107); Estimated GFR 46.34 (mL/min/1.73m2); Glucose 90 mg/dL (70-100); Magnesium 2.3 mg/dL (1.8-2.4); Potassium 4.2 mmol/L (3.5-5.1); Sodium 137 mmol/L (136-145)
[2018-10-20] MEDS: rifAMPin 300 MG CAP PO ×2 (08:38→19:34)
[2018-10-20] MEDS: Allopurinol 300 MG TAB PO (08:38)
[2018-10-20] MEDS: Multivitamin TAB 1 TAB PO (08:38)
[2018-10-20] MEDS: Cyanocobalamin 500 MCG TAB PO (08:38)
[2018-10-20] MEDS: Ascorbic Acid 500 MG TAB PO (08:38)
[2018-10-20] MEDS: Vitamins B Comp w/C TAB 1 TAB PO (08:39)
[2018-10-20] MEDS: Cholecalciferol (Vitamin D3) 1,000 UNIT TAB 1000 UNITS PO (08:39)
--- NOTE | 2018-10-20 09:52 | CMPROGNOTE_ITS ---
- If Service Date Differs Date of service: 10/20/18 Time of Service: 09:52 Care Management Progress Note S/O:Vasu was sitting up in bed during CM visit. He was pleasant and smiling and proudly informed CM that he had walked around the unit then down the dykes on Med-Surg. He states he continues to feel better. His son and his family arrived last night from [place] where they live and plan to visit later today. Vasu stated he is looking forward to seeing them. A: Brennan is a 73 year old man admitted to [facility] on 10/10/18 with an infected knee, MSSA. P: Brennan will likely be transferred out of the ICU today. He continues to receive IV antibiotics for an infected prosthetic knee. He had a new PICC line placed today to facilitate administration of the needed 6 weeks of IV AB. Diane and his prefer home antibiotic therapy if possible. CM will continue to support patient, family and discharge planning needs identified.
[2018-10-20] MEDS: Tamsulosin 0.4 MG CAPCR PO (10:11)
--- NOTE | 2018-10-20 11:06 | PT.INTREAT ---
Date of service: 10/20/18 Time of Service: 11:06 PT Notes Inpatient Physical Therapy Treatment Note [facility] Date: 10/20/18 PRECAUTIONS: Fall, WBAT L SUBJECTIVE: Vasu reports that getting out of bed has been getting progressively easier. When asked how he does with getting into bed, he states they help me by lifting both of my legs in. When asked how he plans to get into bed at home, he states don't worry about it, I'll be able to do it by the time I go home. OBJECTIVE: Patient stated throughout session I can't when asked to perform various daily functional activities. PAIN: Patient c/o L knee pain with bed mobility, ther ex, and transfers. BED MOBILITY/TRANSFERS Supine-sit: Min A with HOB at 15 degrees and use of leg lead relay tester. Sit-supine: Min A with HOB at 20 degrees and use of leg lead relay tester. Sit-stand: SBA from bed; Mod A from wheelchair Stand-sit: SBA GAIT Assistive Device: FWW Weight bearing: WBAT on L Assist: SBA Distance: 25' x3 Deviation: Standing rest x3 THEREX: Patient completed a LE strengthening and stabilization program with focus on quad activation and strengthening, in a supine position, as per flow sheet. Patient continues to require assist to complete LAQ and SLR exercises. Ends with cryocuff to L knee. ASSESSMENT: Patient continues to require assist with bed mobility and transfers. He was able to tolerate gait training with FWW, requiring standing rests x3. He would benefit from continued gait and transfer training as well as global strengthening for improved mobility and ability to perform daily functional tasks. PLAN: Continue with PT's POC TREATMENT CODE/TIME: 40 minutes; [id number] x2, [id number]
[2018-10-20] MEDS: Refresh PLUS Eye Drops 0.4ml 1 EACH OU (14:05)
--- NOTE | 2018-10-20 14:39 | CHAPLAIN ---
Vasu was telling me about his experience with an accident on the [employer] when he was working there as a young man and how that influenced his spiritual life, when we were interrupted for a medical procedure. His 50th wedding anniversary is October 26 and the family is planning a big green party on October 29. Some family members from [place] have already arrived at Vasu's house. Vasu's continues to visit him daily.
--- NOTE | 2018-10-20 14:58 | PGE_ITS ---
Date of Service Date of service: 10/20/18 Time of Service: 14:58 Assessment and Plan (1) Sepsis: Current visit: Yes Status: Resolved Sepsis with MSSA Bacteremia, with infected left knee prosthesis as likely source. Sepsis appears resolved. Treatment as below. (2) Bacteremia: Current visit: Yes Status: Acute Repeat blood cultures from 10/12, 10/14, and 10/15 negative despite recurrent fevers. Culture from central line tip is without growth as well. Continue to monitor vitals with altered treatment as below. (3) Infection of prosthetic left knee joint: Current visit: Yes Status: Acute S/p debridement and open irrigation on 10/11 with retention of hardware - surgical cultures showing growth of MSSA as well as rare growth of an Anaerobic GPC, sensitive to PCN therapy. Patient initially received combination of Dapto/ Pip-Mustapha/Rifampin, changed to Ceftriaxone/Rifampin for 2 days, then to Cefazolin/Rifampin for 2 additional da ys. Despite persistent fevers, repeat blood cultures on 10/12, 10/14, and 10/15 were negative, as were central line tip removed previously. Was maintained on Pip-Mustapha for 5 days for coverage of potential HCAP, with Cefazolin reinitiated today. Current fevers may be on the basis of drug fever (Rifampin). - Plan is to continue high dose Cefazolin along with Rifampin per Ortho, and continue to monitor temps and culture results. If persistent fevers or increase in temps could trial holding of Rifampin to evaluate for potential improvement, vs. repeat infectious work-up. Monitor closely for any evidence of recurrence of sepsis. Qualifiers: Encounter type: initial encounter Qualified Code(s): T84.54XA - Infection and inflammatory reaction due to internal left knee prosthesis, initial encounter (4) Pneumonia: Current visit: Yes Status: Acute Treatment as above. (5) Atrial fibrillation: Current visit: No Status: Chronic Chronic Afib with current RVR in setting of previously persistent fevers, infection, and systemic inflammation. - HR Appears to be vastly improved and now off Cardizem gtt. Continue uptitrated BB again, with close monitoring of blood pressure and HR. - Rivaroxaban is contraindicated in setting of Rifampin use. If plans for 6 total weeks of Rifampin, recommend initiation of Warfarin and monitoring of INR, with change back to Xarelto when completed. (6) Cardiomyopathy: Current visit: No Status: Acute Systolic function appears improved, with LVEF 35 --> 45-50% currently. - Volume status improved with diuresis. - High dose oral Furosemide, Entresto and Spironolactone remain on hold given JUAN. - Weight continues to remain stable despite holding Furosemide. (7) Acute renal insufficiency: Current visit: Yes Status: Acute * In setting of infection and sepsis, appeared improved but had worsened in setting of diuresis - improved with mild hydration. Monitor closely and hold lasix. (8) Gout: Current visit: Yes Status: Chronic Potential acute flare (wrist) occuring in setting of JUAN, with pain resolved following administration of Toradol and Colchicine. Continue home dose of Allopurinol. (9) DVT prophylaxis: Current visit: Yes Status: Acute Previously on anticoagulation with Xarelto, held in light of recent surgery and concurrent Rifampin use. Continue SC Lovenox as per ortho, with in itiation of Coumadin as above. (10) Advance directive on file: Current visit: Yes Status: Acute DNI. Subjective Interval history since last seen: 73 year old patient admitted on 10/10 with a diagnosis of Septic Joint and sepsis with MSSA bacteremia. Mr. Llamas has a past Medical History significant for Ischemic Cardiomyopathy, Afib on chronic AC, Restrictive Lung dz, HTN, Gout, and PHTN. He was seen in the Orthopedic clinic on the day prior to his admission with reported fall and abrasion overlying his left knee, with acute onset of knee pain and swelling. Aspiration confirmed a periprosthetic infection and the patient was scheduled for admission and surgery, at which time he underwent an open irrigation, debridement, and Synovectomy with Arthrotomy repair of the left knee. Following his surgery Mr. Llamas was noted to have persistent Afib with RVR, JUAN now resolved, and persistent fevers as high as 40 degrees Celcius on 10/14. Despite this his repeat blood cultures on 10/12 and 10/14 remain negative. Of note, the patient has a prior history of septic hip, but with Strep and not staph as causative organism. This morning Mr. Llamas appears well and has again has no complaints. He received a PICC line on the morning of 10/19 due to loss of IV access and need for long-term IV antibiotics. He had remained afebrile since change in antibiotic therapy for 4 days, but had recurrence of fevers yesterday afternoon with a TMax of 38.6. Heart rate has improved and patient remains off cardizem drip. The patient's weight remains stable, with improvement in creatinine with gentle hydration. No other events reported. Exam Narrative Exam Narrative: General: Patient appears comfortable, AAOX3, NAD Neck: Supple Skin: LUE PICC line noted. CV: Irregularly Irregular, not tachycardi. Pulmonary: Bibasilar crackles vastly improved. Exam limited to anterior and lateral exam today. Abdomen: + Bowel Sounds, soft, nontender, nondistended Vascular: Now improved 1-2+ b/l lower extremity edema, appears improved. Psych: Normal mood and affect. Objective Objective Clinical Data: Abnormal lab results 10/20/18 10/20/18 Range/Units 06:25 06:25 WBC 10.95 H (4.4-10.8) k/cumm RBC 2.81 L (4.50-6.00) m/cumm Hgb 8.7 L (13.5-17.5) g/dL Hct 27.5 L (40.0-50.0) % MCV 97.9 H (80-95) fL MCHC 31.6 L (32.0-36.0) g/dL RDW 15.4 H (11.8-14.1) % Absolute Neutrophils 8.72 H (1.2-6.7) k/cumm Absolute Lymphocytes 1.01 L (1.2-3.4) k/cumm BUN 31 H (7-18) mg/dL Creatinine 1.48 H (0.70-1.30) mg/dL Vital Signs Temperature 37.4 C 10/20/18 13:24 Temperature Source Temporal Artery Scan 10/20/18 13:24 Pulse 90 10/20/18 14:00 Pulse Rhythm Irregular 10/11/18 07:35 Pulse 117 H 10/20/18 14:00 Respiratory Rate 22 10/20/18 14:00 Respiratory Effort 10/20/18 11:36 Respiratory Depth Normal 10/20/18 11:36 Respiratory Pattern Normal 10/20/18 11:36 Blood Pressure 147/68 H 10/20/18 14:00 Blood Pressure Mean 82 10/20/18 14:00 Blood Pressure Position Supine 10/19/18 23:45 Pulse Oximetry 94 L 10/20/18 11:36 Oxygen Delivery Method Room Air 10/20/18 11:36 Oxygen Flow Rate 0 10/20/18 11:36 Fraction of Inspired Oxygen (FIO2) 21 10/12/18 15:05 Pain Level 0 10/20/18 11:36 Comment 10/17/18 22:30 Intake & Output 10/19/18 10/20/18 10/20/18 23:59 11:59 23:59 Intake Total 476.25 / 936.25 1622.5 / 2382.5 760 / 2382.5 Output Total 500 / 1600 1350 / 1925 575 / 1925 Balance -23.75 / -663.75 272.5 / 457.5 185 / 457.5 Weight 134.2 kg Intake: IV 236.25 / 336.25 862.5 / 862.5 Oral 240 / 600 760 / 1520 760 / 1520 Output: Urine 500 / 1600 550 / 1125 575 / 1125 Post Void Residual 800 / 800 Other: Urine Color Yellow Yellow Straw Urine Appearance Clear Clear Clear Urine Odor Normal Normal Comment voided 300cc's in urinal Flomax started this morning d/t urinary retention. notified Dr. Khan who verbalizes order for falcon catheter. Stool Occult Blood Negative Negative Stool Size Moderate Large Stool Characteristics Soft Formed Brown Brown Voiding Methods Urinal Incontinent Laboratory Results WBC 10.95 k/cumm (4.4-10.8) H 10/20/18 06:25 RBC 2.81 m/cumm (4.50-6.00) L 10/20/18 06:25 Hgb 8.7 g/dL (13.5-17.5) L 10/20/18 06:25 Hct 27.5 % (40.0-50.0) L 10/20/18 06:25 MCV 97.9 fL (80-95) H 10/20/18 06:25 MCH 31.0 pg (27.0-33.0) 10/20/18 06:25 MCHC 31.6 g/dL (32.0-36.0) L 10/20/18 06:25 RDW 15.4 % (11.8-14.1) H 10/20/18 06:25 Plt Count 330 x1000/uL (130-400) 10/20/18 06:25 MPV 9.8 fL (8.0-11.0) 10/20/18 06:25 Immature Gran % 1.6 10/20/18 06:25 79.6 10/20/18 06:25 3.0 % 10/17/18 09:45 9.2 10/20/18 06:25 5.4 10/20/18 06:25 4.0 10/20/18 06:25 0.2 10/20/18 06:25 2.0 % 10/19/18 06:30 1.0 % 10/18/18 06:40 Absolute Neutrophils 8.72 k/cumm (1.2-6.7) H 10/20/18 06:25 Absolute Lymphocytes 1.01 k/cumm (1.2-3.4) L 10/20/18 06:25 Absolute Monocytes 0.59 k/cumm (0.11-0.7) 10/20/18 06:25 Absolute Eosinophils 0.44 k/cumm (0.0-0.7) 10/20/18 06:25 Absolute Basophils 0.02 k/cumm (0.0-0.2) 10/20/18 06:25 Manual differential 10/19/18 06:30 RBC Morphology See below 10/19/18 06:30 Present 10/19/18 06:30 1+ 10/16/18 06:40 1+ 10/19/18 06:30 1+ 10/19/18 06:30 ESR 98 mm/hr (1-20) H 10/10/18 16:30 PT 11.2 sec (9.3-11.0) H 10/11/18 11:00 INR 1.1 (0.9-1.1) 10/11/18 11:00 Sodium 137 mmol/L (136-145) 10/20/18 06:25 Potassium 4.2 mmol/L (3.5-5.1) 10/20/18 06:25 Chloride 105 mmol/L (98-107) 10/20/18 06:25 Carbon Dioxide 23.5 mmol/L (21.0-32.0) 10/20/18 06:25 8.5 mmol/L (3-11) 10/20/18 06:25 BUN 31 mg/dL (7-18) H 10/20/18 06:25 1.48 mg/dL (0.70-1.30) H 10/20/18 06:25 46.34 (mL/min/1.73m2) 10/20/18 06:25 Glucose 90 mg/dL (70-100) 10/20/18 06:25 5.9 % (4.5-6.2) 10/10/18 16:30 0.9 mmol/l (0.6-1.4) 10/14/18 06:30 Calcium 9.2 mg/dL (8.5-10.1) 10/20/18 06:25 Magnesium 2.3 mg/dL (1.8-2.4) 10/20/18 06:25 1.1 mg/dL (0.2-1.0) H 10/10/18 16:30 AST 5 U/L (15-37) L 10/10/18 16:30 ALT 9 U/L (12-78) L 10/10/18 16:30 62 U/L (46-116) 10/10/18 16:30 72 U/L (39-308) 10/12/18 06:10 13.22 mg/dL (0.0-0.3) H 10/19/18 06:30 6.5 g/dL (6.4-8.2) 10/10/18 16:30 2.4 g/dL (3.4-5.0) L 10/10/18 16:30 2.3 ng/mL 10/15/18 07:08 Yellow (Yellow) 10/15/18 10:30 Clear (Clear) 10/15/18 10:30 5.5 (5-8) 10/15/18 10:30 Ur Specific [place] 1.010 (1.005-1.025) 10/15/18 10:30 30 mg/dL (Negative) H 10/15/18 10:30 Negative mg/dL (Negative) 10/15/18 10:30 Trace-intact (Negative) H 10/15/18 10:30 Negative (Negative) 10/15/18 10:30 Negative (Negative) 10/15/18 10:30 0.2 EU/dL (Up TO 0.2) 10/15/18 10:30 Ur Leukocyte Esterase Negative (Negative) 10/15/18 10:30 3-5 (0-2) H 10/15/18 10:30 0-2 HPF (0-5) 10/15/18 10:30 Ur Epithelial Cells Rare HPF (Negative) 10/15/18 10:30 Few amorphous HPF (Negative) 10/15/18 10:30 Negative HPF (Negative) 10/15/18 10:30 Negative LPF (Negative) 10/15/18 10:30 Trace (Negative) 10/15/18 10:30 Ur Culture Indicated? No 10/15/18 10:30 Negative mg/dL (Negative) 10/15/18 10:30
--- NOTE | 2018-10-20 15:21 | PT.INTREAT ---
Date of service: 10/20/18 Time of Service: 14:26 PT Notes Inpatient Physical Therapy Treatment Note [facility] Date: 10/20/2018 Precautions: Fall. Standard. WBAT on left LE. Subjective: Patient is agreeable to a PT treatment today. Patient reports both arms being very sore from walking a longer distance this morning and did not want to do any ambulation activity for the afternoon session. He reports 1/10 pain on left knee at rest, but with movement continues to be at 2-3/10. He feels that he is able to do a lot more this week than last week and hopes that he can go home as soon as it is safe to do so. Patient further reports that he did not do good without the falcon catheter this morning and that it had to be reinserted. Objective: Observation: Left thigh and knee edema continuing to subside. Postoperative erythema now lightening up. Mepilex Ag on left knee surgical incision. Telemetry monitoring continue to be in place. Falcon catheter replaced late this morning. Left knee flexion of about 20 degrees with patient in standing. Bed Mobility/Transfers: Supine to sit minimal assist to L leg only Sit to supine minimal assist to L leg only Sit to stand SBA Stand to sit SBA Bed to chair SBA Chair to bed SBA THERA EX: Facilitated left quadriceps activation working on antigravity knee extension exercises with patient being able to raise leg from a 90 degree flexed position while seated on a high chair to about 60 degrees of knee flexion, seated hip flexion, and supine terminal knee extension with manual resistance provided on the sole of the left foot with each movement held for 5-10 counts and x 10 reps. Heel raises held for 5 counts each time x10 reps. Partial knee bends with bilateral knee flexion held for 3 seconds with patient tolerating x5 reps only due to low back pain report. High marches x10 reps on each leg. Exercises session ended with quadriceps setting with 5-second hold x10 reps. Cryo/Cuff refilled and placed back on patient's knee to minimize post exercise muscle soreness and swelling. DISCHARGE RECOMMENDATIONS: SNF placement vs. Home Health referral. TREATMENT CODE/TIME: 28866 x30 minutes, 26439 x 23 minutes beginning at 14:26 PM.
[2018-10-20] MEDS: ceFAZolin 2,000 MG in Normal Saline 100 ML 200 MG IVPB (19:19)
[2018-10-20] MEDS: Normal Saline Flush 10 ML SYR 20 ML IVP (19:19)
[2018-10-20] MEDS: WARFARIN 5 MG, WARFARIN 1 MG 6 MG PO (19:34)
[2018-10-21] VITALS (33 sets, daily range): BP systolic 108–147; BP diastolic 48–84; PULSE 75–129; RESP 10–40; TEMP 37–38.8; O2SAT 96–97
[2018-10-21] MEDS: ceFAZolin 2,000 MG in Normal Saline 100 ML 200 MG IVPB ×3 (02:37→18:34)
[2018-10-21] MEDS: Levothyroxine 75 MCG TAB PO (05:30)
[2018-10-21] MEDS: Metoprolol 25 MG TAB 75 MG PO (05:30)
[2018-10-21] MEDS: Enoxaparin 30 MG/0.3 ML SYR SC ×2 (05:30→18:34)
[2018-10-21] MEDS: Normal Saline Flush 10 ML SYR 20 ML IVP ×2 (05:53→18:45)
[2018-10-21 06:46] LABS: Abs Immature Grans 0.13 k/cumm (0.0-0.09); Absolute Lymphocyte Count 0.99 k/cumm (1.2-3.4); Absolute Monocyte Count 0.65 k/cumm (0.11-0.7); Basophils % 0.2; Eosinophils % 2.2; HCT 28.5 % (40.0-50.0); HGB 9.1 g/dL (13.5-17.5); Lymphocytes % 7.6; Mean Corp. HGB Concentration 31.9 g/dL (32.0-36.0); Mean Corpuscular Hemoglobin 31.5 pg (27.0-33.0); Mean Corpuscular Volume 98.6 fL (80-95); Mean Platelet Volume 9.7 fL (8.0-11.0); Platelet Count 352 x1000/uL (130-400); RBC 2.89 m/cumm (4.50-6.00); RBC Distribution Width 15.2 % (11.8-14.1); White Blood Cell Count 12.99 k/cumm (4.4-10.8)
[2018-10-21 06:47] LABS: Absolute Basophil Count 0.03 k/cumm (0.0-0.2); Absolute Eosinophil Count 0.29 k/cumm (0.0-0.7); Absolute Neutrophil Count 10.91 k/cumm (1.2-6.7)
[2018-10-21 07:00] LABS: INR 1.1 (0.9-1.1); Prothrombin Time 10.5 sec (9.3-11.0)
[2018-10-21 07:01] LABS: Anion Gap 10.5 mmol/L (3-11); BUN 26 mg/dL (7-18); CO2 21.5 mmol/L (21.0-32.0); CREATININE 1.41 mg/dL (0.70-1.30); Calcium 9.1 mg/dL (8.5-10.1); Chloride 105 mmol/L (98-107); Glucose 90 mg/dL (70-100); Magnesium 2.2 mg/dL (1.8-2.4); Potassium 4.3 mmol/L (3.5-5.1); Sodium 137 mmol/L (136-145)
[2018-10-21] MEDS: Cyanocobalamin 500 MCG TAB PO (08:01)
[2018-10-21] MEDS: Vitamins B Comp w/C TAB 1 TAB PO (08:01)
[2018-10-21] MEDS: Allopurinol 300 MG TAB PO (08:01)
[2018-10-21] MEDS: Ascorbic Acid 500 MG TAB PO (08:01)
[2018-10-21] MEDS: Tamsulosin 0.4 MG CAPCR PO (08:01)
[2018-10-21] MEDS: Multivitamin TAB 1 TAB PO (08:02)
[2018-10-21] MEDS: Cholecalciferol (Vitamin D3) 1,000 UNIT TAB 1000 UNITS PO (08:02)
[2018-10-21] MEDS: rifAMPin 300 MG CAP PO (08:27)
--- NOTE | 2018-10-21 10:06 | PDOC.CMPRO ---
- If Service Date Differs Date of service: 10/21/18 Time of Service: 10:06 Care Management Progress Note S/O:Vasu was sitting up in bed when CM came to visit. He was smiling and stated that everyone is telling him that he is improving. He is walking further every day and feeling stronger. He states that he is determined to get better. Vasu shared a bit about his family and the fun his grandchildren from [place] are having. He was able to watch them a bit through skype that his set up for him using their home computer. Vasu expects to remain hospitalized through the weekend. A: Brennan is a 73 year old man admitted to [facility] on 10/10/18 with an infected knee, MSSA. P: Brennan continues to receive IV antibiotics for an infected prosthetic knee. He has a PICC line to facilitate administration of the needed 6 weeks of IV AB. Diane and his prefer home antibiotic therapy if possible. CM will continue to support patient, family and discharge planning needs identified
[2018-10-21 10:32] LABS: ALT 18 U/L (12-78); AST 15 U/L (15-37); Albumin 1.7 g/dL (3.4-5.0); Alkaline Phosphatase 62 U/L (46-116); Bilirubin, Direct 0.09 mg/dL (0.00-0.20); Bilirubin, Total 0.3 mg/dL (0.2-1.0); Total Protein 6.5 g/dL (6.4-8.2)
--- NOTE | 2018-10-21 10:45 | OT.INIE ---
Occupational Therapy Notes Inpatient Occupational Therapy Evaluation Date: 10/21/18 Referring Doctor:Zack Khan MD OT Orders: a Precautions: Fall, Standard PATIENT PROFILE/ADMITTING DIAGNOSIS: Pt is a 73 year old male who was admitted to [facility] with a dx of s/p left total knee arthroplasty in April 2018 who presented to the out-patient orthopedic clinic with infected abrasion of L knee. 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 Samano. Past Medical History: Atrial Fibrillation Sepsis with hypotension Venous Stasis Restrictive Lung Disease Renal Insufficiency Current Functional Limitations: Decreased functional activity tolerance, decrease (L) LE mobility with decreased functional mobility without use of assistive device, decreased (I) in his ADL/IADL routines. Social History/Home Situation: Pt reports that he lives in a private home with his Haley. He has a tub/shower combination and uses a shower bench. He states that he performs his ADLs in his bedroom which is located on the 2nd floor. 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 He performs most of his ADLs in the standing position. He uses raised toilet seats however reports that he does not like to get up in the night to go to the bathroom so he uses the urinal. Equipment owned/DME: Raised toilet seat, shower bench, removable shower head, grab bars SUBJECTIVE: Pt was sitting in bed when OT arrived. He is hesitant and refusing to perform any ADLs (I) for nursing because he reports that he wants to conserve his energy to be able to walk today. He is demanding that someone wash him up because he says he will be able to perform this at home and does not need to do it now. OBJECTIVE: General Observation: Answers questions appropriately. He was able to answer all questions. Pt was defensive about performance of ADLs and states that he will be able to perform this and does not need to do it now. With functional mobility he presents with heavy breathing and decreased functional activity tolerance. Mental Status: A&Ox3 Pain: 1/10 in (L) knee, pain in (L) UE where PICC line is placed. ROM: RUE AROM WFL L UE AROM WFL STRENGTH: RUE Shoulder flexion 4/5, bicep 5/5, tricep 5/5, fork truck driver is strong and symmetrical LUE Shoulder flexion 4-/5, bicep 5/5, tricep 5/5, fork truck driver is strong and symmetrical FUNCTIONAL MOBILITY/ADLS: Supine-sit Min (A) Sit-Stand Min (A) *Pt refused to perform all ADLs/IADLs today. He feels that someone else should be performing this for him. Due to pts unwillingness to perform his ADL routines OT was unable to assess pt's (I). OT will continue to monitor pts (I) in his ADL routines and progress accordingly. BALANCE: Static sitting Good Dynamic Sitting Good Static Standing Good Dynamic Standing Good SPECIAL TESTS: Daily Activity Limitations Standardized Measure [facility] AM -PAC ?6 clicks? Daily Activity Inpatient Short Form: Raw score: 18 Standardized score: 38.66 CMS score: 46.65% INFORMED CONSENT/EDUCATION: Pt instructed in purpose of OT Consult and plan of care. ASSESSMENT: Patient is a 73-year-old male referred to occupational therapy services with diagnosis of s/p left total knee arthroplasty in April 2018 who presented to the out-patient orthopedic clinic with infected abrasion of L knee. 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 Samano. Patient presents with clinical signs and symptoms consistent with dx, as demonstrated by the following impairment level findings: pain in (L) LE, decreased functional activity tolerance, decreased functional mobility, decreased (I) in ADLs/IADLs, productivity and leisure impairments. Impairments are contributing to the following functional limitations: Pt is unable to demonstrate (I) in his ADL routines. He refuses to perform and he is not willing to participate today. OT is unable to functionally say if pt is safe to perform his ADLs at home. He continues to say he can but is unable to demonstrate this. OT does feel that pt would benefit from skilled OT services for pt to return to his premorbid level of function. AMPAC score 18, CMS score 46.65% Patient is assessed as a Moderate 78094 complexity based on the following: History: See Above Examination: See Above Presentation: Evolving Decision Making: AMPAC 18, CMS score 46.65% GOALS Goals x1 week 1. Transfers (S), FWW 2. Dressing (I) UE, (I) LE in sitting position 3. Bathing (I) UE, min (A) LE in sitting position 4. Toileting (I) on toilet 5. Eating (I) PLAN OF CARE/TREATMENT PLAN: 1x/day, 5 days/ week x 1week Initiate Occupational Therapy Services for bathing, dressing, grooming, toileting, eating, transfer training. DISCHARGE RECOMMENDATIONS HHOT services TREATMENT TIME/MINUTES/CODES [id number] Zofia Brush OTR/L [facility]
[2018-10-21] MEDS: Normal Saline Flush 10 ML SYR IVP ×2 (12:53→16:33)
[2018-10-21] MEDS: Metoprolol 50 MG TAB 100 MG PO ×2 (14:01→22:26)
--- NOTE | 2018-10-21 14:44 | PGE_ITS ---
Date of Service Date of service: 10/21/18 Time of Service: 14:44 Assessment and Plan (1) Sepsis: Current visit: Yes Status: Resolved Sepsis with MSSA Bacteremia, with infected left knee prosthesis as likely source. Sepsis appears resolved. Treatment as below. (2) Bacteremia: Current visit: Yes Status: Acute Repeat blood cultures from 10/12, 10/14, and 10/15 negative despite recurrent fevers. Culture from central line tip is without growth as well. Continue to monitor vitals with treatment as below. (3) Infection of prosthetic left knee joint: Current visit: Yes Status: Acute S/p debridement and open irrigation on 10/11 with retention of hardware - surgical cultures showing growth of MSSA as well as rare growth of an Anaerobic GPC, sensitive to PCN therapy. Patient initially received combination of Dapto/ Pip-Mustapha/Rifampin, changed to Ceftriaxone/Rifampin for 2 days, then to Cefazolin/Rifampin for 2 additional days. Despite persistent fevers, repeat blood cultures on 10/12, 10/14, and 10/15 were negative, as were central line tip removed previously. Was maintained on Pip-Mustapha for 5 days for coverage of potential HCAP, with Cefazolin reinitiated on 10/20. Current fevers may be on the basis of drug fever (Rifampin) as per discussion with ID at [facility]. - Plan is to continue high dose Cefazolin along with Rifampin per Ortho, and continue to monitor temps and culture results. If persistent fevers or increase in temps could trial holding of Rifampin to evaluate for potential improvement, vs. repeat infectious work-up. Patient just finished course of Zosyn and has an improved pulmonary exam. Recheck a urinalysis and blood cultures. Monitor closely for any evidence of recurrence of sepsis. Qualifiers: Encounter type: initial encounter Qualified Code(s): T84.54XA - Infection and inflammatory reaction due to internal left knee prosthesis, initial encounter (4) Pneumonia: Current visit: Yes Status: Acute Treatment as above. (5) Atrial fibrillation: Current visit: No Status: Chronic Chronic Afib with current RVR in setting of previously persistent fevers, infection, and systemic inflammation. - HR Appeared to be vastly improved and now off Cardizem gtt, but with slightly higher rates today, potentially in setting of recurrent fevers. Continue uptitrated BB again, with close monitoring of blood pressure and HR. - Rivaroxaban is contraindicated in setting of Rifampin use. If plans for 6 total weeks of Rifampin, recommend initiation of Warfarin and monitoring of INR, with change back to Xarelto when completed. (6) Cardiomyopathy: Current visit: No Status: Acute Systolic function appears improved, with LVEF 35 --> 45-50% currently. - Volume status improved with diuresis but still overall overloaded. - High dose oral Furosemide, Entresto and Spironolactone remain on hold given JUAN. - Weight appears to be rising - will initiate low dose and careful Furosemide gtt and monitor renal function, weight, and respiratory status carefully. (7) Acute renal insufficiency: Current visit: Yes Status: Acute In setting of infection and sepsis, appeared improved but had worsened in setting of diuresis - improved with mild hydration. Monitor closely and hold oral lasix. IV Diuresis as above. (8) Gout: Current visit: Yes Status: Chronic Potential acute flare (wrist) occuring in setting of JUAN, with pain resolved following administration of Toradol and Colchicine. Continue home dose of Allopurinol. (9) DVT prophylaxis: Current visit: Yes Status: Acute Previously on anticoagulation with Xarelto, held in light of recent surgery and concurrent Rifampin use. Continue SC Lovenox as per ortho, with initiation of Coumadin as above. (10) Advance directive on file: Current visit: Yes Status: Acute DNI. Subjective Interval history since last seen: 73 year old patient admitted on 10/10 with a diagnosis of Septic Joint and sepsis with MSSA bacteremia. Mr. Llamas has a past Medical History significant for Ischemic Cardiomyopathy, Afib on chronic AC, Restrictive Lung dz, HTN, Gout, and PHTN. He was seen in the Orthopedic clinic on the day prior to his admission with reported fall and abrasion overlying his left knee, with acute onset of knee pain and swelling. Aspiration confirmed a periprosthetic infection and the patient was scheduled for admission and surgery, at which time he underwent an open irrigation, debridement, and Synovectomy with Arthrotomy repair of the left knee. Following his surgery Mr. Llamas was noted to have persistent Afib with RVR, JUAN now resolved, and persistent fevers as high as 40 degrees Celcius on 10/14. Despite this his repeat blood cultures on 10/12 and 10/14 remain negative. 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 This morning Mr. Llamas appears well and again reports improvement in his system. However, he is now febrile and continues to have fevers, with a TMax of 38.6 yesterday. He had remained afebrile since change in antibiotic therapy for 4 days, but had recurrence of fevers on the afternoon of 10/19. Heart rate had improved with patient remaining off cardizem drip, now with mildly worsened tachycardia. The patient's weight is beginning to elevate, with improvement in creatinine with gentle hydration. No other events reported. Exam Narrative Exam Narrative: General: Patient appears comfortable, AAOX3, NAD Neck: Supple Skin: LUE PICC line noted. CV: Irregularly Irregular, mildly tachycardic. Pulmonary: Minimal bibasilar crackles vastly improved. Abdomen: + Bowel Sounds, soft, nontender, nondistended Vascular: Now improved 2+ b/l lower extremity edema. Psych: Normal mood and affect. Objective Objective Clinical Data: Abnormal lab results 10/21/18 10/21/18 Range/Units 06:20 06:20 WBC 12.99 H (4.4-10.8) k/cumm RBC 2.89 L (4.50-6.00) m/cumm Hgb 9.1 L (13.5-17.5) g/dL Hct 28.5 L (40.0-50.0) % MCV 98.6 H (80-95) fL MCHC 31.9 L (32.0-36.0) g/dL RDW 15.2 H (11.8-14.1) % Absolute Neutrophils 10.91 H (1.2-6.7) k/cumm Absolute Lymphocytes 0.99 L (1.2-3.4) k/cumm BUN 26 H (7-18) mg/dL Creatinine 1.41 H (0.70-1.30) mg/dL Albumin 1.7 L (3.4-5.0) g/dL Vital Signs Temperature 38.3 C H 10/21/18 12:46 Temperature Source Temporal Artery Scan 10/21/18 12:46 Pulse 101 H 10/21/18 14:01 Pulse Rhythm Regular 10/21/18 07:50 Pulse 117 H 10/21/18 14:01 Respiratory Rate 32 H 10/21/18 14:01 Respiratory Effort 10/21/18 07:50 Respiratory Depth Normal 10/21/18 07:50 Respiratory Pattern Normal 10/21/18 07:50 Blood Pressure 135/70 10/21/18 14:01 Blood Pressure Mean 84 10/21/18 14:01 Blood Pressure Position Supine 10/20/18 16:45 Pulse Oximetry 98 10/20/18 19:29 Oxygen Delivery Method Room Air 10/20/18 16:45 Oxygen Flow Rate 0 10/20/18 16:45 Fraction of Inspired Oxygen (FIO2) 21 10/12/18 15:05 Pain Level 0 10/20/18 16:45 Comment 10/17/18 22:30 Intake & Output 10/20/18 10/21/18 10/21/18 23:59 11:59 23:59 Intake Total 2540.417 / 4162.917 460 / 800 340 / 800 Output Total 1200 / 2550 700 / 1275 575 / 1275 Balance 1340.417 / 1612.917 -240 / -475 -235 / -475 Weight 135.5 kg Intake: IV 980.417 / 1842.917 100 / 200 100 / 200 Oral 1560 / 2320 360 / 600 240 / 600 Output: Urine 1200 / 1750 700 / 1275 575 / 1275 Other: Urine Color Yellow Yellow Gering Urine Appearance Clear Clear Clear Comment falcon patent. Stool Occult Blood Negative Stool Size Moderate Stool Characteristics Formed Brown Laboratory Results WBC 12.99 k/cumm (4.4-10.8) H 10/21/18 06:20 RBC 2.89 m/cumm (4.50-6.00) L 10/21/18 06:20 Hgb 9.1 g/dL (13.5-17.5) L 10/21/18 06:20 Hct 28.5 % (40.0-50.0) L 10/21/18 06:20 MCV 98.6 fL (80-95) H 10/21/18 06:20 MCH 31.5 pg (27.0-33.0) 10/21/18 06:20 MCHC 31.9 g/dL (32.0-36.0) L 10/21/18 06:20 RDW 15.2 % (11.8-14.1) H 10/21/18 06:20 Plt Count 352 x1000/uL (130-400) 10/21/18 06:20 MPV 9.7 fL (8.0-11.0) 10/21/18 06:20 Immature Gran % 1.0 10/21/18 06:20 84.0 10/21/18 06:20 3.0 % 10/17/18 09:45 7.6 10/21/18 06:20 5.0 10/21/18 06:20 2.2 10/21/18 06:20 0.2 10/21/18 06:20 2.0 % 10/19/18 06:30 1.0 % 10/18/18 06:40 Absolute Neutrophils 10.91 k/cumm (1.2-6.7) H 10/21/18 06:20 Absolute Lymphocytes 0.99 k/cumm (1.2-3.4) L 10/21/18 06:20 Absolute Monocytes 0.65 k/cumm (0.11-0.7) 10/21/18 06:20 Absolute Eosinophils 0.29 k/cumm (0.0-0.7) 10/21/18 06:20 Absolute Basophils 0.03 k/cumm (0.0-0.2) 10/21/18 06:20 Manual differential 10/19/18 06:30 RBC Morphology See below 10/19/18 06:30 Present 10/19/18 06:30 1+ 10/16/18 06:40 1+ 10/19/18 06:30 1+ 10/19/18 06:30 ESR 98 mm/hr (1-20) H 10/10/18 16:30 PT 10.5 sec (9.3-11.0) 10/21/18 06:20 INR 1.1 (0.9-1.1) 10/21/18 06:20 Sodium 137 mmol/L (136-145) 10/21/18 06:20 Potassium 4.3 mmol/L (3.5-5.1) 10/21/18 06:20 Chloride 105 mmol/L (98-107) 10/21/18 06:20 Carbon Dioxide 21.5 mmol/L (21.0-32.0) 10/21/18 06:20 10.5 mmol/L (3-11) 10/21/18 06:20 BUN 26 mg/dL (7-18) H 10/21/18 06:20 1.41 mg/dL (0.70-1.30) H 10/21/18 06:20 49.00 (mL/min/1.73m2) 10/21/18 06:20 Glucose 90 mg/dL (70-100) 10/21/18 06:20 5.9 % (4.5-6.2) 10/10/18 16:30 0.9 mmol/l (0.6-1.4) 10/14/18 06:30 Calcium 9.1 mg/dL (8.5-10.1) 10/21/18 06:20 Magnesium 2.2 mg/dL (1.8-2.4) 10/21/18 06:20 0.3 mg/dL (0.2-1.0) 10/21/18 06:20 0.09 mg/dL (0.00-0.20) 10/21/18 06:20 AST 15 U/L (15-37) 10/21/18 06:20 ALT 18 U/L (12-78) 10/21/18 06:20 62 U/L (46-116) 10/21/18 06:20 72 U/L (39-308) 10/12/18 06:10 13.22 mg/dL (0.0-0.3) H 10/19/18 06:30 6.5 g/dL (6.4-8.2) 10/21/18 06:20 1.7 g/dL (3.4-5.0) L 10/21/18 06:20 2.3 ng/mL 10/15/18 07:08 Yellow (Yellow) 10/15/18 10:30 Clear (Clear) 10/15/18 10:30 5.5 (5-8) 10/15/18 10:30 Ur Specific [place] 1.010 (1.005-1.025) 10/15/18 10:30 30 mg/dL (Negative) H 10/15/18 10:30 Negative mg/dL (Negative) 10/15/18 10:30 Trace-intact (Negative) H 10/15/18 10:30 Negative (Negative) 10/15/18 10:30 Negative (Negative) 10/15/18 10:30 0.2 EU/dL (Up TO 0.2) 10/15/18 10:30 Ur Leukocyte Esterase Negative (Negative) 10/15/18 10:30 3-5 (0-2) H 10/15/18 10:30 0-2 HPF (0-5) 10/15/18 10:30 Ur Epithelial Cells Rare HPF (Negative) 10/15/18 10:30 Few amorphous HPF (Negative) 10/15/18 10:30 Negative HPF (Negative) 10/15/18 10:30 Negative LPF (Negative) 10/15/18 10:30 Trace (Negative) 10/15/18 10:30 Ur Culture Indicated? No 10/15/18 10:30 Negative mg/dL (Negative) 10/15/18 10:30
[2018-10-21 16:15] LABS: Bilirubin Negative (Negative); Blood Large (Negative); Clarity Clear (Clear); Glucose Negative (Negative); Ketones Negative (Negative); Leukocyte Esterase Negative (Negative); Nitrite Negative (Negative); Specific Gravity 1.015 (1.005-1.025); Urobilinogen 0.2 EU/dL (Up TO 0.2); pH 5.5 (5-8)
[2018-10-21] MEDS: Acetaminophen 500 MG TAB 1000 MG PO (16:32)
--- NOTE | 2018-10-21 16:56 | PTTR_ITS ---
Date of service: 10/21/18 Time of Service: 10:45 PT Notes Inpatient Physical Therapy Treatment Note [facility] Date: 10/21/2018 Precautions: Fall. Standard. WBAT on left LE. Subjective: Patient is agreeable to a PT treatment today and to a goal of walking from his room to the therapy gym followed by negotiating just the first step of the therapy stairs. Patient reports residual L arm soreness from increased walking and mobility performance for the past few days. He reports 0/10 pain on left knee at rest, but with weight-bearing continues to be at 2- 3/10. He feels that he is able to do a lot more this week than last week and hopes that he can go home as soon as it is safe to do so. Objective: Observation: Left thigh and knee edema continuing to subside. Postoperative erythema now lightening up. Brawny edema left leg. Mepilex Ag on left knee surgical incision. Telemetry monitoring continue to be in place. Paiz catheter in place. Left knee flexion is able to achieve full knee extension in close kinematic chain in the standing position without undue discomfort. Bed Mobility/Transfers: Supine to sit SBA Sit to supine SBA Sit to stand minimal assist from high bed level, and from wheelchair using both UE for support Stand to sit SBA Bed to chair SBA Chair to bed SBA Gait: Patient was able to tolerate level surface ambulation of 40 feet x 2 using FWW with WBAT on left only SBA of this PT and wheelchair follow of an WALLC[employer]ING HANGER with mild breathlessness noted with Tri Dyspnea scale of 3/10. THERA EX: Facilitated left quadriceps activation working on antigravity knee extension exercises with patient being able to raise leg from a 90 degree flexed position while seated on a high chair to about 60 degrees of knee flexion: seated hip flexion; and supine terminal knee extension with manual resistance provided on the sole of the left foot with each movement held for 5-10 counts x 10 reps. Heel raises held for 5 counts each time x10 reps. Partial knee bends with bilateral knee flexion held for 3 seconds with patient tolerating x5 reps only due to report of low back pain. High marches x10 reps on each leg. Exercises session ended with quadriceps setting with 5-second hold x10 reps. Cryo/Cuff refilled and placed back on patient's knee to minimize post exercise muscle soreness and swelling. STAIRS: With minimal assist of 1, standby assist of [employer], and guarding of the wheelchair by , patient was able to advance his uninvolved right leg onto a step while holding onto bilateral rails followed by his involved left side x 2. Patient was also able to step down with involved left LE first followed by the uninvolved right LE x 2. Guarding and locking of patient's right knee were required to prevent right knee from giving way during ascend/descend of L LE. Patient reported fatigue after today's physical therapy session and exhibited increased shakiness of bilateral bilateral upper extremities most likely from exhaustion. Nurses were notified who checked his vital signs to be within normal limits. DISCHARGE RECOMMENDATIONS: Patient will benefit from shelter facility placement in order to progress mobility level, strength, and balance in preparation for a safe discharge to home. TREATMENT CODE/TIME: 75798 x 17 minutes, [id number] x 30 minutes beginning at 10:45 AM.
[2018-10-21 17:12] LABS: Bacteria Rare HPF (Negative); C & S Indicated? No; Casts 3-5 Coarse Granular LPF (Negative); Crystals Negative HPF (Negative); Epithelial Cells Negative HPF (Negative); Mucus Negative (Negative); RBC >50 (0-2)
[2018-10-21] MEDS: WARFARIN 5 MG, WARFARIN 1 MG 6 MG PO (19:58)
[2018-10-22] VITALS (40 sets, daily range): BP systolic 122–151; BP diastolic 55–97; PULSE 74–117; RESP 18–33; TEMP 37.1–38.8; O2SAT 96
[2018-10-22] MEDS: ceFAZolin 2,000 MG in Normal Saline 100 ML 200 MG IVPB ×3 (02:21→18:37)
[2018-10-22] MEDS: Normal Saline Flush 10 ML SYR IVP (02:22)
[2018-10-22] MEDS: Levothyroxine 75 MCG TAB PO (06:24)
[2018-10-22] MEDS: Metoprolol 50 MG TAB 100 MG PO ×3 (06:24→21:58)
[2018-10-22] MEDS: Enoxaparin 30 MG/0.3 ML SYR SC ×2 (06:25→18:37)
--- NOTE | 2018-10-22 07:16 | PDOC.CMPRO ---
Care Management Progress Note S/O: Brennan Leone was lying in bed when CM met with him. He had just met with Dr. Samano who injected his elbow for treatment of gout, and Dr. Wilkins on Hospitalist service. Dr. Wilkins did report anticipating Vasu will have six weeks of IV ABX. This will likely be coordinated in the home setting with [facility] supports for RN as well as PT. Vasu was pleasant in interaction, his cell phone then rang and he answered it; dismissing this inspector automatic typewriter. CM continues to follow. A: Brennan is a 73 year old man admitted to [facility] on 10/10/18 with an infected knee, MSSA. P: Brennan continues to receive IV antibiotics for an infected prosthetic knee. PICC line placed to facilitate administration of the needed 6 weeks of IV AB. Vasu and his prefer home antibiotic therapy if possible-anticipate [facility] supports for RN and PT as well as home DME company coordination for IV ABX. CM will continue to support patient, family and discharge planning needs identified
[2018-10-22 07:29] LABS: Abs Immature Grans 0.07 k/cumm (0.0-0.09); Absolute Lymphocyte Count 1.07 k/cumm (1.2-3.4); Absolute Monocyte Count 0.74 k/cumm (0.11-0.7); Absolute Neutrophil Count 10.68 k/cumm (1.2-6.7); Basophils % 0.2; Eosinophils % 1.6; HCT 26.7 % (40.0-50.0); HGB 8.4 g/dL (13.5-17.5); Immature Grans % 0.5; Lymphocytes % 8.4; Mean Corp. HGB Concentration 31.5 g/dL (32.0-36.0); Mean Corpuscular Volume 98.5 fL (80-95); Monocytes % 5.8; Neutrophils % 83.5; Platelet Count 360 x1000/uL (130-400); RBC 2.71 m/cumm (4.50-6.00); RBC Distribution Width 15.2 % (11.8-14.1); White Blood Cell Count 12.79 k/cumm (4.4-10.8)
[2018-10-22 07:35] LABS: Prothrombin Time 11.5 sec (9.3-11.0)
[2018-10-22 07:37] LABS: INR 1.1 (0.9-1.1)
[2018-10-22 07:39] LABS: Absolute Basophil Count 0.03 k/cumm (0.0-0.2)
[2018-10-22 07:41] LABS: Anion Gap 8.8 mmol/L (3-11); BUN 28 mg/dL (7-18); C-Reactive Protein 15.47 mg/dL (0.0-0.3); CO2 22.2 mmol/L (21.0-32.0); Calcium 9.2 mg/dL (8.5-10.1); Chloride 106 mmol/L (98-107); Estimated GFR 49.41 (mL/min/1.73m2); Glucose 91 mg/dL (70-100); Magnesium 2.3 mg/dL (1.8-2.4); Potassium 4.4 mmol/L (3.5-5.1); Sodium 137 mmol/L (136-145)
[2018-10-22 08:07] LABS: Anisocytosis 1+; Diff Comment RBC Morph Reviewed; Hypochromasia 1+
[2018-10-22 08:08] LABS: Poikilocytes 1+
--- NOTE | 2018-10-22 08:21 | PGE_ITS ---
Date of Service Date of service: 10/22/18 Time of Service: 08:21 Assessment and Plan (1) Sepsis: Current visit: Yes Status: Resolved Sepsis with MSSA Bacteremia, with infected left knee prosthesis as likely source. Fevers recurred - PICC and peripheral blood cx are pending (collected yesterday). Drug fever also a consideration - rifampin stopped. L elbow aspirate is being cultured. While fever could possibly be due to gout, infection of L elbow does need to be ruled out. Continue cefazolin for now. (2) Bacteremia: Current visit: Yes Status: Acute Repeat blood cultures from 10/12, 10/14, and 10/15 negative despite recurrent fevers. PICC line and peripheral blood cx are pending. Recurrent fevers could be due to gout - however, if L elbow is infected, will need transfer to a tertiary care facility. We need to reconsider JS as well - nonemergent, could be done as outpatient. (3) Infection of prosthetic left knee joint: Current visit: Yes Status: Acute S/p debridement 10/11, hardware in place - C&S with MSSA. Currently on cefazolin monotherapy. Repeat blood cultures on 10/12, 10/14, and 10/15 were negative, as were central line tip removed previously. Blood c&S (PICC and peripheral) 10/21/18 pending. Recurrent fevers could be due to: Gout, ?DVT (will need dopplers LLE/PICC UE on Wednesday), failure of L knee infection to improve, co-infection of L elbow, drug fever due to rifampin (d/c'ed). Will monitor L elbow cultures. Tx for gout initiated (colchicine, toradol; s/p steroid injectioN) - monitor for recurrence of fevers and CRP. Qualifiers: Encounter type: initial encounter Qualified Code(s): T84.54XA - Infection and inflammatory reaction due to internal left knee prosthesis, initial encounter (4) Atrial fibrillation: Current visit: No Status: Chronic Chronic Afib with rate that has been spiking in association with fevers. HR now in the 90's-110's - patient states it is because he is nervous. We agreed that we will monitor his HR for the rest of the day - and if he is still tachycardic this afternoon/evening, I will increase his BB. - Rivaroxaban is contraindicated in setting of Rifampin use. If plans for 6 total weeks of Rifampin, Started on Warfarin. Monitor daily INR. (5) Pneumonia: Current visit: Yes Status: Resolved HCAP, repeat CXR negative. Completed zosyn. (6) Cardiomyopathy: Current visit: No Status: Acute EF 45-50%, with evidence of acute on chronic systolic CHF - will continue low dose lasix gtt. - High dose oral Furosemide, Entresto and Spironolactone remain on hold given JUAN. (7) Acute renal insufficiency: Current visit: Yes Status: Acute In setting of infection and possible overdiuresis (also, ?rifampin). At this time, tolerating low dose lasix gtt, which he clinically needs. Continue to monitor Cr, I/O's, daily weights. (8) Gout: Current visit: Yes Status: Chronic Acute flare R wrist resolved, new in L elbow today - likely due to JUAN and fluid shifts. S/p steroid injection in L elbow today. Toradol resumed - monitor kidney function. Colchicine rx'ed as well. Continue maintenance allopurinol. (9) Acute anemia: Current visit: Yes Status: Acute Acute on chronic, likely due to repetitive blood draws and a dilutional component. No active bleeding - but monitoring as he is on lovenox and coumadin was initiated. No indication for blood transfusion at this time. (10) DVT prophylaxis: Current visit: Yes Status: Acute Home xarelto d/c'ed due to contraindication on rifampin. Rifampin now d/c'ed - consider resuming xarelto. For now on SC Lovenox to coumadin bridge. (11) Advance directive on file: Current visit: Yes Status: Acute DNI. (12) Discharge planning issues: Current visit: Yes Status: Acute Anticipated at least 6 weeks of IV antibiotics. For now, we are still ruling out L elbow infection - too early to tell true duration. Subjective Interval history since last seen: Complains of excruciating left elbow pain starting today. Dr Samano aspirated it (as well as the knee). There are crystals in the L elbow aspirate, c/w gout. The patient was injected into his left elbow today. He states he already feels relief. He also states he is not as shaky today. He attributes his shakiness to nervousness. Denies dizziness, headache, chest pain, shortness of breath, nausea, vomiting. States his knee actually feels better. Tmax 38.8 yesterday, last febrile at 4:30 yesterday afternoon; this am is 37.3 this am. HR's in 70-80's (Afib) at rest, 90's - low 100's with activity. No tachypnea or hypoxia. RR of 27 was while talking on telephone. No pain. No gross bleeding. On lasix gtt at 2.5 mg/hr (was also on IVF until this am) - UOP 975 cc overnight. Exam Narrative Exam Narrative: General: very pleasant elderly Caucas[place] male, laying comfortably in bed at a 30 degree angle, clearing his throat, occasional cough HEENT: EOMI, MMM Heart: Irregularly irregular rhythm, mildly tachycardic (110's) Lungs: CTAB GI: abdomen is soft, nontender, nondistended Extremities: +1 edema LLE, L knee in immobilizer, dressed, no c/c; RLE without edema. L elbow with a bandaid. Objective Objective Clinical Data: Abnormal lab results 10/21/18 10/21/18 10/22/18 Range/Units 06:20 15:30 06:04 WBC (4.4-10.8) k/cumm RBC (4.50-6.00) m/cumm Hgb (13.5-17.5) g/dL Hct (40.0-50.0) % MCV (80-95) fL MCHC (32.0-36.0) g/dL RDW (11.8-14.1) % Absolute Neutrophils (1.2-6.7) k/cumm Absolute Lymphocytes (1.2-3.4) k/cumm Absolute Monocytes (0.11-0.7) k/cumm PT (9.3-11.0) sec BUN 26 H 28 H (7-18) mg/dL Creatinine 1.41 H 1.40 H (0.70-1.30) mg/dL C-Reactive Protein 15.47 H (0.0-0.3) mg/dL Albumin 1.7 L (3.4-5.0) g/dL Urine Protein 30 H (Negative) mg/dL Urine Blood Large H (Negative) Urine RBC >50 H (0-2) 10/22/18 10/22/18 Range/Units 07:00 07:00 WBC 12.79 H (4.4-10.8) k/cumm RBC 2.71 L (4.50-6.00) m/cumm Hgb 8.4 L (13.5-17.5) g/dL Hct 26.7 L (40.0-50.0) % MCV 98.5 H (80-95) fL MCHC 31.5 L (32.0-36.0) g/dL RDW 15.2 H (11.8-14.1) % Absolute Neutrophils 10.68 H (1.2-6.7) k/cumm Absolute Lymphocytes 1.07 L (1.2-3.4) k/cumm Absolute Monocytes 0.74 H (0.11-0.7) k/cumm PT 11.5 H (9.3-11.0) sec BUN (7-18) mg/dL Creatinine (0.70-1.30) mg/dL C-Reactive Protein (0.0-0.3) mg/dL Albumin (3.4-5.0) g/dL Urine Protein (Negative) mg/dL Urine Blood (Negative) Urine RBC (0-2) Vital Signs Temperature 37.2 C 10/21/18 20:03 Temperature Source Temporal Artery Scan 10/21/18 20:03 Pulse 88 10/22/18 06:01 Pulse Rhythm Irregular 10/22/18 00:15 Pulse 102 H 10/22/18 06:01 Respiratory Rate 27 H 10/22/18 06:01 Respiratory Effort Non-Labored 10/22/18 00:15 Respiratory Depth Normal 10/22/18 00:15 Respiratory Pattern Normal 10/22/18 00:15 Blood Pressure 134/81 10/22/18 06:01 Blood Pressure Mean 93 10/22/18 06:01 Blood Pressure Position Supine 10/20/18 16:45 Pulse Oximetry 96 10/22/18 00:15 Oxygen Delivery Method Cpap 10/21/18 20:03 Oxygen Flow Rate 0 10/21/18 18:00 Fraction of Inspired Oxygen (FIO2) 21 10/12/18 15:05 Pain Level 0 10/21/18 15:50 Comment 10/17/18 22:30 Intake & Output 10/21/18 10/21/18 10/22/18 11:59 23:59 11:59 Intake Total 460 / 1345.325 885.325 / 1345.325 105.775 / 105.775 Output Total 700 / 2054 1355 / 5 975 / 975 Balance -240 / -709.675 -469.675 / -709.675 -869.225 / -869.225 Weight 135.5 kg 136 kg Intake: IV 100 / 325.325 225.325 / 325.325 105.775 / 105.775 Oral 360 / 1020 660 / 1020 Output: Urine / 2054 1355 / 2054 975 / 975 Other: Urine Color Yellow Yellow Yellow Urine Appearance Clear Clear Clear Comment terrie patent, u/a sent Lasix drip is at 2.5ml/hr Stool Occult Blood Negative Stool Size Moderate Stool Characteristics Formed Brown Laboratory Results WBC 12.79 k/cumm (4.4-10.8) H 10/22/18 07:00 RBC 2.71 m/cumm (4.50-6.00) L 10/22/18 07:00 Hgb 8.4 g/dL (13.5-17.5) L 10/22/18 07:00 Hct 26.7 % (40.0-50.0) L 10/22/18 07:00 MCV 98.5 fL (80-95) H 10/22/18 07:00 MCH 31.0 pg (27.0-33.0) 10/22/18 07:00 MCHC 31.5 g/dL (32.0-36.0) L 10/22/18 07:00 RDW 15.2 % (11.8-14.1) H 10/22/18 07:00 Plt Count 360 x1000/uL (130-400) 10/22/18 07:00 MPV 10.0 fL (8.0-11.0) 10/22/18 07:00 Immature Gran % 0.5 10/22/18 07:00 83.5 10/22/18 07:00 3.0 % 10/17/18 09:45 8.4 10/22/18 07:00 5.8 10/22/18 07:00 1.6 10/22/18 07:00 0.2 10/22/18 07:00 2.0 % 10/19/18 06:30 1.0 % 10/18/18 06:40 Absolute Neutrophils 10.68 k/cumm (1.2-6.7) H 10/22/18 07:00 Absolute Lymphocytes 1.07 k/cumm (1.2-3.4) L 10/22/18 07:00 Absolute Monocytes 0.74 k/cumm (0.11-0.7) H 10/22/18 07:00 Absolute Eosinophils 0.20 k/cumm (0.0-0.7) 10/22/18 07:00 Absolute Basophils 0.03 k/cumm (0.0-0.2) 10/22/18 07:00 Rbc morph reviewed 10/22/18 07:00 RBC Morphology See below 10/22/18 07:00 Present 10/19/18 06:30 1+ 10/22/18 07:00 1+ 10/22/18 07:00 1+ 10/22/18 07:00 ESR 98 mm/hr (1-20) H 10/10/18 16:30 PT 11.5 sec (9.3-11.0) H 10/22/18 07:00 INR 1.1 (0.9-1.1) 10/22/18 07:00 Sodium 137 mmol/L (136-145) 10/22/18 06:04 Potassium 4.4 mmol/L (3.5-5.1) 10/22/18 06:04 Chloride 106 mmol/L (98-107) 10/22/18 06:04 Carbon Dioxide 22.2 mmol/L (21.0-32.0) 10/22/18 06:04 8.8 mmol/L (3-11) 10/22/18 06:04 BUN 28 mg/dL (7-18) H 10/22/18 06:04 1.40 mg/dL (0.70-1.30) H 10/22/18 06:04 49.41 (mL/min/1.73m2) 10/22/18 06:04 Glucose 91 mg/dL (70-100) 10/22/18 06:04 5.9 % (4.5-6.2) 10/10/18 16:30 0.9 mmol/l (0.6-1.4) 10/14/18 06:30 Calcium 9.2 mg/dL (8.5-10.1) 10/22/18 06:04 Magnesium 2.3 mg/dL (1.8-2.4) 10/22/18 06:04 0.3 mg/dL (0.2-1.0) 10/21/18 06:20 0.09 mg/dL (0.00-0.20) 10/21/18 06:20 AST 15 U/L (15-37) 10/21/18 06:20 ALT 18 U/L (12-78) 10/21/18 06:20 62 U/L (46-116) 10/21/18 06:20 72 U/L (39-308) 10/12/18 06:10 15.47 mg/dL (0.0-0.3) H 10/22/18 06:04 6.5 g/dL (6.4-8.2) 10/21/18 06:20 1.7 g/dL (3.4-5.0) L 10/21/18 06:20 2.3 ng/mL 10/15/18 07:08 Yellow (Yellow) 10/21/18 15:30 Clear (Clear) 10/21/18 15:30 5.5 (5-8) 10/21/18 15:30 Ur Specific [place] 1.015 (1.005-1.025) 10/21/18 15:30 30 mg/dL (Negative) H 10/21/18 15:30 Negative mg/dL (Negative) 10/21/18 15:30 Large (Negative) H 10/21/18 15:30 Negative (Negative) 10/21/18 15:30 Negative (Negative) 10/21/18 15:30 0.2 EU/dL (Up TO 0.2) 10/21/18 15:30 Ur Leukocyte Esterase Negative (Negative) 10/21/18 15:30 >50 (0-2) H 10/21/18 15:30 3-5 HPF (0-5) 10/21/18 15:30 Ur Epithelial Cells Negative HPF (Negative) 10/21/18 15:30 Negative HPF (Negative) 10/21/18 15:30 Rare HPF (Negative) 10/21/18 15:30 3-5 coarse granular LPF (Negative) 10/21/18 15:30 Negative (Negative) 10/21/18 15:30 Ur Culture Indicated? No 10/21/18 15:30 Negative mg/dL (Negative) 10/21/18 15:30
[2018-10-22] MEDS: Normal Saline Flush 10 ML SYR 20 ML IVP (08:46)
[2018-10-22] MEDS: Multivitamin TAB 1 TAB PO (08:47)
[2018-10-22] MEDS: Cholecalciferol (Vitamin D3) 1,000 UNIT TAB 1000 UNITS PO (08:47)
[2018-10-22] MEDS: Vitamins B Comp w/C TAB 1 TAB PO (08:47)
[2018-10-22] MEDS: Allopurinol 300 MG TAB PO (08:47)
[2018-10-22] MEDS: Cyanocobalamin 500 MCG TAB PO (08:47)
[2018-10-22] MEDS: Ascorbic Acid 500 MG TAB PO (08:47)
[2018-10-22] MEDS: Tamsulosin 0.4 MG CAPCR PO (08:47)
--- NOTE | 2018-10-22 10:18 | NUR.NOTE ---
Pt reporting to Dr. Samano and myself that his Left elbow is very painful, too much to put weight on it to walk with PT. Dr. Samano aspirated fluid from the Left elbow, fluids sent to lab as ordered. Nursing Note:
--- NOTE | 2018-10-22 10:30 | PT.INTREAT ---
Date of service: 10/22/18 Time of Service: 09:00 PT Notes Inpatient Physical Therapy Treatment Note [facility] Date: 10/22/18 PRECAUTIONS: Fall and WBAT on left SUBJECTIVE: Left arm is too sore to bear weight on today. Did attempt to get up to take a walk but unable to do so due to left arm. OBJECTIVE: PAIN: Greatest complaint was of left arm pain with movement of arm or weight bearing when using walker. BED MOBILITY/TRANSFERS Supine-sit: Min assist with movement of LEs Sit-supine: Min assist with movement of LEs Sit-stand: Min assist Stand-sit: SBA Bed-Chair: Refused to sit in chair. Indicated he did not feel he would beable to get up again due to left arm. GAIT Assistive Device: FWW Weight bearing: WBAT on left Assist: CGA Distance: Stood only at bedside for approximately 3-5 minutes THEREX: Performed ther ex in bed and at bedside. This included QS, AP, GS, assisted SLRs, supine hip flexion and abd/adduction, as well as seated LAQs for 90 to 60 degrees. See flow sheet for details. STAIRS:Did not do, due to left arm pain today. ASSESSMENT: Tolerated his ther exercises well, but unfortunately ambulation was not possible due to left UE issues. Left UE was noted to be swollen and Dr. Samano was made aware of this issue. PLAN: Continue to focus on strengthening and improved functional mobility for goal of returning to home. TREATMENT CODE/TIME: 52392g8/ 63919v0 (50'), 9:00 to 9:50
--- NOTE | 2018-10-22 10:50 | W.PM.PROGNOT ---
Date of Service Date of service: 10/22/18 Time of Service: 10:50 Assessment and Plan (1) Effusion, left elbow: Current visit: Yes Status: Acute aVsu has complained of some left elbow pain for about 1 day. It started yesterday but today was intolerable. He had a notable effusion and swelling and pain with restricted motion. Therefore, I recommended an aspiration. This was performed, and while difficult to palpate normal landmarks, was successful in aspirating greater than 20 cc of turbid material with precipitate. I performed a local lavage with 20 cc of injectable saline. This was sent to the lab. The differential is gout and infection. I am obviously quite concerned about infection given the recent rise in CRP and frequency of fevers. I will await any lab results before proceeding with an injection if it is gout. (2) Infection of prosthetic left knee joint: Current visit: Yes Status: Acute MSSA on adequate treatment plan. We did stop the rifampin due to fevers. We will continue to follow this and if fevers steven then we may start the rifampin back regardless. I do think it has a role to play in treating this infection and preventing biofilm. We will continue to trend his CRP. However, it is important to note that his CRP has never been lower than 7 even in his healthiest states. Okay to start anticoagulation. Qualifiers: Encounter type: initial encounter Qualified Code(s): T84.54XA - Infection and inflammatory reaction due to internal left knee prosthesis, initial encounter Subjective Interval history since last seen: Vasu reports to be having increasing left elbow pain. He was unable to ambulate today because he could put no pressure on the left arm nor move it at all. He is not complaining of any increase in left knee pain. He feels like he has been making progress with the left knee but currently his only pain is his left elbow. He does report being fatigued and tired. However, he does not report any subjective fever or chills. No chest pain or shortness of breath. The pain in the elbow is directly over the elbow itself. Proximal into the arm and distal into the forearm he does not complain of pain. He has been able to move his hand without much of a problem and denies numbness or tingling. Exam Narrative Exam Narrative: Laying in the hospital bed in the supine position. Evaluation of the left upper extremity shows notable swelling throughout the arm. There is peripheral edema tract from the mid arm down through the hand. There is no significant palpation of the arm nor of the forearm, however, there is exquisite pain with any palpation of the left elbow. It is difficult to interpret if there is an effusion but there does appear to be one, however, there is notable soft tissue and subcutaneous edema. Any attempted motion of the elbow causes exquisite pain. I am unable to move the arm more than a few degrees. Pronation and supination also causes pain, to a slightly lesser extent. He is able to demonstrate intact function of EPL, FPL, interossei. Sensation intact light touch over the median, radial, ulnar nerves. Mild warmth to the left elbow but no notable erythema. This is also the arm with the PICC line in place. There are no changes around the skin of the PICC line or at his insertion site. Evaluation left knee shows a well approximated incision. There is notable fluid around the left knee. Mild warmth. No drainage. He is able to demonstrate some quad activity but unable to straight leg raise. Range of motion was not tested. Objective Objective Clinical Data: Abnormal lab results 10/21/18 10/22/18 10/22/18 Range/Units 15:30 06:04 07:00 WBC (4.4-10.8) k/cumm RBC (4.50-6.00) m/cumm Hgb (13.5-17.5) g/dL Hct (40.0-50.0) % MCV (80-95) fL MCHC (32.0-36.0) g/dL RDW (11.8-14.1) % Absolute Neutrophils (1.2-6.7) k/cumm Absolute Lymphocytes (1.2-3.4) k/cumm Absolute Monocytes (0.11-0.7) k/cumm PT 11.5 H (9.3-11.0) sec BUN 28 H (7-18) mg/dL Creatinine 1.40 H (0.70-1.30) mg/dL C-Reactive Protein 15.47 H (0.0-0.3) mg/dL Urine Protein 30 H (Negative) mg/dL Urine Blood Large H (Negative) Urine RBC >50 H (0-2) 10/22/18 Range/Units 07:00 WBC 12.79 H (4.4-10.8) k/cumm RBC 2.71 L (4.50-6.00) m/cumm Hgb 8.4 L (13.5-17.5) g/dL Hct 26.7 L (40.0-50.0) % MCV 98.5 H (80-95) fL MCHC 31.5 L (32.0-36.0) g/dL RDW 15.2 H (11.8-14.1) % Absolute Neutrophils 10.68 H (1.2-6.7) k/cumm Absolute Lymphocytes 1.07 L (1.2-3.4) k/cumm Absolute Monocytes 0.74 H (0.11-0.7) k/cumm PT (9.3-11.0) sec BUN (7-18) mg/dL Creatinine (0.70-1.30) mg/dL C-Reactive Protein (0.0-0.3) mg/dL Urine Protein (Negative) mg/dL Urine Blood (Negative) Urine RBC (0-2) Vital Signs Temperature 37.3 C 10/22/18 07:30 Temperature Source Temporal Artery Scan 10/22/18 07:30 Pulse 76 10/22/18 08:00 Pulse Rhythm Irregular 10/22/18 07:30 Pulse 88 10/22/18 08:00 Respiratory Rate 21 10/22/18 08:00 Respiratory Effort Non-Labored 10/22/18 07:30 Respiratory Depth Normal 10/22/18 07:30 Respiratory Pattern Normal 10/22/18 07:30 Blood Pressure 130/83 10/22/18 08:00 Blood Pressure Mean 93 10/22/18 08:00 Blood Pressure Position Supine 10/20/18 16:45 Pulse Oximetry 96 10/22/18 07:30 Oxygen Delivery Method Room Air 10/22/18 07:30 Oxygen Flow Rate 0 10/22/18 07:30 Fraction of Inspired Oxygen (FIO2) 21 10/12/18 15:05 Pain Level 0 10/21/18 15:50 Comment 10/17/18 22:30 Intake & Output 10/21/18 10/21/18 10/22/18 11:59 23:59 11:59 Intake Total 460 / 1345.325 885.325 / 1345.325 465.775 / 465.775 Output Total 700 / 2054 135 / 2054 975 / 975 Balance -240 / -709.675 -469.675 / -709.675 -509.225 / -509.225 Weight 135.5 kg 136 kg Intake: IV 100 / 325.325 225.325 / 325.325 105.775 / 105.775 Oral 360 / 1020 660 / 1020 360 / 360 Output: Urine 700 / 2054 135 / 2054 975 / 975 Other: Urine Color Yellow Yellow Yellow Urine Appearance Clear Clear Clear Comment falcon patent, u/a sent Lasix drip is at 2.5ml/hr Stool Occult Blood Negative Stool Size Moderate Stool Characteristics Formed Brown Laboratory Results WBC 12.79 k/cumm (4.4-10.8) H 10/22/18 07:00 RBC 2.71 m/cumm (4.50-6.00) L 10/22/18 07:00 Hgb 8.4 g/dL (13.5-17.5) L 10/22/18 07:00 Hct 26.7 % (40.0-50.0) L 10/22/18 07:00 MCV 98.5 fL (80-95) H 10/22/18 07:00 MCH 31.0 pg (27.0-33.0) 10/22/18 07:00 MCHC 31.5 g/dL (32.0-36.0) L 10/22/18 07:00 RDW 15.2 % (11.8-14.1) H 10/22/18 07:00 Plt Count 360 x1000/uL (130-400) 10/22/18 07:00 MPV 10.0 fL (8.0-11.0) 10/22/18 07:00 Immature Gran % 0.5 10/22/18 07:00 83.5 10/22/18 07:00 3.0 % 10/17/18 09:45 8.4 10/22/18 07:00 5.8 10/22/18 07:00 1.6 10/22/18 07:00 0.2 10/22/18 07:00 2.0 % 10/19/18 06:30 1.0 % 10/18/18 06:40 Absolute Neutrophils 10.68 k/cumm (1.2-6.7) H 10/22/18 07:00 Absolute Lymphocytes 1.07 k/cumm (1.2-3.4) L 10/22/18 07:00 Absolute Monocytes 0.74 k/cumm (0.11-0.7) H 10/22/18 07:00 Absolute Eosinophils 0.20 k/cumm (0.0-0.7) 10/22/18 07:00 Absolute Basophils 0.03 k/cumm (0.0-0.2) 10/22/18 07:00 Rbc morph reviewed 10/22/18 07:00 RBC Morphology See below 10/22/18 07:00 Present 10/19/18 06:30 1+ 10/22/18 07:00 1+ 10/22/18 07:00 1+ 10/22/18 07:00 ESR 98 mm/hr (1-20) H 10/10/18 16:30 PT 11.5 sec (9.3-11.0) H 10/22/18 07:00 INR 1.1 (0.9-1.1) 10/22/18 07:00 Sodium 137 mmol/L (136-145) 10/22/18 06:04 Potassium 4.4 mmol/L (3.5-5.1) 10/22/18 06:04 Chloride 106 mmol/L (98-107) 10/22/18 06:04 Carbon Dioxide 22.2 mmol/L (21.0-32.0) 10/22/18 06:04 8.8 mmol/L (3-11) 10/22/18 06:04 BUN 28 mg/dL (7-18) H 10/22/18 06:04 1.40 mg/dL (0.70-1.30) H 10/22/18 06:04 49.41 (mL/min/1.73m2) 10/22/18 06:04 Glucose 91 mg/dL (70-100) 10/22/18 06:04 5.9 % (4.5-6.2) 10/10/18 16:30 0.9 mmol/l (0.6-1.4) 10/14/18 06:30 Calcium 9.2 mg/dL (8.5-10.1) 10/22/18 06:04 Magnesium 2.3 mg/dL (1.8-2.4) 10/22/18 06:04 0.3 mg/dL (0.2-1.0) 10/21/18 06:20 0.09 mg/dL (0.00-0.20) 10/21/18 06:20 AST 15 U/L (15-37) 10/21/18 06:20 ALT 18 U/L (12-78) 10/21/18 06:20 62 U/L (46-116) 10/21/18 06:20 72 U/L (39-308) 10/12/18 06:10 15.47 mg/dL (0.0-0.3) H 10/22/18 06:04 6.5 g/dL (6.4-8.2) 10/21/18 06:20 1.7 g/dL (3.4-5.0) L 10/21/18 06:20 2.3 ng/mL 10/15/18 07:08 Yellow (Yellow) 10/21/18 15:30 Clear (Clear) 10/21/18 15:30 5.5 (5-8) 10/21/18 15:30 Ur Specific [place] 1.015 (1.005-1.025) 10/21/18 15:30 30 mg/dL (Negative) H 10/21/18 15:30 Negative mg/dL (Negative) 10/21/18 15:30 Large (Negative) H 10/21/18 15:30 Negative (Negative) 10/21/18 15:30 Negative (Negative) 10/21/18 15:30 0.2 EU/dL (Up TO 0.2) 10/21/18 15:30 Ur Leukocyte Esterase Negative (Negative) 10/21/18 15:30 >50 (0-2) H 10/21/18 15:30 3-5 HPF (0-5) 10/21/18 15:30 Ur Epithelial Cells Negative HPF (Negative) 10/21/18 15:30 Negative HPF (Negative) 10/21/18 15:30 Rare HPF (Negative) 10/21/18 15:30 3-5 coarse granular LPF (Negative) 10/21/18 15:30 Negative (Negative) 10/21/18 15:30 Ur Culture Indicated? No 10/21/18 15:30 Negative mg/dL (Negative) 10/21/18 15:30 Procedures Joint Aspiration/Injection Joint Asp./Inject. 1: Time out performed: Yes Side of body: left Joint aspirated: elbow Ultrasound guidance: No Skin prep: Povidone-Iodine1% Local anesthesia used: other (Ethyl chloride) Needle size used: 20G Fluid obtained: turbid Total fluid obtained (ml): 25 Medication injected, if any: other (I used 20 cc of injectable saline to inject and aspirate to clean out the joint.) Patient tolerated procedure: well Complications: none Additional comments: Fluid was sent for cell count, culture, crystal analysis.
[2018-10-22 11:23] LABS: Source L ELBOW
[2018-10-22 11:24] LABS: Clarity CLOUDY
[2018-10-22 11:35] LABS: Mononuclear Cells 8 % (0-0); Polynuclear Cells 92 % (0-0)
[2018-10-22] MEDS: Colchicine 0.6 MG TAB PO (12:22)
[2018-10-22] MEDS: Bupivacaine 0.5% Pres-Free 10 ML VIAL IJ (12:23)
[2018-10-22] MEDS: methylPREDNISolone ACETATE 80 MG/ML VIAL IJ (12:24)
--- NOTE | 2018-10-22 21:36 | W.PM.PROGNOT ---
Date of Service Date of service: 10/22/18 Time of Service: 11:36 Assessment and Plan (1) Effusion, left elbow: Current visit: Yes Status: Acute Vasu is a 73-year-old who presented with increasing severe left elbow pain. While in the action insulin differential the initial analysis would suggest that this is a gout attack of his left elbow. While it is also possible have coinfection in the setting of gout, I did go ahead and recommend a steroid injection to the left elbow. I also think we should be more diligent on using anti-inflammatories, albeit while watching his kidneys, and consider the restart of his anti-gout medications which he has been on for some time. He will take a few days for the steroid to start working but I expect that there should be some noticeable improvement within a day. I will continue to follow the cultures of the left elbow. Subjective Interval history since last seen: Please see earlier note for full details of his progress. This note is simply to serve as a procedure note for left elbow injection. Objective Objective Clinical Data: Fluid Source L elbow 10/22/18 10:10 Fluid Color Yellow 10/22/18 10:10 Fluid Clarity Cloudy 10/22/18 10:10 Fluid WBC 31113 /MM3 (0-0) H 10/22/18 10:10 Fluid Mononuclear Cell 8 % (0-0) H 10/22/18 10:10 Fl Polymorphonucl Cell 92 % (0-0) H 10/22/18 10:10 Fluid Crystals See comment 10/22/18 10:10 Fluid Crystal Source L elbow 10/22/18 10:10 Objective Narrative Objective Narrative: Lab results show an increased cell count of 45,090% polymorphonuclear cells. Initial Gram stain has white blood cells but no bacteria. Crystal analysis demonstrated copious amounts of monosodium urate crystals as well as calcium pyrophosphate to a lesser extent. Procedures Joint Aspiration/Injection Joint Asp./Inject. 1: Time out performed: Yes Side of body: left Joint aspirated: elbow Ultrasound guidance: No Skin prep: Povidone-Iodine1% Local anesthesia used: other (Ethyl chloride) Needle size used: 22G Medication injected, if any: other (80mg of Depo-Medrol and 2 cc of 0.5% bupivacaine) Patient tolerated procedure: well Complications: none
[2018-10-22] MEDS: WARFARIN 5 MG, WARFARIN 1 MG 6 MG PO (21:58)
[2018-10-23] VITALS (29 sets, daily range): BP systolic 112–136; BP diastolic 52–83; PULSE 64–107; RESP 13–32; TEMP 36.7–37.6; O2SAT 94
[2018-10-23] MEDS: Normal Saline Flush 10 ML SYR 20 ML IVP ×3 (02:56→18:51)
[2018-10-23] MEDS: ceFAZolin 2,000 MG in Normal Saline 100 ML 200 MG IVPB ×3 (02:56→18:52)
[2018-10-23] MEDS: Enoxaparin 30 MG/0.3 ML SYR SC ×2 (06:27→18:51)
[2018-10-23] MEDS: Levothyroxine 75 MCG TAB PO (06:27)
[2018-10-23] MEDS: Metoprolol 50 MG TAB 100 MG PO ×3 (06:27→21:29)
[2018-10-23] MEDS: Normal Saline Flush 10 ML SYR IVP ×2 (06:29→08:44)
[2018-10-23 07:20] LABS: Abs Immature Grans 0.06 k/cumm (0.0-0.09); Absolute Eosinophil Count 0.09 k/cumm (0.0-0.7); Absolute Monocyte Count 0.64 k/cumm (0.11-0.7); Basophils % 0.1; Eosinophils % 0.7; HCT 26.1 % (40.0-50.0); HGB 8.1 g/dL (13.5-17.5); Immature Grans % 0.4; Lymphocytes % 6.6; Mean Corpuscular Hemoglobin 30.6 pg (27.0-33.0); Mean Corpuscular Volume 98.5 fL (80-95); Mean Platelet Volume 9.9 fL (8.0-11.0); Monocytes % 4.7; Neutrophils % 87.5; Platelet Count 344 x1000/uL (130-400); RBC 2.65 m/cumm (4.50-6.00); RBC Distribution Width 14.9 % (11.8-14.1); White Blood Cell Count 13.57 k/cumm (4.4-10.8)
[2018-10-23 07:25] LABS: INR 1.2 (0.9-1.1); Prothrombin Time 11.6 sec (9.3-11.0)
[2018-10-23 07:27] LABS: Absolute Basophil Count 0.01 k/cumm (0.0-0.2); Absolute Neutrophil Count 11.87 k/cumm (1.2-6.7)
[2018-10-23 07:37] LABS: BUN 27 mg/dL (7-18); CREATININE 1.25 mg/dL (0.70-1.30); Chloride 104 mmol/L (98-107); Estimated GFR 56.31 (mL/min/1.73m2); Glucose 91 mg/dL (70-100); Magnesium 2.2 mg/dL (1.8-2.4); Potassium 4.3 mmol/L (3.5-5.1); Sodium 136 mmol/L (136-145)
[2018-10-23 07:45] LABS: Procalcitonin 0.3 ng/mL
--- NOTE | 2018-10-23 08:11 | CMPROGNOTE_ITS ---
Care Management Progress Note S/O: Brennan Leone was lying in bed when CM met with him. He is showing vast improvement in ROM of his elbow per Dr. Samano. Dr. Wilkins did report anticipating Vasu will have six weeks of IV ABX. This will likely be coordinated in the home setting with DME provider for home infusion, [facility] supports for RN as well as PT. CM continues to follow. A: Brennan is a 73 year old man admitted to [facility] on 10/10/18 with an infected knee, MSSA. P: Brennan continues to receive IV antibiotics for an infected prosthetic knee. PICC line placed to facilitate administration of the needed 6 weeks of IV AB. Vasu and his prefer home antibiotic therapy if possible-anticipate [facility] supports for RN and PT as well as home DME company coordination for IV ABX. CM will continue to support patient, family and discharge planning needs identified
--- NOTE | 2018-10-23 08:19 | W.PM.PROGNOT ---
Date of Service Date of service: 10/23/18 Time of Service: 08:20 Assessment and Plan (1) Sepsis: Current visit: Yes Status: Resolved Sepsis with MSSA Bacteremia and infected left knee prosthesis. Fevers resolved post treatment of gout. - PICC and peripheral blood cx are negative. Fluid cultures L elbow with crystals and negative for bacterial growth. Drug fever also a consideration - rifampin stopped. Continue cefazolin, monitor CRP and fever curve. (2) Bacteremia: Current visit: Yes Status: Acute As above Repeat blood cultures from 10/12, 10/14, and 10/15, 10/21 negative despite recurrent fevers. Fevers and rise in CRP are thought to be due to gout. Consider JS - nonemergent, could be done as outpatient. (3) Infection of prosthetic left knee joint: Current visit: Yes Status: Acute S/p debridement 10/11, hardware in place - C&S with MSSA. Currently on cefazolin monotherapy and improving. Defervesced and HR is better. CRP is better. Repeat blood cultures on 10/12, 10/14, 10/15, 10/21 negative, as was culture of the central line tip. Recurrent fevers could be due to: Gout (most likely), ?DVT (will need dopplers LLE/PICC UE - unavailable until tomorrow), drug fever due to rifampin (d/c'ed). As above - continue monitoring CRP, fever curve. Qualifiers: Encounter type: initial encounter Qualified Code(s): T84.54XA - Infection and inflammatory reaction due to internal left knee prosthesis, initial encounter (4) Atrial fibrillation: Current visit: No Status: Chronic Chronic Afib with rate that has been spiking in association with fevers. HR is perfectly controlled today as the patient has defervesced. No change to therapy. - Rivaroxaban is contraindicated in setting of Rifampin use. If plans for 6 total weeks of Rifampin. Continue coumadin (INR subtherapeutic, will increase dose). (5) Pneumonia: Current visit: Yes Status: Resolved HCAP, repeat CXR negative. Completed zosyn. (6) Cardiomyopathy: Current visit: No Status: Acute EF 45-50%, with evidence of acute on chronic systolic CHF. Lasix gtt d/c'ed due to higher than desired UOP overnight. Will hold diuretics for the remainder of the day, recheck Cr, weight tomorrow. - High dose oral Furosemide, Entresto and Spironolactone remain on hold given JUAN. Cr is better today. (7) Acute renal insufficiency: Current visit: Yes Status: Acute In setting of infection and possible overdiuresis (also, ?rifampin). As above - Cr is better today. Continue to monitor Cr, I/O's, daily weights. (8) Gout: Current visit: Yes Status: Chronic Acute flare R wrist resolved, L elbow significantly better - likely due to JUAN and fluid shifts. S/p steroid injection in L elbow and on colchicine - will give one more dose tomorrow. Continue toradol, allopurinol. Likely reason for recurrence of fever and rise of CRP. (9) Acute anemia: Current visit: Yes Status: Acute Acute on chronic, likely due to repetitive blood draws and a dilutional component. No active bleeding, hematest negative - repeat testing ordered. No indication for blood transfusion at this time. (10) DVT prophylaxis: Current visit: Yes Status: Acute Home xarelto d/c'ed due to contraindication on rifampin. Rifampin now d/c'ed - consider resuming xarelto. For now on SC Lovenox to coumadin bridge - coumadin increased. (11) Advance directive on file: Current visit: Yes Status: Acute DNI. (12) Discharge planning issues: Current visit: Yes Status: Acute Anticipated at least 6 weeks of IV antibiotics. Planned for home with home RN, IV abx, PT, OT. Note: I cannot get rid of billing for procedure in the field below - [employer] has autopopulated it into my note. It was performed by Dr Samano yesterday. Subjective Interval history since last seen: Afebrile overnight. Hematest negative yesterday. BP 136/67 this am; HR 76. Lasix gtt turned off at 7 am - due to large UOP. States he feels much better. Denies shakes, dizziness, chest pain, shortness of breath, pain in L elbow, nausea/vomiting. Worked with PT today - it wasn't his left knee that made him stop, but the sensation that the R knee would give out. Exam Narrative Exam Narrative: General: very pleasant elderly Caucasina male, sitting up in a chair, looks better, not shaky, A&Ox3 HEENT: EOMI, MMM Heart: Irregularly irregular rhythm, rate is controlled (80's while I am in the room). Lungs: CTAB GI: abdomen is soft, nontender, nondistended Extremities: +2 edema LLE, L knee in immobilizer, dressed, no c/c; RLE with 1+ edema, in SPENCER. L elbow with improved ROM. Objective Objective Clinical Data: Abnormal lab results 10/22/18 10/23/18 10/23/18 Range/Units 10:10 06:26 06:26 WBC (4.4-10.8) k/cumm RBC (4.50-6.00) m/cumm Hgb (13.5-17.5) g/dL Hct (40.0-50.0) % MCV (80-95) fL MCHC (32.0-36.0) g/dL RDW (11.8-14.1) % Absolute Neutrophils (1.2-6.7) k/cumm Absolute Lymphocytes (1.2-3.4) k/cumm PT 11.6 H (9.3-11.0) sec INR 1.2 H (0.9-1.1) BUN 27 H (7-18) mg/dL Fluid WBC 46346 H (0-0) /MM3 Fluid Mononuclear Cell 8 H (0-0) % Fl Polymorphonucl Cell 92 H (0-0) % 10/23/18 Range/Units 06:26 WBC 13.57 H (4.4-10.8) k/cumm RBC 2.65 L (4.50-6.00) m/cumm Hgb 8.1 L (13.5-17.5) g/dL Hct 26.1 L (40.0-50.0) % MCV 98.5 H (80-95) fL MCHC 31.0 L (32.0-36.0) g/dL RDW 14.9 H (11.8-14.1) % Absolute Neutrophils 11.87 H (1.2-6.7) k/cumm Absolute Lymphocytes 0.90 L (1.2-3.4) k/cumm PT (9.3-11.0) sec INR (0.9-1.1) BUN (7-18) mg/dL Fluid WBC (0-0) /MM3 Fluid Mononuclear Cell (0-0) % Fl Polymorphonucl Cell (0-0) % Vital Signs Temperature 37.5 C 10/23/18 04:18 Temperature Source Temporal Artery Scan 10/23/18 04:18 Pulse 93 H 10/23/18 04:01 Pulse Rhythm Regular 10/23/18 01:01 Pulse 87 10/23/18 05:00 Respiratory Rate 28 H 10/23/18 05:00 Respiratory Effort Non-Labored 10/23/18 01:01 Respiratory Depth Normal 10/23/18 01:01 Respiratory Pattern Normal 10/23/18 01:01 Blood Pressure 112/58 L 10/23/18 04:01 Blood Pressure Mean 70 10/23/18 04:01 Blood Pressure Position Supine 10/20/18 16:45 Pulse Oximetry 96 10/22/18 15:03 Oxygen Delivery Method Room Air 10/22/18 15:05 Oxygen Flow Rate 0 10/22/18 15:05 Fraction of Inspired Oxygen (FIO2) 21 10/12/18 15:05 Pain Level 3 10/22/18 15:05 Comment 10/17/18 22:30 Intake & Output 10/22/18 10/22/18 10/23/18 11:59 23:59 11:59 Intake Total 565.775 / 959.108 393.333 / 959.108 119.021 / 119.021 Output Total 975 / 2740 1765 / 2740 1100 / 1100 Balance -409.225 / -1780.892 -1371.667 / -1780.892 -980.979 / -980.979 Weight 136 kg 136 kg Intake: IV 205.775 / 359.108 153.333 / 359.108 119.021 / 119.021 Oral 360 / 600 240 / 600 Output: Urine 975 / 2740 1765 / 2740 1100 / 1100 Other: Urine Color Yellow Yellow Yellow Urine Appearance Clear Clear Clear Sediment Sediment Comment Lasix drip is at 2.5ml/hr Decreased lasix rate to 2.25 Stool Size Moderate Large Stool Characteristics Soft Soft Brown Laboratory Results WBC 13.57 k/cumm (4.4-10.8) H 10/23/18 06:26 RBC 2.65 m/cumm (4.50-6.00) L 10/23/18 06:26 Hgb 8.1 g/dL (13.5-17.5) L 10/23/18 06:26 Hct 26.1 % (40.0-50.0) L 10/23/18 06:26 MCV 98.5 fL (80-95) H 10/23/18 06:26 MCH 30.6 pg (27.0-33.0) 10/23/18 06:26 MCHC 31.0 g/dL (32.0-36.0) L 10/23/18 06:26 RDW 14.9 % (11.8-14.1) H 10/23/18 06:26 Plt Count 344 x1000/uL (130-400) 10/23/18 06:26 MPV 9.9 fL (8.0-11.0) 10/23/18 06:26 Immature Gran % 0.4 10/23/18 06:26 87.5 10/23/18 06:26 3.0 % 10/17/18 09:45 6.6 10/23/18 06:26 4.7 10/23/18 06:26 0.7 10/23/18 06:26 0.1 10/23/18 06:26 2.0 % 10/19/18 06:30 1.0 % 10/18/18 06:40 Absolute Neutrophils 11.87 k/cumm (1.2-6.7) H 10/23/18 06:26 Absolute Lymphocytes 0.90 k/cumm (1.2-3.4) L 10/23/18 06:26 Absolute Monocytes 0.64 k/cumm (0.11-0.7) 10/23/18 06:26 Absolute Eosinophils 0.09 k/cumm (0.0-0.7) 10/23/18 06:26 Absolute Basophils 0.01 k/cumm (0.0-0.2) 10/23/18 06:26 Rbc morph reviewed 10/22/18 07:00 RBC Morphology See below 10/22/18 07:00 Present 10/19/18 06:30 1+ 10/22/18 07:00 1+ 10/22/18 07:00 1+ 10/22/18 07:00 ESR 98 mm/hr (1-20) H 10/10/18 16:30 PT 11.6 sec (9.3-11.0) H 10/23/18 06:26 INR 1.2 (0.9-1.1) H 10/23/18 06:26 Sodium 136 mmol/L (136-145) 10/23/18 06:26 Potassium 4.3 mmol/L (3.5-5.1) 10/23/18 06:26 Chloride 104 mmol/L (98-107) 10/23/18 06:26 Carbon Dioxide 24.0 mmol/L (21.0-32.0) 10/23/18 06:26 8.0 mmol/L (3-11) 10/23/18 06:26 BUN 27 mg/dL (7-18) H 10/23/18 06:26 1.25 mg/dL (0.70-1.30) 10/23/18 06:26 56.31 (mL/min/1.73m2) 10/23/18 06:26 Glucose 91 mg/dL (70-100) 10/23/18 06:26 5.9 % (4.5-6.2) 10/10/18 16:30 0.9 mmol/l (0.6-1.4) 10/14/18 06:30 Calcium 9.0 mg/dL (8.5-10.1) 10/23/18 06:26 Magnesium 2.2 mg/dL (1.8-2.4) 10/23/18 06:26 0.3 mg/dL (0.2-1.0) 10/21/18 06:20 0.09 mg/dL (0.00-0.20) 10/21/18 06:20 AST 15 U/L (15-37) 10/21/18 06:20 ALT 18 U/L (12-78) 10/21/18 06:20 62 U/L (46-116) 10/21/18 06:20 72 U/L (39-308) 10/12/18 06:10 15.47 mg/dL (0.0-0.3) H 10/22/18 06:04 6.5 g/dL (6.4-8.2) 10/21/18 06:20 1.7 g/dL (3.4-5.0) L 10/21/18 06:20 0.3 ng/mL 10/23/18 06:26 Yellow (Yellow) 10/21/18 15:30 Clear (Clear) 10/21/18 15:30 5.5 (5-8) 10/21/18 15:30 Ur Specific [place] 1.015 (1.005-1.025) 10/21/18 15:30 30 mg/dL (Negative) H 10/21/18 15:30 Negative mg/dL (Negative) 10/21/18 15:30 Large (Negative) H 10/21/18 15:30 Negative (Negative) 10/21/18 15:30 Negative (Negative) 10/21/18 15:30 0.2 EU/dL (Up TO 0.2) 10/21/18 15:30 Ur Leukocyte Esterase Negative (Negative) 10/21/18 15:30 >50 (0-2) H 10/21/18 15:30 3-5 HPF (0-5) 10/21/18 15:30 Ur Epithelial Cells Negative HPF (Negative) 10/21/18 15:30 Negative HPF (Negative) 10/21/18 15:30 Rare HPF (Negative) 10/21/18 15:30 3-5 coarse granular LPF (Negative) 10/21/18 15:30 Negative (Negative) 10/21/18 15:30 Ur Culture Indicated? No 10/21/18 15:30 Negative mg/dL (Negative) 10/21/18 15:30 Fluid Source L elbow 10/22/18 10:10 Fluid Color Yellow 10/22/18 10:10 Fluid Clarity Cloudy 10/22/18 10:10 Fluid WBC 13971 /MM3 (0-0) H 10/22/18 10:10 Fluid Mononuclear Cell 8 % (0-0) H 10/22/18 10:10 Fl Polymorphonucl Cell 92 % (0-0) H 10/22/18 10:10 Fluid Crystals See comment 10/22/18 10:10 Fluid Crystal Source L elbow 10/22/18 10:10
[2018-10-23 08:20] LABS: C-Reactive Protein 14.65 mg/dL (0.0-0.3)
[2018-10-23] MEDS: Vitamins B Comp w/C TAB 1 TAB PO (08:44)
[2018-10-23] MEDS: Cyanocobalamin 500 MCG TAB PO (08:45)
[2018-10-23] MEDS: Colchicine 0.6 MG TAB PO (08:45)
[2018-10-23] MEDS: Tamsulosin 0.4 MG CAPCR PO (08:45)
[2018-10-23] MEDS: Cholecalciferol (Vitamin D3) 1,000 UNIT TAB 1000 UNITS PO (08:45)
[2018-10-23] MEDS: Ascorbic Acid 500 MG TAB PO (08:45)
[2018-10-23] MEDS: Multivitamin TAB 1 TAB PO (08:45)
[2018-10-23] MEDS: Allopurinol 300 MG TAB PO (08:45)
--- NOTE | 2018-10-23 09:51 | PGE_ITS ---
Date of Service Date of service: 10/23/18 Time of Service: 10:07 Assessment and Plan (1) Gout of left elbow: Current visit: Yes Status: Acute Vasu is a 73-year-old who developed gout of the left elbow. So far the culture is negative. There were crystals visible on the initial evaluation of the fluid and he has responded to an intra-articular steroid injection. Should continue to get better over the next 1 to 2 days. Hopefully, he will be able to start weightbearing to continue working on rehabilitation of his left knee. He should hopefully return back to some of his gout medications and also use an anti-inflammatory more regularly if he seems to have symptoms presenting Qualifiers: Gout etiology: idiopathic Chronicity: acute Qualified Code(s): M10.022 - Idiopathic gout, left elbow (2) Infection of prosthetic left knee joint: Current visit: Yes Status: Acute Continued fluid about the left knee which is likely due to the expense of infectious material seen both superficially and deep. No drainage of the knee. No erythema. Therefore, I would not aspirate this time. However, we could aspirate the fluid if he feels necessary but I do not want to contaminate this fluid collection if we can avoid it. He should continue with physical therapy. Weightbearing as tolerated. Return to Coumadin for DVT prophylaxis and chronic antiregulation. Qualifiers: Encounter type: initial encounter Qualified Code(s): T84.54XA - Infection and inflammatory reaction due to internal left knee prosthesis, initial encounter Subjective Patient reports: no new complaints and feels better Interval history since last seen: Vasu was able to sleep last night. The ache of his left elbow has improved although he still has some pain with motion. No notable left knee pain. No subjective fever or chills. Exam Narrative Exam Narrative: There is still notable edema about the left upper extremity. He has much less pain to palpation about the left elbow. He is able to tolerate both active and passive motion. Actively he has about 60 degrees of flexion and about 140 degrees of extension without pain. No erythema. Less warmth. Sensation intact light touch over the median, radial, ulnar nerve. Palpable radial pulse. Evaluation left knee shows a well approximated incision. Warmth about the left knee. Notable swelling about the left knee with superficial fluid collection. However, no drainage. Objective Objective Clinical Data: Abnormal lab results 10/22/18 10/23/1810/23/19 Range/Units 10:10 06:26 06:26 WBC (4.4-10.8) k/cumm RBC (4.50-6.00) m/cumm Hgb (13.5-17.5) g/dL Hct (40.0-50.0) % MCV (80-95) fL MCHC (32.0-36.0) g/dL RDW (11.8-14.1) % Absolute Neutrophils (1.2-6.7) k/cumm Absolute Lymphocytes (1.2-3.4) k/cumm PT 11.6 H (9.3-11.0) sec INR 1.2 H (0.9-1.1) BUN 27 H (7-18) mg/dL C-Reactive Protein 14.65 H (0.0-0.3) mg/dL Fluid WBC 42729 H (0-0) /MM3 Fluid Mononuclear Cell 8 H (0-0) % Fl Polymorphonucl Cell 92 H (0-0) % 10/23/18 Range/Units 06:26 WBC 13.57 H (4.4-10.8) k/cumm RBC 2.65 L (4.50-6.00) m/cumm Hgb 8.1 L (13.5-17.5) g/dL Hct 26.1 L (40.0-50.0) % MCV 98.5 H (80-95) fL MCHC 31.0 L (32.0-36.0) g/dL RDW 14.9 H (11.8-14.1) % Absolute Neutrophils 11.87 H (1.2-6.7) k/cumm Absolute Lymphocytes 0.90 L (1.2-3.4) k/cumm PT (9.3-11.0) sec INR (0.9-1.1) BUN (7-18) mg/dL C-Reactive Protein (0.0-0.3) mg/dL Fluid WBC (0-0) /MM3 Fluid Mononuclear Cell (0-0) % Fl Polymorphonucl Cell (0-0) % Vital Signs Temperature 37.5 C 10/23/18 04:18 Temperature Source Temporal Artery Scan 10/23/18 04:18 Pulse 64 10/23/18 08:00 Pulse Rhythm Regular 10/23/18 01:01 Pulse 71 10/23/18 08:00 Respiratory Rate 24 10/23/18 08:00 Respiratory Effort Non-Labored 10/23/18 01:01 Respiratory Depth Normal 10/23/18 01:01 Respiratory Pattern Normal 10/23/18 01:01 Blood Pressure 136/67 10/23/18 08:00 Blood Pressure Mean 82 10/23/18 08:00 Blood Pressure Position Supine 10/20/18 16:45 Pulse Oximetry 96 10/22/18 15:03 Oxygen Delivery Method Room Air 10/22/18 15:05 Oxygen Flow Rate 0 10/22/18 15:05 Fraction of Inspired Oxygen (FIO2) 21 10/12/18 15:05 Pain Level 3 10/22/18 15:05 Comment 10/17/18 22:30 Intake & Output 10/22/18 10/22/18 10/23/18 11:59 23:59 11:59 Intake Total 565.775 / 959.108 393.333 / 959.108 119.021 / 119.021 Output Total 975 / 2740 1765 / 2740 1375 / 1375 Balance -409.225 / -1780.892 -1371.667 / -1780.892 -1255.979 / -1255.979 Weight 136 kg 136 kg Intake: IV 205.775 / 359.108 153.333 / 359.108 119.021 / 119.021 Oral 360 / 600 240 / 600 Output: Urine 975 / 2740 1765 / 2740 1375 / 1375 Other: Urine Color Yellow Yellow Yellow Urine Appearance Clear Clear Clear Sediment Comment Lasix drip is at 2.5ml/hr Decreased lasix rate to 2.25 Stool Size Moderate Large Stool Characteristics Soft Soft Brown Laboratory Results WBC 13.57 k/cumm (4.4-10.8) H 10/23/18 06:26 RBC 2.65 m/cumm (4.50-6.00) L 10/23/18 06:26 Hgb 8.1 g/dL (13.5-17.5) L 10/23/18 06:26 Hct 26.1 % (40.0-50.0) L 10/23/18 06:26 MCV 98.5 fL (80-95) H 10/23/18 06:26 MCH 30.6 pg (27.0-33.0) 10/23/18 06:26 MCHC 31.0 g/dL (32.0-36.0) L 10/23/18 06:26 RDW 14.9 % (11.8-14.1) H 10/23/18 06:26 Plt Count 344 x1000/uL (130-400) 10/23/18 06:26 MPV 9.9 fL (8.0-11.0) 10/23/18 06:26 Immature Gran % 0.4 10/23/18 06:26 87.5 10/23/18 06:26 3.0 % 10/17/18 09:45 6.6 10/23/18 06:26 4.7 10/23/18 06:26 0.7 10/23/18 06:26 0.1 10/23/18 06:26 2.0 % 10/19/18 06:30 1.0 % 10/18/18 06:40 Absolute Neutrophils 11.87 k/cumm (1.2-6.7) H 10/23/18 06:26 Absolute Lymphocytes 0.90 k/cumm (1.2-3.4) L 10/23/18 06:26 Absolute Monocytes 0.64 k/cumm (0.11-0.7) 10/23/18 06:26 Absolute Eosinophils 0.09 k/cumm (0.0-0.7) 10/23/18 06:26 Absolute Basophils 0.01 k/cumm (0.0-0.2) 10/23/18 06:26 Rbc morph reviewed 10/22/18 07:00 RBC Morphology See below 10/22/18 07:00 Present 10/19/18 06:30 1+ 10/22/18 07:00 1+ 10/22/18 07:00 1+ 10/22/18 07:00 ESR 98 mm/hr (1-20) H 10/10/18 16:30 PT 11.6 sec (9.3-11.0) H 10/23/18 06:26 INR 1.2 (0.9-1.1) H 10/23/18 06:26 Sodium 136 mmol/L (136-145) 10/23/18 06:26 Potassium 4.3 mmol/L (3.5-5.1) 10/23/18 06:26 Chloride 104 mmol/L (98-107) 10/23/18 06:26 Carbon Dioxide 24.0 mmol/L (21.0-32.0) 10/23/18 06:26 8.0 mmol/L (3-11) 10/23/18 06:26 BUN 27 mg/dL (7-18) H 10/23/18 06:26 1.25 mg/dL (0.70-1.30) 10/23/18 06:26 56.31 (mL/min/1.73m2) 10/23/18 06:26 Glucose 91 mg/dL (70-100) 10/23/18 06:26 5.9 % (4.5-6.2) 10/10/18 16:30 0.9 mmol/l (0.6-1.4) 10/14/18 06:30 Calcium 9.0 mg/dL (8.5-10.1) 10/23/18 06:26 Magnesium 2.2 mg/dL (1.8-2.4) 10/23/18 06:26 0.3 mg/dL (0.2-1.0) 10/21/18 06:20 0.09 mg/dL (0.00-0.20) 10/21/18 06:20 AST 15 U/L (15-37) 10/21/18 06:20 ALT 18 U/L (12-78) 10/21/18 06:20 62 U/L (46-116) 10/21/18 06:20 72 U/L (39-308) 10/12/18 06:10 14.65 mg/dL (0.0-0.3) H 10/23/18 06:26 6.5 g/dL (6.4-8.2) 10/21/18 06:20 1.7 g/dL (3.4-5.0) L 10/21/18 06:20 0.3 ng/mL 10/23/18 06:26 Yellow (Yellow) 10/21/18 15:30 Clear (Clear) 10/21/18 15:30 5.5 (5-8) 10/21/18 15:30 Ur Specific [place] 1.015 (1.005-1.025) 10/21/18 15:30 30 mg/dL (Negative) H 10/21/18 15:30 Negative mg/dL (Negative) 10/21/18 15:30 Large (Negative) H 10/21/18 15:30 Negative (Negative) 10/21/18 15:30 Negative (Negative) 10/21/18 15:30 0.2 EU/dL (Up TO 0.2) 10/21/18 15:30 Ur Leukocyte Esterase Negative (Negative) 10/21/18 15:30 >50 (0-2) H 10/21/18 15:30 3-5 HPF (0-5) 10/21/18 15:30 Ur Epithelial Cells Negative HPF (Negative) 10/21/18 15:30 Negative HPF (Negative) 10/21/18 15:30 Rare HPF (Negative) 10/21/18 15:30 3-5 coarse granular LPF (Negative) 10/21/18 15:30 Negative (Negative) 10/21/18 15:30 Ur Culture Indicated? No 10/21/18 15:30 Negative mg/dL (Negative) 10/21/18 15:30 Fluid Source L elbow 10/22/18 10:10 Fluid Color Yellow 10/22/18 10:10 Fluid Clarity Cloudy 10/22/18 10:10 Fluid WBC 82394 /MM3 (0-0) H 10/22/18 10:10 Fluid Mononuclear Cell 8 % (0-0) H 10/22/18 10:10 Fl Polymorphonucl Cell 92 % (0-0) H 10/22/18 10:10 Fluid Crystals See comment 10/22/18 10:10 Fluid Crystal Source L elbow 10/22/18 10:10
--- NOTE | 2018-10-23 11:58 | PT.INTREAT ---
Date of service: 10/23/18 Time of Service: 11:00 PT Notes Inpatient Physical Therapy Treatment Note [facility] Date: 10/23/18 PRECAUTIONS:Fall, WBAT on left SUBJECTIVE: Left arm is doing better today. Willing to take a walk but indicated after about 30ft that his right knee felt like it was going to give out on him today and asked to sit. Did not walk to walk any further after sitting. Indicated he was too fatigued. OBJECTIVE: PAIN: No significant complaints of discomfort in left arm or left knee. Complained of more weakness. BED MOBILITY/TRANSFERS Supine-sit: Attempted with HOB at 20 degrees today. Able to bring his legs over edge of bed but needed assist to pull his upper body into sitting. Sit-stand: SBA Stand-sit: SBA GAIT Assistive Device: FWW Weight bearing: WBAT on the left Assist: SBA Distance: 30ft Able to step up and step down from standing scales, prior to taking a walk with CGA. THEREX: Performed AP, QS, GS, SLRs with assist, LAQs 90-60 degrees independently for 10 reps, supine hip flexion and hip abd/adduction and seated heel raises for 10-20 reps each, as per flow sheet. STAIRS:Held on stairs due to complaints of weakness in right LE. Cryocuff applied to left knee at conclusion of session. ASSESSMENT: Tolerated today's session fair, but limited with ambulation. PLAN: Continue with current POC with focus on improved functional mobility and strengthening of LEs. TREATMENT CODE/TIME: 33688p1/ [id number] (45'), 11:00 to 11:45
[2018-10-23] MEDS: Normal Saline 500 ML IV (18:50)
[2018-10-23] MEDS: Warfarin 4 MG TAB 8 MG PO (19:08)
[2018-10-24] VITALS (40 sets, daily range): BP systolic 112–145; BP diastolic 65–96; PULSE 69–115; RESP 11–29; TEMP 36.8–37; O2SAT 84–98
[2018-10-24] MEDS: ceFAZolin 2,000 MG in Normal Saline 100 ML 200 MG IVPB ×3 (02:07→18:55)
[2018-10-24] MEDS: Metoprolol 50 MG TAB 100 MG PO ×3 (06:59→22:37)
[2018-10-24] MEDS: Levothyroxine 75 MCG TAB PO (06:59)
[2018-10-24] MEDS: Normal Saline Flush 10 ML SYR 20 ML IVP ×2 (07:00→20:01)
[2018-10-24] MEDS: Enoxaparin 30 MG/0.3 ML SYR SC ×2 (07:00→18:41)
[2018-10-24 07:18] LABS: Abs Immature Grans 0.03 k/cumm (0.0-0.09); Absolute Basophil Count 0.02 k/cumm (0.0-0.2); Absolute Eosinophil Count 0.12 k/cumm (0.0-0.7); Absolute Lymphocyte Count 1.01 k/cumm (1.2-3.4); Absolute Monocyte Count 0.48 k/cumm (0.11-0.7); Basophils % 0.2; HCT 25.9 % (40.0-50.0); HGB 8.1 g/dL (13.5-17.5); Immature Grans % 0.3; Lymphocytes % 8.6; Mean Corp. HGB Concentration 31.3 g/dL (32.0-36.0); Mean Corpuscular Hemoglobin 30.9 pg (27.0-33.0); Mean Corpuscular Volume 98.9 fL (80-95); Mean Platelet Volume 9.7 fL (8.0-11.0); Monocytes % 4.1; Neutrophils % 85.8; Platelet Count 365 x1000/uL (130-400); RBC 2.62 m/cumm (4.50-6.00); RBC Distribution Width 15.1 % (11.8-14.1); White Blood Cell Count 11.79 k/cumm (4.4-10.8)
[2018-10-24 07:27] LABS: INR 1.1 (0.9-1.1); Prothrombin Time 11.3 sec (9.3-11.0)
[2018-10-24 07:34] LABS: Anion Gap 9.7 mmol/L (3-11); BUN 31 mg/dL (7-18); C-Reactive Protein 11.15 mg/dL (0.0-0.3); CO2 23.3 mmol/L (21.0-32.0); CREATININE 1.13 mg/dL (0.70-1.30); Calcium 9.2 mg/dL (8.5-10.1); Chloride 106 mmol/L (98-107); Glucose 100 mg/dL (70-100); Magnesium 2.4 mg/dL (1.8-2.4); Potassium 4.8 mmol/L (3.5-5.1); Sodium 139 mmol/L (136-145)
[2018-10-24 07:54] LABS: Procalcitonin 0.2 ng/mL
--- NOTE | 2018-10-24 07:56 | NUR.NOTE ---
attempt made to obtain standing scale weight. Scale had not been zeroed when pt got on scale and scale would not weight pt. pt then became incontinent on the scale and needed to get to the commode. unable to obtain weight at this time.
--- NOTE | 2018-10-24 08:00 | DI.US_ITS ---
SYMPTOMS/DIAGNOSIS: FEVER, INFECTED KNEE, CONCERN FOR DVT DUPLEX VENOUS ULTRASOUND, BILATERAL LOWER EXTREMITIES: Duplex evaluation of the deep venous system was performed according to the usual protocol. The deep veins are freely compressible throughout to the level of the popliteal veins. There is normal Doppler flow visible throughout and there is excellent flow augmentation with manual calf compression. CONCLUSION: No evidence of deep venous thrombosis.
--- NOTE | 2018-10-24 08:00 | DI.US_ITS ---
SYMPTOM/DIAGNOSIS: CONCERN FOR DVT DUPLEX VENOUS ULTRASOUND LEFT UPPER EXTREMITY: 10/24 Duplex evaluation of deep venous system of the upper extremity was performed according to the usual protocol. Deep veins are freely compressible throughout. No visible thrombus. Normal color flow. CONCLUSION: Negative DVT ultrasound upper extremity.
[2018-10-24 08:07] LABS: Absolute Neutrophil Count 10.12 k/cumm (1.2-6.7)
[2018-10-24 08:08] LABS: Anisocytosis 2+; Diff Comment Diff Reviewed
[2018-10-24 08:09] LABS: Poikilocytes 1+
--- NOTE | 2018-10-24 08:13 | CMPROGNOTE_ITS ---
- If Service Date Differs Date of service: 10/24/18 Time of Service: 08:13 Care Management Progress Note S/O:Vasu was sitting up in bed eating lunch when CM came to visit. He was pleasant, as usual, but stated he was not happy with the suggestion that he go into swing bed status. Vasu has stated, from the beginning, that he plans to return home and have his assist with his prolonged IV antibiotic regimen. He did state clearly that he will not entertain the possibility of going to reha b. He states that he feels strongly that he will progress much more quickly at home. When questioned, he stated that he does not feel quite ready today but feels in another 1 to 2 days, that he will be. The need to have a safe discharge plan was discussed with Vasu and he understands that he would need to be able to get out of bed/chair and ambulate safely before discharge home would be considered safe. A: Brennan is a 73 year old man admitted to [facility] on 10/10/18 with an infected knee, MSSA. P: Brennan continues to receive IV antibiotics for an infected prosthetic knee. PICC line placed to facilitate administration of the needed 6 weeks of IV AB. Vasu and his prefer home antibiotic therapy if possible-anticipate [facility] supports for RN and PT as well as home DME company coordination for IV ABX. CM will continue to support patient, family and discharge planning needs identified
[2018-10-24] MEDS: Tamsulosin 0.4 MG CAPCR PO (08:26)
[2018-10-24] MEDS: Vitamins B Comp w/C TAB 1 TAB PO (08:27)
[2018-10-24] MEDS: Cyanocobalamin 500 MCG TAB PO (08:27)
[2018-10-24] MEDS: Multivitamin TAB 1 TAB PO (08:27)
[2018-10-24] MEDS: Allopurinol 300 MG TAB PO (08:27)
[2018-10-24] MEDS: Ascorbic Acid 500 MG TAB PO (08:27)
[2018-10-24] MEDS: Cholecalciferol (Vitamin D3) 1,000 UNIT TAB 1000 UNITS PO (08:27)
[2018-10-24] MEDS: Colchicine 0.6 MG TAB PO (08:27)
--- NOTE | 2018-10-24 08:37 | PGE_ITS ---
Date of Service Date of service: 10/24/18 Time of Service: 08:37 Assessment and Plan (1) Sepsis: Current visit: Yes Status: Resolved Sepsis with MSSA Bacteremia and infected left knee prosthesis. Fevers resolved post treatment of gout. Remains afebrile. PICC and peripheral blood cx are negative. Fluid cultures L elbow - NGTD; crystals seen. Drug fever also a consideration - rifampin stopped. Continue cefazolin, monitor CRP (improving) and fever curve. Patient is near point of being stable to for discharge from inpatient service from medical stand point, but will require Swing bed level of care for PT/OT and IV abx.. (2) Bacteremia: Current visit: Yes Status: Acute As above Repeat blood cultures from 10/12, 10/14, 10/15, 10/21 negative despite recurrent fevers. Fevers and rise in CRP are thought to be due to gout. Consider JS - nonemergent, could be done as outpatient. (3) Infection of prosthetic left knee joint: Current visit: Yes Status: Acute S/p debridement 10/11, hardware in place - C&S with MSSA. Currently on cefazolin monotherapy, improving. Defervesced and HR is better. CRP continues to improve. Repeat blood cultures on 10/12, 10/14, 10/15, 10/21 negative, as was culture of the central line tip. As above - continue monitoring CRP, fever curve. Qualifiers: Encounter type: initial encounter Qualified Code(s): T84.54XA - Infection and inflammatory reaction due to internal left knee prosthesis, initial encounter (4) Atrial fibrillation: Current visit: No Status: Chronic Chronic Afib with rate that has been spiking in association with fevers. HR remains controlled now that the patient has defervesced. No change to therapy. - Rivaroxaban is contraindicated in setting of Rifampin use. Continue coumadin (INR subtherapeutic, will increase dose). Consider switching to xarelto since rifampin was stopped. (5) Pneumonia: Current visit: Yes Status: Resolved HCAP, repeat CXR negative. Completed zosyn. (6) Cardiomyopathy: Current visit: No Status: Acute EF 45-50%, with evidence of acute on chronic systolic CHF. Lasix gtt d/c'ed d/c'ed yesterday am. Hold diuretics today. Anticipate being able to resume lasix and spironolactone tomorrow. Entresto would have to be resumed after several days of diuretic therapy. (7) Acute renal insufficiency: Current visit: Yes Status: Acute In setting of infection and possible overdiuresis (also, ?rifampin). Cr improved. Continue to monitor Cr, I/O's, daily weights. (8) Gout: Current visit: Yes Status: Chronic Acute flare R wrist resolved, L elbow clinically resolved as well. Gout flares likely ocurred due to JUAN and fluid shifts. S/p steroid injection in L elbow and on colchicine. D/c colchicine. Continue toradol, allopurinol. Likely reason for recurrence of fever and rise of CRP. (9) Acute anemia: Current visit: Yes Status: Acute Acute on chronic, likely due to repetitive blood draws and a dilutional component. No active bleeding, hematest negative. No indication for blood transfusion at this time. (10) DVT prophylaxis: Current visit: Yes Status: Acute Home xarelto d/c'ed due to contraindication on rifampin. Rifampin now d/c'ed - consider resuming xarelto. For now on SC Lovenox to coumadin bridge. (11) Advance directive on file: Current visit: Yes Status: Acute DNI. (12) Discharge planning issues: Current visit: Yes Status: Acute Anticipated at least 6 weeks of IV antibiotics. Plan for home with home health not realistic - will need to be on swing bed level of care until stronger. Note: I cannot get rid of billing for procedure in the field below - [employer] has autopopulated it into my note. It was performed by Dr Samano yesterday. Subjective Interval history since last seen: 7 beats of VTach overnight while asleep, does wear CPAP at night. Has had episodes of this on this admission, but not in 48 hours. Afebrile, feels better, a little more stamina with PT today - recommended SNF level of care. Adamantly refuses actual SNF; willing to consider Swing bed. Denies dizziness, chest pain, shortness of breath, nausea, vomiting. States he feels very discouraged. Exam Narrative Exam Narrative: General: very pleasant elderly Caucasina male, laying comfortably in bed, appears sad,A&Ox3 HEENT: EOMI, MMM Heart: Irregularly irregular rhythm, rate is controlled Lungs: CTAB GI: abdomen is soft, nontender, nondistended Extremities: +1 edema LLE, L knee is dressed, being iced, no c/c; RLE with 1+ edema, in SPENCER. L elbow with improved ROM. Objective Objective Clinical Data: Abnormal lab results 10/24/18 10/24/18 10/24/18 Range/Units 06:45 06:45 06:45 WBC 11.79 H (4.4-10.8) k/cumm RBC 2.62 L (4.50-6.00) m/cumm Hgb 8.1 L (13.5-17.5) g/dL Hct 25.9 L (40.0-50.0) % MCV 98.9 H (80-95) fL MCHC 31.3 L (32.0-36.0) g/dL RDW 15.1 H (11.8-14.1) % Absolute Neutrophils 10.12 H (1.2-6.7) k/cumm Absolute Lymphocytes 1.01 L (1.2-3.4) k/cumm PT 11.3 H (9.3-11.0) sec BUN 31 H (7-18) mg/dL C-Reactive Protein 11.15 H (0.0-0.3) mg/dL Vital Signs Temperature 36.7 C 10/23/18 19:50 Temperature Source Temporal Artery Scan 10/23/18 19:50 Pulse 85 10/24/18 04:00 Pulse Rhythm Irregular 10/24/18 01:30 Pulse 83 10/24/18 05:00 Respiratory Rate 23 10/24/18 05:00 Respiratory Effort Non-Labored 10/24/18 01:30 Respiratory Depth Normal 10/24/18 01:30 Respiratory Pattern Normal 10/24/18 01:30 Blood Pressure 121/74 10/24/18 04:00 Blood Pressure Mean 83 10/24/18 04:00 Blood Pressure Position Supine 10/20/18 16:45 Pulse Oximetry 84 L 10/24/18 02:05 Oxygen Delivery Method Room Air 10/22/18 15:05 Oxygen Flow Rate 0 10/22/18 15:05 Fraction of Inspired Oxygen (FIO2) 21 10/12/18 15:05 Pain Level 3 10/22/18 15:05 Comment 10/17/18 22:30 Intake & Output 10/23/18 10/23/18 10/24/18 11:59 23:59 11:59 Intake Total 659.021 / 6785.800 2592.333 / 1892.354 100 / 100 Output Total 1475 / 2700 1225 / 2700 1200 / 1200 Balance -815.979 / -807.646 8.333 / -807.646 -1100 / -1100 Weight 136.6 kg Intake: IV 219.021 / 352.354 133.333 / 352.354 100 / 100 Oral 440 / 1540 1100 / 1540 Output: Urine 1475 / 2700 1225 / 2700 1200 / 1200 Other: Urine Color Yellow Yellow Yellow Urine Appearance Clear Clear Clear Stool Occult Blood Negative Negative Stool Size Moderate Moderate Stool Characteristics Soft Soft Brown Formed Brown Laboratory Results WBC 11.79 k/cumm (4.4-10.8) H 10/24/18 06:45 RBC 2.62 m/cumm (4.50-6.00) L 10/24/18 06:45 Hgb 8.1 g/dL (13.5-17.5) L 10/24/18 06:45 Hct 25.9 % (40.0-50.0) L 10/24/18 06:45 MCV 98.9 fL (80-95) H 10/24/18 06:45 MCH 30.9 pg (27.0-33.0) 10/24/18 06:45 MCHC 31.3 g/dL (32.0-36.0) L 10/24/18 06:45 RDW 15.1 % (11.8-14.1) H 10/24/18 06:45 Plt Count 365 x1000/uL (130-400) 10/24/18 06:45 MPV 9.7 fL (8.0-11.0) 10/24/18 06:45 Immature Gran % 0.3 10/24/18 06:45 85.8 10/24/18 06:45 3.0 % 10/17/18 09:45 8.6 10/24/18 06:45 4.1 10/24/18 06:45 1.0 10/24/18 06:45 0.2 10/24/18 06:45 2.0 % 10/19/18 06:30 1.0 % 10/18/18 06:40 Absolute Neutrophils 10.12 k/cumm (1.2-6.7) H 10/24/18 06:45 Absolute Lymphocytes 1.01 k/cumm (1.2-3.4) L 10/24/18 06:45 Absolute Monocytes 0.48 k/cumm (0.11-0.7) 10/24/18 06:45 Absolute Eosinophils 0.12 k/cumm (0.0-0.7) 10/24/18 06:45 Absolute Basophils 0.02 k/cumm (0.0-0.2) 10/24/18 06:45 Diff reviewed 10/24/18 06:45 RBC Morphology See below 10/24/18 06:45 Present 10/19/18 06:30 1+ 10/22/18 07:00 1+ 10/24/18 06:45 2+ 10/24/18 06:45 ESR 98 mm/hr (1-20) H 10/10/18 16:30 PT 11.3 sec (9.3-11.0) H 10/24/18 06:45 INR 1.1 (0.9-1.1) 10/24/18 06:45 Sodium 139 mmol/L (136-145) 10/24/18 06:45 Potassium 4.8 mmol/L (3.5-5.1) 10/24/18 06:45 Chloride 106 mmol/L (98-107) 10/24/18 06:45 Carbon Dioxide 23.3 mmol/L (21.0-32.0) 10/24/18 06:45 9.7 mmol/L (3-11) 10/24/18 06:45 BUN 31 mg/dL (7-18) H 10/24/18 06:45 1.13 mg/dL (0.70-1.30) 10/24/18 06:45 >= 60.00 (mL/min/1.73m2) 10/24/18 06:45 Glucose 100 mg/dL (70-100) 10/24/18 06:45 5.9 % (4.5-6.2) 10/10/18 16:30 0.9 mmol/l (0.6-1.4) 10/14/18 06:30 Calcium 9.2 mg/dL (8.5-10.1) 10/24/18 06:45 Magnesium 2.4 mg/dL (1.8-2.4) 10/24/18 06:45 0.3 mg/dL (0.2-1.0) 10/21/18 06:20 0.09 mg/dL (0.00-0.20) 10/21/18 06:20 AST 15 U/L (15-37) 10/21/18 06:20 ALT 18 U/L (12-78) 10/21/18 06:20 62 U/L (46-116) 10/21/18 06:20 72 U/L (39-308) 10/12/18 06:10 11.15 mg/dL (0.0-0.3) H 10/24/18 06:45 6.5 g/dL (6.4-8.2) 10/21/18 06:20 1.7 g/dL (3.4-5.0) L 10/21/18 06:20 0.2 ng/mL 10/24/18 06:45 Yellow (Yellow) 10/21/18 15:30 Clear (Clear) 10/21/18 15:30 5.5 (5-8) 10/21/18 15:30 Ur Specific [place] 1.015 (1.005-1.025) 10/21/18 15:30 30 mg/dL (Negative) H 10/21/18 15:30 Negative mg/dL (Negative) 10/21/18 15:30 Large (Negative) H 10/21/18 15:30 Negative (Negative) 10/21/18 15:30 Negative (Negative) 10/21/18 15:30 0.2 EU/dL (Up TO 0.2) 10/21/18 15:30 Ur Leukocyte Esterase Negative (Negative) 10/21/18 15:30 >50 (0-2) H 10/21/18 15:30 3-5 HPF (0-5) 10/21/18 15:30 Ur Epithelial Cells Negative HPF (Negative) 10/21/18 15:30 Negative HPF (Negative) 10/21/18 15:30 Rare HPF (Negative) 10/21/18 15:30 3-5 coarse granular LPF (Negative) 10/21/18 15:30 Negative (Negative) 10/21/18 15:30 Ur Culture Indicated? No 10/21/18 15:30 Negative mg/dL (Negative) 10/21/18 15:30 Fluid Source L elbow 10/22/18 10:10 Fluid Color Yellow 10/22/18 10:10 Fluid Clarity Cloudy 10/22/18 10:10 Fluid WBC 34484 /MM3 (0-0) H 10/22/18 10:10 Fluid Mononuclear Cell 8 % (0-0) H 10/22/18 10:10 Fl Polymorphonucl Cell 92 % (0-0) H 10/22/18 10:10 Fluid Crystals See comment 10/22/18 10:10 Fluid Crystal Source L elbow 10/22/18 10:10
--- NOTE | 2018-10-24 10:11 | OT.INTREAT ---
Date of service: 10/24/18 Time of Service: 09:10 Occupational Therapy Notes Occupational Therapy Inpatient Treatment Note Date: 10/24/18 PRECAUTIONS: Fall, Standard SUBJECTIVE: Pt was sitting in chair when OT arrived. He is agreeable to OT session. OBJECTIVE: PAIN:c/o pain in (L) elbow BATHING: Sitting in chair with max (A) set up Upper Body: (I) (L) arm, max (A) (R) d/t pain in (L) UE, (I) face, max (A) abdomen as pt refuses this on his own. Lower Body: Max (A) LE, pt denies reporting that I can't do this today. DRESSING: Sitting in chair Upper Extremity: Min (A) don and doffing hospital gown Lower Extremity: Max (A) don and doffing (B) socks. ASSESSMENT/PLAN: Pt was willing to participate in OT session today. He denies LE dressing and bathing and feels that he can do this at home but would not like to perform this here as he feels that someone can help him. He has the functional ROM to wash his LE per assessment at initial evaluation. OT will monitor pts response to todays session and progress accordingly. Pt would benefit from education on energy conservation techniques and managing self care tasks with AE as needed. TREATMENT CODES/TIME: 47084m2, 30 minutes Zofia Brush OTR/[facility]
[2018-10-24] MEDS: Ketorolac 15 MG/ML VIAL IVP ×2 (12:04→18:39)
--- NOTE | 2018-10-24 15:02 | PT.INTREAT ---
Date of service: 10/24/18 Time of Service: 01:53 PT Notes Inpatient Physical Therapy Treatment Note [facility] Date: 10/24/2018 Precautions: Fall. Standard. WBAT on left LE. Subjective: Patient is agreeable to a PT treatment today and to a goal of walking a fairly tolerable distance. He states that he had a bout of gout to his left wrist and left elbow that limited consistency with distance walked in the latter part of last week. Today, he reports 2-3/10 pain on left knee at rest, but with weight-bearing 4-5/10. He denies headache, chest pain, and dizziness thorughout PT session. He asserts that he wants to go home before Wednesday this week to attend their anniversary. He claims that he will be able to manage walking on his entrance ramp as well as negotiate a flight of steps to their bedroom. Objective: Observation: Small egg-sized intact blister on L posteromedial arm where PICC tape is. Left thigh and knee edema continuing to subside. Brawny edema left leg. Mepilex Ag on left knee surgical incision. Telemetry monitoring continue to be in place. Paiz catheter in place. Left knee is able to achieve full knee extension in close kinematic chain while in the standing position without undue discomfort. Bed Mobility/Transfers: Supine to sit SBA Sit to supine SBA with HOB 20 degrees elevated Sit to stand SBA from high bed level and from 22 inch high wheelchair using both UE for support; minimal assist from [facility] recliner Stand to sit SBA from high bed level and from 22 inch high wheelchair using both UE for support; minimal assist from [facility] recliner Bed to chair SBA from high bed level and from 22 inch high wheelchair using both UE for support; minimal assist from [facility] recliner Chair to bed SBA from high bed level and from 22 inch high wheelchair using both UE for support; minimal assist from [facility] recliner Gait: Patient was able to tolerate level surface ambulation of 45 feet x 2 using FWW with WBAT on left only SBA of this PT and wheelchair follow of nurse with mild breathlessness noted with Tri Dyspnea scale of 3/10. In the afternoo, patient only tolerated 15 feet of ICU hallway ambulation onto a stretcher where he needed to be brought down to the laboratory for ultrasound testing. STAIRS: Patient refused due to report of fatigue from this morning's PT session. THERA EX: Facilitated left quadriceps activation working on antigravity knee extension exercises with patient being able to raise leg from a 90 degree flexed position while seated on a high chair to about 60 degrees of knee flexion, seated alternate hip flexion held for 5 counts x 10 reps. In the afternoon, using green Thera-Band, patient was able to tolerate seated clamshell exercises, hip flexion, LAQ with about 10 degrees available motion. ASSESSMENT: Patient is not safe to go home this week as he will not be able to safely negotiate ramp to enter their house. Patient has a flight of steps to their bedroom and will be unable to negotiate them if he goes home before this Wednesday as he only has trained with doing just one step last Wednesday with therapy where patient required assist of 2 for safety. DISCHARGE RECOMMENDATIONS: Patient will benefit from long-term facility placement in order to progress mobility level, strength, and balance in preparation for a safe discharge to home. TREATMENT CODE/TIME: Session 61595 0 x 20 minutes, 9711 0 x 17 minutes beginning at 10:28 AM. Session 90188 0 x 13 minutes, 9711 0 x 25 minutes beginning at 13:53 PM
[2018-10-24] MEDS: Normal Saline Flush 10 ML SYR IVP (18:40)
[2018-10-24] MEDS: Acetaminophen 500 MG TAB 1000 MG PO (18:40)
--- NOTE | 2018-10-24 19:36 | PGE_ITS ---
Date of Service Date of service: 10/24/18 Time of Service: 17:36 Assessment and Plan (1) Gout of left elbow: Current visit: Yes Status: Acute Doing much better after the aspiration and steroid injection. I would recommend he start a more regular anti-inflammatory. We will have to follow his kidney function. Qualifiers: Gout etiology: idiopathic Chronicity: acute Qualified Code(s): M10.022 - Idiopathic gout, left elbow (2) Gout: Current visit: Yes Status: Chronic Resume allopurinol. Use anti-inflammatory. (3) Infection of prosthetic left knee joint: Current visit: Yes Status: Acute CRP has continued to downtrend to 11. He has minimal pain complaints about the left knee and more around the knee itself without the sharp pain he had previously. No drainage from the wound. No erythema. Cultures from the left elbow are negative thus far. MSSA currently being treated with cefazolin. The rifampin was discontinued due to concern about fevers from the rifampin, although this is unlikely. Rifampin would definitely improve the success of treating MSSA infection. I would like to add it back on so we can make sure we prevent any biofilm production. This will be restarted. If he starts spiking fevers again we may discontinue permanently or continue to observe. Likely discharge to home with ceftriaxone and rifampin. While he is making slow gains with physical therapy he is moving with standby assistance. Getting him into a more private setting on the medical surgical floor will be beneficial. Having regular anti-inflammatory may also provide some added pain relief to assist with his mobility goals. He will be far from perfect but should be able to discharge to home with home health services. A short stay of swing bed status may be necessary. He has not had any episodes of RVR with his A. fib and only occasional irregular rhythms. He has no chest complaints. We are not actively concerned about this with his current regimen of metoprolol and can be tra nsferred to the floor without telemetry services. Qualifiers: Encounter type: initial encounter Qualified Code(s): T84.54XA - Infection and inflammatory reaction due to internal left knee prosthesis, initial encounter Subjective Interval history since last seen: Vasu reports to be feeling better. He still feels somewhat fatigued but was able to work with physical therapy this morning and go for a walk. He denies subjective fever or chills. He has no chest pain or shortness of breath. He still has some pain about the left wrist, left elbow, and left shoulder, however, much better than a few days ago. He has not had any A. fib with RVR. He has not had a fever in over 2 days. Exam Narrative Exam Narrative: Vasu is lying supine in the bed. There is still notable peripheral edema throughout. There is some mild pain to palpation of the left elbow and left wrist. However, he is able to tolerate some active and passive range of motion. No significant pain with this range of motion except when reaching the extremes. Notable pitting edema. No crepitus with range of motion. No erythema. Minimal warmth. Evaluation left knee shows notable swelling. However, it seems to be coming down. No drainage on the dressings. He still has continued 2+ pitting edema. Objective Objective Clinical Data: Abnormal lab results 10/24/18 10/24/18 10/24/18 Range/Units 06:45 06:45 06:45 WBC 11.79 H (4.4-10.8) k/cumm RBC 2.62 L (4.50-6.00) m/cumm Hgb 8.1 L (13.5-17.5) g/dL Hct 25.9 L (40.0-50.0) % MCV 98.9 H (80-95) fL MCHC 31.3 L (32.0-36.0) g/dL RDW 15.1 H (11.8-14.1) % Absolute Neutrophils 10.12 H (1.2-6.7) k/cumm Absolute Lymphocytes 1.01 L (1.2-3.4) k/cumm PT 11.3 H (9.3-11.0) sec BUN 31 H (7-18) mg/dL C-Reactive Protein 11.15 H (0.0-0.3) mg/dL Vital Signs Temperature 36.7 C 10/23/18 19:50 Temperature Source Temporal Artery Scan 10/23/18 19:50 Pulse 79 10/24/18 15:35 Pulse Rhythm Irregular 10/24/18 07:30 Pulse 89 10/24/18 17:00 Respiratory Rate 28 H 10/24/18 17:00 Respiratory Effort Non-Labored 10/24/18 07:30 Respiratory Depth Normal 10/24/18 07:30 Respiratory Pattern Normal 10/24/18 07:30 Blood Pressure 141/96 H 10/24/18 15:35 Blood Pressure Mean 108 10/24/18 15:35 Blood Pressure Position Supine 10/20/18 16:45 Pulse Oximetry 98 10/24/18 15:35 Oxygen Delivery Method Room Air 10/22/18 15:05 Oxygen Flow Rate 0 10/22/18 15:05 Fraction of Inspired Oxygen (FIO2) 21 10/12/18 15:05 Pain Level 0 10/24/18 18:40 Comment 10/17/18 22:30 Intake & Output 10/23/18 10/24/18 10/24/18 23:59 11:59 23:59 Intake Total 1233.333 / 1892.354 800 / 1400 600 / 1400 Output Total 1225 / 2700 1200 / 1600 400 / 1600 Balance 8.333 / -807.646 -400 / -200 200 / -200 Intake: IV 133.333 / 352.354 300 / 300 Oral 1100 / 1540 500 / 1100 600 / 1100 Output: Urine 1225 / 2700 1200 / 1600 400 / 1600 Other: Urine Color Yellow Yellow Urine Appearance Clear Clear Stool Occult Blood Negative Negative Negative Stool Size Moderate Large Moderate Stool Characteristics Soft Soft Soft Formed Brown Formed Brown Laboratory Results WBC 11.79 k/cumm (4.4-10.8) H 10/24/18 06:45 RBC 2.62 m/cumm (4.50-6.00) L 10/24/18 06:45 Hgb 8.1 g/dL (13.5-17.5) L 10/24/18 06:45 Hct 25.9 % (40.0-50.0) L 10/24/18 06:45 MCV 98.9 fL (80-95) H 10/24/18 06:45 MCH 30.9 pg (27.0-33.0) 10/24/18 06:45 MCHC 31.3 g/dL (32.0-36.0) L 10/24/18 06:45 RDW 15.1 % (11.8-14.1) H 10/24/18 06:45 Plt Count 365 x1000/uL (130-400) 10/24/18 06:45 MPV 9.7 fL (8.0-11.0) 10/24/18 06:45 Immature Gran % 0.3 10/24/18 06:45 85.8 10/24/18 06:45 3.0 % 10/17/18 09:45 8.6 10/24/18 06:45 4.1 10/24/18 06:45 1.0 10/24/18 06:45 0.2 10/24/18 06:45 2.0 % 10/19/18 06:30 1.0 % 10/18/18 06:40 Absolute Neutrophils 10.12 k/cumm (1.2-6.7) H 10/24/18 06:45 Absolute Lymphocytes 1.01 k/cumm (1.2-3.4) L 10/24/18 06:45 Absolute Monocytes 0.48 k/cumm (0.11-0.7) 10/24/18 06:45 Absolute Eosinophils 0.12 k/cumm (0.0-0.7) 10/24/18 06:45 Absolute Basophils 0.02 k/cumm (0.0-0.2) 10/24/18 06:45 Diff reviewed 10/24/18 06:45 RBC Morphology See below 10/24/18 06:45 Present 10/19/18 06:30 1+ 10/22/18 07:00 1+ 10/24/18 06:45 2+ 10/24/18 06:45 ESR 98 mm/hr (1-20) H 10/10/18 16:30 PT 11.3 sec (9.3-11.0) H 10/24/18 06:45 INR 1.1 (0.9-1.1) 10/24/18 06:45 Sodium 139 mmol/L (136-145) 10/24/18 06:45 Potassium 4.8 mmol/L (3.5-5.1) 10/24/18 06:45 Chloride 106 mmol/L (98-107) 10/24/18 06:45 Carbon Dioxide 23.3 mmol/L (21.0-32.0) 10/24/18 06:45 9.7 mmol/L (3-11) 10/24/18 06:45 BUN 31 mg/dL (7-18) H 10/24/18 06:45 1.13 mg/dL (0.70-1.30) 10/24/18 06:45 >= 60.00 (mL/min/1.73m2) 10/24/18 06:45 Glucose 100 mg/dL (70-100) 10/24/18 06:45 5.9 % (4.5-6.2) 10/10/18 16:30 0.9 mmol/l (0.6-1.4) 10/14/18 06:30 Calcium 9.2 mg/dL (8.5-10.1) 10/24/18 06:45 Magnesium 2.4 mg/dL (1.8-2.4) 10/24/18 06:45 0.3 mg/dL (0.2-1.0) 10/21/18 06:20 0.09 mg/dL (0.00-0.20) 10/21/18 06:20 AST 15 U/L (15-37) 10/21/18 06:20 ALT 18 U/L (12-78) 10/21/18 06:20 62 U/L (46-116) 10/21/18 06:20 72 U/L (39-308) 10/12/18 06:10 11.15 mg/dL (0.0-0.3) H 10/24/18 06:45 6.5 g/dL (6.4-8.2) 10/21/18 06:20 1.7 g/dL (3.4-5.0) L 10/21/18 06:20 0.2 ng/mL 10/24/18 06:45 Yellow (Yellow) 10/21/18 15:30 Clear (Clear) 10/21/18 15:30 5.5 (5-8) 10/21/18 15:30 Ur Specific [place] 1.015 (1.005-1.025) 10/21/18 15:30 30 mg/dL (Negative) H 10/21/18 15:30 Negative mg/dL (Negative) 10/21/18 15:30 Large (Negative) H 10/21/18 15:30 Negative (Negative) 10/21/18 15:30 Negative (Negative) 10/21/18 15:30 0.2 EU/dL (Up TO 0.2) 10/21/18 15:30 Ur Leukocyte Esterase Negative (Negative) 10/21/18 15:30 >50 (0-2) H 10/21/18 15:30 3-5 HPF (0-5) 10/21/18 15:30 Ur Epithelial Cells Negative HPF (Negative) 10/21/18 15:30 Negative HPF (Negative) 10/21/18 15:30 Rare HPF (Negative) 10/21/18 15:30 3-5 coarse granular LPF (Negative) 10/21/18 15:30 Negative (Negative) 10/21/18 15:30 Ur Culture Indicated? No 10/21/18 15:30 Negative mg/dL (Negative) 10/21/18 15:30 Fluid Source L elbow 10/22/18 10:10 Fluid Color Yellow 10/22/18 10:10 Fluid Clarity Cloudy 10/22/18 10:10 Fluid WBC 29961 /MM3 (0-0) H 10/22/18 10:10 Fluid Mononuclear Cell 8 % (0-0) H 10/22/18 10:10 Fl Polymorphonucl Cell 92 % (0-0) H 10/22/18 10:10 Fluid Crystals See comment 10/22/18 10:10 Fluid Crystal Source L elbow 10/22/18 10:10 Fl Crystal Path Review 10/22/18 10:10 Path Cons Comment 10/22/18 10:10
[2018-10-24] MEDS: Warfarin 4 MG TAB 8 MG PO (20:01)
[2018-10-25] VITALS (7 sets, daily range): BP systolic 113–134; BP diastolic 61–83; PULSE 68–91; RESP 18–24; TEMP 36.3–36.6; O2SAT 94–100
[2018-10-25] MEDS: Normal Saline Flush 10 ML SYR IVP ×5 (02:15→16:34)
[2018-10-25] MEDS: ceFAZolin 2,000 MG in Normal Saline 100 ML 200 MG IVPB ×2 (02:24→11:03)
[2018-10-25] MEDS: Ketorolac 15 MG/ML VIAL IVP (05:41)
[2018-10-25] MEDS: Enoxaparin 30 MG/0.3 ML SYR SC ×2 (05:42→17:34)
[2018-10-25] MEDS: Levothyroxine 75 MCG TAB PO (05:42)
[2018-10-25] MEDS: Metoprolol 50 MG TAB 100 MG PO ×3 (05:42→21:45)
[2018-10-25 06:54] LABS: Abs Immature Grans 0.03 k/cumm (0.0-0.09); Absolute Basophil Count 0.03 k/cumm (0.0-0.2); Absolute Eosinophil Count 0.23 k/cumm (0.0-0.7); Absolute Lymphocyte Count 0.93 k/cumm (1.2-3.4); Absolute Monocyte Count 0.49 k/cumm (0.11-0.7); Basophils % 0.3; Eosinophils % 2.1; HCT 25.3 % (40.0-50.0); HGB 7.9 g/dL (13.5-17.5); Immature Grans % 0.3; Lymphocytes % 8.4; Mean Corp. HGB Concentration 31.2 g/dL (32.0-36.0); Mean Corpuscular Volume 99.2 fL (80-95); Monocytes % 4.4; Neutrophils % 84.5; Platelet Count 402 x1000/uL (130-400); RBC 2.55 m/cumm (4.50-6.00); RBC Distribution Width 14.9 % (11.8-14.1); White Blood Cell Count 11.12 k/cumm (4.4-10.8)
[2018-10-25 07:15] LABS: Anion Gap 5.5 mmol/L (3-11); BUN 34 mg/dL (7-18); C-Reactive Protein 6.91 mg/dL (0.0-0.3); CO2 24.5 mmol/L (21.0-32.0); CREATININE 1.41 mg/dL (0.70-1.30); Calcium 9.2 mg/dL (8.5-10.1); Chloride 106 mmol/L (98-107); Glucose 80 mg/dL (70-100); Magnesium 2.4 mg/dL (1.8-2.4); Potassium 4.8 mmol/L (3.5-5.1); Sodium 136 mmol/L (136-145)
[2018-10-25 07:30] LABS: INR 1.2 (0.9-1.1); Prothrombin Time 11.6 sec (9.3-11.0)
[2018-10-25] MEDS: Cholecalciferol (Vitamin D3) 1,000 UNIT TAB 1000 UNITS PO (07:52)
[2018-10-25] MEDS: Tamsulosin 0.4 MG CAPCR PO (07:52)
[2018-10-25] MEDS: Multivitamin TAB 1 TAB PO (07:52)
[2018-10-25] MEDS: Ascorbic Acid 500 MG TAB PO (07:52)
[2018-10-25] MEDS: Vitamins B Comp w/C TAB 1 TAB PO (07:52)
[2018-10-25] MEDS: Cyanocobalamin 500 MCG TAB PO (07:52)
[2018-10-25] MEDS: Allopurinol 300 MG TAB PO (07:52)
[2018-10-25] MEDS: Furosemide 40 MG TAB PO ×2 (07:52→15:32)
[2018-10-25] MEDS: rifAMPin 300 MG CAP PO ×2 (07:53→20:16)
[2018-10-25] MEDS: Normal Saline Flush 10 ML SYR 20 ML IVP ×2 (07:56→20:17)
--- NOTE | 2018-10-25 08:00 | PGE_ITS ---
Date of Service Date of service: 10/25/18 Time of Service: 08:00 Assessment and Plan (1) Infection of prosthetic left knee joint: Current visit: Yes Status: Acute MSSA on multiple cultures. I have restarted his rifampin. We will watch it to see if it does cause any fevers. He will also be switched to ceftriaxone in anticipation of home discharge for once a day dosing. His CRP has down trended very nicely and is actually the lowest it is been, even considering pre- hospital setting. He still has limitations with the left leg and is struggling with straight leg raise but it is improving. Will have to continue to follow this. He does have a ramp at home which he usually walks up but could be able to take a chair up. He also has stairs to his bedroom but could also stay on the single floor. He has been able to ambulate to the toilet independently and has also been able to go up and down some stairs. He will require home health nursing and physical therapy. Qualifiers: Encounter type: initial encounter Qualified Code(s): T84.54XA - Infect ion and inflammatory reaction due to internal left knee prosthesis, initial encounter (2) Gout of left elbow: Current visit: Yes Status: Acute Improved after cortical steroid injection. Continue to treat preemptively with allopurinol. NSAIDs as needed. 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 May add iron to his regimen. (4) Atrial fibrillation: Current visit: No Status: Chronic Back to chronic baseline status. He has had some episodes of V. tach per the telemetry reports only at night. He has no chest pain. He has not gone into RVR. He is back on a home regimen of metoprolol. Qualifiers: Atrial fibrillation type: chronic Qualified Code(s): I48.2 - Chronic atrial fibrillation (5) Cardiomyopathy: Current visit: No Status: Acute Slowly resume Lasix. I have placed him on 60 mg twice daily. We will have to watch his kidney function with restarting this. He has been slowly diuresing. I will also start him back on spironolactone assuming his kidney function is stable. Qualifiers: Cardiomyopathy type: unspecified Qualified Code(s): I42.9 - Cardiomyopathy, unspecified (6) Acute renal insufficiency: Current visit: Yes Status: Acute Kidney function had a little worsening today but overall still much better than it was then is within his normal limits. Will check again tomorrow. Subjective Patient reports: no new complaints and feels better Interval history since last seen: Vasu denies any fevers or chills. He reports very minimal pain except for an achiness. He reports he was able to get out of bed with no assistance and go to the bathroom this morning. He is anxious to return home. The pain in his left arm is much better. Exam Narrative Exam Narrative: Laying supine in the bed. He is in no acute distress. He is alert and oriented x3. Evaluation of left upper extremity shows great active range of motion of the shoulder, elbow, and wrist. There is some pain with extremes of motion but he is able to tolerate some gentle active and passive motion with no notable limitation. Evaluation of the left leg shows diffuse edema although it does seem to be coming down. The dressing is clean dry and intact. No erythema. Mild warmth about the left knee. He is able to demonstrate active dorsiflexion and plantar flexion as well as great toe extension and flexion. He is unable to straight leg raise. Objective Objective Clinical Data: Abnormal lab results 10/24/18 10/25/18 Range/Units 06:45 06:10 WBC 11.79 H (4.4-10.8) k/cumm RBC 2.62 L (4.50-6.00) m/cumm Hgb 8.1 L (13.5-17.5) g/dL Hct 25.9 L (40.0-50.0) % MCV 98.9 H (80-95) fL MCHC 31.3 L (32.0-36.0) g/dL RDW 15.1 H (11.8-14.1) % Absolute Neutrophils 10.12 H (1.2-6.7) k/cumm Absolute Lymphocytes 1.01 L (1.2-3.4) k/cumm BUN 34 H (7-18) mg/dL Creatinine 1.41 H (0.70-1.30) mg/dL C-Reactive Protein 6.91 H (0.0-0.3) mg/dL Vital Signs Temperature 36.5 C 10/25/18 03:32 Temperature Source Tympanic 10/25/18 03:32 Pulse 68 10/25/18 03:32 Pulse Rhythm Irregular 10/25/18 00:40 Pulse 86 10/25/18 00:00 Respiratory Rate 18 10/25/18 03:32 Respiratory Effort Non-Labored 10/25/18 00:40 Respiratory Depth Normal 10/25/18 00:40 Respiratory Pattern Normal 10/25/18 00:40 Blood Pressure 118/74 10/25/18 03:32 Blood Pressure Mean 78 10/24/18 22:27 Blood Pressure Position Supine 10/20/18 16:45 Pulse Oximetry 100 10/25/18 03:32 Oxygen Delivery Method Cpap 10/25/18 03:32 Oxygen Flow Rate 0 10/25/18 00:38 Fraction of Inspired Oxygen (FIO2) 21 10/12/18 15:05 Pain Level 3 10/25/18 05:41 Comment 10/17/18 22:30 Intake & Output 10/24/18 10/24/18 10/25/18 11:59 23:59 11:59 Intake Total 800 / 1520 720 / 1520 100 / 100 Output Total 1200 / 1850 650 / 1850 650 / 650 Balance -400 / -330 70 / -330 -550 / -550 Weight 135 kg Intake: IV 300 / 420 120 / 420 100 / 100 Oral 500 / 1100 600 / 1100 Output: Urine 1200 / 1850 650 / 1850 650 / 650 Other: Urine Color Yellow Yellow Yellow Urine Appearance Clear Clear Clear Stool Occult Blood Negative Negative Stool Size Large Moderate Large Stool Characteristics Soft Soft Soft Brown Formed Formed Brown Laboratory Results WBC 11.79 k/cumm (4.4-10.8) H 10/24/18 06:45 RBC 2.62 m/cumm (4.50-6.00) L 10/24/18 06:45 Hgb 8.1 g/dL (13.5-17.5) L 10/24/18 06:45 Hct 25.9 % (40.0-50.0) L 10/24/18 06:45 MCV 98.9 fL (80-95) H 10/24/18 06:45 MCH 30.9 pg (27.0-33.0) 10/24/18 06:45 MCHC 31.3 g/dL (32.0-36.0) L 10/24/18 06:45 RDW 15.1 % (11.8-14.1) H 10/24/18 06:45 Plt Count 365 x1000/uL (130-400) 10/24/18 06:45 MPV 9.7 fL (8.0-11.0) 10/24/18 06:45 Immature Gran % 0.3 10/24/18 06:45 85.8 10/24/18 06:45 3.0 % 10/17/18 09:45 8.6 10/24/18 06:45 4.1 10/24/18 06:45 1.0 10/24/18 06:45 0.2 10/24/18 06:45 2.0 % 10/19/18 06:30 1.0 % 10/18/18 06:40 Absolute Neutrophils 10.12 k/cumm (1.2-6.7) H 10/24/18 06:45 Absolute Lymphocytes 1.01 k/cumm (1.2-3.4) L 10/24/18 06:45 Absolute Monocytes 0.48 k/cumm (0.11-0.7) 10/24/18 06:45 Absolute Eosinophils 0.12 k/cumm (0.0-0.7) 10/24/18 06:45 Absolute Basophils 0.02 k/cumm (0.0-0.2) 10/24/18 06:45 Diff reviewed 10/24/18 06:45 RBC Morphology See below 10/24/18 06:45 Present 10/19/18 06:30 1+ 10/22/18 07:00 1+ 10/24/18 06:45 2+ 10/24/18 06:45 ESR 98 mm/hr (1-20) H 10/10/18 16:30 PT 11.3 sec (9.3-11.0) H 10/24/18 06:45 INR 1.1 (0.9-1.1) 10/24/18 06:45 Sodium 136 mmol/L (136-145) 10/25/18 06:10 Potassium 4.8 mmol/L (3.5-5.1) 10/25/18 06:10 Chloride 106 mmol/L (98-107) 10/25/18 06:10 Carbon Dioxide 24.5 mmol/L (21.0-32.0) 10/25/18 06:10 5.5 mmol/L (3-11) 10/25/18 06:10 BUN 34 mg/dL (7-18) H 10/25/18 06:10 1.41 mg/dL (0.70-1.30) H 10/25/18 06:10 49.00 (mL/min/1.73m2) 10/25/18 06:10 Glucose 80 mg/dL (70-100) 10/25/18 06:10 5.9 % (4.5-6.2) 10/10/18 16:30 0.9 mmol/l (0.6-1.4) 10/14/18 06:30 Calcium 9.2 mg/dL (8.5-10.1) 10/25/18 06:10 Magnesium 2.4 mg/dL (1.8-2.4) 10/25/18 06:10 0.3 mg/dL (0.2-1.0) 10/21/18 06:20 0.09 mg/dL (0.00-0.20) 10/21/18 06:20 AST 15 U/L (15-37) 10/21/18 06:20 ALT 18 U/L (12-78) 10/21/18 06:20 62 U/L (46-116) 10/21/18 06:20 72 U/L (39-308) 10/12/18 06:10 6.91 mg/dL (0.0-0.3) H 10/25/18 06:10 6.5 g/dL (6.4-8.2) 10/21/18 06:20 1.7 g/dL (3.4-5.0) L 10/21/18 06:20 0.2 ng/mL 10/24/18 06:45 Yellow (Yellow) 10/21/18 15:30 Clear (Clear) 10/21/18 15:30 5.5 (5-8) 10/21/18 15:30 Ur Specific [place] 1.015 (1.005-1.025) 10/21/18 15:30 30 mg/dL (Negative) H 10/21/18 15:30 Negative mg/dL (Negative) 10/21/18 15:30 Large (Negative) H 10/21/18 15:30 Negative (Negative) 10/21/18 15:30 Negative (Negative) 10/21/18 15:30 0.2 EU/dL (Up TO 0.2) 10/21/18 15:30 Ur Leukocyte Esterase Negative (Negative) 10/21/18 15:30 >50 (0-2) H 10/21/18 15:30 3-5 HPF (0-5) 10/21/18 15:30 Ur Epithelial Cells Negative HPF (Negative) 10/21/18 15:30 Negative HPF (Negative) 10/21/18 15:30 Rare HPF (Negative) 10/21/18 15:30 3-5 coarse granular LPF (Negative) 10/21/18 15:30 Negative (Negative) 10/21/18 15:30 Ur Culture Indicated? No 10/21/18 15:30 Negative mg/dL (Negative) 10/21/18 15:30 Fluid Source L elbow 10/22/18 10:10 Fluid Color Yellow 10/22/18 10:10 Fluid Clarity Cloudy 10/22/18 10:10 Fluid WBC 22900 /MM3 (0-0) H 10/22/18 10:10 Fluid Mononuclear Cell 8 % (0-0) H 10/22/18 10:10 Fl Polymorphonucl Cell 92 % (0-0) H 10/22/18 10:10 Fluid Crystals See comment 10/22/18 10:10 Fluid Crystal Source L elbow 10/22/18 10:10 Fl Crystal Path Review 10/22/18 10:10 Path Cons Comment 10/22/18 10:10
[2018-10-25 08:08] LABS: Anisocytosis 2+; Diff Comment RBC Morph Reviewed
[2018-10-25 08:09] LABS: Hypochromasia 1+; Poikilocytes 1+
[2018-10-25] MEDS: Acetaminophen 500 MG TAB 1000 MG PO ×3 (08:15→20:16)
--- NOTE | 2018-10-25 08:15 | CMPROGNOTE_ITS ---
- If Service Date Differs Date of service: 10/25/18 Time of Service: 08:15 Care Management Progress Note S/O:Vasu was sitting up in bed finishing lunch when CM met with him. He was smiling and excited because he states that Dr. Samano told him he could be discharged home later this week. He () does not feel he needs to go into SB status or to rehab. Vasu also shared that he was able to go up and down stairs with PT several times and that the therapist was pleased with his progress, Duc elizabeth again discussed his upcoming anniversary green party and how much fun his grandchildren from all over are having getting to know one another. A: Brennan is a 73 year old man admitted to [facility] on 10/10/18 with an infected knee, MSSA. P: Brennan continues to receive IV antibiotics for an infected prosthetic knee. PICC line placed to facilitate administration of the needed 6 weeks of IV AB. Vasu and his prefer home antibiotic therapy if possible-anticipate [facility] supports for RN and PT as well as home DME company coordination for IV ABX. CM will continue to support patient, family and discharge planning needs identified
[2018-10-25] MEDS: Celecoxib 200 MG CAP PO ×2 (08:19→21:45)
[2018-10-25] MEDS: Water,Injection,Sterile 10 ML VIAL 2.2 ML IJ (09:06)
[2018-10-25] MEDS: Alteplase 2 MG VIAL IJ (09:06)
--- NOTE | 2018-10-25 09:59 | OT.INTREAT ---
Date of service: 10/25/18 Time of Service: 09:10 Occupational Therapy Notes Occupational Therapy Inpatient Treatment Note Date: 10/25/18 PRECAUTIONS: Fall, Standard SUBJECTIVE: Pt was lying in bed when OT arrived. He was agreeable to OT session but refuses to leave the bed as he wants to save his energy for walking only. OBJECTIVE: PAIN:no c/o pain GROOMING: Sitting in bed with max (A) set up pt was (I) with brushing teeth with good technique. ASSESSMENT/PLAN: Pt refuses any standing ADLs reporting that he just wants to walk. He is not willing to perform any ADLs other than in his bed. OT is unable to assess pt's safety at home for ADL performance because he continues to refuse any standing ADLs or ADLs that require him to perform this without (A). OT will attempt to better assess pt's ADL performance at next session. TREATMENT CODES/TIME: [id number], 15 minutes (09:10) Zofia Brush OTR/[facility]
--- NOTE | 2018-10-25 12:30 | PTTR_ITS ---
Date of service: 10/25/18 Time of Service: 09:25 PT Notes Inpatient Physical Therapy Treatment Note [facility] Date: 10/25/2018 Precautions: Fall. Standard. WBAT on left LE. Subjective: For the morning session, patient denies pain on BUE/LE. He states that he has made up his mind about going home on , 10/27/2018. He still is very determined that he will be able to mange the entrance ramp and the flight of steps at home. In the afternoon, patient expressed that he hoped to do very well on the stairs. Objective: Observation: Small egg-sized blister on L posteromedial arm has remained intact and flatter today. Left thigh and knee edema almost resolved. Brawny edema on left leg remains. Mepilex Ag on left knee surgical incision. Telemetry monitoring off as of this morning. Paiz catheter removed this afternoon. Left knee is able to achieve full knee extension in close kinematic chain while in the standing position without undue discomfort. Bed Mobility/Transfers: Supine to sit supervision Sit to supine supervision Sit to stand set up assist from high bed level and from 22 inch high wheelchair using both UE for support; minimal assist from [facility] recliner Stand to sit set up assist from high bed level and from 22 inch high wheelchair using both UE for support; minimal assist from [facility] recliner Bed to chair set up assist from high bed level and from 22 inch high wheelchair using both UE for support; minimal assist from [facility] recliner Chair to bed set up assist from high bed level and from 22 inch high wheelchair using both UE for support; minimal assist from [facility] recliner Gait: Patient was able to walk about 8 feet and 4 feet using FWW just to transfer to wheelchair today with only supervision assist. Longer distance before today due to 28 to focus treatment on stair negotiation technique STAIRS: Morning session-Patient was able to do two trials of stair negotiation today. The first trial consisted of ascending three 4-inch steps onto a platform leading with the good leg using a step-to pattern, turning around towards the involved side, and descending same with the involved leg going down first. Good control of R LE seen during descent without any episode of buckling on the right knee noted. Patient only required CGA from this PT and SBA of [employer] GR[employer] for safety. The second trial entailed doing same activity twice without resting with patie nt demonstrating good tolerance without any complaints of pain on B UE/LE nor LOB and knee buckling. Afternoon session- Patient was able to tolerate up-and-down three 4 inch steps 5 times without resting holding onto bilateral rails using step to gait pattern with just standby assist of this PT and the nurse. No buckling of the right knee was observed. No pain complaint on BUE/LE was received. Patient did demonstrate mild breathlessness after activity that resolved with rest. THERA EX: For the afternoon session, patient tolerated resistance exercises using 3 pounds ankle weights while seated on wheelchair working on increasing hip flexion and knee extension with 5-second hold at each end of range x10 reps. ASSESSMENT: Patient continues to benefit from skilled physical therapy services with improvement achieved in terms of increasing independence with and tolerance for stair negotiation activity. L knee active knee extension range now up to 60 degrees (from a 90 degree flexed position in sitting). Patient will require assist of one for all long distance ambulation and stair negotiation for safety if discharging to home in 1 to 2 days. DISCHARGE RECOMMENDATIONS: Recommended equipment needs to reduce fall risk at home and maximize mobility: wheelchair, bedside commode, lift chair/electric recliner. Patient will benefit from home health PT services at least 3 times a week in order to progress mobility level using least restrictive assistive ambulatory device/using no device, assess home safety, identify additional equipment needs, and establish a functional maintenance program that will increase ability of patient to remain at home. TREATMENT CODE/TIME: Session [id number] x 50 minutes beginning at 9:25 AM. Session [id number] 0 x 13 minutes, 9711 0 x 25 minutes beginning at 13:53 PM.
--- NOTE | 2018-10-25 14:19 | CHAPLAIN ---
Vasu was sitting up on the edge of his bed when I stopped in. He had been working with PT and Aliyah from PT was returning to take him to [employer]. Vasu said he surprised Aliyah early today with how much he could do. Vasu is aiming to get home in time for is Anniversay democrat this weekend. Family members have already flown in from [place]. Vasu's building construction inspector from the [facility] has been in to visit Vasu a few times, and Vasu has really appreciated those visits.
[2018-10-25] MEDS: cefTRIAXone 2 GM/50 ML BAG IVPB (15:52)
--- NOTE | 2018-10-25 16:31 | W.PM.DS.N ---
Date of service: 10/27/18 Time of Service: 07:31 DS: Diagnosis Discharge Diagnosis (1) Infection of prosthetic left knee joint: Status: Acute (2) Gout of left elbow: Status: Acute (3) Acute anemia: Status: Acute (4) Atrial fibrillation: Status: Chronic (5) Cardiomyopathy: Status: Acute (6) Acute renal insufficiency: Status: Acute Discharge Plan Disposition Patient Disposition: HOME W/HOME HEALTH SERVICE Condition: Good Discharge Details Reason For Visit: INFECTED KNEE *SEE DOWNTIME SCANNING* Admit Date/Time: 10/10/18 14:30 Admit Provider: Luca Samano Attending Provider: Luca Samano Primary Care Provider: Moiz Tinoco Hospital Course Hospital Course: Vasu was admitted to the medical surgical floor for an infected left total knee arthroplasty after he had a deep abrasion to the left knee. Prior to proceeding to surgery he started developing some hypotension and was noted to have bacteremia. He went to the operating room on hospital day #2 for irrigation and debridement of a left knee with polyethylene exchange. At the time of the surgery he was noted to have involvement of the deep space of the joint as well as the superficial spaces superficial to the extensor mechanism. Extensive debridement was performed including some necrotic tissue and muscle. The extensor mechanism which was disrupted along the arthrotomy chronically, was reapproximated. Antibiotic beads were left inside the joint. He tolerated this procedure well but due to his hypotension and worsening atrial fibrillation was transferred to the ICU. In the ICU his first days were tenuous. He had fluctuating heart rates representing atrial fibrillation with RVR. Hypotension was difficult to avoid with the use of beta-keshia and therefore he was placed onto a diltiazem drip. This helped with his heart rate and slowly we are able to return him back to his metoprolol dose. He also had acute kidney injury and his Entresto was stopped. Intraoperative cultures of the left knee as well as blood cultures returned MSSA. He was started on broad-spectrum antibiotics and this was narrowed to cefazolin and rifampin. However, he then began to have new fevers on postop day #7. There was concern about possible lung involvement and his antibiotics were broadened once again. However, all testing was negative both of urine, chest, and blood. The rifampin was stopped for concern that this was causing fevers and cefazolin restarted. His fevers receded and his pain improved. On postop day #12 he then developed acute left arm pain with a notable increase in temperature and plateau of CRP. This was presumed to be gout and aspiration his left elbow was performed which demonstrate gout. This was injected and by day of discharge he had no complaints of the left upper extremity. He was returned to all of his home meds except for the Entresto and the full dose of Lasix and spironolactone. On the day of discharge he was without any significant complaints except for soreness about the left knee and leg. He has been able to mobilize with standby assistance including stairs. His potassium has been elevated at 5.2 which is just slightly above his baseline. His Lasix has been restarted and the spironolactone has been held. His kidney function has been stable. He has had no return of fever with the restart of rifampin. He was started on ceftriaxone yesterday to make sure he tolerates this well for home discharge. While still weak and with many medical issues, they all are stable. Vasu feels confident in his ability to return home. He has been able to mobilize with minimal support. Therefore, he was deemed ready for discharge to home with home health services and home IV antibiotic ministration. Home Meds and New Rx's Prescriptions: New ceftriaxone in dextrose,iso-os 2 gram/50 mL Piggyback 2 g IVPB Q24H Qty: 40 RF: 0 Continued allopurinol 300 MG tablet 300 mg PO DAILY RF: 0 multivitamin 1 EACH capsule 1 ea PO DAILY RF: 0 glucosamine sulfate 2KCl 1,000 MG tablet 2 cap PO BID RF: 0 Fish Oil 1 EACH capsule 1 cap PO QAM RF: 0 levothyroxine 75 MCG tablet 75 mcg PO DAILY@0600 Qty: 90 RF: 0 ascorbic acid (vitamin C) [Vitamin C] 500 mg Tablet 500 mg PO DAILY RF: 0 cholecalciferol (vitamin D3) [Vitamin D3] 1,000 unit Capsule 1,000 unit PO DAILY RF: 0 Probiotic Complex 25 billion cell -100 mg Capsule 1 cap PO DAILY RF: 0 cyanocobalamin (vitamin B-12) [Vitamin B-12] 500 mcg Tablet 500 mcg PO DAILY RF: 0 vitamin B complex Tablet 1 tab PO QAM RF: 0 Discontinued Xarelto 20 MG tablet 20 mg PO HS Qty: 0 RF: 0 acetaminophen [Acetaminophen Extra Strength] 500 MG tablet 1,000 mg PO Q8H PRN PRNQty: 60 RF: 3 celecoxib 100 mg capsule 100 mg PO BID Qty: 60 RF: 3 metoprolol succinate 100 mg tablet extended release 24 hr 100 mg PO DAILY RF: 0 furosemide 20 mg Tablet 3 tab PO HS RF: 0 spironolactone 25 mg tablet 12.5 mg PO DAILY RF: 0 Entresto 24-26 mg Tablet 1 tab PO BID RF: 0 furosemide 40 mg Tablet 120 mg PO QAM RF: 0 No Action acetaminophen [Acetaminophen Extra Strength] 500 mg tablet 1,000 mg PO Q8H PRN PRN (Reason: pain) Qty: 60 RF: 3 celecoxib 100 mg capsule 100 mg PO BID Qty: 60 RF: 3 metoprolol tartrate 50 mg tablet 100 mg PO Q8H Qty: 60 RF: 0 rifampin [Rifadin] 300 mg capsule 300 mg PO BID Qty: 90 RF: 1 tamsulosin 0.4 mg capsule 0.4 mg PO DAILY Qty: 30 RF: 0 warfarin [Coumadin] 5 mg tablet 10 mg PO QPM Qty: 30 RF: 0 enoxaparin [Lovenox] 30 mg/0.3 mL syringe 30 mg subcut Q12H Qty: 10 RF: 0 furosemide 20 mg tablet 20 mg PO BID@0830,1600 Qty: 40 RF: 0 Discharge Instructions Additional Instructions: Dr. Samano?s Knee Discharge Instructions Activity: The most important activity is to walk. You should try to take short walks a few times a day. It is important that when resting you work on keeping the knee straight. Avoid putting a pillow behind the knee as this will encourage flexion. Work on range of motion exercises as provided by Physical Therapy. - You should wear the SPENCER hose on both legs for 2 weeks. Dressing: Keep the Mepilex dressing in place for at least one week. After this, it may be removed and needs no other dressing. It may get wet but avoid soaking the dressing. If it gets wet, just lightly pat dry. Medications: - You should take Tylenol and anti-inflammatory Celebrex as your primary pain control medications - You will be taking Coumadin for DVT prevention and supplementing that with Lovenox (Enoxaparin) until your INR gets into the desirable range. - You have two antibiotics. One is in the IV, Ceftriaxone. The other if Rifampin which you will take twice a day. - Take a probiotic to help with restoring your gut [place] and normalizing bowel movements and GI function. - You are NOT taking Entresto or Spironolactone until futher instructed by Dr. Tinoco or Dr. Samano. Your lasix dose has been decreased to 20mg twice a day. - If you have constipation you should take Colace or Miralax (both [id number]). It takes most people 3-4 days to have a bowel movement. Follow-up: 4 weeks 1. Encounter Date and Reason I certify that TABBY MIMS was seen by Luca Samano MD on 10/25/18 and that I had a [id number] encounter with this patient that meets the physician face to face encounter requirements. 2. Clinical Findings Supporting Skilled Need and Homebound Status I certify that home health services are medically necessary, include either intermittent mcfp and/or physical/speech therapy, and that this patient is homebound in that absences from the home require considerable and taxing effort and are infrequent or of short duration, or are attributable to the need to receive medical care. [X] (a) Attached documentation from encounter provides clinical findings supporting skilled need and homebound status (including what assistance patient requires to leave the home). The encounter with the patient was in whole, or in part, for the following medical condition, which is the primary reason for home health care: INFECTED KNEE Assisted: Vasu would benefit from home mcfp to assess his multiple medications, IV administrations, and [id number] INR for new anticoagulation. He is being started on Coumadin and has a subtherapeutic INR. He is to take Lovenox 30 mg twice daily until his INR is greater than 1.8. The INR should be checked at least twice a week, preferably Wednesday and . It is imperative that he intends compliance of his antibiotic regimen and is assess for stability of blood pressure and heart rate with known blood pressure issues and atrial fibrillation. Physical Therapy: Physical and outpatient therapy would be beneficial for Vasu's recovery. He has significant weakness about his left leg after revision surgery for infection. He also has gout involving multiple joints which is limited his ability to use his upper extremities, which is improving. He has notable weakness and pain which limits function. Physical therapy may focus on strengthening his left lower extremity as well as gait training. Occupational therapy would be beneficial to assist Vasu with activities of daily living. Speech Therapy: Homebound: Vasu is homebound. He has significant weakness and gait abnormalities which prevent his ability to leave the home unassisted 3. Certification and Authentication I certify that I composed the above information based on my clinical judgement relating to this patient's medical condition and, if applicable, clinical findings communicated to me by the NPP or inpatient physician who performed the Home Health Referral. All further orders will be obtained through Dr. Samano Stand Alone Forms: Nursing Discharge Form Referrals: Luca Samano MD [ [facility] STAFF PHYSICIAN] - 11/25/18 10:00 am Activity:: Activity as Tolerated Equipment/Supplies:: No Equipment Needed Diet:: Normal Diet Discharge Orders Discharge Orders: Discharge Order (Routine); Ordered 10/27/18 Ordered By: Luca Samano Discharge Data Discharge Date/Time-TO BE ENTERED AT DEPARTURE: 10/27/18 16:42 Exam Narrative Exam Narrative: Laying supine in hospital bed. No acute distress. Alert and oriented x3. Evaluation the left knee shows a dressing which is clean dry and intact. Swelling has diminished. He is able to contract his quadriceps mechanism but is still able to straight leg raise. No erythema. Minimal warmth. Left upper extremity has full active and passive range of motion. A PICC line is present over the left medial upper arm. There are skin blistering which has been covered with Mediplex dressing. No erythema. No cords. DS: Data Vitals/I&O Vitals and I&O: Vital Signs Temperature 36.6 C 10/25/18 15:31 Temperature Source Temporal Artery Scan 10/25/18 15:31 Pulse 87 10/25/18 15:31 Pulse Rhythm Irregular 10/25/18 15:36 Pulse 86 10/25/18 00:00 Respiratory Rate 18 10/25/18 15:31 Respiratory Effort Non-Labored 10/25/18 15:36 Respiratory Depth Normal 10/25/18 15:36 Respiratory Pattern Normal 10/25/18 15:36 Blood Pressure 134/77 10/25/18 15:31 Blood Pressure Mean 78 10/24/18 22:27 Blood Pressure Position Supine 10/20/18 16:45 Pulse Oximetry 94 L 10/25/18 15:31 Oxygen Delivery Method Room Air 10/25/18 15:31 Oxygen Flow Rate 0 10/25/18 15:31 Fraction of Inspired Oxygen (FIO2) 21 10/12/18 15:05 Pain Level 0 10/25/18 15:31 Comment 10/17/18 22:30 Intake & Output 10/24/18 10/25/18 10/25/18 23:59 11:59 23:59 Intake Total 720 / 1520 350 / 820 470 / 820 Output Total 650 / 1850 650 / 1250 600 / 1250 Balance 70 / -330 -300 / -430 -130 / -430 Weight 135 kg Intake: IV 120 / 420 100 / 200 100 / 200 Oral 600 / 1100 250 / 620 370 / 620 Output: Urine 650 / 1850 650 / 1250 600 / 1250 Other: Urine Color Yellow Yellow Yellow Urine Appearance Clear Clear Clear Stool Occult Blood Negative Stool Size Moderate Large Moderate Stool Characteristics Soft Soft Soft Formed Formed Brown Brown Labs on day of discharge: Labs from last 24 hours 10/25/18 10/25/18 10/25/18 07:00 06:10 06:10 WBC 11.12 H RBC 2.55 L Hgb 7.9 L Hct 25.3 L MCV 99.2 H MCH 31.0 MCHC 31.2 L RDW 14.9 H Plt Count 402 H MPV 10.0 Immature Gran % 0.3 Neutrophils % 84.5 Lymphocytes % 8.4 Monocytes % 4.4 Eosinophils % 2.1 Basophils % 0.3 Absolute Neutrophils 9.40 H Absolute Lymphocytes 0.93 L Absolute Monocytes 0.49 Absolute Eosinophils 0.23 Absolute Basophils 0.03 Differential Comment Rbc morph reviewed RBC Morphology See below Hypochromasia 1+ Poikilocytosis 1+ Anisocytosis 2+ PT 11.6 H INR 1.2 H Sodium 136 Potassium 4.8 Chloride 106 Carbon Dioxide 24.5 Anion Gap 5.5 BUN 34 H Creatinine 1.41 H Estimated GFR/1.73 m2 49.00 Glucose 80 Calcium 9.2 Magnesium 2.4 C-Reactive Protein 6.91 H Preliminary micro results at discharge 10/21/18 12:48 Blood Culture - Preliminary Blood NO GROWTH 96 HOURS 10/21/18 10:35 Blood Culture - Preliminary Blood NO GROWTH 96 HOURS 10/22/18 10:10 Body Fluid Culture - Preliminary Synovial - Left Upper [facility] Medical History Atrial fibrillation (Chronic) Cardiomyopathy (Acute) Chronic renal insufficiency (Inactive) Hip dislocation, right (Resolved) History of cardioversion (Acute) Hyperlipidemia (Inactive) Hypertension (Chronic) Infected prosthesis of left hip (Acute) Obesity (Inactive) Primary osteoarthritis of both knees (Resolved) Recurrent gout (Inactive) Restrictive lung disease (Chronic) Venous stasis (Acute) Surgical History History of right hip replacement (Acute) History of total left knee replacement (TKR) (Inactive) History of total right knee replacement (Acute) Status post left hip replacement (Acute) Social History Smoking/Tobacco Use Status: Former Tobacco Use Quit Date: 03/15/01 Alcohol Intake: former Drug use: Never Do you feel safe at home: Yes Do you feel safe in your relationship?: Yes Additional Social history: Patient lives in [facility] with her is Haely of 50 years. He helps care for his grandkids that live in the area. 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
--- NOTE | 2018-10-25 19:00 | W.PM.PROGNOT ---
Date of Service Date of service: 10/25/18 Time of Service: 18:50 Subjective Interval history since last seen: Encounter for billing Objective Objective Clinical Data: Abnormal lab results 10/25/18 10/25/18 10/25/18 Range/Units 06:10 06:10 07:00 WBC 11.12 H (4.4-10.8) k/cumm RBC 2.55 L (4.50-6.00) m/cumm Hgb 7.9 L (13.5-17.5) g/dL Hct 25.3 L (40.0-50.0) % MCV 99.2 H (80-95) fL MCHC 31.2 L (32.0-36.0) g/dL RDW 14.9 H (11.8-14.1) % Plt Count 402 H (130-400) x1000/uL Absolute Neutrophils 9.40 H (1.2-6.7) k/cumm Absolute Lymphocytes 0.93 L (1.2-3.4) k/cumm PT 11.6 H (9.3-11.0) sec INR 1.2 H (0.9-1.1) BUN 34 H (7-18) mg/dL Creatinine 1.41 H (0.70-1.30) mg/dL C-Reactive Protein 6.91 H (0.0-0.3) mg/dL Vital Signs Temperature 36.6 C 10/25/18 15:31 Temperature Source Temporal Artery Scan 10/25/18 15:31 Pulse 87 10/25/18 15:31 Pulse Rhythm Irregular 10/25/18 15:36 Pulse 86 10/25/18 00:00 Respiratory Rate 18 10/25/18 15:31 Respiratory Effort Non-Labored 10/25/18 15:36 Respiratory Depth Normal 10/25/18 15:36 Respiratory Pattern Normal 10/25/18 15:36 Blood Pressure 134/77 10/25/18 15:31 Blood Pressure Mean 78 10/24/18 22:27 Blood Pressure Position Supine 10/20/18 16:45 Pulse Oximetry 94 L 10/25/18 15:31 Oxygen Delivery Method Room Air 10/25/18 15:31 Oxygen Flow Rate 0 10/25/18 15:31 Fraction of Inspired Oxygen (FIO2) 21 10/12/18 15:05 Pain Level 0 10/25/18 15:31 Comment 10/17/18 22:30 Intake & Output 10/24/18 10/25/18 10/25/18 23:59 11:59 23:59 Intake Total 720 / 1520 350 / 1350 1000 / 1350 Output Total 650 / 1850 650 / 1550 900 / 1550 Balance 70 / -330 -300 / -200 100 / -200 Weight 135 kg Intake: IV 120 / 420 100 / 250 150 / 250 Oral 600 / 1100 250 / 1100 850 / 1100 Output: Urine 650 / 1850 650 / 1550 900 / 1550 Other: Urine Color Yellow Yellow Yellow Urine Appearance Clear Clear Clear Stool Occult Blood Negative Stool Size Moderate Large Moderate Stool Characteristics Soft Soft Soft Formed Formed Brown Brown Voiding Methods Urinal Laboratory Results WBC 11.12 k/cumm (4.4-10.8) H 10/25/18 06:10 RBC 2.55 m/cumm (4.50-6.00) L 10/25/18 06:10 Hgb 7.9 g/dL (13.5-17.5) L 10/25/18 06:10 Hct 25.3 % (40.0-50.0) L 10/25/18 06:10 MCV 99.2 fL (80-95) H 10/25/18 06:10 MCH 31.0 pg (27.0-33.0) 10/25/18 06:10 MCHC 31.2 g/dL (32.0-36.0) L 10/25/18 06:10 RDW 14.9 % (11.8-14.1) H 10/25/18 06:10 Plt Count 402 x1000/uL (130-400) H 10/25/18 06:10 MPV 10.0 fL (8.0-11.0) 10/25/18 06:10 Immature Gran % 0.3 10/25/18 06:10 84.5 10/25/18 06:10 3.0 % 10/17/18 09:45 8.4 10/25/18 06:10 4.4 10/25/18 06:10 2.1 10/25/18 06:10 0.3 10/25/18 06:10 2.0 % 10/19/18 06:30 1.0 % 10/18/18 06:40 Absolute Neutrophils 9.40 k/cumm (1.2-6.7) H 10/25/18 06:10 Absolute Lymphocytes 0.93 k/cumm (1.2-3.4) L 10/25/18 06:10 Absolute Monocytes 0.49 k/cumm (0.11-0.7) 10/25/18 06:10 Absolute Eosinophils 0.23 k/cumm (0.0-0.7) 10/25/18 06:10 Absolute Basophils 0.03 k/cumm (0.0-0.2) 10/25/18 06:10 Rbc morph reviewed 10/25/18 06:10 RBC Morphology See below 10/25/18 06:10 Present 10/19/18 06:30 1+ 10/25/18 06:10 1+ 10/25/18 06:10 2+ 10/25/18 06:10 ESR 98 mm/hr (1-20) H 10/10/18 16:30 PT 11.6 sec (9.3-11.0) H 10/25/18 07:00 INR 1.2 (0.9-1.1) H 10/25/18 07:00 Sodium 136 mmol/L (136-145) 10/25/18 06:10 Potassium 4.8 mmol/L (3.5-5.1) 10/25/18 06:10 Chloride 106 mmol/L (98-107) 10/25/18 06:10 Carbon Dioxide 24.5 mmol/L (21.0-32.0) 10/25/18 06:10 5.5 mmol/L (3-11) 10/25/18 06:10 BUN 34 mg/dL (7-18) H 10/25/18 06:10 1.41 mg/dL (0.70-1.30) H 10/25/18 06:10 49.00 (mL/min/1.73m2) 10/25/18 06:10 Glucose 80 mg/dL (70-100) 10/25/18 06:10 5.9 % (4.5-6.2) 10/10/18 16:30 0.9 mmol/l (0.6-1.4) 10/14/18 06:30 Calcium 9.2 mg/dL (8.5-10.1) 10/25/18 06:10 Magnesium 2.4 mg/dL (1.8-2.4) 10/25/18 06:10 0.3 mg/dL (0.2-1.0) 10/21/18 06:20 0.09 mg/dL (0.00-0.20) 10/21/18 06:20 AST 15 U/L (15-37) 10/21/18 06:20 ALT 18 U/L (12-78) 10/21/18 06:20 62 U/L (46-116) 10/21/18 06:20 72 U/L (39-308) 10/12/18 06:10 6.91 mg/dL (0.0-0.3) H 10/25/18 06:10 6.5 g/dL (6.4-8.2) 10/21/18 06:20 1.7 g/dL (3.4-5.0) L 10/21/18 06:20 0.2 ng/mL 10/24/18 06:45 Yellow (Yellow) 10/21/18 15:30 Clear (Clear) 10/21/18 15:30 5.5 (5-8) 10/21/18 15:30 Ur Specific [place] 1.015 (1.005-1.025) 10/21/18 15:30 30 mg/dL (Negative) H 10/21/18 15:30 Negative mg/dL (Negative) 10/21/18 15:30 Large (Negative) H 10/21/18 15:30 Negative (Negative) 10/21/18 15:30 Negative (Negative) 10/21/18 15:30 0.2 EU/dL (Up TO 0.2) 10/21/18 15:30 Ur Leukocyte Esterase Negative (Negative) 10/21/18 15:30 >50 (0-2) H 10/21/18 15:30 3-5 HPF (0-5) 10/21/18 15:30 Ur Epithelial Cells Negative HPF (Negative) 10/21/18 15:30 Negative HPF (Negative) 10/21/18 15:30 Rare HPF (Negative) 10/21/18 15:30 3-5 coarse granular LPF (Negative) 10/21/18 15:30 Negative (Negative) 10/21/18 15:30 Ur Culture Indicated? No 10/21/18 15:30 Negative mg/dL (Negative) 10/21/18 15:30 Fluid Source L elbow 10/22/18 10:10 Fluid Color Yellow 10/22/18 10:10 Fluid Clarity Cloudy 10/22/18 10:10 Fluid WBC 35175 /MM3 (0-0) H 10/22/18 10:10 Fluid Mononuclear Cell 8 % (0-0) H 10/22/18 10:10 Fl Polymorphonucl Cell 92 % (0-0) H 10/22/18 10:10 Fluid Crystals See comment 10/22/18 10:10 Fluid Crystal Source L elbow 10/22/18 10:10 Fl Crystal Path Review 10/22/18 10:10 Path Cons Comment 10/22/18 10:10
[2018-10-25] MEDS: Warfarin 5 MG TAB 10 MG PO (20:16)
[2018-10-26 01:18] VITALS: BP 123/73; PULSE 87; RESP 19; TEMP 36.6; O2SAT 96
[2018-10-26] MEDS: Enoxaparin 30 MG/0.3 ML SYR SC ×2 (06:11→18:04)
[2018-10-26] MEDS: Levothyroxine 75 MCG TAB PO (06:11)
[2018-10-26] MEDS: Metoprolol 50 MG TAB 100 MG PO ×3 (06:11→21:45)
[2018-10-26 07:29] LABS: Abs Immature Grans 0.02 k/cumm (0.0-0.09); Absolute Basophil Count 0.07 k/cumm (0.0-0.2); Absolute Eosinophil Count 0.32 k/cumm (0.0-0.7); Absolute Lymphocyte Count 0.87 k/cumm (1.2-3.4); Absolute Monocyte Count 0.46 k/cumm (0.11-0.7); Absolute Neutrophil Count 6.89 k/cumm (1.2-6.7); Basophils % 0.8; Eosinophils % 3.7; HGB 8.1 g/dL (13.5-17.5); Immature Grans % 0.2; Lymphocytes % 10.1; Mean Corp. HGB Concentration 31.2 g/dL (32.0-36.0); Mean Corpuscular Hemoglobin 30.8 pg (27.0-33.0); Mean Corpuscular Volume 98.9 fL (80-95); Mean Platelet Volume 9.6 fL (8.0-11.0); Monocytes % 5.3; Neutrophils % 79.9; Platelet Count 363 x1000/uL (130-400); RBC 2.63 m/cumm (4.50-6.00); White Blood Cell Count 8.63 k/cumm (4.4-10.8)
[2018-10-26 07:40] LABS: INR 1.2 (0.9-1.1)
[2018-10-26 07:41] VITALS: BP 134/75; PULSE 102; RESP 18; TEMP 37; O2SAT 98
[2018-10-26 07:46] LABS: Anion Gap 10.1 mmol/L (3-11); BUN 39 mg/dL (7-18); C-Reactive Protein 6.21 mg/dL (0.0-0.3); CO2 21.9 mmol/L (21.0-32.0); CREATININE 1.67 mg/dL (0.70-1.30); Calcium 9.4 mg/dL (8.5-10.1); Chloride 106 mmol/L (98-107); Estimated GFR 40.31 (mL/min/1.73m2); Glucose 82 mg/dL (70-100); Magnesium 2.6 mg/dL (1.8-2.4); Potassium 5.2 mmol/L (3.5-5.1); Sodium 138 mmol/L (136-145)
[2018-10-26] MEDS: Allopurinol 300 MG TAB PO (08:21)
[2018-10-26] MEDS: Multivitamin TAB 1 TAB PO (08:21)
[2018-10-26] MEDS: Ascorbic Acid 500 MG TAB PO (08:21)
[2018-10-26] MEDS: Tamsulosin 0.4 MG CAPCR PO (08:21)
[2018-10-26] MEDS: Spironolactone 25 MG TAB 12.5 MG PO (08:21)
[2018-10-26] MEDS: Furosemide 40 MG TAB PO (08:21)
[2018-10-26] MEDS: Cholecalciferol (Vitamin D3) 1,000 UNIT TAB 1000 UNITS PO (08:21)
[2018-10-26] MEDS: Normal Saline Flush 10 ML SYR 20 ML IVP ×2 (08:21→20:07)
[2018-10-26] MEDS: Acetaminophen 500 MG TAB 1000 MG PO ×3 (08:22→20:07)
[2018-10-26] MEDS: Cyanocobalamin 500 MCG TAB PO (08:22)
[2018-10-26] MEDS: rifAMPin 300 MG CAP PO ×2 (08:22→20:08)
[2018-10-26] MEDS: Vitamins B Comp w/C TAB 1 TAB PO (08:22)
[2018-10-26] MEDS: Celecoxib 200 MG CAP PO (08:22)
[2018-10-26 08:25] VITALS: RESP 14
[2018-10-26 11:20] VITALS: BP 128/77; PULSE 94; RESP 19; TEMP 37; O2SAT 98
--- NOTE | 2018-10-26 12:42 | PT.INPN ---
Date of service: 10/26/18 Time of Service: 10:15 PT Notes Inpatient Physical Therapy Progress Note Date: 10/26/2018 Dates of Service: 10/19/2018 through 10/26/2018 Precautions: Fall. Standard. WBAT on left LE. Subjective: Patient remains confident and determined to make it home tomorrow and do well on his 48 anniversary this coming Wednesday. For the morning session, patient continues to deny pain on BUE/LE as well as chest pain, headaches, and dizziness throughout. For the afternoon session, patient did report mild discomfort on L UE due to minimal swelling. Objective: Observation: Small egg-sized blister on L posteromedial arm now fully covered with wound dressing. Left thigh and knee edema almost resolved. Brawny edema on left leg remains. Mepilex Ag on left knee surgical incision. ROM: Active L knee extesion now up to -10 degrees. Active L hip flexion now up to 20 degrees beyond horizontal while seated at eedge of bed. Bed Mobility/Transfers: Supine to sit supervision Sit to supine supervision Sit to stand set up assist from high bed level and from 22 inch high wheelchair using both UE for support; minimal assist from [facility] recliner Stand to sit set up assist from high bed level and from 22 inch high wheelchair using both UE for support; minimal assist from [facility] recliner Bed to chair set up assist from high bed level and from 22 inch high wheelchair using both UE for support; minimal assist from [facility] recliner Chair to bed set up assist from high bed level and from 22 inch high wheelchair using both UE for support; minimal assist from [facility] brown recliner Gait: For the morning session, patient was able to walk about 80 feet x 2 feet using FWW from room to the therapy gym with SBA assist and wheelchair follow of PT without any report of chest pain, headache, and dizziness throughout with breathlessness now minimal, step length and height very much improved, gait velocity increased. For the afternoon session STAIRS: Morning session-Patient was able to do five trials of stair negotiation up and down three 4-inch steps with improved hip and knee flexion allowing better clearance of L LE during ascent. R knee did not have any episode of buckling despite patient taking no rest. Patient required SBA assist only and minimal verbal cues for pacing technique. Afternoon session- Patient was able to tolerate up-and-down three 4 inch steps 5 times without resting holding onto bilateral rails using step to gait pattern with just standby assist of this PT and the nurse. No buckling of the right knee was observed. No pain complaint on BUE/LE was received. Patient did demonstrate mild breathlessness after activity that resolved with rest. THERA EX: For the afternoon session, patient continued with resistance exercises using 3 pounds ankle weights working on increasing strength to R shoulder flexors and extensors in supine and to B hip flexors and knee extensors while seated at edge of bed. Assessment: Patient continues to present with clinical signs and symptoms consistent with current/admitting diagnoses that have resulted to mobility limitations, gait instability, generalized weakness, and impairment of motor control as demonstrated by the following impairment level findings: 1. Increasing strength to L hip and knee major muscle groups 2. Improving standing balance 3. Improving activity tolerance 4. Increasing joint range of motion in L knee and hip Impairments are contributing to the following functional limitations: 3. Inability to safely ambulate without assistive device and physical assistance 4. Increase completion time for mobility ADL performance 5. Increased fall risk 6. 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 Samano. He also is being managed for acute renal insufficicency, hypotension associated with sepsis, cardiomyopathy, and atrial fibrillation. Examination: Demonstrable impairment in strength, balance, and range of motion with underlying impairments and functional limitations as documented above Presentation:Evolving Decision Makin high complexity Goals: Goals X1 week 1. Supine-Sit independent CONTINUE 2. Sit-Supine independent CONTINUE 3. Sit-Stand independent CONTINUE 4. Stand-Sit independent CONTINUE 5. Bed-Chair independent CONTINUE 6. Chair-Bed independent CONTINUE 7. Independent gait on level surface with use of least restrictive device for at least 100 feet without report of pain nor dyspnea CONTINUE 8. Independent stair negotiation while holding onto bilateral rails for at least 12 steps without report of pain nor dyspnea CONTINUE 9. Independent with home exercise program CONTINUE 10. Good static and dynamic standing balance/tolerance CONTINUE Plan of Care/Treatment Plan: 1-2x/day, 7 days/week x 1 week. Plan of care has been reviewed with the [employer] providing the service under Physical Therapy direction. Initiate Physical Therapy intervention for strengthening, bed mobility, transfers, gait, stairs, balance training, use of assistive device. DISCHARGE RECOMMENDATIONS: Patient will benefit from home health PT services in order to progress mobility level using least restrictive assistive ambulatory device/using no device, assess home safety, identify additional equipment needs, and establish a functional maintenance program that will increase ability of patient to remain at home. TREATMENT CODE/TIME: Session 1- [id number] x 42 minutes beginning at 10:15 AM Session [id number] x 34 minutes beginning at 15:26 PM. Thank you very much for this referral. Chacha Bonner PT, DPT, CLT [facility]
[2018-10-26] MEDS: Furosemide 20 MG TAB PO (15:16)
[2018-10-26] MEDS: cefTRIAXone 2 GM/50 ML BAG IVPB (15:17)
[2018-10-26] MEDS: Normal Saline 500 ML 50 ML IV (15:18)
[2018-10-26 15:37] VITALS: BP 131/87; PULSE 97; RESP 20; TEMP 36.1; O2SAT 96
[2018-10-26] MEDS: Normal Saline Flush 10 ML SYR IVP (16:15)
--- NOTE | 2018-10-26 16:24 | W.PM.PROGNOT ---
Date of Service Date of service: 10/26/18 Time of Service: 11:25 Assessment and Plan (1) Infection of prosthetic left knee joint: Current visit: Yes Status: Acute C-reactive protein continues to decrease in a satisfactory fashion. He has been switched to ceftriaxone and rifampin has been resumed. He will need 6 weeks of IV antibiotics and then oral antibiotics. He will need weekly labs. He she will be discharged to home with home and hepatic service as well as home health nursing and physical therapy. Hopeful to discharge on . Qualifiers: Encounter type: initial encounter Qualified Code(s): T84.54XA - Infection and inflammatory reaction due to internal left knee prosthesis, initial encounter (2) Acute renal insufficiency: Current visit: Yes Status: Acute Creatinine took another bump today. I did restart him on Lasix and he has been using anti-inflammatory. The antiplatelets will be necessary to help treat his gout and his joint pains. However, it may compromise his kidney function. Therefore, we will follow this closely. I will also decrease his Lasix dose since he still is being net negative at this time. He will need to follow-up with his primary care doctor to reevaluate this. I will also check weekly labs. (3) Permanent atrial fibrillation with rapid ventricular response: Current visit: Yes Status: Resolved Heart rate has been largely controlled with his home dose of metoprolol. I will transition him to the longer acting metoprolol as he took at home. (4) Cardiomyopathy: Current visit: No Status: Acute No signs of acute exacerbation of his cardiomyopathy. He still is fluid positive for this admission but seems to be net negative on a daily basis. I will slowly resume his Lasix. His potassium to take a jump which should be benefited by an increase in Lasix. However, his creatinine is also increased. So we will need to follow this closely. Qualifiers: Cardiomyopathy type: unspecified Qualified Code(s): I42.9 - Cardiomyopathy, unspecified (5) Gout of left elbow: Current visit: Yes Status: Acute Much improved. Minor soreness. Qualifiers: Gout etiology: idiopathic Chronicity: acute Qualified Code(s): M10.022 - Idiopathic gout, left elbow (6) Acute anemia: Current visit: Yes Status: Acute Stable. Consider adding iron. Subjective Interval history since last seen: Vasu reports to be feeling well. He has no new complaints. He has no fever no chills. His left arm pain is much better. He has been using the anti-inflammatory with good result. Also reports being able to get up to the bathroom on his own. He has tolerated the switch to ceftriaxone without any notable issues and has had no fevers after restarting rifampin. Exam Narrative Exam Narrative: Left lower extremity with continued peripheral edema but the swelling around the left knee seems to be decreasing. No drainage on the dressing. No erythema. Mild warmth. Quadriceps muscle is dahiana but he is unable to straight leg raise. Objective Objective Clinical Data: Abnormal lab results 10/26/18 10/26/18 10/26/18 Range/Units 06:35 07:10 07:10 RBC 2.63 L (4.50-6.00) m/cumm Hgb 8.1 L (13.5-17.5) g/dL Hct 26.0 L (40.0-50.0) % MCV 98.9 H (80-95) fL MCHC 31.2 L (32.0-36.0) g/dL RDW 15.0 H (11.8-14.1) % Absolute Neutrophils 6.89 H (1.2-6.7) k/cumm Absolute Lymphocytes 0.87 L (1.2-3.4) k/cumm PT 12.0 H (9.3-11.0) sec INR 1.2 H (0.9-1.1) Potassium 5.2 H (3.5-5.1) mmol/L BUN 39 H (7-18) mg/dL Creatinine 1.67 H (0.70-1.30) mg/dL Magnesium 2.6 H (1.8-2.4) mg/dL C-Reactive Protein 6.21 H (0.0-0.3) mg/dL Vital Signs Temperature 36.1 C L 10/26/18 15:37 Temperature Source Tympanic 10/26/18 15:37 Pulse 97 H 10/26/18 15:37 Pulse Rhythm Irregular 10/26/18 09:00 Pulse 86 10/25/18 00:00 Respiratory Rate 20 10/26/18 15:37 Respiratory Effort Non-Labored 10/26/18 09:00 Respiratory Depth Normal 10/26/18 09:00 Respiratory Pattern Normal 10/26/18 09:00 Blood Pressure 131/87 10/26/18 15:37 Blood Pressure Mean 78 10/24/18 22:27 Blood Pressure Position Supine 10/20/18 16:45 Pulse Oximetry 96 10/26/18 15:37 Oxygen Delivery Method Room Air 10/26/18 15:37 Oxygen Flow Rate 0 10/26/18 15:37 Fraction of Inspired Oxygen (FIO2) 21 10/12/18 15:05 Pain Level 0 10/26/18 11:20 Comment 10/17/18 22:30 Intake & Output 10/25/18 10/26/18 10/26/18 23:59 11:59 23:59 Intake Total 1000 / 1350 370 / 370 0 / 370 Output Total 2650 / 3300 800 / 1135 335 / 1135 Balance -1650 / -1950 -430 / -765 -335 / -765 Weight 132.9 kg Intake: IV 150 / 250 10 / 10 0 / 10 Oral 850 / 1100 360 / 360 Output: Urine 2050 / 2700 800 / 1135 335 / 1135 Post Void Residual 600 / 600 Other: Urine Color Pale Yellow Light Marcela Yellow Urine Appearance Clear Clear Clear Urine Odor None None None Comment patient appears comfortable denies any pain or discomfort. Straight catheter was initiated as per order striaght cath Stool Size Large Large Stool Characteristics Formed Soft Formed Voiding Methods Urinal Urinal Urinal Laboratory Results WBC 8.63 k/cumm (4.4-10.8) 10/26/18 07:10 RBC 2.63 m/cumm (4.50-6.00) L 10/26/18 07:10 Hgb 8.1 g/dL (13.5-17.5) L 10/26/18 07:10 Hct 26.0 % (40.0-50.0) L 10/26/18 07:10 MCV 98.9 fL (80-95) H 10/26/18 07:10 MCH 30.8 pg (27.0-33.0) 10/26/18 07:10 MCHC 31.2 g/dL (32.0-36.0) L 10/26/18 07:10 RDW 15.0 % (11.8-14.1) H 10/26/18 07:10 Plt Count 363 x1000/uL (130-400) 10/26/18 07:10 MPV 9.6 fL (8.0-11.0) 10/26/18 07:10 Immature Gran % 0.2 10/26/18 07:10 79.9 10/26/18 07:10 3.0 % 10/17/18 09:45 10.1 10/26/18 07:10 5.3 10/26/18 07:10 3.7 10/26/18 07:10 0.8 10/26/18 07:10 2.0 % 10/19/18 06:30 1.0 % 10/18/18 06:40 Absolute Neutrophils 6.89 k/cumm (1.2-6.7) H 10/26/18 07:10 Absolute Lymphocytes 0.87 k/cumm (1.2-3.4) L 10/26/18 07:10 Absolute Monocytes 0.46 k/cumm (0.11-0.7) 10/26/18 07:10 Absolute Eosinophils 0.32 k/cumm (0.0-0.7) 10/26/18 07:10 Absolute Basophils 0.07 k/cumm (0.0-0.2) 10/26/18 07:10 Rbc morph reviewed 10/25/18 06:10 RBC Morphology See below 10/25/18 06:10 Present 10/19/18 06:30 1+ 10/25/18 06:10 1+ 10/25/18 06:10 2+ 10/25/18 06:10 ESR 98 mm/hr (1-20) H 10/10/18 16:30 PT 12.0 sec (9.3-11.0) H 10/26/18 07:10 INR 1.2 (0.9-1.1) H 10/26/18 07:10 Sodium 138 mmol/L (136-145) 10/26/18 06:35 Potassium 5.2 mmol/L (3.5-5.1) H 10/26/18 06:35 Chloride 106 mmol/L (98-107) 10/26/18 06:35 Carbon Dioxide 21.9 mmol/L (21.0-32.0) 10/26/18 06:35 10.1 mmol/L (3-11) 10/26/18 06:35 BUN 39 mg/dL (7-18) H 10/26/18 06:35 1.67 mg/dL (0.70-1.30) H 10/26/18 06:35 40.31 (mL/min/1.73m2) 10/26/18 06:35 Glucose 82 mg/dL (70-100) 10/26/18 06:35 5.9 % (4.5-6.2) 10/10/18 16:30 0.9 mmol/l (0.6-1.4) 10/14/18 06:30 Calcium 9.4 mg/dL (8.5-10.1) 10/26/18 06:35 Magnesium 2.6 mg/dL (1.8-2.4) H 10/26/18 06:35 0.3 mg/dL (0.2-1.0) 10/21/18 06:20 0.09 mg/dL (0.00-0.20) 10/21/18 06:20 AST 15 U/L (15-37) 10/21/18 06:20 ALT 18 U/L (12-78) 10/21/18 06:20 62 U/L (46-116) 10/21/18 06:20 72 U/L (39-308) 10/12/18 06:10 6.21 mg/dL (0.0-0.3) H 10/26/18 06:35 6.5 g/dL (6.4-8.2) 10/21/18 06:20 1.7 g/dL (3.4-5.0) L 10/21/18 06:20 0.2 ng/mL 10/24/18 06:45 Yellow (Yellow) 10/21/18 15:30 Clear (Clear) 10/21/18 15:30 5.5 (5-8) 10/21/18 15:30 Ur Specific [place] 1.015 (1.005-1.025) 10/21/18 15:30 30 mg/dL (Negative) H 10/21/18 15:30 Negative mg/dL (Negative) 10/21/18 15:30 Large (Negative) H 10/21/18 15:30 Negative (Negative) 10/21/18 15:30 Negative (Negative) 10/21/18 15:30 0.2 EU/dL (Up TO 0.2) 10/21/18 15:30 Ur Leukocyte Esterase Negative (Negative) 10/21/18 15:30 >50 (0-2) H 10/21/18 15:30 3-5 HPF (0-5) 10/21/18 15:30 Ur Epithelial Cells Negative HPF (Negative) 10/21/18 15:30 Negative HPF (Negative) 10/21/18 15:30 Rare HPF (Negative) 10/21/18 15:30 3-5 coarse granular LPF (Negative) 10/21/18 15:30 Negative (Negative) 10/21/18 15:30 Ur Culture Indicated? No 10/21/18 15:30 Negative mg/dL (Negative) 10/21/18 15:30 Fluid Source L elbow 10/22/18 10:10 Fluid Color Yellow 10/22/18 10:10 Fluid Clarity Cloudy 10/22/18 10:10 Fluid WBC 26770 /MM3 (0-0) H 10/22/18 10:10 Fluid Mononuclear Cell 8 % (0-0) H 10/22/18 10:10 Fl Polymorphonucl Cell 92 % (0-0) H 10/22/18 10:10 Fluid Crystals See comment 10/22/18 10:10 Fluid Crystal Source L elbow 10/22/18 10:10 Fl Crystal Path Review 10/22/18 10:10 Path Cons Comment 10/22/18 10:10
--- NOTE | 2018-10-26 18:13 | PDOC.CMPRO ---
- If Service Date Differs Date of service: 10/26/18 Time of Service: 18:13 Care Management Progress Note S/O:Vasu was sitting up in bed when CM met with him. He was pleasant and talked about his upcoming discharge which is likely to occur tomorrow. CM coordinated a referral to [facility] for 40 days of home IV antibiotics. CM met with Vasu and his Haley this evening to discuss the timing of the antibiotics and the likely process for initiation. Vasu continues to work with PT, increasing the distance he is able to walk as well as the number of stairs he can manage. A: Brennan is a 73 year old man admitted to [facility] on 10/10/18 with an infected knee, MSSA. P: Brennan continues to receive IV antibiotics for an infected prosthetic knee. PICC line placed to facilitate administration of the needed 6 weeks of IV AB. Vasu and his prefer home antibiotic therapy if possible-anticipate [facility] supports for RN and PT as well as home DME company coordination for IV ABX. CM will continue to support patient, family and discharge planning needs identified
[2018-10-26] MEDS: Celecoxib 100 MG CAP PO (20:07)
[2018-10-26] MEDS: Warfarin 5 MG TAB 10 MG PO (20:08)
[2018-10-26 20:24] VITALS: BP 125/83; PULSE 80; RESP 20; TEMP 36.7; O2SAT 95
[2018-10-27 00:29] VITALS: BP 129/84; PULSE 82; RESP 18; TEMP 36.3; O2SAT 96
[2018-10-27 03:43] VITALS: RESP 14
[2018-10-27 03:58] VITALS: BP 147/79; PULSE 84; RESP 19; TEMP 37; O2SAT 95
[2018-10-27] MEDS: Metoprolol 50 MG TAB 100 MG PO ×2 (05:34→13:34)
[2018-10-27] MEDS: Enoxaparin 30 MG/0.3 ML SYR SC (05:34)
[2018-10-27] MEDS: Levothyroxine 75 MCG TAB PO (05:34)
[2018-10-27 07:12] LABS: Anion Gap 7.9 mmol/L (3-11); BUN 39 mg/dL (7-18); CO2 23.1 mmol/L (21.0-32.0); Calcium 9.2 mg/dL (8.5-10.1); Chloride 106 mmol/L (98-107); Estimated GFR 49.41 (mL/min/1.73m2); Glucose 82 mg/dL (70-100); INR 1.3 (0.9-1.1); Potassium 5.2 mmol/L (3.5-5.1); Sodium 137 mmol/L (136-145)
[2018-10-27 07:49] VITALS: BP 146/91; PULSE 71; RESP 19; TEMP 36.7; O2SAT 97
[2018-10-27] MEDS: Cholecalciferol (Vitamin D3) 1,000 UNIT TAB 1000 UNITS PO (07:54)
[2018-10-27] MEDS: Furosemide 20 MG TAB PO (07:54)
[2018-10-27] MEDS: Allopurinol 300 MG TAB PO (07:54)
[2018-10-27] MEDS: Cyanocobalamin 500 MCG TAB PO (07:54)
[2018-10-27] MEDS: Celecoxib 100 MG CAP PO (07:54)
[2018-10-27] MEDS: Vitamins B Comp w/C TAB 1 TAB PO (07:55)
[2018-10-27] MEDS: rifAMPin 300 MG CAP PO (07:55)
[2018-10-27] MEDS: Tamsulosin 0.4 MG CAPCR PO (07:55)
[2018-10-27] MEDS: Multivitamin TAB 1 TAB PO (07:55)
[2018-10-27] MEDS: Acetaminophen 500 MG TAB 1000 MG PO ×2 (07:55→13:34)
[2018-10-27] MEDS: Ascorbic Acid 500 MG TAB PO (07:56)
[2018-10-27] MEDS: Normal Saline Flush 10 ML SYR 20 ML IVP (07:57)
--- NOTE | 2018-10-27 08:28 | OTDS_ITS ---
Date of service: 10/27/18 Time of Service: 08:28 Occupational Therapy Notes Occupational Therapy Inpatient Discharge Summary Date: 10/27/18 Dates of Service: 10/21/18-10/27/18 Referring Doctor:Zack Khan MD OT Orders: a Precautions: Fall, Standard PATIENT PROFILE/ADMITTING DIAGNOSIS: Pt is a 73 year old male who was admitted to [facility] with a dx of s/p left total knee arthroplasty in April 2018 who presented to the out-patient orthopedic clinic with infected abrasion of L knee. 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 Samano. Past Medical History: Atrial Fibrillation Sepsis with hypotension Venous Stasis Restrictive Lung Disease Renal Insufficiency Social History/Home Situation: Pt reports that he lives in a private home with his Haley. He has a tub/shower combination and uses a shower bench. He states that he performs his ADLs in his bedroom which is located on the 2nd floor. 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 He performs most of his ADLs in the standing position. He uses raised toilet seats however reports that he does not like to get up in the night to go to the bathroom so he uses the urinal. Equipment owned/DME: Raised toilet seat, shower bench, removable shower head, grab bars SUBJECTIVE: NT This document serves as a summary of care, no skilled OT services provided for this documentation. OBJECTIVE: ROM: RUE AROM WFL L UE AROM WFL STRENGTH: RUE Shoulder flexion 4/5, bicep 5/5, tricep 5/5, german tutor is strong and symmetrical LUE Shoulder flexion 4-/5, bicep 5/5, tricep 5/5, german tutor is strong and symmetrical FUNCTIONAL MOBILITY/ADLS: Based on ADLs/IADLs performed at previous OT session. No skilled OT services provided for this documentation. BATHING: Sitting in chair with max (A) set up Upper Body: (I) (L) arm, max (A) (R) d/t pain in (L) UE, (I) face, max (A) abdomen as pt refuses this on his own. Lower Body: Max (A) LE, pt denied at most sessions. DRESSING: Sitting in chair Upper Extremity: Min (A) don and doffing hospital gown Lower Extremity: Max (A) don and doffing (B) socks. BALANCE: Static sitting Good Dynamic Sitting Good Static Standing Good Dynamic Standing Good ASSESSMENT: Patient is a 73-year-old male referred to occupational therapy services with diagnosis of s/p left total knee arthroplasty in April 2018 who presented to the out-patient orthopedic clinic with infected abrasion of L knee. 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 Samano. He was seen for 3 skilled OT sessions. Plan is for pt to be discharged today when medically cleared per MD. Pt denied performance of ADLs at most OT sessions reporting that he did not need to perform this as he will be able to perform this at home. Pt functionally reports that his will (A) him at home as needed. He is not concerned about his performance with his ADLs. OT is concerned that pt will not be able to perform his ADLs safely when he returns home, due to pts decreased functional mobility and functional activity tolerance. Pt is not concerned and wants to go home and does not feel that he will need increased services when he returns home. GOALS 1. Transfers (S), FWW-not met 2. Dressing (I) UE, (I) LE in sitting position -met UE, not met LE 3. Bathing (I) UE, min (A) LE in sitting position- met UE and unable to assess LE as pt denied. 4. Toileting (I) on toilet- met 5. Eating (I)- met PLAN OF CARE/TREATMENT PLAN: Discharge from skilled OT services. DISCHARGE RECOMMENDATIONS OT recommends that pt have HHOT services, pt verbalizes that he does not feel that he needs this at this time. TREATMENT TIME/MINUTES/CODES N/A Zofia Brush OTR/L [facility]
[2018-10-27 11:00] VITALS: BP 130/71; PULSE 100; RESP 20; TEMP 36.4; O2SAT 97
[2018-10-27 12:30] VITALS: RESP 14
[2018-10-27] MEDS: cefTRIAXone 2 GM/50 ML BAG IVPB (13:33)
--- NOTE | 2018-10-27 14:15 | INDS_ITS ---
Date of service: 10/27/18 Time of Service: 11:03 PT Notes Inpatient Physical Therapy Discharge Summary Dates: 10/27/2018 Dates of Service: 10/12/2018 through 10/27/2018 Precautions: Fall. Standard. WBAT on left LE. Patient Profile/Admitting Diagnosis: Patient is a 73-year-old male status post left total knee arthroplasty in April 2018 who presented to the out-patient clinic with infected abrasion of L knee. 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 Samano. He also is being managed for acute renal insufficicency, hypotension associated with sepsis, cardiomyopathy, and atrial fibrillation. PMHX: Atrial Fibrillation Sepsis with hypotension Venous Stasis Restrictive Lung Disease Renal Insufficiency Social History/Home Situation: Patient lives with Haley in a 2-floor house in [place], [place] with a ramp to enter. He has a flight of steps to his bedroom and a flight down to what he calls a studio. Both sets of step have rails on both sides. He was independent with all aspects of ADLs using no AD indoors but sometimes with a single point cane outdoors. Subjective: Patient looks forward to going home today. Denies chest pain, headaches, and dizziness throughout. Objective: Observation: Small egg-sized blister on L posteromedial arm now fully covered with wound dressing. Left thigh and knee edema almost resolved. Brawny edema on left leg remains. Mepilex Ag on left knee surgical incision. ROM: Active L knee extension now up to -10 degrees. Active L hip flexion now up to 20 degrees beyond horizontal while seated at eedge of bed. Strength: Right Upper Extremity: Shoulder flexors 5/5. Shoulder abductors 5/5. Elbow flexors 5/5. Elbow extensors 5/5. Photov[employer]ic Testing [employer]ician strong. Left Upper Extremity: Shoulder flexors 5/5. Shoulder abductors 5/5. Elbow flexors 5/5. Elbow extensors 5/5. Photovoltaic Testing Technician strong. Right Lower Extremity: Hip flexors 5/5. Hip abductors 5/5. Knee flexors 5/5. Knee extensors 5/5. Ankle dorsiflexors 5/5. Ankle plantarflexors 5/5. Left Lower Extremity:Hip flexors 3-/5. Hip abductors 4-/5. Knee flexors 3-/5. Knee extensors 3-/5. Ankle dorsiflexors 5/5. Ankle plantarflexors 5/5. Bed Mobility/Transfers: Supine to sit supervision Sit to supine supervision Sit to stand set up assist from high bed level and from 22 inch high wheelchair using both UE for support; minimal assist from [facility] brown recliner Stand to sit set up assist from high bed level and from 22 inch high wheelchair using both UE for support; minimal assist from low brown recliner Bed to chair set up assist from high bed level and from 22 inch high wheelchair using both UE for support; minimal assist from [facility] recliner Chair to bed set up assist from high bed level and from 22 inch high wheelchair using both UE for support; minimal assist from low brown recliner Gait: Deferred today per agreement with patient as he needs to conserve energy to negotiate steps at home. STAIRS: Deferred today per agreement with patient as he needs to conserve energy to negotiate steps at home. THERA EX: Patient was able to tolerate standing level balance exercises consisting of high marches, heel raises, and partial knee bends x 20 reps per exercise flow sheet. Assessment: Patient continues to present with clinical signs and symptoms consistent with current/admitting diagnoses that have resulted to mobility limitations, gait instability, generalized weakness, and impairment of motor control as demonstrated by the following impairment level findings: 1. Increasing strength to L hip and knee major muscle groups 2. Improving standing balance 3. Improving activity tolerance 4. Increasing joint range of motion in L knee and hip Impairments are contributing to the following functional limitations: 3. Inability to safely ambulate without assistive device and physical assistance 4. Increase completion time for mobility ADL performance 5. Increased fall risk 6. Inability to negotiate steps alone safely Patient is assessed as a [id number] high complexity based on the following: History: Patient was diagnosed with L knee periprosthetic infection and arthrotomy rupture and is S/P L open irrigation, debridement, synovectomy and polyetheylene exchange with arthrotomy repair on 10/11/[address] Samano. He also is being managed for acute renal insufficicency, hypotension associated with sepsis, cardiomyopathy, and atrial fibrillation. Examination: Demonstrable impairment in strength, balance, and range of motion with underlying impairments and functional limitations as documented above Presentation:Evolving Decision Makin high complexity Goals: Goals X1 week 1. Supine-Sit independent NOT MET 2. Sit-Supine independent NOT MET 3. Sit-Stand independent NOT MET 4. Stand-Sit independent NOT MET 5. Bed-Chair independent NOT MET 6. Chair-Bed independent NOT MET 7. Independent gait on level surface with use of least restrictive device for at least 100 feet without report of pain nor dyspnea NOT MET 8. Independent stair negotiation while holding onto bilateral rails for at least 12 steps without report of pain nor dyspnea NOT MET 9. Independent with home exercise program NOT MET 10. Good static and dynamic standing balance/tolerance NOT MET DISCHARGE RECOMMENDATIONS: Patient will benefit from home health PT services at least 3x/week in order to progress mobility level using least restrictive assistive ambulatory device/using no device, assess home safety, identify additional equipment needs, and establish a functional maintenance program that will increase ability of patient to remain at home. TREATMENT CODE/TIME: 41885 x 26 minutes beginning at 11:03 AM. Thank you very much for this referral. Chacha Bonner PT, DPT, CLT [facility]
--- NOTE | 2018-10-27 15:41 | CMDISCH_ITS ---
- If Service Date Differs Date of service: 10/27/18 Time of Service: 15:41 LACE Index Scoring Tool - Questions: Length of Stay (in days): 14 or more Acuity (Admit via E.D.?): No Comorbidities: Liver or Renal Disease E.D. Visits: 2 - Answers: Total Score: 14 Risk of Readmission: High Risk Care Management Discharge Reason for Hospitalization: infected TKA Discharge Plan: Vasu will be discharged home to complete 6 weeks of IV antibiotic therapy. This will be administered through [facility]. He will transport via private vehicle with his Haley. Vasu will follow up with Dr. Samano, his PCP and his discharge plan of care. Patient/Family Education Needs: Discharge plan, limitations, follow up plan and Ask Me Three. Services Needed at Discharge: Home Health Care Services, Infusion Therapy
== END 2018-10-27 16:42 | disposition home health service (06) | DRG 485 ==
LOC: MS 10-11 10:43 → ICU 10-11 12:39 → MS 10-25 00:47
PROVIDERS: Internal Medicine; Admitting Provider Student in an Organized Health Care Education/Training Program; PCP Internal Medicine; Visit Provider Student in an Organized Health Care Education/Training Program
PROC: 0SBD0ZZ Excision of Left Knee Joint, Open Approach (ICD-10-PCS; CPT 27486; principal; 2018-10-11 12:45)
DX: T84.54XA Infection and inflammatory reaction due to internal left knee prosthesis, initial encounter (principal); A41.01 Sepsis due to Methicillin susceptible Staphylococcus aureus; J18.9 Pneumonia, unspecified organism; N17.9 Acute kidney failure, unspecified; I50.22 Chronic systolic (congestive) heart failure; T81.32XA Disruption of internal operation (surgical) wound, not elsewhere classified, initial encounter; D62 Acute posthemorrhagic anemia; I25.5 Ischemic cardiomyopathy; S80.212A Abrasion, left knee, initial encounter; B95.61 Methicillin susceptible Staphylococcus aureus infection as the cause of diseases classified elsewhere; X58.XXXA Exposure to other specified factors, initial encounter; R50.82 Postprocedural fever; D64.9 Anemia, unspecified; I95.9 Hypotension, unspecified; I48.2 Chronic atrial fibrillation; I11.0 Hypertensive heart disease with heart failure; I27.22 Pulmonary hypertension due to left heart disease; J98.4 Other disorders of lung; I07.1 Rheumatic tricuspid insufficiency; W19.XXXA Unspecified fall, initial encounter; M25.531 Pain in right wrist; M25.522 Pain in left elbow; M10.022 Idiopathic gout, left elbow
CPT/HCPCS: 27486; 11043; 36410; 36415; 36569; 36591; 36592; 71045; 80048; 80053; 80076; 82550; 84145; 85027; 85652; 87040; 87077; 97110; 97162; 97166; 97530; 97535; 99232; 99233; 99239; 99253; 99291; NC; 81003; 81015; 83036; 83605; 83735; 85025; 85610; 86140; 87070; 87075; 87086; 87186; 87205; 89051; 89060; 93005; 93010; 93306; 93970; 93971; J0131; J0171; J0690; J0878; J1040; J1100; J1160; J1650; J1885; J1940; J2405; J2543; J2997; J3010; J3490

== ENCOUNTER 2018-10-10 15:21 | Outpatient (REF) | payer BC, MEDICARE, SELFPAY ==
[2018-10-10 16:26] LABS: Clarity CLOUDY; Mononuclear Cells 7 % (0-0); Polynuclear Cells 93 % (0-0); Source L KNEE
== END 2018-10-10 15:41 ==
LOC: LBN 15:21
PROVIDERS: PCP Internal Medicine; Visit Provider Student in an Organized Health Care Education/Training Program
DX: M25.462 Effusion, left knee (principal)
CPT/HCPCS: 87077; 87070; 87075; 87186; 87205; 89051

== ENCOUNTER 2018-10-31 10:18 | Outpatient (REF) | payer BC, MEDICARE, SELFPAY ==
[2018-10-31 10:39] LABS: Mean Corp. HGB Concentration 29.5 g/dL (32.0-36.0); Mean Corpuscular Hemoglobin 30.4 pg (27.0-33.0); Mean Corpuscular Volume 103.3 fL (80-95); Mean Platelet Volume 9.6 fL (8.0-11.0); Platelet Count 364 x1000/uL (130-400); RBC 1.84 m/cumm (4.50-6.00); RBC Distribution Width 15.6 % (11.8-14.1); White Blood Cell Count 7.68 k/cumm (4.4-10.8)
[2018-10-31 11:05] LABS: HGB 5.6 g/dL (13.5-17.5)
[2018-10-31 11:21] LABS: Anion Gap 10.5 mmol/L (3-11); BUN 30 mg/dL (7-18); C-Reactive Protein 5.32 mg/dL (0.0-0.3); CO2 21.5 mmol/L (21.0-32.0); CREATININE 1.55 mg/dL (0.70-1.30); Calcium 8.8 mg/dL (8.5-10.1); Chloride 109 mmol/L (98-107); Estimated GFR 43.93 (mL/min/1.73m2); Glucose 124 mg/dL (70-100); Potassium 4.3 mmol/L (3.5-5.1); Sodium 141 mmol/L (136-145)
[2018-10-31 14:34] LABS: HCT 29.1 % (40.0-50.0); HGB 8.7 g/dL (13.5-17.5)
== END 2018-10-31 10:38 ==
LOC: LBN 10:18
PROVIDERS: PCP Internal Medicine; Visit Provider Student in an Organized Health Care Education/Training Program
DX: Z79.2 Long term (current) use of antibiotics (principal); T84.54XD Infection and inflammatory reaction due to internal left knee prosthesis, subsequent encounter; J18.9 Pneumonia, unspecified organism; D64.9 Anemia, unspecified
CPT/HCPCS: 80048; 85027; 85014; 85018; 86140

== ENCOUNTER 2018-11-07 15:45 | Outpatient (REF) | payer BC, MEDICARE, SELFPAY ==
[2018-11-07 16:45] LABS: Anion Gap 9.8 mmol/L (3-11); BUN 32 mg/dL (7-18); C-Reactive Protein 4.51 mg/dL (0.0-0.3); CO2 24.2 mmol/L (21.0-32.0); CREATININE 1.42 mg/dL (0.70-1.30); Calcium 8.5 mg/dL (8.5-10.1); Chloride 108 mmol/L (98-107); Glucose 84 mg/dL (70-100); Sodium 142 mmol/L (136-145)
[2018-11-07 16:48] LABS: HCT 30.5 % (40.0-50.0); HGB 9.3 g/dL (13.5-17.5); Mean Corp. HGB Concentration 30.5 g/dL (32.0-36.0); Mean Corpuscular Hemoglobin 31.1 pg (27.0-33.0); Platelet Count 320 x1000/uL (130-400); RBC 2.99 m/cumm (4.50-6.00); RBC Distribution Width 17.1 % (11.8-14.1); White Blood Cell Count 7.72 k/cumm (4.4-10.8)
== END 2018-11-07 16:05 ==
LOC: LBN 15:45
PROVIDERS: PCP Internal Medicine; Visit Provider Student in an Organized Health Care Education/Training Program
DX: I48.2 Chronic atrial fibrillation (principal); I50.9 Heart failure, unspecified; T84.54XD Infection and inflammatory reaction due to internal left knee prosthesis, subsequent encounter; Z79.2 Long term (current) use of antibiotics; Z79.01 Long term (current) use of anticoagulants
CPT/HCPCS: 80048; 85027; 86140

== ENCOUNTER 2018-11-13 09:09 | Outpatient (CLI) | payer BC, MEDICARE, SELFPAY ==
[2018-11-13 09:43] LABS: INR 1.3 (0.9-1.1); Prothrombin Time 12.7 sec (9.3-11.0)
[2018-11-13 10:15] LABS: Hemoglobin A1C 5.5 % (4.5-6.2)
== END 2018-11-13 09:29 ==
PROVIDERS: PCP Internal Medicine; Visit Provider Internal Medicine
DX: I48.91 Unspecified atrial fibrillation (principal); R73.03 Prediabetes
CPT/HCPCS: 36415; 83036; 85610

== ENCOUNTER 2018-11-15 13:14 | Outpatient (REF) | payer BC, MEDICARE, SELFPAY ==
[2018-11-15 14:30] LABS: Anion Gap 10.2 mmol/L (3-11); BUN 34 mg/dL (7-18); C-Reactive Protein 5.24 mg/dL (0.0-0.3); CO2 27.8 mmol/L (21.0-32.0); CREATININE 1.22 mg/dL (0.70-1.30); Chloride 106 mmol/L (98-107); Estimated GFR 57.91 (mL/min/1.73m2); Glucose 95 mg/dL (70-100); HGB 9.8 g/dL (13.5-17.5); Mean Corp. HGB Concentration 30.6 g/dL (32.0-36.0); Mean Corpuscular Hemoglobin 31.7 pg (27.0-33.0); Mean Corpuscular Volume 103.6 fL (80-95); Mean Platelet Volume 10.2 fL (8.0-11.0); Platelet Count 234 x1000/uL (130-400); Potassium 3.8 mmol/L (3.5-5.1); RBC 3.09 m/cumm (4.50-6.00); Sodium 144 mmol/L (136-145); White Blood Cell Count 7.91 k/cumm (4.4-10.8)
== END 2018-11-15 13:34 ==
LOC: LBN 13:14
PROVIDERS: PCP Internal Medicine; Visit Provider Student in an Organized Health Care Education/Training Program
DX: Z79.2 Long term (current) use of antibiotics (principal); T84.54XD Infection and inflammatory reaction due to internal left knee prosthesis, subsequent encounter; A41.01 Sepsis due to Methicillin susceptible Staphylococcus aureus
CPT/HCPCS: 80048; 85027; 86140

== ENCOUNTER 2018-11-21 16:17 | Outpatient (REF) | payer BC, MEDICARE, SELFPAY ==
[2018-11-21 14:58] LABS: HCT 36.5 % (40.0-50.0); HGB 11.5 g/dL (13.5-17.5); Mean Corp. HGB Concentration 31.5 g/dL (32.0-36.0); Mean Corpuscular Volume 101.7 fL (80-95); Mean Platelet Volume 10.8 fL (8.0-11.0); Platelet Count 207 x1000/uL (130-400); RBC 3.59 m/cumm (4.50-6.00); RBC Distribution Width 16.3 % (11.8-14.1)
[2018-11-21 15:12] LABS: Anion Gap 8.1 mmol/L (3-11); BUN 30 mg/dL (7-18); CO2 28.9 mmol/L (21.0-32.0); CREATININE 1.38 mg/dL (0.70-1.30); Calcium 8.6 mg/dL (8.5-10.1); Chloride 105 mmol/L (98-107); Estimated GFR 50.23 (mL/min/1.73m2); Glucose 121 mg/dL (70-100); Potassium 3.6 mmol/L (3.5-5.1); Sodium 142 mmol/L (136-145)
[2018-11-21 15:33] LABS: C-Reactive Protein 4.45 mg/dL (0.0-0.3)
== END 2018-11-21 16:37 ==
LOC: LBN 16:17
PROVIDERS: PCP Internal Medicine; Visit Provider Student in an Organized Health Care Education/Training Program
DX: Z79.2 Long term (current) use of antibiotics (principal); T84.54XD Infection and inflammatory reaction due to internal left knee prosthesis, subsequent encounter
CPT/HCPCS: 80048; 85027; 86140

== ENCOUNTER 2018-11-28 13:14 | Outpatient (REF) | payer BC, MEDICARE, SELFPAY ==
[2018-11-28 13:52] LABS: HCT 34.8 % (40.0-50.0); HGB 10.6 g/dL (13.5-17.5); Mean Corp. HGB Concentration 30.5 g/dL (32.0-36.0); Mean Corpuscular Hemoglobin 31.5 pg (27.0-33.0); Mean Corpuscular Volume 103.6 fL (80-95); Mean Platelet Volume 10.3 fL (8.0-11.0); Platelet Count 228 x1000/uL (130-400); RBC 3.36 m/cumm (4.50-6.00); RBC Distribution Width 16.1 % (11.8-14.1); White Blood Cell Count 7.28 k/cumm (4.4-10.8)
[2018-11-28 15:06] LABS: Anion Gap 9.9 mmol/L (3-11); BUN 34 mg/dL (7-18); C-Reactive Protein 3.27 mg/dL (0.0-0.3); CO2 26.1 mmol/L (21.0-32.0); CREATININE 1.52 mg/dL (0.70-1.30); Calcium 7.9 mg/dL (8.5-10.1); Chloride 107 mmol/L (98-107); Estimated GFR 44.93 (mL/min/1.73m2); Glucose 104 mg/dL (70-100); Potassium 3.9 mmol/L (3.5-5.1); Sodium 143 mmol/L (136-145)
== END 2018-11-28 13:34 ==
LOC: LBN 13:14
PROVIDERS: PCP Internal Medicine; Visit Provider Student in an Organized Health Care Education/Training Program
DX: T84.54XD Infection and inflammatory reaction due to internal left knee prosthesis, subsequent encounter (principal); Z79.2 Long term (current) use of antibiotics
CPT/HCPCS: 80048; 85027; 86140

== ENCOUNTER 2018-12-15 07:52 | Emergency (ER) | payer BC, MEDICARE, SELFPAY ==
[2018-12-15 07:58] VITALS: BP 110/82; PULSE 100; RESP 16; TEMP 36.4; O2SAT 97
--- NOTE | 2018-12-15 08:20 | ED.GENADUL_ITS ---
Discharge Plan Disposition Patient Disposition: HOME Condition: Stable Discharge Details Chief Complaint: Laceration Clinical Impression: Laceration of leg, right Primary Care Provider: Moiz Tinoco ED Provider: Marcelo Flannery Home Meds and New Rx's Prescriptions: No Action cephalexin 500 mg capsule 500 mg PO TID Qty: 90 RF: 3 acetaminophen [Acetaminophen Extra Strength] 500 mg tablet 1,000 mg PO Q8H PRN PRN (Reason: pain) Qty: 60 RF: 3 celecoxib 100 mg capsule 100 mg PO BID Qty: 60 RF: 3 metoprolol tartrate 50 mg tablet 100 mg PO Q8H Qty: 60 RF: 0 rifampin [Rifadin] 300 mg capsule 300 mg PO BID Qty: 90 RF: 1 tamsulosin 0.4 mg capsule 0.4 mg PO DAILY Qty: 30 RF: 0 warfarin [Coumadin] 5 mg tablet 10 mg PO QPM Qty: 30 RF: 0 enoxaparin [Lovenox] 30 mg/0.3 mL syringe 30 mg subcut Q12H Qty: 10 RF: 0 furosemide 20 mg tablet 20 mg PO BID@0830,1600 Qty: 40 RF: 0 allopurinol 300 MG tablet 300 mg PO DAILY RF: 0 multivitamin 1 EACH capsule 1 ea PO DAILY RF: 0 glucosamine sulfate 2KCl 1,000 MG tablet 2 cap PO BID RF: 0 Fish Oil 1 EACH capsule 1 cap PO QAM RF: 0 levothyroxine 75 MCG tablet 75 mcg PO DAILY@0600 Qty: 90 RF: 0 ascorbic acid (vitamin C) [Vitamin C] 500 mg Tablet 500 mg PO DAILY RF: 0 cholecalciferol (vitamin D3) [Vitamin D3] 1,000 unit Capsule 1,000 unit PO DAILY RF: 0 Probiotic Complex 25 billion cell -100 mg Capsule 1 cap PO DAILY RF: 0 cyanocobalamin (vitamin B-12) [Vitamin B-12] 500 mcg Tablet 500 mcg PO DAILY RF: 0 vitamin B complex Tablet 1 tab PO QAM RF: 0 ceftriaxone in dextrose,iso-os 2 gram/50 mL Piggyback 2 g IVPB Q24H Qty: 40 RF: 0 Discharge Instructions Instructions: Laceration (ED) Additional Instructions: Please keep initial dressing on for the next 3 to 5 days and then you may remove and apply loosefitting dressings as needed. Continue to take your antibiotic as prescribed by orthopedist and return immediately to the emergency department for any signs of infection or any further concerns. Otherwise continue follow-up ro utine with primary care or orthopedist as previously arranged. Referrals: Luca Samano MD [ [facility] STAFF PHYSICIAN] - Moiz Tinoco MD [Primary Care Provider] - Medical Decision Making Patient presenting to the emergency department for chief complaint of right leg laceration. Patient states approximately 16 hours ago he was getting out of the car and lacerated the back of his right calf. Patient denies any other injury or trauma and states that he thought it was a minor wound. attempted to clean out wound yesterday evening but given that it is continued to bleed he is presenting out to the emergency department. Patient has a L-shaped flap laceration to the right posterior calf that measures 4 x 4 cm. Wound is otherw ise unremarkable. Patient does have history of venous stasis and postoperative infections which she is still on antibiotics for. Given duration of open wound I did consult with Dr. Samano about closure and management. He recommended copious irrigation and to not attempt to close the wound at all given patient's history. Patient's wound was copiously irrigated with sterile normal saline and Mepilex Ag pad was placed over wound. Patient's tetanus was greater than 5 years old and given significant wound laceration Tdap was updated. Patient was encouraged to watch for any signs of infection return immediately if these occur otherwise to follow-up with primary care or orthopedist as needed. After discussion of diagnosis and plan of care patient and significant other has no further needs, questions, or concerns and states clear understanding to return to the emergency department for any worsening symptoms. HPI General Mode of arrival: ambulatory . Date/Time Provider Initiated Documentation: 12/15/18 08:04 . Limitations to Documentation: no limitations . Information obtained by: patient, family and RN notes reviewed . History of Present Illness 73 year old M presents to the emergency department with the chief complaint of right leg laceration , Quality is described as other (denies pain), and is localized to the right and lower extremity. Patient started experiencing this hour(s) (16) and it has been constant. Patient notes no other symptoms.. Patient did receive the following treatments prior to arrival, other (acute wound care) Related Data Home Medications Medication Instructions Recorded Confirmed allopurinol 300 mg PO DAILY 09/01/12 11/25/18 multivitamin 1 ea PO DAILY 09/01/12 11/25/18 Fish Oil 1 cap PO QAM 01/20/13 11/25/18 glucosamine sulfate 2KCl 2 cap PO BID 01/20/13 11/25/18 levothyroxine 75 mcg PO DAILY@0600 #90 tab 03/23/15 11/25/18 Probiotic Complex 1 cap PO DAILY 03/16/18 11/25/18 ascorbic acid (vitamin C) [Vitamin 500 mg PO DAILY 03/16/18 11/25/18 C] cholecalciferol (vitamin D3) 1,000 unit PO DAILY 03/16/18 11/25/18 [Vitamin D3] cyanocobalamin (vitamin B-12) 500 mcg PO DAILY 03/16/18 11/25/18 [Vitamin B-12] vitamin B complex 1 tab PO QAM 10/10/18 11/25/18 ceftriaxone in dextrose,iso-os 2 g IVPB Q24H #40 each 10/25/18 11/25/18 acetaminophen 500 mg tablet 1,000 mg PO Q8H PRN PRN #60 tab 10/27/18 11/25/18 celecoxib 100 mg capsule 100 mg PO BID #60 cap 10/27/18 11/25/18 enoxaparin 30 mg/0.3 mL 30 mg SUBCUT Q12H #10 syringe 10/27/18 11/25/18 subcutaneous syringe furosemide 20 mg tablet 20 mg PO BID@0830,1600 #40 tab 10/27/18 11/25/18 metoprolol tartrate 50 mg tablet 100 mg PO Q8H #60 tab 10/27/18 11/25/18 rifampin 300 mg capsule 300 mg PO BID #90 cap 10/27/18 11/25/18 tamsulosin 0.4 mg capsule 0.4 mg PO DAILY #30 cap 10/27/18 11/25/18 warfarin 5 mg tablet 10 mg PO QPM #30 tab 10/27/18 11/25/18 cephalexin 500 mg capsule 500 mg PO TID #90 cap 11/25/18 11/25/18 Previous Rx's Medication Instructions Recorded levothyroxine 75 mcg PO DAILY@0600 #90 tab 03/23/15 ceftriaxone in dextrose,iso-os 2 g IVPB Q24H #40 each 10/25/18 acetaminophen 500 mg tablet 1,000 mg PO Q8H PRN PRN #60 tab 10/27/18 celecoxib 100 mg capsule 100 mg PO BID #60 cap 10/27/18 enoxaparin 30 mg/0.3 mL 30 mg SUBCUT Q12H #10 syringe 10/27/18 subcutaneous syringe furosemide 20 mg tablet 20 mg PO BID@0830,1600 #40 tab 10/27/18 metoprolol tartrate 50 mg tablet 100 mg PO Q8H #60 tab 10/27/18 rifampin 300 mg capsule 300 mg PO BID #90 cap 10/27/18 tamsulosin 0.4 mg capsule 0.4 mg PO DAILY #30 cap 10/27/18 warfarin 5 mg tablet 10 mg PO QPM #30 tab 10/27/18 cephalexin 500 mg capsule 500 mg PO TID #90 cap 11/25/18 Allergies Allergy/AdvReac Type Severity Reaction Status Date / Time vancomycin Allergy Severe Other (See Verified 11/25/18 09:56 Comment) Penicillins Allergy Intermediate Rash and Verified 11/25/18 09:56 chest heaviness General Stated Complaint: Laceration SUE: 4 Review of Systems Cardiovascular Cardiovascular: Denies syncope Musculoskeletal Musculoskeletal: Denies deformity, Denies limited range of motion and Denies numbness Integumentary/Breasts Skin/Breast: Reports as per HPI Neurologic Neurologic: Denies syncope, Denies numbness and Denies paresthesias [facility] Medical History Atrial fibrillation (Chronic) Failed cardioversion, 02/15/12. On Xarelto and Beta blockers. Cardiomyopathy (Acute) LVEF 35-40%. High dose Furosemide and Spironolactone. Chronic renal insufficiency (Inactive) Baseline creatinine about 1.5. 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 Strep Obesity (Inactive) Primary osteoarthritis of both knees (Resolved) s/p bilateral TKA Recurrent gout (Inactive) Restrictive lung disease (Chronic) HKistory of Staphlococcal empyema. Venous stasis (Acute) Surgical History History of right hip replacement (Acute) History of total left knee replacement (TKR) (Inactive) 05/10/2018, partial arthrotomy rupture 06/03/18 History of total right knee replacement (Acute) Status post left hip replacement (Acute) Social History Smoking/Tobacco Use Status: Former Tobacco Use Quit Date: 03/15/01 Alcohol Intake: former Drug use: Never Do you feel safe at home: Yes Do you feel safe in your relationship?: Yes Additional Social history: Patient lives in [facility] with her is Haley of 50 years. He helps care for his grandkids that live in the area. 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 Exam Const General: cooperative and no acute distress Orientation: alert, awake and oriented x3 Limitations: mental status not altered Resp Effort & Inspection: normal respiratory effort and able to speak in complete sentences Cardio Rate: regular rate Rhythm: regular rhythm Skin Trauma: laceration (4cm x 4cm) right posterior lower leg L-shaped, flap, actively bleeding, involves subcutaneous tissue, motor nerve function intact and sensation intact; no foreign bodies present and not contaminated Neuro Sensory Exam: no sensory deficits noted Course Vital Signs Vital signs: Vital Signs Temperature 36.4 C L 12/15/18 07:58 Pulse 100 H 12/15/18 07:58 Respiratory Rate 16 12/15/18 07:58 Blood Pressure 110/82 12/15/18 07:58 Pulse Oximetry 97 12/15/18 07:58 Temperature 36.4 C L 12/15/18 07:58 Temperature Source Skin 12/15/18 07:58 Pulse 100 H 12/15/18 07:58 Respiratory Rate 16 12/15/18 07:58 Respiratory Effort Short of Breath 12/15/18 08:01 Blood Pressure 110/82 12/15/18 07:58 Blood Pressure Position Sitting 12/15/18 07:58 Pulse Oximetry 97 12/15/18 07:58 Pain Level 0 12/15/18 08:05
[2018-12-15 09:50] VITALS: BP 110/82; PULSE 100; RESP 16; TEMP 36.4; O2SAT 97
== END 2018-12-15 09:47 | disposition home or self-care (01) ==
PROVIDERS: Emergency Provider Nurse Practitioner Family; PCP Internal Medicine
DX: S81.811A Laceration without foreign body, right lower leg, initial encounter (principal); W45.8XXA Other foreign body or object entering through skin, initial encounter; I10 Essential (primary) hypertension; Z79.01 Long term (current) use of anticoagulants
CPT/HCPCS: 90471; 99283

== ENCOUNTER 2019-01-03 10:34 | Outpatient (CLI) | payer BC, MEDICARE, SELFPAY ==
[2019-01-03 12:01] LABS: Anion Gap 7.9 mmol/L (3-11); BUN 39 mg/dL (7-18); CO2 30.1 mmol/L (21.0-32.0); CREATININE 1.51 mg/dL (0.70-1.30); Calcium 8.9 mg/dL (8.5-10.1); Chloride 106 mmol/L (98-107); Estimated GFR 45.28 (mL/min/1.73m2); Glucose 85 mg/dL (70-100); Potassium 4.2 mmol/L (3.5-5.1); Sodium 144 mmol/L (136-145)
== END 2019-01-03 10:54 ==
PROVIDERS: PCP Internal Medicine; Visit Provider Internal Medicine Cardiovascular Disease
DX: I48.20 Chronic atrial fibrillation, unspecified (principal); I42.9 Cardiomyopathy, unspecified; I10 Essential (primary) hypertension; E78.5 Hyperlipidemia, unspecified; N28.9 Disorder of kidney and ureter, unspecified
CPT/HCPCS: 36415; 80048

== ENCOUNTER 2019-02-02 09:05 | Outpatient (CLI) | payer BC, MEDICARE, SELFPAY ==
[2019-02-02 10:41] LABS: BUN 33 mg/dL (7-18); CREATININE 1.44 mg/dL (0.70-1.30); Calcium 8.7 mg/dL (8.5-10.1); Chloride 105 mmol/L (98-107); Estimated GFR 47.82 (mL/min/1.73m2); Glucose 98 mg/dL (74-106); Potassium 4.1 mmol/L (3.5-5.1); Sodium 143 mmol/L (136-145)
== END 2019-02-02 09:25 ==
PROVIDERS: PCP Internal Medicine; Visit Provider Internal Medicine Cardiovascular Disease
DX: I42.9 Cardiomyopathy, unspecified (principal); I48.20 Chronic atrial fibrillation, unspecified; I10 Essential (primary) hypertension
CPT/HCPCS: 36415; 80048

== ENCOUNTER 2019-04-18 16:25 | Outpatient (REF) | payer BC, MEDICARE, SELFPAY ==
[2019-04-18 22:17] LABS: Hemoglobin A1C 6.3 % (3.8-5.6)
[2019-04-18 22:30] LABS: FREE T4 1.38 ng/dL (0.76-1.46); TSH 5.38 uIU/mL (0.36-3.74)
== END 2019-04-18 16:45 ==
LOC: NCHCN 16:25
PROVIDERS: PCP Internal Medicine; Visit Provider Internal Medicine
DX: E03.9 Hypothyroidism, unspecified (principal); R73.03 Prediabetes
CPT/HCPCS: 83036; 84439; 84443

== ENCOUNTER 2019-05-08 12:54 | Outpatient (CLI) | payer BC, SELFPAY ==
--- NOTE | 2019-05-08 12:45 | DI.RAD_ITS ---
EXAM: XR KNEE LT 2V AP,LAT CLINICAL HISTORY: annual f/u TECHNIQUE: COMPARISON: XR knee LT 1V from 05/23/2018 FINDINGS: Two views were obtained. There is a total knee joint replacement in position. Components appear wel l seated. No other significant bony abnormality seen. IMPRESSION:
--- NOTE | 2019-05-08 12:45 | DI.RAD_ITS ---
EXAM: XR KNEE RT 2V AP,LAT CLINICAL HISTORY: annual f/u TECHNIQUE: COMPARISON: XR KNEE LT 2V AP,LAT from 05/08/2019 FINDINGS: Two views were obtained. There is a total knee joint replacement in position. The components appear well seated. No other significant bony abnormality seen. IMPRESSION:
== END 2019-05-08 13:14 ==
PROVIDERS: PCP Internal Medicine; Visit Provider Student in an Organized Health Care Education/Training Program
DX: Z96.659 Presence of unspecified artificial knee joint (principal)
CPT/HCPCS: 73560

== ENCOUNTER 2019-05-15 12:14 | Outpatient (CLI) | payer BC, MEDICARE, SELFPAY ==
[2019-05-15 13:47] LABS: Calculated LDL 130 mg/dL (<100); Cholesterol 188 mg/dL (<200); HDL Cholesterol 43 mg/dL (40-60); Triglyceride 79 mg/dL (<150)
== END 2019-05-15 12:34 ==
PROVIDERS: PCP Internal Medicine; Visit Provider Internal Medicine Cardiovascular Disease
DX: E78.5 Hyperlipidemia, unspecified (principal)
CPT/HCPCS: 36415; 80061

== ENCOUNTER 2020-05-13 11:44 | Outpatient (CLI) | payer BC, SELFPAY ==
--- NOTE | 2020-05-13 11:30 | DI.RAD_ITS ---
EXAM: XR KNEE LT 2V AP,LAT CLINICAL HISTORY: L TKA. TECHNIQUE: 2D digital imaging was performed. COMPARISON: CR XR KNEE LT 2V AP,LAT from 05/08/2019 CR XR KNEE RT 2V AP,LAT from 05/08/2019 FINDINGS: BONES: There are stable post operative changes present. No fracture or dislocation. JOINTS: The joint spaces are well maintained. No joint effusion is present. SOFT TISSUE: Vascular calcifications are present in the soft tissues. IMPRESSION: Stable postoperative changes. DATA REPOSITORY: RADIATION DOSE DELIVERED:
== END 2020-05-13 11:45 | disposition home or self-care (01) ==
LOC: DIORS 11:45
PROVIDERS: PCP Internal Medicine; Referring Provider Internal Medicine; Visit Provider Physician Assistant
DX: Z96.652 Presence of left artificial knee joint (principal)
CPT/HCPCS: 73560

== ENCOUNTER 2020-05-14 15:21 | Outpatient (REF) | payer BC, SELFPAY ==
[2020-05-14 14:11] LABS: Anion Gap 8.6 mmol/L (3-11); CO2 26.4 mmol/L (21.0-32.0); CREATININE 2.3 mg/dL (0.70-1.30); Calcium 9.8 mg/dL (8.5-10.1); Calculated LDL 79 mg/dL (<100); Chloride 107 mmol/L (98-107); Cholesterol 137 mg/dL (<200); Estimated GFR 27.71 (mL/min/1.73m2); Glucose 93 mg/dL (74-106); HDL Cholesterol 43 mg/dL (40-60); Sodium 142 mmol/L (136-145); TSH 3.19 uIU/mL (0.36-3.74); Triglyceride 75 mg/dL (<150)
[2020-05-14 14:23] LABS: BUN 91 mg/dL (7-18)
[2020-05-14 14:31] LABS: HCT 37.2 % (40.0-50.0); HGB 11.9 g/dL (13.5-17.5); MCH 33.4 pg (27.0-33.0); MCV 104.5 fL (80-95); MPV 12.4 fL (8.0-11.0); Platelet Count 157 10^3/uL (130-400); RBC 3.56 10^6/uL (4.36-5.78); RDW 13.3 % (11.8-14.1); RDW-SD 51.5 fL; WBC 8.77 10^3/uL (4.4-10.8)
[2020-05-14 14:39] LABS: FREE T4 1.04 ng/dL (0.76-1.46)
== END 2020-05-14 15:22 | disposition home or self-care (01) ==
LOC: NCHCN 15:21
PROVIDERS: PCP Internal Medicine; Visit Provider Internal Medicine
DX: R73.03 Prediabetes (principal); E78.5 Hyperlipidemia, unspecified; I10 Essential (primary) hypertension; N18.30 Chronic kidney disease, stage 3 unspecified
CPT/HCPCS: 80048; 80061; 85027; 83036; 84439; 84443

== ENCOUNTER 2020-05-21 13:44 | Outpatient (REF) | payer BC, SELFPAY ==
[2020-05-21 13:45] LABS: Anion Gap 9.1 mmol/L (3-11); BUN 59 mg/dL (7-18); CO2 25.9 mmol/L (21.0-32.0); CREATININE 2.2 mg/dL (0.70-1.30); Calcium 9.4 mg/dL (8.5-10.1); Chloride 107 mmol/L (98-107); Estimated GFR 29.17 (mL/min/1.73m2); Glucose 75 mg/dL (74-106); Potassium 5.2 mmol/L (3.5-5.1); Sodium 142 mmol/L (136-145)
== END 2020-05-21 13:45 | disposition home or self-care (01) ==
LOC: NCHCN 13:44
PROVIDERS: PCP Internal Medicine; Visit Provider Internal Medicine
DX: N17.9 Acute kidney failure, unspecified (principal)
CPT/HCPCS: 80048

== ENCOUNTER 2020-06-18 11:26 | Outpatient (REF) | payer BC, SELFPAY ==
[2020-06-18 13:18] LABS: Anion Gap 6.6 mmol/L (3-11); BUN 52 mg/dL (7-18); CO2 29.4 mmol/L (21.0-32.0); Calcium 9.4 mg/dL (8.5-10.1); Chloride 108 mmol/L (98-107); Estimated GFR 32.56 (mL/min/1.73m2); Glucose 78 mg/dL (74-106); Potassium 4.5 mmol/L (3.5-5.1); Sodium 144 mmol/L (136-145)
== END 2020-06-18 11:27 | disposition home or self-care (01) ==
LOC: NCHCN 11:26
PROVIDERS: PCP Internal Medicine; Visit Provider Internal Medicine
DX: N17.9 Acute kidney failure, unspecified (principal); R73.03 Prediabetes; E78.5 Hyperlipidemia, unspecified; I10 Essential (primary) hypertension
CPT/HCPCS: 80048

== ENCOUNTER 2020-11-27 16:59 | Outpatient (REF) | payer BC, SELFPAY ==
[2020-11-27 21:18] LABS: HCT 39.6 % (40.0-50.0); HGB 12.3 g/dL (13.5-17.5); MCH 32.8 pg (27.0-33.0); MCHC 31.1 % (32.0-36.0); MCV 105.6 fL (80-95); MPV 11.3 fL (8.0-11.0); Platelet Count 161 10^3/uL (130-400); RBC 3.75 10^6/uL (4.36-5.78); RDW 14.3 % (11.8-14.1); RDW-SD 55.8 fL
[2020-11-27 21:42] LABS: Hemoglobin A1C 5.5 % (<5.7)
[2020-11-27 21:55] LABS: ALT 30 U/L (16-63); AST 27 U/L (15-37); Albumin 3.7 g/dL (3.4-5.0); Alkaline Phosphatase 83 U/L (46-116); Anion Gap 10.1 mmol/L (3-11); BUN 44 mg/dL (7-18); Bilirubin, Total 0.4 mg/dL (0.2-1.0); CO2 24.9 mmol/L (21.0-32.0); CREATININE 1.8 mg/dL (0.70-1.30); Calcium 9.4 mg/dL (8.5-10.1); Chloride 109 mmol/L (98-107); Estimated GFR 36.77 (mL/min/1.73m2); Glucose 79 mg/dL (74-106); Potassium 5.2 mmol/L (3.5-5.1); Sodium 144 mmol/L (136-145); Total Protein 6.4 g/dL (6.4-8.2); Uric Acid 4.7 mg/dL (3.5-7.2)
== END 2020-11-27 17:00 | disposition home or self-care (01) ==
LOC: NCHCN 16:59
PROVIDERS: PCP Family Medicine; Visit Provider Family Medicine
DX: I10 Essential (primary) hypertension (principal); M10.9 Gout, unspecified; R73.03 Prediabetes; N18.30 Chronic kidney disease, stage 3 unspecified
CPT/HCPCS: 80053; 85027; 83036; 84550

== ENCOUNTER 2021-03-21 03:05 | Outpatient (CLI) | payer BC, MEDICARE, SELFPAY ==
[2021-03-21 11:05] LABS: Source Nasal/Nares
[2021-03-21 13:56] LABS: COVID-19 PCR Negative (Negative)
== END 2021-03-21 03:06 | disposition home or self-care (01) ==
LOC: LBO 03:06
PROVIDERS: PCP Family Medicine; Visit Provider Ophthalmology
DX: Z20.822 Contact with and (suspected) exposure to COVID-19 (principal); Z01.818 Encounter for other preprocedural examination
CPT/HCPCS: 87635

== ENCOUNTER 2021-03-24 07:26 | Day surgery (SDC) | payer BC, MEDICARE, SELFPAY ==
[2021-03-24 07:46] VITALS: BP 133/86; PULSE 71; RESP 17; TEMP 36.2; O2SAT 97
[2021-03-24] MEDS: Tropicam./Phenyleph. (1/2.5%) 5 ML BTL OS ×3 (07:55→08:07)
--- NOTE | 2021-03-24 08:44 | W.ANESPRE ---
General Info Date of Service Date Performed: 03/24/21 Height: 6 ft 2 in Weight: 133.8 kg Body Mass Index (BMI): 37.8 Surgical Procedure: Operation Date: 03/24/21 09:40 Proposed Procedures Side Surgeon p Cataract Extraction with IOL Implant Left Schuyler Wills MD Meds Allergies and Home Medications Allergies Allergy/AdvReac Type Severity Reaction Status Date / Time vancomycin Allergy Severe Other (See Verified 03/24/21 07:52 Comment) Penicillins Allergy Intermediate Rash and Verified 03/24/21 07:52 chest heaviness sacubitril [From Entresto] AdvReac Intermediate jittery Verified 03/24/21 07:52 valsartan [From Entresto] AdvReac Intermediate jittery Verified 03/24/21 07:52 Home Medication Medication Instructions Recorded allopurinol 300 mg PO DAILY 09/01/12 multivitamin 1 ea PO DAILY 09/01/12 Fish Oil 1 cap PO QAM 01/20/13 glucosamine sulfate 2KCl 2 cap PO BID 01/20/13 levothyroxine 75 mcg PO DAILY@0600 #90 tab 03/23/15 Probiotic Complex 1 cap PO DAILY 03/16/18 cholecalciferol (vitamin D3) 1,000 unit PO DAILY 03/16/18 [Vitamin D3] cyanocobalamin (vitamin B-12) 500 mcg PO DAILY 03/16/18 [Vitamin B-12] vitamin B complex 1 tab PO QAM 10/10/18 acetaminophen 500 mg tablet 1,000 mg PO Q8H PRN PRN #60 tab 10/27/18 furosemide 40 mg tablet 120 mg PO QAM tab 01/03/19 metoprolol succinate 100 mg 200 mg PO DAILY tab 01/03/19 tablet,extended release 24 hr rivaroxaban 20 mg tablet 20 mg PO DAILY 01/03/19 diltiazem HCl 120 mg 120 mg PO DAILY 03/20/19 capsule,extended release 24 hr ascorbic acid (vitamin C) 500 mg 1,000 mg PO DAILY tab 05/08/19 tablet atorvastatin 20 mg tablet 20 mg PO QHS #90 tab 06/19/19 doxycycline hyclate 100 mg tablet 100 mg PO BID #180 tab 06/19/19 lisinopril 10 mg tablet 10 mg PO DAILY #90 tab 06/19/19 celecoxib 100 mg capsule 200 mg PO BID cap 06/03/20 spironolactone 25 mg tablet 12.5 mg PO DAILY tab 06/03/20 Current Visit Medications: Current Medications Generic Name Dose Route Start Last Admin Trade Name Ze PRN Reason Stop Dose Admin Acetaminophen 1,000 mg 03/24/21 06:00 Acetaminophen 500 Mg Tab PO Q4H PRN PRN Miscellaneous Medication 0 ml 03/24/21 06:00 Prednisolone 1%, Moxifloxacin 0.5%, Nepafenac 0.1% 5ml Btl OS DIRECTED LORETTA Miscellaneous Medication 0 ml 03/24/21 06:00 03/24/21 08:07 Tropicam./Phenyleph. 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 Acute suppurative otitis media of left ear without spontaneous rupture of ear drum H66.002 Macrocytosis D75.89 Tubular adenoma of colon D12.6 Hypothyroidism E03.9 Congestive heart failure I50.9 Sleep apnea G47.30 Periodic limb movement disorder G47.61 Osteoarthritis, knee M17.10 Pulmonary nodule R91.1 Venous insufficiency I87.2 Prediabetes R73.03 Hearing loss, bilateral H91.93 History of total left knee replacement (TKR) Z96.652 History of bilateral knee replacement Z96.653 Laceration of right calf without complication 12/14/18 S81.811A Gout of left elbow M10.9 Discharge planning issues Z02.9 Acute anemia D64.9 Pneumonia J18.9 Gout M10.9 Advance directive on file Z78.9 Right wrist pain M25.531 Sepsis A41.9 DVT prophylaxis Z29.9 Permanent atrial fibrillation with rapid ventricular response I48.2 Bacteremia R78.81 Sepsis associated hypotension A41.9, I95.9 Venous stasis I87.8 Hypertension I10 Restrictive lung disease J98.4 Atrial fibrillation I48.91 Cardiomyopathy I42.9 Acute renal insufficiency N28.9 Infection of prosthetic left knee joint 10/11/18 T84.54XA Infected abrasion of left knee S80.212A, L08.9 Medical History Medical History Atrial fibrillation Failed cardioversion, 02/15/12. On Xarelto and Beta blockers. Cardiomyopathy LVEF 35-40%. High dose Furosemide and Spironolactone. Chronic renal insufficiency Baseline creatinine about 1.5. 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 Strep Macrocytosis Obesity Osteoarthritis, knee Periodic limb movement disorder Prediabetes Primary osteoarthritis of both knees s/p bilateral TKA Pulmonary nodule Recurrent gout Restrictive lung disease HKistory of Staphlococcal empyema. Sleep apnea Tubular adenoma of colon Venous insufficiency Venous stasis Surgical History Surgical History History of right hip replacement History of total left knee replacement (TKR) 05/10/2018, partial arthrotomy rupture/infection with debredemnt and repair: 10/11/18 History of total right knee replacement 03/22/2018 Status post left hip replacement Tobacco Smoking/Tobacco Use Status: Former Tobacco Use Alcohol Alcohol Intake: former Substance Use Substance use: Never Substance use type: does not use Vital Signs and Lab Results Vital Signs Most Recent Vital Signs in EMR: Most Recent Vital Signs Temp Pulse Resp BP Pulse Ox 36.2 C L 71 17 133/86 97 03/24/21 07:46 03/24/21 07:46 03/24/21 07:46 03/24/21 07:46 03/24/21 07:46 Lab Results Blood Type / Crossmatch: No Data to Display Complete Blood Count: No Data to Display Complete Metabolic Panel: No Data to Display Liver Function Panel: No Data to Display Coagulation Panel: No Data to Display Cardiac Panel: No Data to Display Arterial Blood Gas: No Data to Display Venous Blood Gas: No Data to Display Pancreas Panel: No Data to Display Thyroid Panel: No Data to Display Infectious Disease: Coronavirus (COVID-19)(PCR) Negative (Negative) 03/21/21 08:52 03/21/21 Coronavirus 2019 Source Nasal/Nares 03/21/21 08:52 03/21/21 Blood Cultures: No Data to Display Toxicology Panel: No Data to Display Anesthesia Assessment and Plan Anesthesia History Personal History: No History of Anesthesia Complications Family History: No Family History of Anesthesia Complications Exercise Tolerance Exercise Tolerance: Metabolic Equivalents>4 Pertinent Negatives Pertinent Negatives: No Symptoms of GERD, No Major Cardiovascular Symptoms or Complaints (Atrial fibrillation ), No Major Pulmonary Symptoms or Complaints (MARQUES CPAP as prescribed ) and No History of CVA/TIA Cardiac & Pulmonary Exam Cardiac Exam: Normal S1/S2 Heart Sounds Pulmonary Exam: Clear Bilateral Breath Sounds Implantable Cardiac Device Does patient have a Pacemaker or an ICD?: No Airway Exam Known Difficult Airway: No Mallampati Class: 1 Mouth Opening: Narrow (< 3cm) Thyromental Distance: Less than 3 cm Neck Range of Motion: Limited ROM Neck Circumference: Thick Teeth Condition: Normal Dentition Airway Comments: Chipped #21 ASA Classification ASA Score: ASA 3 Emergency Case?: No NPO Status NPO Status: NPO Clears >2 hours, Solids >8 hours Anesthesia Plan Resuscitation Status: Full Code Anesthesia Technique: MAC Anesthesia Airway Planned: Natural Airway Monitors Used: Standard Monitors
[2021-03-24 08:46] VITALS: BMI 37.8
[2021-03-24] MEDS: Balanced Salt Soln.-PLUS 500 ML BAG (09:08)
[2021-03-24] MEDS: Tetracaine 0.5% 4 ML BTL OS (09:08)
[2021-03-24] MEDS: Lidocaine 2% Jelly 6 ML SYR (09:09)
[2021-03-24] MEDS: Duovisc Viscoelastic System EACH 1 EACH (09:10)
[2021-03-24] MEDS: Povidone-Iodine Ophth 30 ML BTL (09:10)
[2021-03-24 09:25] VITALS: BP 117/65; PULSE 78; RESP 16; TEMP 36.1; O2SAT 97
--- NOTE | 2021-03-24 09:26 | W.PM.DSUDISC ---
Discharge Plan Disposition Patient Disposition: HOME Condition: Good Discharge Details Attending Provider: Schuyler Wills Primary Care Provider: Joshua Trivedi Home Meds and New Rx's Prescriptions: No Action diltiazem HCl 120 mg capsule,extended release 24hr 120 mg PO DAILY RF: 0 furosemide 40 mg tablet 120 mg PO QAM RF: 0 metoprolol succinate 100 mg tablet extended release 24 hr 200 mg PO DAILY RF: 0 Xarelto 20 mg tablet 20 mg PO DAILY RF: 0 spironolactone 25 mg tablet 12.5 mg PO DAILY RF: 0 celecoxib 100 mg capsule 200 mg PO BID RF: 0 acetaminophen [Acetaminophen Extra Strength] 500 mg tablet 1,000 mg PO Q8H PRN PRN (Reason: pain) Qty: 60 RF: 3 lisinopril 10 mg tablet 10 mg PO DAILY Qty: 90 RF: 6 atorvastatin 20 mg tablet 20 mg PO QHS Qty: 90 RF: 6 doxycycline hyclate 100 mg tablet 100 mg PO BID Qty: 180 RF: 3 allopurinol 300 MG tablet 300 mg PO DAILY RF: 0 multivitamin 1 EACH capsule 1 ea PO DAILY RF: 0 glucosamine sulfate 2KCl 1,000 MG tablet 2 cap PO BID RF: 0 Fish Oil 1 EACH capsule 1 cap PO QAM RF: 0 levothyroxine 75 MCG tablet 75 mcg PO DAILY@0600 Qty: 90 RF: 0 cholecalciferol (vitamin D3) [Vitamin D3] 1,000 unit Capsule 1,000 unit PO DAILY RF: 0 Probiotic Complex 25 billion cell -100 mg Capsule 1 cap PO DAILY RF: 0 cyanocobalamin (vitamin B-12) [Vitamin B-12] 500 mcg Tablet 500 mcg PO DAILY RF: 0 ascorbic acid (vitamin C) [Vitamin C] 500 mg tablet 1,000 mg PO DAILY RF: 0 vitamin B complex Tablet 1 tab PO QAM RF: 0 Discharge Instructions Stand Alone Forms: Post-op Topical Cataract, Martell Ganey (DSU) Discharge Orders Discharge Orders: Discharge Order (Routine); Ordered 03/24/21 Ordered By: Schuyler Wills DS: Diagnosis Discharge Diagnosis (1) Cortical cataract of left eye: Status: Resolved (2) Nuclear sclerotic cataract of left eye: Status: Resolved (3) Posterior subcapsular age-related cataract of left eye: Status: Resolved
--- NOTE | 2021-03-24 09:27 | W.ANESPOSTOP ---
Postoperative Evaluation Date, Time and Location Date Performed: 03/24/21 Time Performed: 09:27 Patient Location: Day Surgery Unit Vital Signs Most Recent Imported Vital Signs: Most Recent Vital Signs Temp Pulse Resp BP Pulse Ox 36.2 C L 71 17 133/86 97 03/24/21 07:46 03/24/21 07:46 03/24/21 07:46 03/24/21 07:46 03/24/21 07:46 Most Recent Manually Entered Vital Signs: Adult Blood Pressure: 117/65 Heart Rate: 67 Respirations: 12 Oxygen Saturation (%): 97 Temperature (C): 36.3 C Pain Score (0-10 Scale): 0 Pain Score Most Recent Pain Score: Most Recent Pain Score Pain Level 0 03/24/21 07:46 Assessment Mental Status: Awake (Alert & Oriented to Patient Baseline) Airway and Respiratory Function: Patent airway with normal (patient baseline) respiratory exam Cardiovascular Function: Hemodynamically Stable Hydration Status: Adequately Hydrated Nausea & Vomiting: No Nausea or Vomiting Pain: Pt. Denies Any Pain Peripheral Nerve Block: Patient did not receive a nerve block
--- NOTE | 2021-03-24 09:27 | W.PM.OP ---
Date of service: 03/24/21 Time of Service: 09:27 Operative Note Operative Note DATE OF PROCEDURE: 03/24/21 PRE-OP DIAGNOSIS: Nuclear/cortical/posterior subcapsular cataract, left eye POST-OP DIAGNOSIS: same PROCEDURE: Cataract extraction using phacoemulsification with intraocular lens implant, left eye SURGEON: Schuyler Wills ANESTHESIA TYPE: Local By Surgeon and MAC Refer to Anesthesia Record PATHOLOGY: none sent COMPLICATIONS: None Patient was transported to: same day Patient's condition: stable Implants: Agustin [employer] / [employer] Tecnis [id number] Indications: Progressive decreased vision due to cataract, left eye Procedure Description: CATARACT SURGERY OPERATIVE REPORT PREOPERATIVE DIAGNOSIS: 1. Nuclear/cortical/posterior subcapsular cataract, left eye POSTOPERATIVE DIAGNOSIS: Same OPERATION: 1. Cataract extraction using phacoemulsification with posterior chamber intraocular lens implant, left eye. IOL: IOL Senior [employer] Physics Technician/Model: [employer] Agust[employer] / TOÑA Tecnis [id number] IOL Power: + 19.0 diopters IOL Serial Number: [id number] Optic Diameter: 6.0 mm Haptic/Overall Diameter: 13.0 mm PHACO INFO: [employer] [place] Vision System with OZil and Active [employer]uid[employer] Cumulative Dispersed Energy (CDE): 5.79 seconds SURGEON: Schuyler Wills MD, AN ANESTHESIA: Monitored A [facility] (MAC), with local sub-tenon's anesthetic infiltration COMPLICATIONS: None SPECIMENS: None INDICATIONS FOR PROCEDURE: The patient is a 76-year-old gentleman with history of diminished visual acuity in his left eye secondary to the development of nuclear/cortical/posterior subcapsular cataract. He has previously undergone cataract surgery in the right eye many years ago. The option of cataract surgery was offered to the patient and he felt symptomatic enough that he wished to proceed. PROCEDURE: The correct surgical eye was identified and marked as the left eye and the pupil was dilated in the preoperative area using mydriatics and cycloplegics. The dilated pupil size was 7.0 mm. He elected to proceed without oral sedation.. The patient was brought to the operating room where cardiopulmonary monitoring was instituted and surgical time-out was performed, confirming the correct operative eye and IOL power. Topical anesthesia was administered and ophthalmic povidone-iodine 5% was instilled into the conjunctival fornices. Lidocaine gel was applied to the cornea and the wendy-ocular area was prepped with Betadine 10% solution and draped in the usual sterile fashion for intraocular surgery, including an aperture drape. A Tegaderm transparent film dressing was cut in half and used to cover the lashes and lid margins. Care was taken to sequester the lashes and lid margins under the Tegaderm dressing. A lid speculum was placed between the lids of the operative eye and the Moseh-Ulysses operating microscope was maneuvered into position. Meagan scissors were then used to make a conjunctival buttonhole approximately 6mm posterior to the limbus in the inferonasal quadrant. Blunt dissection was carried out to expose bare sclera, and a blunt-tipped sub-tenon?s anesthesia cannula was introduced and passed posteriorly along the globe where non-preserved plain lidocaine was injected into posterior sub-Tenon?s space. A sideport knife was used to make a paracentesis port superiorly/superiortemporally. Intraocular phenylephrine/lidocaine was injected int the anterior chamber.. The anterior chamber was filled with viscoelastic. A 2.4mm keratome knife was used to create a half-thickness groove at the limbus and then to construct a three-plane near-clear corneal tunnel extending 2.0mm into clear cornea at the 3:00 position. A flap was raised on the anterior capsule and capsulorhexis forceps were used to complete a continuous curvilinear capsulorhexis of 5.5 mm. Balanced salt solution was then used to perform cortical cleaving hydrodissection and nuclear hydrodelineation until the lens could be freely rotated within the capsular bag. The lens nucleus was then disassembled and removed within the capsular bag and iris plane using phacoemulsification. Residual cortical material was removed using the 45-degree angled silicone I/A tip with 0.3mm port. The posterior capsule was carefully polished to remove as much residual lens epithelial cells as safely possible. The capsular bag was then inflated and the anterior chamber deepened with viscoelastic. The lens implant described above was inserted into the capsular bag using the TOÑA [place] Injector. A Kuglen hook was used to dial the IOL into position. Residual viscoelastic was then removed first from posterior to the IOL, then from the anterior chamber using the I/A handpiece. The lens implant was noted to center nicely within the capsular bag. The incisions were stromally hydrated, and the anterior chamber was reformed using BSS. Then 0.5cc of moxifloxacin 1.0mg/ml were injected into the capsular bag and anterior chamber. The incisions were checked with a Weck spear and found to be secure. Several drops of ophthalmic povidone-iodine 5% were then applied to the eye followed by two drops of Imprimis combination prednisolone/moxifloxacin/nepafenac solution. The drapes were removed and a clear plastic protective eye shield was placed over the eye. The patient was then returned to Same Day Surgery in stable condition.
[2021-03-24 09:28] VITALS: BP 117/65; PULSE 67; RESP 12; TEMPC 36.3; O2SAT 97
== END 2021-03-24 10:17 | disposition home or self-care (01) ==
PROVIDERS: PCP Family Medicine; Visit Provider Ophthalmology
PROC: (CPT 66984; principal; 2021-03-24 09:30)
DX: H25.042 Posterior subcapsular polar age-related cataract, left eye (principal); I10 Essential (primary) hypertension; I48.91 Unspecified atrial fibrillation
CPT/HCPCS: 66984; V2632

== ENCOUNTER 2021-05-28 16:42 | Outpatient (REF) | payer BC, MEDICARE, SELFPAY ==
[2021-05-28 21:48] LABS: HGB 13.2 g/dL (13.5-17.5); MCHC 31.4 % (32.0-36.0); MCV 101.9 fL (80-95); MPV 11.3 fL (8.0-11.0); Platelet Count 164 10^3/uL (130-400); RBC 4.12 10^6/uL (4.36-5.78); RDW 13.6 % (11.8-14.1); RDW-SD 51.5 fL; WBC 7.73 10^3/uL (4.4-10.8)
[2021-05-28 22:04] LABS: Anion Gap 7.9 mmol/L (3-11); BUN 37 mg/dL (7-18); CO2 27.1 mmol/L (21.0-32.0); CREATININE 1.7 mg/dL (0.70-1.30); Calcium 9.1 mg/dL (8.5-10.1); Chloride 113 mmol/L (98-107); Estimated GFR 39.18 (mL/min/1.73m2); Glucose 108 mg/dL (74-106); Potassium 4.8 mmol/L (3.5-5.1); Sodium 148 mmol/L (136-145)
[2021-05-28 22:14] LABS: Hemoglobin A1C 5.9 % (<5.7)
== END 2021-05-28 16:43 | disposition home or self-care (01) ==
LOC: NCHCN 16:42
PROVIDERS: PCP Family Medicine; Visit Provider Family Medicine
DX: I10 Essential (primary) hypertension (principal); R73.03 Prediabetes; I50.20 Unspecified systolic (congestive) heart failure; E87.5 Hyperkalemia
CPT/HCPCS: 80048; 85027; 83036

== ENCOUNTER 2021-11-02 16:01 | Emergency (ER) | payer BC, SELFPAY ==
[2021-11-02 16:08] VITALS: BP 101/55; PULSE 58; RESP 18; TEMP 36.5; O2SAT 95
--- NOTE | 2021-11-02 19:56 | ED.GENADUL_ITS ---
Discharge Plan Disposition Patient Disposition: HOME Condition: Stable Discharge Details Clinical Impression: Otitis externa, fungal, right ear Primary Care Provider: Joshua Trivedi ED Provider: Keli Fitzgerald Home Meds and New Rx's Prescriptions: New acetic acid 2 % solution 3 drp otic (ear) Q6H 7 Days Qty: 15 0RF Rx Instructions: 3 drops to right ear 4 times a day x 5-7 days clindamycin HCl 150 mg capsule 300 mg PO TID 7 Days Qty: 42 0RF Continued diltiazem HCl 120 mg capsule,extended release 24hr 120 mg PO DAILY Xarelto 15 mg tablet 15 mg PO DAILY Rx Instructions: must administer with evening meal furosemide 40 mg tablet 120 mg PO QAM metoprolol succinate 100 mg tablet extended release 24 hr 200 mg PO DAILY spironolactone 25 mg tablet 12.5 mg PO DAILY celecoxib 100 mg capsule 200 mg PO BID ofloxacin 0.3 % drops 5 drp otic (ear) BID 14 Days Qty: 5 1RF Rx Instructions: Right ear only acetaminophen [Acetaminophen Extra Strength] 500 mg tablet 1,000 mg PO Q8H PRN PRN (Reason: pain) Qty: 60 3RF lisinopril 10 mg tablet 10 mg PO DAILY Qty: 90 6RF atorvastatin 20 mg tablet 20 mg PO QHS Qty: 90 6RF doxycycline hyclate 100 mg tablet 100 mg PO BID Qty: 180 3RF allopurinol 300 MG tablet 300 mg PO DAILY multivitamin 1 EACH capsule 1 ea PO DAILY glucosamine sulfate 2KCl 1,000 MG tablet 2 cap PO BID Fish Oil 1 EACH capsule 1 cap PO QAM levothyroxine 75 MCG tablet 75 mcg PO DAILY@0600 Qty: 90 0RF cholecalciferol (vitamin D3) [Vitamin D3] 1,000 unit Capsule 1,000 unit PO DAILY Probiotic Complex 25 billion cell -100 mg Capsule 1 cap PO DAILY cyanocobalamin (vitamin B-12) [Vitamin B-12] 500 mcg Tablet 500 mcg PO DAILY ascorbic acid (vitamin C) [Vitamin C] 500 mg tablet 1,000 mg PO DAILY vitamin B complex Tablet 1 tab PO QAM Discharge Instructions Instructions: Otitis Externa (ED) Additional Instructions: It appears you have an external ear canal fungal infection of your right ear. Please take the ear drops as directed. If you do not feel better in the next 3 to 5 days please take the oral antibiotics. Follow up with primary care provider in 3-5 days. Return to ED sooner if any worsening or concerns. Increase oral fluids. I apologize for the delay in care and thank you for allowing us to care for you today. Referrals: Joshua Trivedi MD [Primary Care Provider] - 5 days Medical Decision Making Patient given acetic acid drops here in the department and a prescription for these. Patient was also given an oral prescription for antibiotic if continued pain. Instructed to follow-up with PCP, this text was generated using [employer] dictation system, please disregard any oddities of phrase or misspellings. HPI General Mode of arrival: ambulatory . Date/Time Provider Initiated Documentation: 11/02/21 16:12 . Limitations to Documentation: no limitations . Information obtained by: patient, family, RN notes reviewed and old records reviewed . HPI Narrative: 76-year-old male presents to the ER with chief complaint of right ear pain and fullness for the last 2 days. Patient does wear bilateral hearing aids. Upon initial examination it does appear to have fungal otitis externa to the right ear canal. No other associated symptoms. Related Data Home Medications Medication Instructions Recorded Confirmed allopurinol 300 mg tablet 300 mg PO DAILY 09/01/12 06/30/21 multivitamin 1 ea PO DAILY 09/01/12 06/30/21 glucosamine sulfate 2KCl 1,000 mg 2 cap PO BID 01/20/13 06/30/21 tablet omega-3 fatty acids-fish oil 340 1 cap PO QAM 01/20/13 06/30/21 mg-1,000 mg capsule (Fish Oil) levothyroxine 75 mcg tablet 75 mcg PO DAILY@0600 #90 tabs 03/23/15 06/30/21 L.acidophilus-B.animalis-B.bifidum 1 cap PO DAILY 03/16/18 06/30/21 25 billion cell-FOS 100 mg capsule (Probiotic Complex) cholecalciferol (vitamin D3) 25 1,000 unit PO DAILY 03/16/18 06/30/21 mcg (1,000 unit) capsule (Vitamin D3) cyanocobalamin (vitamin B-12) 500 500 mcg PO DAILY 03/16/18 06/30/21 mcg tablet (Vitamin B-12) vitamin B complex 1 tab PO QAM 10/10/18 06/30/21 acetaminophen 500 mg tablet 1,000 mg PO Q8H PRN PRN pain #60 10/27/18 06/30/21 (Acetaminophen Extra Strength) tabs furosemide 40 mg tablet 120 mg PO QAM 01/03/19 06/30/21 metoprolol succinate 100 mg 200 mg PO DAILY 01/03/19 06/30/21 tablet,extended release 24 hr diltiazem HCl 120 mg 120 mg PO DAILY 03/20/19 06/30/21 capsule,extended release 24 hr ascorbic acid (vitamin C) 500 mg 1,000 mg PO DAILY 05/08/19 06/30/21 tablet (Vitamin C) atorvastatin 20 mg tablet 20 mg PO QHS #90 tabs 06/19/19 06/30/21 lisinopril 10 mg tablet 10 mg PO DAILY #90 tabs 06/19/19 06/30/21 celecoxib 100 mg capsule 200 mg PO BID 06/03/20 06/30/21 spironolactone 25 mg tablet 12.5 mg PO DAILY 06/03/20 06/30/21 ofloxacin 0.3 % ear drops 5 drp otic (ear) BID 14 days #5 mL 05/12/21 06/30/21 rivaroxaban 15 mg tablet (Xarelto) 15 mg PO DAILY 06/30/21 06/30/21 doxycycline hyclate 100 mg tablet 100 mg PO BID #180 tabs 07/03/21 acetic acid 2 % ear solution 3 drp otic (ear) Q6H 7 days #15 mL 11/02/21 clindamycin HCl 150 mg capsule 300 mg PO TID 7 days #42 caps 11/02/21 Previous Rx's Medication Instructions Recorded levothyroxine 75 mcg tablet 75 mcg PO DAILY@0600 #90 tabs 03/23/15 acetaminophen 500 mg tablet 1,000 mg PO Q8H PRN PRN pain #60 10/27/18 (Acetaminophen Extra Strength) tabs atorvastatin 20 mg tablet 20 mg PO QHS #90 tabs 06/19/19 lisinopril 10 mg tablet 10 mg PO DAILY #90 tabs 06/19/19 ofloxacin 0.3 % ear drops 5 drp otic (ear) BID 14 days #5 mL 05/12/21 doxycycline hyclate 100 mg tablet 100 mg PO BID #180 tabs 07/03/21 acetic acid 2 % ear solution 3 drp otic (ear) Q6H 7 days #15 mL 11/02/21 clindamycin HCl 150 mg capsule 300 mg PO TID 7 days #42 caps 11/02/21 Allergies Allergy/AdvReac Type Severity Reaction Status Date / Time vancomycin Allergy Severe Other (See Verified 06/30/21 10:05 Comment) Penicillins Allergy Intermediate Rash and Verified 06/30/21 10:05 chest heaviness sacubitril [From Entresto] AdvReac Intermediate jittery Verified 06/30/21 10:05 valsartan [From Entresto] AdvReac Intermediate jittery Verified 06/30/21 10:05 General Stated Complaint: EarProblem SUE: 4 Review of Systems ENT Ears, Nose, Mouth, and Throat: Reports as per HPI, Reports otalgia (Right) and Reports hearing loss PFSH All Active Problems (Updated 11/02/21 @ 20:01 by Keli Fitzgerald NP) Otitis externa, fungal, right ear (Acute) Atrial fibrillation (Chronic) Acute suppurative otitis media of right ear without spontaneous rupture of tympanic membrane (Acute) Chronic otitis externa of left ear (Acute) Sudden hearing loss (Acute) Sensorineural hearing loss, bilateral (Acute) Conductive hearing loss in left ear (Acute) Tympanic membrane central perforation (Acute) Acute suppurative otitis media of left ear without spontaneous rupture of ear drum (Acute) Macrocytosis (Acute) Tubular adenoma of colon (Acute) Hypothyroidism (Chronic) Congestive heart failure (Chronic) Sleep apnea (Acute) Periodic limb movement disorder (Acute) Osteoarthritis, knee (Acute) Pulmonary nodule (Acute) Venous insufficiency (Acute) Prediabetes (Acute) Hearing loss, bilateral (Acute) History of total left knee replacement (TKR) (Acute) 05/10/2018, partial arthrotomy rupture/infection with debredemnt and repair: 10/11/18 History of bilateral knee replacement (Acute) Laceration of right calf without complication (Acute 12/14/18) Gout of left elbow (Acute) Discharge planning issues (Acute) Acute anemia (Acute) Gout (Chronic) Advance directive on file (Acute) Right wrist pain (Acute) DVT prophylaxis (Acute) Bacteremia (Acute) Venous stasis (Acute) Hypertension (Chronic) Restrictive lung disease (Chronic) HKistory of Staphlococcal empyema. Atrial fibrillation (Chronic) Failed cardioversion, 02/15/12. On Xarelto and Beta blockers. Cardiomyopathy (Acute) LVEF 35-40%. High dose Furosemide and Spironolactone. Acute renal insufficiency (Acute) Infection of prosthetic left knee joint (Acute 10/11/18) Medical History Chronic renal insufficiency Baseline creatinine about 1.5. 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 Strep Obesity Primary osteoarthritis of both knees s/p bilateral TKA Recurrent gout Surgical History History of right hip replacement History of total right knee replacement 03/22/2018 Status post left hip replacement Social History Smoking/Tobacco Use Status: Former Tobacco Use Quit Date: 03/15/01 Smoking risk assessment performed?: Yes Alcohol Intake: former Drug use: Never Substance use type: does not use Current gender identity: male What type of physical activity do you participate in: none Do you feel safe at home: Yes Do you feel safe in your relationship?: Yes Exam HENMT Ears: TM abnormal (Dark, Fungal appearance,) Course Vital Signs Vital signs: Vital Signs Temperature 36.5 C 11/02/21 16:08 Pulse 58 L 11/02/21 16:08 Respiratory Rate 18 11/02/21 16:08 Blood Pressure 101/55 L 11/02/21 16:08 Pulse Oximetry 95 11/02/21 16:08 Temperature 36.5 C 11/02/21 16:08 Temperature Source Temporal Artery Scan 11/02/21 16:08 Pulse 58 L 11/02/21 16:08 Respiratory Rate 18 11/02/21 16:08 Blood Pressure 101/55 L 11/02/21 16:08 Blood Pressure Position Sitting 11/02/21 16:08 Pulse Oximetry 95 11/02/21 16:08 Oxygen Delivery Method Room Air 11/02/21 16:08 Oxygen Flow Rate 0 11/02/21 16:08
== END 2021-11-02 20:25 | disposition home or self-care (01) ==
PROVIDERS: Emergency Provider Registered Nurse Emergency; PCP Family Medicine
DX: B36.9 Superficial mycosis, unspecified (principal); H62.41 Otitis externa in other diseases classified elsewhere, right ear; Z87.891 Personal history of nicotine dependence
CPT/HCPCS: 99283

== ENCOUNTER 2021-11-28 17:16 | Outpatient (REF) | payer BC, SELFPAY ==
[2021-11-28 20:38] LABS: Anion Gap 10.3 mmol/L (3-11); BUN 40 mg/dL (7-18); CO2 27.7 mmol/L (21.0-32.0); CREATININE 1.6 mg/dL (0.70-1.30); Calcium 9.7 mg/dL (8.5-10.1); Chloride 106 mmol/L (98-107); Estimated GFR 43.83 (mL/min/1.73m2); Glucose 86 mg/dL (74-106); Potassium 4.6 mmol/L (3.5-5.1); Sodium 144 mmol/L (136-145)
== END 2021-11-28 17:17 | disposition home or self-care (01) ==
LOC: NCHCN 17:16
PROVIDERS: PCP Family Medicine; Visit Provider Family Medicine
DX: I10 Essential (primary) hypertension (principal); I50.20 Unspecified systolic (congestive) heart failure; N18.30 Chronic kidney disease, stage 3 unspecified
CPT/HCPCS: 80048

== ENCOUNTER → 2021-12-11 02:53 | Outpatient (CLI) | payer BC, SELFPAY ==
--- NOTE | 2021-12-11 10:24 | DI.US_ITS ---
APPROVED REPORT EXAM: Comprehensive 2D, Doppler, and color-flow Echocardiogram Patient Location: Out-Patient Upper Cutter Out: Jackie Sierra RDCS (AE) Indications: LV function, Atrial fibrillation, Cardiomyopathy Other Information Study Quality: Adequate. Technically limited study due to body habitus. Conclusion Normal left ventricular wall thickness and chamber size. Estimated ejection fraction approximately 5 5% without wall motion abnormalities Right ventricle is moderately to severely dilated and hypocontractile Left atrium is moderately dilated. Right atrium is severely dilated The aortic valve is sclerotic and may be functionally bicuspid. There is no aortic stenosis or regur gitation Mitral annular calcification. Trace to mild mitral regurgitation Normal tricuspid valve with moderate regurgitation. Estimated right ventricular systolic pressure is 36 mmHg Dilated ascending aorta measuring 4.02 cm Wall motion Left Ventricle The left ventricle is normal size. The left ventricular systolic function is normal. The left ventric ular ejection fraction is within the normal range. There is normal left ventricular wall thickness. N o segmental wall motion abnormalities There is no ventricular septal defect visualized. LVEF is 55%. Right Ventricle Right ventricle is moderate to severely dilated. Right ventricle is moderately hypokinetic. The RVSP is 35.9mmHg. Atria Left atrium is moderately dilated. Right atrium is severely dilated. The interatrial septum is intact with no evidence for an atrial septal defect. Aortic Valve The Aortic valve is sclerotic. Aortic valve may be functionally bicuspid There is no aortic valvular stenosis. No aortic regurgitation is present. Mitral Valve Mild mitral annular calcification. No evidence of mitral valve stenosis. Trace to mild mitral regurgi tation. Tricuspid Valve The tricuspid valve is normal in structure. There is no tricuspid valve stenosis. Moderate tricuspid regurgitation. Pulmonic Valve Pulmonic valve is not well visualized. There is no pulmonic valvular stenosis. Trace pulmonic regurgi tation. Great Vessels The aortic root is normal in size. The ascending aorta is moderately dilated.4.02 cm Aortic arch is n ot well visualized. IVC is normal in size and collapses >50% with inspiration. Pericardium There is no pericardial effusion. 2D Dimensions IVSD d PLAX 1.27 cm M: 0.6-1.2 LV Vol A2C d MOD 115.5 mL LVPW d PLAX 1.27 cm M: 0.6 - 1.2 LV Vol A4C d MOD 139.5 mL LVID d PLAX 5.91 cm M: 4.2 - 5.8 LA vol/ BSA A2C s A-L 75.2 mL/m2 LVDs 4.45 cm M: 2.5 - 4.0 LA vol/ BSA A4C s A-L 54.2 mL/m2 Ao Root d 3.11 cm M: 3.1 - 3.7 LA Vol/ BSA Biplane s A-L 67.2 mL/m2 RA Area A4C 35.72 cm2 LA Area A4C s MOD 36.18 cm2 RA Vol/ BSA A4C s A-L 58.4 mL/m2 LA Area A2C s MOD 40.50 cm2 Ao Asc Diam d 4.02 cm M: 2.6 - 3.4 LV EF A4C MOD 45.1 % LV EF Teichholz 46.9 % LV EF A2C MOD 45.9 % LVEF (Herrera's) 44.81 % M: 52 - 72 LV EF Biplane MOD 44.8 % LV Volume 91.65 mL M: 62 - 150 SV 59.13 mL LV Volume Index 35.66 mL/m2 M: 34 - 74 SV Index 23.01 mL/m2 LV Vol Biplane MOD 132.0 mL FS 23.90 % M-Mode TAPSE 1.65 cm (M/F) >1.7 LV Diastology MV E' medial 0.087 (>0.07 m/s) MV E Vmax 0.75 (0.4-1.3 m/s) LV E/e MED 8.65 (<14) MV E' lateral 0.098 (>0.1 m/s) LV E/e LAT 7.70 (<14) MV E/E' medial 8.68 MV E/E' lateral 7.70 Aortic Valve LVOT Area 3.76 cm2 AoV Area Vmax 2.18 cm2 LVOT Vmax 0.78 m/s AoV Area/ BSA (Vmax) 0.85 cm2/m2 LVOT Mean Capo. 0.51 m/s SORAYA Mean Capo. 1.85 cm2 LVOT Peak Grad 2.4 mmHg SORAYA Mean Capo. Index 0.72 cm2/m2 LVOT Mean Grad 1.2 mmHg LVOT VTI 0.149 m LVOT Diam s 2.15 cm AoV Vmax 1.34 m/s Velocity Ratio 0.58 AoV Mean Capo. 1.03 m/s AoV Peak Grad 7.2 mmHg LVOT SV 56.13 mL AoV Mean Grad 4.6 mmHg AoV VTI 0.267 m AoV Area VTI 2.10 cm2 AoV Area/ BSA (VTI) 0.82 cm/m2 Mitral Valve MV DT 221 (160-240 msec) MV PHT 64 msec MV Area PHT 3.43 cm2 MV VTI 0.179 m MV Area VTI 3.13 (4.0-6.0 cm2) Pulmonary Valve PV Vmax 0.79 (0.5-1.5 m/s) RVOT Peak Gr. 1.55 mmHg PV Peak Grad 2.5 mmHg RVOT Mean Gr. 0.70 mmHg PV Mean Grad 1.3 mmHg RVOT VTI 0.111 m PV VTI 0.134 m RVOT Vmax 0.62 m/s Tricuspid Valve TR Peak Grad 32.9 mmHg TR Vmax 2.87 m/s RA Pressure 3.00 mmHg RVSP (TR) 35.9 mmHg
== END ==
PROVIDERS: PCP Family Medicine; Visit Provider Internal Medicine Cardiovascular Disease
DX: I42.9 Cardiomyopathy, unspecified (principal); I48.91 Unspecified atrial fibrillation
CPT/HCPCS: 93306

== ENCOUNTER 2021-12-30 07:50 | Outpatient (CLI) | payer BC, SELFPAY ==
--- NOTE | 2021-12-30 07:45 | RT.EKG_ITS ---
APPROVED REPORT Exam: Resting ECG Reason for Exam: afib Patient Location: O HR:69 bpm ECG Measurements Heart Rate 69 AXIS WY [id number] P [id number] QRSd 114 QRS -35 QT 374 T 23 QTc 401 Conclusion Atrial fibrillation...? atrial activity Low voltage Poor R wave progression
== END 2021-12-30 07:51 | disposition home or self-care (01) ==
LOC: DI.CARD 07:51
PROVIDERS: PCP Family Medicine; Visit Provider Internal Medicine Cardiovascular Disease
DX: I48.91 Unspecified atrial fibrillation (principal); R94.31 Abnormal electrocardiogram [ECG] [EKG]
CPT/HCPCS: 93010

== ENCOUNTER 2022-06-15 15:17 | Outpatient (REF) | payer BC, SELFPAY ==
[2022-06-15 20:52] LABS: HCT 46.3 % (40.0-50.0); MCH 32.5 pg (27.0-33.0); MCHC 32.4 % (32.0-36.0); MCV 100 fL (80-95); MPV 11.5 fL (8.0-11.0); Platelet Count 169 10^3/uL (130-400); RBC 4.62 10^6/uL (4.36-5.78); RDW 13.2 % (11.8-14.1); RDW-SD 48.9 fL; WBC 8.75 10^3/uL (4.4-10.8)
[2022-06-15 21:14] LABS: ALT 38 U/L (16-63); AST 33 U/L (15-37); Albumin 4.1 g/dL (3.4-5.0); Alkaline Phosphatase 87 U/L (46-116); BUN 47 mg/dL (7-18); Bilirubin, Total 0.8 mg/dL (0.2-1.0); CREATININE 1.6 mg/dL (0.70-1.30); Calcium 9.6 mg/dL (8.5-10.1); Chloride 105 mmol/L (98-107); Estimated GFR 43.56 (mL/min/1.73m2); Glucose 78 mg/dL (74-106); Potassium 4.5 mmol/L (3.5-5.1); Sodium 142 mmol/L (136-145); TSH 5.74 uIU/mL (0.36-3.74); Total Protein 6.9 g/dL (6.4-8.2)
[2022-06-15 21:20] LABS: Hemoglobin A1C 5.9 % (<5.7)
== END 2022-06-15 15:18 | disposition home or self-care (01) ==
LOC: NCHCN 15:17
PROVIDERS: PCP Family Medicine; Visit Provider Family Medicine
DX: E03.9 Hypothyroidism, unspecified (principal); R73.03 Prediabetes
CPT/HCPCS: 80053; 85027; 83036; 84443

== ENCOUNTER 2022-12-14 18:48 | Outpatient (REF) | payer BC, SELFPAY ==
[2022-12-14 22:46] LABS: Anion Gap 11.9 mmol/L (3-11); BUN 63 mg/dL (7-18); CO2 23.1 mmol/L (21.0-32.0); Calcium 10.1 mg/dL (8.5-10.1); Chloride 104 mmol/L (98-107); Estimated GFR 33.32 (mL/min/1.73m2); Glucose 97 mg/dL (74-106); Potassium 4.3 mmol/L (3.5-5.1); Sodium 139 mmol/L (136-145)
== END 2022-12-14 18:49 | disposition home or self-care (01) ==
LOC: NCHCN 18:48
PROVIDERS: PCP Family Medicine; Visit Provider Family Medicine
DX: I10 Essential (primary) hypertension (principal); N18.30 Chronic kidney disease, stage 3 unspecified
CPT/HCPCS: 80048

== ENCOUNTER 2023-06-12 19:22 | Emergency (ER) | payer BC, SELFPAY ==
[2023-06-12] VITALS (11 sets, daily range): BP systolic 118–136; BP diastolic 77–93; PULSE 66–85; RESP 17–24; TEMP 36.9; O2SAT 94–95
--- NOTE | 2023-06-12 19:15 | RT.EKG_ITS ---
APPROVED REPORT Exam: Resting ECG Reason for Exam: Chest Pain Patient Location: E HR:77 bpm ECG Measurements Heart Rate 77 AXIS ND [id number] P [id number] QRSd 116 QRS -38 QT 421 T 36 QTc 478 Conclusion sinus 77 PACs no stemi
--- NOTE | 2023-06-12 19:30 | DI.RAD_ITS ---
Exam(s) XR PORTABLE CHEST AP EXAM: XR PORTABLE CHEST AP CLINICAL HISTORY: shortness of breath TECHNIQUE: 2D digital imaging was performed of the chest. One image was obtained. An AP view was ob tained. COMPARISON: CR XR PORTABLE CHEST AP POST LINE from 10/19/2018 FINDINGS: There is poor inspiration. MEDIASTINUM: Normal. HEART: Cardiomegaly PULMONARY VASCULATURE: Normal. LUNGS: The left lung base is obscured and left basilar infiltrate can not be excluded. The right vipul g appears clear. PLEURAL SPACE: No pleural effusion or pneumothorax. BONE:Within normal limits for the patient's age. OTHER FINDINGS:Normal. IMPRESSION: Question of a left basilar infiltrate. DATA REPOSITORY: RADIATION DOSE DELIVERED:
[2023-06-12 19:56] LABS: BE (Venous) 0 mmol/L (-2-3); HCO3 (Venous) 25 mmol/L (23-28); O2 Sat (Venous) 71 %; TCO2 (Venous) 23 mmol/L (24-29); pCO2 (Venous) 43 mmHg (41-51); pH (Venous) 7.38 (7.31-7.41); pO2 (Venous) 38 mmHg
[2023-06-12 19:59] LABS: Abs Immature Grans 0.03 10^3/uL (0.0-0.06); Absolute Basophil Count 0.05 10^3/uL (0.0-0.2); Absolute Eosinophil Count 0.25 10^3/uL (0.0-0.7); Absolute Lymphocyte Count 1.65 10^3/uL (1.2-3.4); Absolute Neutrophil Count 5.94 10^3/uL (1.2-6.7); Basophils % 0.6; Eosinophils % 2.9; HCT 40.4 % (40.0-50.0); Immature Grans % 0.4; Lymphocytes % 19.4; MCHC 32.2 % (32.0-36.0); MCV 106 fL (80-95); Neutrophils % 69.7; Platelet Count 181 10^3/uL (130-400); RBC 3.82 10^6/uL (4.36-5.78); RDW 15.5 % (11.8-14.1); RDW-SD 60.8 fL; WBC 8.52 10^3/uL (4.4-10.8)
[2023-06-12 20:08] LABS: Diff Comment RBC Morph Reviewed; Macrocytosis 1+
[2023-06-12 20:13] LABS: INR 1.3 (0.9-1.1); PTT Activated 37.8 sec (23.6-32.8); Prothrombin Time 13.1 sec (9.1-11.1)
[2023-06-12 20:20] LABS: ALT 34 U/L (16-63); AST 27 U/L (15-37); Albumin 3.6 g/dL (3.4-5.0); Alkaline Phosphatase 82 U/L (46-116); Anion Gap 10.6 mmol/L (3-11); BUN 52 mg/dL (7-18); Bilirubin, Total 0.9 mg/dL (0.2-1.0); CO2 25.4 mmol/L (21.0-32.0); CREATININE 1.9 mg/dL (0.70-1.30); Calcium 9.3 mg/dL (8.5-10.1); Chloride 106 mmol/L (98-107); Estimated GFR 35.22 (mL/min/1.73m2); Glucose 83 mg/dL (74-106); Magnesium 2.2 mg/dL (1.8-2.4); NT-proBNP 5551 pg/mL (<300); Potassium 4.7 mmol/L (3.5-5.1); Sodium 142 mmol/L (136-145); Troponin I < 50 ng/L (< or =60)
[2023-06-12] MEDS: Furosemide 100 MG/10 ML VIAL 80 MG IVP (20:36)
--- NOTE | 2023-06-12 20:58 | DI.VRAD_ITS ---
PROCEDURE INFORMATION: Exam: XR Chest Exam date and time: 06/12/2023 7:58 PM Age: 78 years old Clinical indication: Shortness of breath TECHNIQUE: Imaging protocol: Radiologic exam of the chest. Views: 1 view. COMPARISON: CT CHEST WO 06/07/2020 11:12 AM FINDINGS: Lungs: Mild opacity in the left lower lung suspected. Pleural spaces: Unremarkable. No pleural effusion. No pneumothorax. Heart/Mediastinum: Cardiac silhouette is enlarged, unchanged. There is stable left pericardial fat pad. Vasculature: Moderate calcification of the arch of aorta. Bones/joints: Unremarkable. IMPRESSION: 1. Mild opacity in the left lower lung suspected, atelectasis versus infiltrate. 2. Stable mild cardiomegaly with prominent pericardial fat pad. Dictated and Authenticated by: Livan Pastrana MD. Ordering:JASON Brown MD
--- NOTE | 2023-06-12 22:08 | ED.GENADUL_ITS ---
Discharge Plan Disposition Patient Disposition: Home Condition: Fair Discharge Details Clinical Impression: Shortness of breath on exertion, CHF (congestive heart failure), Cardiomyopathy, Volume overload Primary Care Provider: Joshua Trivedi ED Provider: Brenton Gonzales Home Meds and New Rx's Prescriptions: No Action diltiazem HCl 120 mg capsule,extended release 24hr 120 mg PO DAILY Xarelto 15 mg tablet 15 mg PO DAILY Rx Instructions: must administer with evening meal spironolactone 25 mg tablet 12.5 mg PO DAILY metoprolol succinate 100 mg tablet extended release 24 hr 100 mg PO DAILY allopurinol 100 mg tablet 100 mg PO DAILY apple cider vinegar PO tumeric PO pyridoxine (vitamin B6) PO furosemide 40 mg tablet 40 mg PO DAILY atorvastatin 20 mg tablet 20 mg PO QHS acetaminophen [Acetaminophen Extra Strength] 500 mg tablet 1,000 mg PO Q8H PRN PRN (Reason: pain) Qty: 60 3RF lisinopril 10 mg tablet 10 mg PO DAILY Qty: 90 6RF doxycycline hyclate 100 mg tablet See Rx Instructions .ROUTE .COMPLEX Qty: 180 3RF Dose Instruction: Take 1 tablet by mouth twice daily Rx Instructions: Take 1 tablet by mouth twice daily multivitamin 1 EACH capsule 1 ea PO DAILY glucosamine sulfate 2KCl 1,000 MG tablet 2 cap PO BID Fish Oil 1 EACH capsule 1 cap PO QAM levothyroxine 75 MCG tablet 75 mcg PO DAILY@0600 Qty: 90 0RF cholecalciferol (vitamin D3) [Vitamin D3] 1,000 unit Capsule 1,000 unit PO DAILY Probiotic Complex 25 billion cell -100 mg Capsule 1 cap PO DAILY cyanocobalamin (vitamin B-12) [Vitamin B-12] 500 mcg Tablet 500 mcg PO DAILY ascorbic acid (vitamin C) [Vitamin C] 500 mg tablet 1,000 mg PO DAILY vitamin B complex Tablet 1 tab PO QAM Discharge Instructions Instructions: Heart Failure (ED) Additional Instructions: please increase your lasix doses for the next few days and take 80mg twice daily until you see your PCP on Wednesday Return with worsening shortness of breath, not making urine, chest pain, or low oxygen levels Discharge Data Discharge Date/Time-TO BE ENTERED AT DEPARTURE: 06/12/23 20:52 HPI General Date/Time Provider Initiated Documentation: 06/12/23 19:42 . Limitations to Documentation: no limitations . Information obtained by: patient . HPI Narrative: 78-year-old gentleman with past medical history of CHF, A-fib, hypertension, cardiomyopathy presents for evaluation of shortness of breath. Patient was referred here by an urgent care. has noted that over the last 5 days she has noted that he has had increased shortness of breath, worse with exertion. He has had some worsening of his chronic baseline swelling of his lower legs. Patient has recently had his Lasix decreased by his PCP and is only taking 80 mg once daily. Patient reports that he knows that he is kind of sick, but does not feel like he is on the floor. He denies any chest pain. Related Data Home Medications Medication Instructions Recorded Confirmed multivitamin 1 ea PO DAILY 09/01/12 06/12/23 glucosamine sulfate 2KCl 1,000 mg 2 cap PO BID 01/20/13 06/12/23 tablet omega-3 fatty acids-fish oil 340 1 cap PO QAM 01/20/13 06/12/23 mg-1,000 mg capsule (Fish Oil) levothyroxine 75 mcg tablet 75 mcg PO DAILY@0600 #90 tabs 03/23/15 02/17/23 L.acidophilus-B.animalis-B.bifidum 1 cap PO DAILY 03/16/18 06/12/23 25 billion cell-FOS 100 mg capsule (Probiotic Complex) cholecalciferol (vitamin D3) 25 1,000 unit PO DAILY 03/16/18 06/12/23 mcg (1,000 unit) capsule (Vitamin D3) cyanocobalamin (vitamin B-12) 500 500 mcg PO DAILY 03/16/18 06/12/23 mcg tablet (Vitamin B-12) vitamin B complex 1 tab PO QAM 10/10/18 06/12/23 acetaminophen 500 mg tablet 1,000 mg (2 x 500 mg) PO Q8H PRN 10/27/18 06/12/23 (Acetaminophen Extra Strength) PRN pain #60 tabs diltiazem HCl 120 mg 120 mg PO DAILY 03/20/19 06/12/23 capsule,extended release 24 hr ascorbic acid (vitamin C) 500 mg 1,000 mg PO DAILY 05/08/19 06/12/23 tablet (Vitamin C) lisinopril 10 mg tablet 10 mg PO DAILY #90 tabs 06/19/19 02/17/23 spironolactone 25 mg tablet 12.5 mg PO DAILY 06/03/20 06/12/23 rivaroxaban 15 mg tablet (Xarelto) 15 mg PO DAILY 06/30/21 06/12/23 allopurinol 100 mg tablet 100 mg PO DAILY 12/30/21 06/12/23 metoprolol succinate 100 mg 100 mg PO DAILY 12/30/21 06/12/23 tablet,extended release 24 hr doxycycline hyclate 100 mg tablet See Rx Instructions .Route 07/15/22 06/12/23 .COMPLEX #180 tabs apple cider vinegar PO 08/19/22 02/17/23 pyridoxine (vitamin B6) PO 08/19/22 02/17/23 tumeric PO 08/19/22 02/17/23 atorvastatin 20 mg tablet 20 mg PO QHS 02/17/23 06/12/23 furosemide 40 mg tablet 40 mg PO DAILY 02/17/23 06/12/23 Previous Rx's Medication Instructions Recorded levothyroxine 75 mcg tablet 75 mcg PO DAILY@0600 #90 tabs 03/23/15 acetaminophen 500 mg tablet 1,000 mg (2 x 500 mg) PO Q8H PRN 10/27/18 (Acetaminophen Extra Strength) PRN pain #60 tabs lisinopril 10 mg tablet 10 mg PO DAILY #90 tabs 06/19/19 doxycycline hyclate 100 mg tablet See Rx Instructions .Route 07/15/22 .COMPLEX #180 tabs Allergies Allergy/AdvReac Type Severity Reaction Status Date / Time vancomycin Allergy Severe Other (See Verified 02/17/23 15:01 Comment) Penicillins Allergy Intermediate Rash and Verified 02/17/23 15:01 chest heaviness sacubitril [From Entresto] AdvReac Intermediate jittery Verified 02/17/23 15:01 valsartan [From Entresto] AdvReac Intermediate jittery Verified 02/17/23 15:01 pollen Allergy Uncoded 02/17/23 15:01 General Stated Complaint: SOB SUE: 3 Exam Narrative Exam Narrative: Review of Systems: All systems reviewed & are unremarkable except as noted in HPI and below Well-developed, obese, no acute distress NCAT PERRL, normal conjunctiva RRR, no murmur Unlabored respiratory effort diminished breath sounds, mild tachypnea, no hypoxia, crackles at bases distended abdomen , soft, nontender, umbilical hernia reducible Skin tear on left dorsal hand Bilateral lower extremity with chronic venous stasis changes and significant tense edema No rashes or lesions. no focal neurologic deficits Appropriate mood and affect Course Vital Signs Vital signs: Vital Signs Respiratory Rate 06/12/23 19:36 Temperature 36.9 C 06/12/23 19:41 Temperature Source Tympanic 06/12/23 19:41 Pulse 66 06/12/23 20:11 Pulse 71 06/12/23 20:30 Respiratory Rate 19 06/12/23 20:30 Respiratory Effort Normal 06/12/23 19:41 Respiratory Depth Normal 06/12/23 19:41 Respiratory Pattern Normal 06/12/23 19:41 Blood Pressure 121/82 06/12/23 20:30 Blood Pressure Mean 94 06/12/23 20:11 Blood Pressure Position Sitting 06/12/23 19:41 Pulse Oximetry 95 06/12/23 20:30 Oxygen Delivery Method Room Air 06/12/23 19:41 Oxygen Flow Rate 0 06/12/23 19:37 Lab/Test Results Lab/Test Results: Laboratory Tests Range/Units 06/12/23 06/12/23 19:54 22:42 WBC (4.4-10.8) 10^3/uL 8.52 RBC (4.36-5.78) 10^6/uL 3.82 L Hgb (13.5-17.5) g/dL 13.0 L Hct (40.0-50.0) % 40.4 MCV (80-95) fL 106 H MCH (27.0-33.0) pg 34.0 H MCHC (32.0-36.0) % 32.2 RDW (11.8-14.1) % 15.5 H Plt Count (130-400) 10^3/uL 181 MPV (8.0-11.0) fL 10.0 Immature Gran % 0.4 Neutrophils % 69.7 Lymphocytes % 19.4 Monocytes % 7.0 Eosinophils % 2.9 Basophils % 0.6 Nucleated RBC % (0.0-0.3) % 0.0 Absolute Neutrophils (1.2-6.7) 10^3/uL 5.94 Absolute Lymphocytes (1.2-3.4) 10^3/uL 1.65 Absolute Monocytes (0.1-0.8) 10^3/uL 0.60 Absolute Eosinophils (0.0-0.7) 10^3/uL 0.25 Absolute Basophils (0.0-0.2) 10^3/uL 0.05 RBC Morphology See Below Macrocytosis 1+ PT (9.1-11.1) sec 13.1 H INR (0.9-1.1) 1.3 H APTT (23.6-32.8) sec 37.8 H VBG pH (7.31-7.41) 7.38 VBG pCO2 (41-51) mmHg 43 VBG pO2 mmHg 38 VBG HCO3 (23-28) mmol/L 25 VBG Total CO2 (24-29) mmol/L 23 L VBG O2 Saturation % 71 VBG Base Excess (-2-3) mmol/L 0 Sodium (136-145) mmol/L 142 Potassium (3.5-5.1) mmol/L 4.7 Chloride (98-107) mmol/L 106 Carbon Dioxide (21.0-32.0) mmol/L 25.4 Anion Gap (3-11) mmol/L 10.6 BUN (7-18) mg/dL 52 H Creatinine (0.70-1.30) mg/dL 1.9 H Est GFR (CKD-EPI 2020) (mL/min/1.73m2) 35.22 Glucose (74-106) mg/dL 83 Calcium (8.5-10.1) mg/dL 9.3 Magnesium (1.8-2.4) mg/dL 2.2 Total Bilirubin (0.2-1.0) mg/dL 0.9 AST (15-37) U/L 27 ALT (16-63) U/L 34 Alkaline Phosphatase (46-116) U/L 82 Troponin I (< or =60) ng/L < 50 Cancelled NT-Pro-B Natriuret Pep (<300) pg/mL 5551 H Total Protein (6.4-8.2) g/dL 7.0 Albumin (3.4-5.0) g/dL 3.6 Medical Decision Making Emergent evaluation of shortness of breath. Initial differential includes CHF exacerbation,, ACS less likely given lack of chest pain, pneumonia. Patient is having some signs of respiratory distress but no evidence of hypoxia or significant tachypnea. have a high suspicion for volume overload. reports a decrease in his Lasix recently. Lab work ordered and reviewed. No leukocytosis or significant anemia. Normal platelet count. His INR is 1.3. He has no significant derangement on his blood gas. His creatinine is 1.9 which is baseline for him. Troponin is not elevated. His BNP is over 5000. Chest x-ray reviewed and independently interpreted, he has cardiomegaly and significant signs of pulmonary edema. The patient was given a dose of IV Lasix. Discussed hospitalization for continued diuresis however the patient refuses to be admitted. He has the capacity to make this decision. Risks and benefits were discussed with the patient. Using shared decision-making, we agreed that the patient can go home. Will increase his Lasix dose to 80 twice daily. He has a follow-up appointment scheduled with his PCP on Wednesday. Strict return precautions advised. Patient and understand this plan and agreed to this plan. Medical Records Medical records reviewed: Yes I reviewed the patient's medical records. Lab Data Lab results reviewed: Yes I reviewed the patient's lab results. Quality:SDOH Health Related Social Needs: No Data to Display PFSH All Active Problems Volume overload (Acute) CHF (congestive heart failure) (Chronic) Shortness of breath on exertion (Acute) Conductive hearing loss, external ear (Acute) Impacted cerumen, bilateral (Acute) Acute serous otitis media, right ear (Acute) Atrial fibrillation (Chronic) Acute suppurative otitis media of right ear without spontaneous rupture of tympanic membrane (Acute) Chronic otitis externa of left ear (Acute) Sudden hearing loss (Acute) Sensorineural hearing loss, bilateral (Acute) Conductive hearing loss in left ear (Acute) Tympanic membrane central perforation (Acute) Acute suppurative otitis media of left ear without spontaneous rupture of ear drum (Acute) Macrocytosis (Acute) Tubular adenoma of colon (Acute) Hypothyroidism (Chronic) Congestive heart failure (Chronic) Sleep apnea (Acute) Periodic limb movement disorder (Acute) Osteoarthritis, knee (Acute) Pulmonary nodule (Acute) Venous insufficiency (Acute) Prediabetes (Acute) Hearing loss, bilateral (Acute) History of total left knee replacement (TKR) (Acute) 05/10/2018, partial arthrotomy rupture/infection with debredemnt and repair: 10/11/18 History of bilateral knee replacement (Acute) Laceration of right calf without complication (Acute 12/14/18) Gout of left elbow (Acute) Discharge planning issues (Acute) Acute anemia (Acute) Gout (Chronic) Advance directive on file (Acute) Right wrist pain (Acute) DVT prophylaxis (Acute) Bacteremia (Acute) Venous stasis (Acute) Hypertension (Chronic) Restrictive lung disease (Chronic) HKistory of Staphlococcal empyema. Atrial fibrillation (Chronic) Failed cardioversion, 02/15/12. On Xarelto and Beta blockers. Cardiomyopathy (Acute) LVEF 35-40%. High dose Furosemide and Spironolactone. Acute renal insufficiency (Acute) Infection of prosthetic left knee joint (Acute 10/11/18) Medical History History of cardioversion Infected prosthesis of left hip August 2017. Strep Primary osteoarthritis of both knees s/p bilateral TKA Hip dislocation, right Hyperlipidemia Recurrent gout Obesity Chronic renal insufficiency Baseline creatinine about 1.5. Surgical History History of total right knee replacement 03/22/2018 History of right hip replacement Status post left hip replacement Social History Smoking/Tobacco Use Status: Former Tobacco Use Quit Date: 03/15/01 Smoking risk assessment performed?: Yes Alcohol Intake: former Drug use: Never Substance use type: does not use Current gender identity: male What type of physical activity do you participate in: none Do you feel safe at home: Yes Do you feel safe in your relationship?: Yes
== END 2023-06-12 20:52 | disposition home or self-care (01) ==
PROVIDERS: Emergency Provider Emergency Medicine; PCP Family Medicine
DX: R06.02 Shortness of breath (principal); I11.0 Hypertensive heart disease with heart failure; I50.32 Chronic diastolic (congestive) heart failure; I42.9 Cardiomyopathy, unspecified; E87.70 Fluid overload, unspecified; I48.20 Chronic atrial fibrillation, unspecified; Z79.01 Long term (current) use of anticoagulants; Z79.899 Other long term (current) drug therapy; Z87.891 Personal history of nicotine dependence
CPT/HCPCS: 80053; 82805; 93005; 96374; 99285; 71045; 83735; 83880; 84484; 85025; 85610; 85730; 93010; 99284; J1940

== ENCOUNTER 2023-06-16 17:16 | Outpatient (REF) | payer BC, SELFPAY ==
[2023-06-16 21:26] LABS: ALT 35 U/L (16-63); AST 30 U/L (15-37); Albumin 3.6 g/dL (3.4-5.0); Alkaline Phosphatase 100 U/L (46-116); Anion Gap 9.7 mmol/L (3-11); BUN 58 mg/dL (7-18); Bilirubin, Total 0.7 mg/dL (0.2-1.0); CO2 27.3 mmol/L (21.0-32.0); CREATININE 1.9 mg/dL (0.70-1.30); Calcium 9.3 mg/dL (8.5-10.1); Chloride 107 mmol/L (98-107); Estimated GFR 35.22 (mL/min/1.73m2); Glucose 106 mg/dL (74-106); Potassium 4.9 mmol/L (3.5-5.1); Sodium 144 mmol/L (136-145)
[2023-06-16 21:37] LABS: Hemoglobin A1C 5.5 % (<5.7)
[2023-06-18 15:48] LABS: TSH (W/Ref FT4) 9.09 uIU/mL (0.36-3.74)
[2023-06-18 16:46] LABS: FREE T4 1.05 ng/dL (0.76-1.46)
== END 2023-06-16 17:17 | disposition home or self-care (01) ==
LOC: NCHCN 17:16
PROVIDERS: PCP Family Medicine; Visit Provider Family Medicine
DX: I10 Essential (primary) hypertension (principal); R73.03 Prediabetes
CPT/HCPCS: 80053; 83036; 84439; 84443

== ENCOUNTER → 2023-08-12 01:11 | Outpatient (CLI) | payer BC, SELFPAY ==
--- NOTE | 2023-08-12 07:30 | DI.US_ITS ---
APPROVED REPORT EXAM: Comprehensive 2D, Doppler, and color-flow Echocardiogram Patient Location: Out-Patient Sisal Operator: Jackie Sierra RDCS (AE) Indications: Systolic (congestive) heart failure Other Information Study Quality: Adequate. Technically limited study due to body habitus. Conclusion Small left ventricular chamber size. Normal left ventricular wall thickness. Ejection fraction is 5 5% Diastolic septal flattening suggesting RV pressure overload Right ventricle is dilated, hypocontractile with paradoxic septal motion consistent with right ventri cular volume overload Both atria are severely enlarged Aortic valve is mildly sclerotic and trileaflet without stenosis or regurgitation Mitral annular calcification. Trace mitral regurgitation Moderate tricuspid regurgitation. Estimated right ventricular systolic pressure is 63 mmHg Ascending aorta measures 3.99 cm Wall motion Left Ventricle The left ventricle is small. The overall left ventricular systolic function appears normal. There is normal left ventricular wall thickness. Flattened septum consistent with right ventricular volume and pressure overload. There is no ventricular septal defect visualized. LVEF is 55%. Right Ventricle Right ventricle is severely dilated. Right ventricle is mildly hypokinetic. Atria Left atrium is severely dilated. Right atrium is severely dilated. The interatrial septum is intact w ith no evidence for an atrial septal defect. Aortic Valve The Aortic valve is mildly sclerotic. Aortic valve is trileaflet. There is no aortic valvular stenosi s. No aortic regurgitation is present. Mitral Valve Mild mitral annular calcification. No evidence of mitral valve stenosis. Trace mitral regurgitation. Tricuspid Valve The tricuspid valve is normal in structure. There is no tricuspid valve stenosis. Moderate tricuspid regurgitation. The RVSP is 63.3 mmHg. Pulmonic Valve The pulmonary valve is normal in structure. There is no pulmonic valvular stenosis. Trace to mild pul elvis regurgitation. Great Vessels The aortic root is normal in size. The ascending aorta is mildly dilated. Aortic arch is not well vis ualized. The IVC collapses <50% with inspiration. Pericardium There is no pericardial effusion. 2D Dimensions IVSD d PLAX 1.21 cm M: 0.6-1.2 Ao Root d 3.27 cm M: 3.1 - 3.7 LVPW d PLAX 1.20 cm M: 0.6 - 1.2 Ao Asc Diam d 3.99 cm M: 2.6 - 3.4 LVID d PLAX 5.89 cm M: 4.2 - 5.8 LVDs 4.19 cm M: 2.5 - 4.0 LV EF Teichholz 54.8 % FS 28.93 % LV EDV (Teich) 172.5 mL LV ESV (Teich) 77.9 mL LA Volume LA Length A4C 8.6 cm LA Length A2C 7.1 cm LA Area A4C s 37.88 cm2 LA Area A2C s 36.01 cm2 LA Vol A4C A-L 142.39 mL LA Vol A2C A-L 155.12 mL LA Vol Biplane A-L 163.2 mL LA Vol/BSA A4C A-L LA Vol/BSA A2C A-L LA Vol/BSA BP A-L 63.2 mL/m2 LA Vol A4C MOD 133.1 mL LA Vol A2C MOD 149.6 mL LA Vol BP MOD 154.3 mL RA Volume RA Area A4C 39.6 cm2 RA ESV A4C (A-L) 172.9mL RA Vol/BSA A4C A-L RA Length A4C 7.7 cm RA ESV A4C (MOD) 163.9mL LV Diastology MV E' medial 0.132 (>0.07 m/s) MV E Vmax 0.84 (0.4-1.3 m/s) MV E/E' MED 6.38 (<14) Aortic Valve AoV Vmax 1.40 m/s LVOT Vmax 0.82 m/s AoV Peak Grad 7.9 mmHg LVOT Peak Grad 2.7 mmHg AoV Area (Vmax) 2.11 cm2 LVOT VTI 0.147 m AoV VTI 0.262 m LVOT Mean Grad 1.5 mmHg AoV Mean Capo. 1.01 m/s LVOT SV 53.05 mL AoV Mean Grad 4.7 mmHg LVOT Diam s 2.10 cm AoV Area (VTI) 2.02 cm2 Velocity Ratio 0.59 Mitral Valve MV DT 172 (160-240 msec) MV Vmax TIPS 0.92 m/s MV Mean Grad 1.0 (<2mmHg) MV VTI 0.205 m Pulmonary Valve PV Vmax 0.90 (0.5-1.5 m/s) RVOT Vmax 0.57 m/s PV Peak Grad 3.3 mmHg RVOT Peak Gr. 1.3 mmHg PV Mean Capo 0.61 m/s RVOT VTI 0.117 m PV Mean Grad 1.7 mmHg RVOT Mean Gr. 0.6 mmHg Tricuspid Valve RA Pressure 8.00 mmHg TR Vmax 3.72 m/s TV S' 0.11 m/s TR Peak Grad 55.3 mmHg RVSP (TR) 63.3 mmHg
== END ==
PROVIDERS: PCP Family Medicine; Visit Provider Family Medicine
DX: I50.20 Unspecified systolic (congestive) heart failure (principal)
CPT/HCPCS: 93306

== ENCOUNTER 2023-08-14 18:18 | Emergency (ER) | payer BC, SELFPAY ==
[2023-08-14] VITALS (8 sets, daily range): BP systolic 101–143; BP diastolic 64–103; PULSE 0–186; RESP 5–36; O2SAT 49–77
--- NOTE | 2023-08-14 18:30 | RT.EKG_ITS ---
APPROVED REPORT Exam: Resting ECG Reason for Exam: Code Patient Location: E HR:80 bpm ECG Measurements Heart Rate 80 [place] [id number] P [id number] QRSd 171 QRS 153 QT 413 T -16 QTc 476 Conclusion Accelerated junctional rhythm...absent P waves, accele'd V-rate Nonspecific intraventricular conduction delay...QRSd >115mS, not LBBB/RBBB Inferior infarct, old...Q >35mS, II III aVF Anterior infarct, old...Q >40mS, abnormal ST-T, V2-V5
--- NOTE | 2023-08-14 18:56 | ED.GENADUL_ITS ---
Discharge Plan Disposition Patient Disposition: Discharge Details Clinical Impression: Cardiac arrest Primary Care Provider: Joshua Trivedi ED Provider: Laney Busch General Mode of arrival: EMS . Date/Time Provider Initiated Documentation: 08/14/23 18:42 . Limitations to Documentation: other (CPR in progress) . Information obtained by: family and EMS . HPI Narrative: 78yo M presenting via EMS with CPR in progress. EMS reports they were called to the house earlier for possible CHF/COPD excerbation, patient with shortness of breath at that time. He refused transport this morning. This evening when getting out of the car to walk into the house he felt very short of breath and then collapsed. Upon EMS arrival to the house was pulseless and apneic, initial rythym asystole. 4 rounds of epi prior to arrival; did have ROSC at one point approximately 15 minutes prior to arrival which deteriorated to PEA. Related Data Home Medications Medication Instructions Recorded Confirmed multivitamin 1 ea PO DAILY 09/01/12 06/12/23 glucosamine sulfate 2KCl 1,000 mg 2 cap PO BID 01/20/13 06/12/23 tablet omega-3 fatty acids-fish oil 340 1 cap PO QAM 01/20/13 06/12/23 mg-1,000 mg capsule (Fish Oil) levothyroxine 75 mcg tablet 75 mcg PO DAILY@0600 #90 tabs 03/23/15 02/17/23 L.acidophilus-B.animalis-B.bifidum 1 cap PO DAILY 03/16/18 06/12/23 25 billion cell-FOS 100 mg capsule (Probiotic Complex) cholecalciferol (vitamin D3) 25 1,000 unit PO DAILY 03/16/18 06/12/23 mcg (1,000 unit) capsule (Vitamin D3) cyanocobalamin (vitamin B-12) 500 500 mcg PO DAILY 03/16/18 06/12/23 mcg tablet (Vitamin B-12) vitamin B complex 1 tab PO QAM 10/10/18 06/12/23 acetaminophen 500 mg tablet 1,000 mg (2 x 500 mg) PO Q8H PRN 10/27/18 06/12/23 (Acetaminophen Extra Strength) PRN pain #60 tabs diltiazem HCl 120 mg 120 mg PO DAILY 03/20/19 06/12/23 capsule,extended release 24 hr ascorbic acid (vitamin C) 500 mg 1,000 mg PO DAILY 05/08/19 06/12/23 tablet (Vitamin C) lisinopril 10 mg tablet 10 mg PO DAILY #90 tabs 06/19/19 02/17/23 spironolactone 25 mg tablet 12.5 mg PO DAILY 06/03/20 06/12/23 rivaroxaban 15 mg tablet (Xarelto) 15 mg PO DAILY 06/30/21 06/12/23 allopurinol 100 mg tablet 100 mg PO DAILY 12/30/21 06/12/23 metoprolol succinate 100 mg 100 mg PO DAILY 12/30/21 06/12/23 tablet,extended release 24 hr apple cider vinegar PO 08/19/22 02/17/23 pyridoxine (vitamin B6) PO 08/19/22 02/17/23 tumeric PO 08/19/22 02/17/23 atorvastatin 20 mg tablet 20 mg PO QHS 02/17/23 06/12/23 furosemide 40 mg tablet 40 mg PO DAILY 02/17/23 06/12/23 doxycycline hyclate 100 mg tablet See Rx Instructions .Route 07/19/23 .COMPLEX #180 tabs Previous Rx's Medication Instructions Recorded levothyroxine 75 mcg tablet 75 mcg PO DAILY@0600 #90 tabs 03/23/15 acetaminophen 500 mg tablet 1,000 mg (2 x 500 mg) PO Q8H PRN 10/27/18 (Acetaminophen Extra Strength) PRN pain #60 tabs lisinopril 10 mg tablet 10 mg PO DAILY #90 tabs 06/19/19 doxycycline hyclate 100 mg tablet See Rx Instructions .Route 07/19/23 .COMPLEX #180 tabs Allergies Allergy/AdvReac Type Severity Reaction Status Date / Time vancomycin Allergy Severe Other (See Verified 02/17/23 15:01 Comment) Penicillins Allergy Intermediate Rash and Verified 02/17/23 15:01 chest heaviness sacubitril [From Entresto] AdvReac Intermediate jittery Verified 02/17/23 15:01 valsartan [From Entresto] AdvReac Intermediate jittery Verified 02/17/23 15:01 pollen Allergy Uncoded 02/17/23 15:01 General Stated Complaint: CodeBlue SUE: 1 Review of Systems Unobtainable due to endotracheal tube Course Vital Signs Vital signs: Vital Signs Pulse 120 H 08/14/23 18:51 Respiratory Rate 20 08/14/23 18:51 Pulse Oximetry 49 L 08/14/23 18:51 Pulse 120 H 08/14/23 18:51 Respiratory Rate 20 08/14/23 18:51 Respiratory Effort Mechanically Ventilated 08/14/23 18:55 Pulse Oximetry 49 L 08/14/23 18:51 Oxygen Delivery Method Mechanical Ventilator 08/14/23 18:51 Oxygen Flow Rate 0 08/14/23 18:51 Comment pt with ongoing CPR, HR from compression, PEA on monitor with pulse checks. 08/14/23 18:51 Medical Decision Making 78yo M presenting via EMS with CPR in progress. EMS reports they were called to the house earlier for possible CHF/COPD excerbation, patient with shortness of breath at that time and refused transport this morning. This evening when getting out of the car to walk into the house he felt very short of breath and then collapsed; family called 911 at 1721. Upon EMS arrival to the house was pulseless and apneic, initial rythym asystole. 4 rounds of epi prior to arrival; did have ROSC at one point approximately 15 minutes prior to arrival which deteriorated to PEA. Arrives intubated with 7.5F ETT with compressions in progress, IO in place, 5th dose of epi given immediately upon arrival to the ED. 2 PIVs obtained in addition to IO already in place. No reported hx of trauma, dialysis, or ingestions. Presumed hypoxic arrest. Crackles bilaterally, good air movement, O2 sat 80+% on vent during compressions. Pupils fixed and mid- dilated on arrival. Continued high quality compressions with epinephrine every 4 minutes, bicarb q 10 minutes ; ET CO2 in high 30's with compressions, rhythm consistently PEA, at one point asystole vs fine vfib so defibrillated with 200J after which he was clearly in aystole. No organized cardiac activity on bedside ultrasound. After 20 minutes of CPR in the ED he did briefly regain pulses, ET CO2 mid 30's, BP with adequate MAP, organized cardiac activity with globally poor EF. EKG obtained and shows accelerated junctional rhythm, no STEMI. Started on epi gtt; preparations made for CXR and central line placement. Subsequently re-arrested; pursued 4 more rounds of pulse checks, compressions, and epinephrine without return of sustained ROSC. Time of called at 1847 after over an hour since initial collapse with no sustained ROSC; family at bedside for much of code and at time of . Quality:SDOH Health Related Social Needs: No Data to Display PFSH All Active Problems (Updated 08/14/23 @ 23:36 by Laney Busch MD) Cardiac arrest (Acute) Conductive hearing loss, external ear (Acute) Impacted cerumen, bilateral (Acute) Acute serous otitis media, right ear (Acute) Atrial fibrillation (Chronic) Acute suppurative otitis media of right ear without spontaneous rupture of tympanic membrane (Acute) Chronic otitis externa of left ear (Acute) Sudden hearing loss (Acute) Sensorineural hearing loss, bilateral (Acute) Conductive hearing loss in left ear (Acute) Tympanic membrane central perforation (Acute) Acute suppurative otitis media of left ear without spontaneous rupture of ear drum (Acute) Macrocytosis (Acute) Tubular adenoma of colon (Acute) Hypothyroidism (Chronic) Congestive heart failure (Chronic) Sleep apnea (Acute) Periodic limb movement disorder (Acute) Osteoarthritis, knee (Acute) Pulmonary nodule (Acute) Venous insufficiency (Acute) Prediabetes (Acute) Hearing loss, bilateral (Acute) History of total left knee replacement (TKR) (Acute) 05/10/2018, partial arthrotomy rupture/infection with debredemnt and repair: 10/11/18 History of bilateral knee replacement (Acute) Laceration of right calf without complication (Acute 12/14/18) Gout of left elbow (Acute) Discharge planning issues (Acute) Acute anemia (Acute) Gout (Chronic) Advance directive on file (Acute) Right wrist pain (Acute) DVT prophylaxis (Acute) Bacteremia (Acute) Venous stasis (Acute) Hypertension (Chronic) Restrictive lung disease (Chronic) HKistory of Staphlococcal empyema. Atrial fibrillation (Chronic) Failed cardioversion, 02/15/12. On Xarelto and Beta blockers. Cardiomyopathy (Acute) LVEF 35-40%. High dose Furosemide and Spironolactone. Acute renal insufficiency (Acute) Infection of prosthetic left knee joint (Acute 10/11/18) Medical History History of cardioversion Infected prosthesis of left hip August 2017. Strep Primary osteoarthritis of both knees s/p bilateral TKA Hip dislocation, right Hyperlipidemia Recurrent gout Obesity Chronic renal insufficiency Baseline creatinine about 1.5. Surgical History History of total right knee replacement 03/22/2018 History of right hip replacement Status post left hip replacement Social History Smoking/Tobacco Use Status: Former Tobacco Use Quit Date: 03/15/01 Smoking risk assessment performed?: Yes Alcohol Intake: former Drug use: Never Substance use type: does not use Current gender identity: male What type of physical activity do you participate in: none Do you feel safe at home: Yes Do you feel safe in your relationship?: Yes
--- NOTE | 2023-09-14 07:21 | NUR.NOTE ---
Nursing Note:I needed the V number for this patient so that we could bill medications that were over road during the code of this patient and the verify the date that they were in the ER.
== END 2023-08-14 23:36 | disposition expired ==
PROVIDERS: Emergency Provider Student in an Organized Health Care Education/Training Program; PCP Family Medicine
DX: I46.9 Cardiac arrest, cause unspecified (principal); I48.91 Unspecified atrial fibrillation; I11.0 Hypertensive heart disease with heart failure; I50.9 Heart failure, unspecified; Z79.01 Long term (current) use of anticoagulants; Z87.891 Personal history of nicotine dependence
CPT/HCPCS: 92950; 93005; 99285; 93010